=== PATIENT | female | born 1940 | race Caucasian/White ===

== ENCOUNTER 2017-11-24 05:51 | Day surgery (SDC) | payer MEDICARE, OTHER, SELFPAY ==
--- NOTE | 2017-11-06 11:27 | EKG12_ITS ---
Test Reason : PRE OP Blood Pressure : / mmHG Vent. Rate : 056 BPM Atrial Rate : 056 BPM P-R Int : 174 ms QRS Dur : 088 ms QT Int : 406 ms P-R-T Axes : 044 055 042 degrees QTc Int : 391 ms Sinus bradycardia Otherwise normal ECG Confirmed by JEMMA LORA, MORA ([id number]), science editor JOSEPH PEPE ([id number]) on 11/07/2017 9:51:02 AM Referred By: Franny Hopkins Confirmed By:MORA EASTON MD
[2017-11-06 11:56] LABS: Absolute Lymphocyte Count 1.54 X10^3/ul (0.83-4.51); Absolute Neutrophil Count 3.2 X10^3/uL (2.0-7.7); Basophil# 0.03 X10^3/uL; Basophil% 0.6 % (0-1); Eosinophil# 0.27 X10^3/uL; Hematocrit 39.1 % (37-47); Hemoglobin 13.1 g/dl (12.0-15.0); Lymphocyte # 1.54 X10^3/ul (4.0); Lymphocyte % 28.8 % (19-41); Mean Corp Hgb Conc 33.5 g/gl (32-36); Mean Corpuscular Hgb 30.5 pg (27.0-32.0); Mean Corpuscular Volume 90.9 fL (81-99); Mean Platelet Vol. 9.4 fl (6.2-12.0); Monocyte# 0.35 X10^3/uL; Monocyte% 6.5 % (0-10); Neutrophil # 3.15 X10^3/uL (2.7-7.7); Neutrophil % 58.9 % (47-70); Platelet Count 222 K/mm3 (150-450); RBC Distribution Width CV 12.1 % (11.6-14.6); RBC Distribution Width SD 39.6 fl (35.1-43.9); White Blood Count 5.4 K/mm3 (4.4-11.0)
[2017-11-06 11:57] LABS: POSITIVE COUNT NO; POSITIVE DIFFERENTIAL NO; POSITIVE MORPHOLOGY NO
[2017-11-06 12:38] LABS: AST(SGOT) 20 U/L (15-37); Alanine Aminotransfer ALT/SGPT 21 U/L (13-56); Albumin, Serum 3.7 g/dL (3.2-5.0); Alkaline Phosphatase 74 U/L (45-117); Anion Gap 8 (5-15); BUN 30 mg/dL (7-18); BUN/Creat Ratio 30.5 RATIO (10-20); Calcium,Total 9.2 mg/dL (8.5-10.1); Chloride 105 mmol/L (98-107); Cholesterol 231 mg/dL (200); Creatinine, Serum 0.98 mg/dL (0.55-1.02); EST Glomerular Filtration Rate 59 mL/min (>60); Est Glom Filt Rate - Afr Amer 71 mL/min (>60); Globulin 3.8 g/dL (2.2-4.2); Glucose 94 mg/dL (74-106); High Density Lipoprotein 64 mg/dL; Potassium 4.1 mmol/L (3.5-5.1); Protein, Total 7.5 g/dL (6.4-8.2); Sodium Level 143 mmol/L (136-145); Triglycerides 96 mg/dL; Very Low Density Lipoprotein 19 mg/dL (5-40)
[2017-11-16 11:45] LABS: International Normalized Ratio 0.9; Prothrombin Time (Protime)PT. 12.6 SECONDS (11.7-14.9)
[2017-11-16 11:46] LABS: Partial Thromboplast Time 25.3 Seconds (24.1-36.2)
[2017-11-24] VITALS (11 sets, daily range): BP systolic 105–167; BP diastolic 50–70; PULSE 57–71; RESP 14–18; TEMP 36.3–36.8; O2SAT 94–100; BMI 24.6; BMI 26.1
--- NOTE | 2017-11-24 | HYST_PTH ---
PATIENT: PANCHO MUNSON LOC: [facility] [place] U#:[id number] AGE/SX: 77/F ROOM: RE11/24/[address]: Dr. Franny Hopkins MD : 1940 BED: DIS: 11/25/2017 SPEC #: [id number] RECD: 11/24/17 13:48 STATUS: STEFFI RETy #: [id number] ARCADIO: 11/24/17 00:[address]: Franny Hopkins DEPT: SURGICAL PATHOLOGY RECD BY: Zackery Carlson ENTERED: 11/24/17 13:48 SP TYPE: HYSTERECT OTHR DR: Dr. Ventura Noble MD Tissues: Uterus, NOS Procedures: Surgery Specimen Level V HEADER OPERATION: Vaginal hysterectomy, anterior repair PRE-OP DIAGNOSIS: Cystocele, midline and incomplete uterovaginal prolapse TISSUE SUBMITTED: Uterus, cervix and vaginal mucosa MICROSCOPIC DIAGNOSIS Uterus, cervix and vaginal mucosa, vaginal hysterectomy and anterior repair: Cervix ? chronic cystic cervicitis and squamous metaplasia. Endometrium ? focal simple cystic hyperplasia without atypia. Myometrium ? no pathologic diagnosis. Vaginal mucosa ? fragments of squamous mucosa, no pathologic diagnosis. SJ:rg 11/27/17 COMMENT Case has been reviewed in consultation with Dr. Fatima who concurs with the above diagnosis. IDC:AM MICROSCOPIC DESCRIPTION Slides are reviewed. GROSS DESCRIPTION Received in fixative is one container labeled with the patient's name and designated uterus, cervix and vaginal mucosa. The specimen consists of a hysterectomy specimen consisting of uterus with cervix weighing 43 gm and measuring 7 x 4 x 3 cm. The serosal surface is novoa, glistening. The ectocervical mucosa is unremarkable. The external os is oval in contour. The endocervical canal measures 2.5 cm in length and the endocervical mucosa is novoa, glistening and unremarkable. The triangular endometrial cavity measures 3.5 cm in length and 2 cm in width. The endometrium is novoa, glistening without any mass lesion and measures 0.1 cm in thickness. Sections of the uterine wall do not reveal any mass lesion and measures 1.5 cm in thickness. Also present in the container are detached pieces of mucosal tissue measuring in aggregate 5 x 5 x 1 cm. No mucosal lesion is identified. Multiple instrumentation shepherd are noted. Composite Layup Worker sections are submitted in seven cassettes as follows: 1 - anterior cervix, 2 - posterior cervix, 3 & 4 - anterior uterine wall, 5 & 6 - posterior uterine wall, 7 ? mucosal tissue. / JESSE:bill 11/24/17 TC:5 CPT: 27391
[2017-11-24] MEDS: Estrogens,Conj. 1 Tube 1 DOSE (09:00)
--- NOTE | 2017-11-24 09:08 | OP.PCM_ITS ---
Report of Operation Date of Procedure: 11/24/17 Pre-Operative Diagnosis: Hysterectomy Post-Operative Diagnosis: Same, vaginal hysterectomy Surgery/Procedure Performed:: Cystoscopy and bilateral catheter placement, ureteral catheters Description of Surgical Findings:: 77-year-old female who underwent a vaginal hysterectomy by Dr. Fowler, she will call me and the operating room to examine her bladder and the ureters since there was no methylene blue effluxing from either ureter for now about half an hour, inspected the bladder with a 30 and 70? lens basically a normal bladder cannulated the left ureteral orifice with a Glidewire and a Pollack catheter was able to advance his all the way up to the kidney, on the left side, . And then went to the right side and cannulated the right ureteral orifice and ureter with a Pollack and Glidewire and advanced all the way up to the right side without any problems I do not suspect any injury or any any problems drain the bladder and turned the case back over. Type of Anesthesia:: General - Admit VTE Documentation VTE Present on Admission: No VTE Mechan Device Prophylaxis: SCD's
[2017-11-24] MEDS: Polyethylene Glycol 3350 17 GM PACKET PO (12:48)
[2017-11-24] MEDS: Ibuprofen 400 MG Tablet PO ×3 (12:49→23:35)
[2017-11-24] MEDS: Lactated Ringers 1,000 ML 125 ML IV (14:30)
--- NOTE | 2017-11-24 19:47 | OP.PCM_ITS ---
Operative Report Date of Procedure: 11/24/17 PROCEDURE: Total vaginal hysterectomy. Anterior repair Preoperative diagnosis: Symptomatic , incomplete uterovaginal prolapse Grade I uterine prolapse Severe rectocele Postop diagnosis: Symptomatic , incomplete uterovaginal prolapse Grade I uterine prolapse Severe rectocele Anesthesia: General Lou Phillips MD Surgeon: Franny Hopkins MD Publications Production Supervisor: SEN Sommers RNFA Intraoperative consult: Garth Hollins MD For visualization/ cannulation of ureters given anuria immediately postop. EBL 100 cc Complications: none Drains: 100 cc prior to case, clear yellow urine Fluids: replacement LR Findings: On exam under anesthesia, the cervix has mild prolapse and is parous appearing. There are atrophic appearing fallopian tubes and ovaries bilaterally. Severe cystocele. urethral caruncle also noted. PATH: Uterus including cervix. Strips of vaginal mucosa. Narrative account: After the risks, benefits and alternatives of the procedure were reviewed with the patient , informed consent was obtained. The patient was taken to the Operative room with an IV running . She was positioned in the dorsal supine position on the operating table and given general anesthesia. Once asleep she was positioned to the dorsal lithotomy position and prepped and draped in the usual sterile fashion. A red Lua catheter was inserted to drain the bladder . The weighted speculum was placed into the vagina and a Leahey tenaculum was placed at the cervix. The cervical mucosal was then incised circumferentially using Bovie cautery and a knife. The anterior dissection was initiated, but the anterior cul de sac could not be easily entered at this point. The posterior cul de sac was entered by sharp dissection with Land scissors. The uterosacral ligaments were clamped bilaterally with curved Yung clamps and the pedicles divided and suture ligated and tagged for later identification. Next the cardinal ligament was clamped bilaterally and divided and suture ligated. Adequate hemostasis was noted. The anterior cul de sac peritoneum was then entered by sharp dissection and a narrow Ad retractor was placed into the anterior cul de sac to retract the bladder out of harm's way for the remainder of the case. The uterine arteries were clamped bilaterally , divided and suture ligated. Dissection then continued along each side of the uterus. Each pedicle was secured with a Yung clamp, divided and suture ligated until ultimately the uterine fundus was reached. The superior pedicles on each side were secured with a curved Yung clamp and the uterus was surgically amputated and set aside. The superior pedicle was then suture ligated, then free tied and tagged for identification. The superior pedicles were dry. There was bleeding noted along the posterior vaginal cuff and along the anterior vaginal cuff . The peritoneum was then closed with a running purse string suture of 1 Vicryl, incorporating the superior pedicles and uterosacral ligament tags. Excellent hemostasis was noted. Attention was then turned to the anterior repair. Allis clamps were used to grasp the anterior vaginal mucosa and the vaginal mucosa was dissected from from the underlying pubovesical cervical fascia from the vaginal cuff to a point approximately 1-2 cm away from the urethra. Em plication stitches of 1 Vicryl were placed, reducing the cystocele. The anterior vaginal mucosa was trimmed and the anterior vaginal incision was then repaired with interrupted stitches of 2-0 chromic. The vaginal cuff was then reapproximated with interrupted and fig of eight stitches of 0 Vicryl . Excellent hemostasis was noted. A vaginal packing of 1 in iodoform guaze with premarin cream was then placed. The Solan was attached to the Sloan bag and NO urine returned. Given this, a cystoscopy was performed. No indigo carmine is available (discontinued), so methylene blue was given IV. No spill was noted from the ureteral orifices. Peristalsis of the ureters was noted bilaterally. Dr. Hollins was consultated intraoperatively to rule out ureteral injury. He performed a cystoscopy and then easily placed guidewires through both urethers to approx 25 cm length. There was no injury to the ureters. Please see Dr. Hollins's intraoperative consultation / operative note. At this point then the procedure was terminated. The patient was returned to dorsal supine position and awakened from general anesthesia. She was then transferred to the recovery room bed in stable condition after tolerating the procedure well. Sponge, lap, needle and instrument counts were correct times two. Medications given preop and intraoperatively included: Cefotetan IV given interventional radiology tech to the operating room , Lasix and Methylene blue for visualization of the ureteral orifices during cystoscopy. For a complete listing of medications given preop and intraoperatively, please see the anesthesia record.
[2017-11-25 04:12] VITALS: BP 100/41; PULSE 75; RESP 16; TEMP 36.8; O2SAT 97
[2017-11-25] MEDS: Ibuprofen 400 MG Tablet PO (06:19)
--- NOTE | 2017-11-25 07:07 | PCM.PROGNOTE ---
Subjective: pod#1 tvh Anterior repair Doing well. Minimal pain. Tolerating out of bed well. Sloan removed. Vaginal packing still in place. States pain 1/10 on pain scale has been getting medications and these are effective. (tyl and ibuprofen) Objective: Sitting up in chair, walks to bed tolerated well. - Physical Exam General: Alert, Oriented x3, Cooperative, No apparent distress HEENT: Atraumatic Neck: Supple Abdomen: Soft, Non Tender - vaginal packing removed. Minimal old dischg noted. Neurological: Cranial nerves II-XII grossly intact Psych/Mental Status: Normal Affect Vital Signs Temp Pulse Resp BP Pulse Ox 98.3 F 75 16 100/41 L 97 11/25/17 04:12 11/25/17 04:12 11/25/17 04:12 11/25/17 04:12 11/25/17 04:12 Oxygen Flow Rate (L/min) 2 Oxygen Delivery Method Room Air Weight: 69.4 kg Body Mass Index (BMI) 26.1 Intake and Output for Last 24 Hours 11/23/18 //18 11/25/17 23:59 23:59 23:59 Intake Total 3222 / 3222 150 / 150 Output Total 2200 / 2200 400 / 400 Balance 1022 / 1022 -250 / -250 Medical Necessity - Tobacco Use Smoking Status: Never smoker Tobacco Use: Non-smoker Assessment/Plan POD#1 TVH and anterior repair Stable postop. Excellent urine output. Sloan out (and vaginal packing out) for voiding trial. IV to saline lock. Likely dischg later today if criteria met.
--- NOTE | 2017-11-25 07:13 | DCINST_ITS ---
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 No heavy lifting and nothing in vagina for 4-6 wk to allow healing. Call your doctor if you observe: Fever of 101 or Higher, Inability to have a bowel movement, Using more than one pad per hour, Calf discomfort, Uncontrolled pain Allergies/Adverse Reactions: Allergies No Known Allergies Allergy (Unverified 11/13/17 13:13) Medications to take at Discharge aspirin 81 mg tablet,delayed release 81 mg PO QDAY 11/02/17 cholecalciferol (vitamin D3) 2,000 unit capsule 2,000 unit PO QDAY 11/02/17 lovastatin 20 mg tablet 20 mg PO QODAY 11/02/17 multivitamin with iron tablet 1 tab PO QDAY 11/02/17 omega 1-hhb-fss-fish oil 1,000 mg (120 mg-180 mg) capsule 2,400 cap PO DAILY Primary Care Physician: Ventura Noble MD [Primary Care Provider] - Test Results: Test results from this visit will be discussed in further detail at your follow- up appointment, if applicable. Please Follow Up With: Franny Hopkins MD - [phone] When: in 2 wks as planned
[2017-11-25 07:35] VITALS: O2SAT 94
[2017-11-25 07:59] VITALS: BP 114/64; PULSE 75; RESP 18; TEMP 36.8; O2SAT 98
[2017-11-25 08:00] LABS: Hemoglobin 10.8 g/dl (12.0-15.0); Mean Corp Hgb Conc 34.8 g/gl (32-36); Mean Corpuscular Hgb 31.3 pg (27.0-32.0); Mean Corpuscular Volume 89.9 fL (81-99); Mean Platelet Vol. 9.3 fl (6.2-12.0); Platelet Count 204 K/mm3 (150-450); RBC Distribution Width CV 11.7 % (11.6-14.6); RBC Distribution Width SD 37.3 fl (35.1-43.9); Red Blood Count 3.45 M/mm3 (4.2-5.4); White Blood Count 8.2 K/mm3 (4.4-11.0)
[2017-11-25 08:15] LABS: Scan Indicated on CBC? Y/N NO
[2017-11-25 08:23] LABS: Creatinine, Serum 0.97 mg/dL (0.55-1.02); EST Glomerular Filtration Rate 59 mL/min (>60); Est Glom Filt Rate - Afr Amer 71 mL/min (>60); Estimated Creatinine Clearance 42.61 ml/min
== END 2017-11-25 11:42 | disposition home or self-care (01) ==
LOC: SDC 05:52 → AC 05:52 → ACINP 09:55 → MS3 10:28
PROVIDERS: Family Provider Internal Medicine; PCP Internal Medicine; Visit Provider Obstetrics & Gynecology
PROC: (CPT 58260; principal; 2017-11-24 07:10)
DX: N81.2 Incomplete uterovaginal prolapse (principal); N72 Inflammatory disease of cervix uteri; R34 Anuria and oliguria; N36.2 Urethral caruncle; Z78.0 Asymptomatic menopausal state; Z79.82 Long term (current) use of aspirin; Z79.899 Other long term (current) drug therapy; E78.00 Pure hypercholesterolemia, unspecified; Z85.828 Personal history of other malignant neoplasm of skin; G25.81 Restless legs syndrome
CPT/HCPCS: 52005; 57240; 58260; 36415; 80053; 80061; 82565; 85025; 85027; 85610; 85730; 86850; 86870; 86900; 88307; 93005; J7120; C1769; J1940; J2405

== ENCOUNTER → 2018-11-16 10:13 | Outpatient (CLI) | payer MEDICARE, OTHER, SELFPAY ==
[2018-09-20 15:00] VITALS: BMI 26.1
[2018-11-16 12:39] LABS: Absolute Lymphocyte Count 1.57 X10^3/ul (0.83-4.51); Absolute Neutrophil Count 3.3 X10^3/uL (2.0-7.7); Basophil# 0.02 X10^3/uL; Basophil% 0.4 % (0-1); Eosinophil# 0.19 X10^3/uL; Eosinophils% 3.5 % (0-5); Hematocrit 40.2 % (37-47); Hemoglobin 13.1 g/dl (12.0-15.0); Lymphocyte # 1.57 X10^3/ul (4.0); Lymphocyte % 28.8 % (19-41); Mean Corp Hgb Conc 32.6 g/gl (32-36); Mean Corpuscular Hgb 29.5 pg (27.0-32.0); Mean Corpuscular Volume 90.5 fL (81-99); Mean Platelet Vol. 9.7 fl (6.2-12.0); Monocyte# 0.35 X10^3/uL; Monocyte% 6.4 % (0-10); Neutrophil # 3.31 X10^3/uL (2.7-7.7); Neutrophil % 60.7 % (47-70); Platelet Count 227 K/mm3 (150-450); RBC Distribution Width CV 12.6 % (11.6-14.6); RBC Distribution Width SD 41.3 fl (35.1-43.9); Red Blood Count 4.44 M/mm3 (4.2-5.4); White Blood Count 5.5 K/mm3 (4.4-11.0)
[2018-11-16 12:50] LABS: POSITIVE COUNT NO; POSITIVE DIFFERENTIAL NO; POSITIVE MORPHOLOGY NO
[2018-11-16 13:00] LABS: Anion Gap 10 (5-15); BUN 28 mg/dL (7-18); BUN/Creat Ratio 28.1 RATIO (10-20); Calcium,Total 9.3 mg/dL (8.5-10.1); Chloride 108 mmol/L (98-107); Cholesterol 236 mg/dL (200); EST Glomerular Filtration Rate 58 mL/min (>60); Est Glom Filt Rate - Afr Amer 70 mL/min (>60); Glucose 101 mg/dL (74-106); High Density Lipoprotein 77 mg/dL; Potassium 4.4 mmol/L (3.5-5.1); Sodium Level 145 mmol/L (136-145); Triglycerides 101 mg/dL; Very Low Density Lipoprotein 20 mg/dL (5-40)
== END ==
PROVIDERS: Family Provider Internal Medicine; PCP Internal Medicine; Referring Provider Internal Medicine; Visit Provider Internal Medicine
DX: E78.5 Hyperlipidemia, unspecified (principal); E55.9 Vitamin D deficiency, unspecified
CPT/HCPCS: 36415; 80048; 80061; 82306; 85025

== ENCOUNTER → 2020-01-22 10:10 | Outpatient (CLI) | payer MEDICARE, OTHER, SELFPAY ==
[2018-09-20 15:00] VITALS: BMI 26.1
[2020-01-22 12:41] LABS: Vitamin D,25 Hydroxy 54.7 ng/mL
[2020-01-22 12:43] LABS: Absolute Neutrophil Count 5.1 X10^3/uL (2.0-7.7); Basophil# 0.02 X10^3/uL; Basophil% 0.3 % (0-1); Eosinophil# 0.21 X10^3/uL; Eosinophils% 2.7 % (0-5); Hematocrit 40.2 % (37-47); Hemoglobin 13.1 g/dL (12.0-15.0); Lymphocyte % 22.2 % (19-41); Mean Corp Hgb Conc 32.6 g/dL (32-36); Mean Corpuscular Hgb 30.9 pg (27.0-32.0); Mean Corpuscular Volume 94.8 fL (81-99); Mean Platelet Vol. 9.7 fl (6.2-12.0); Monocyte# 0.56 X10^3/uL; Monocyte% 7.3 % (0-10); NRBC Flagged by Analyzer 0 % (0-5); Neutrophil # 5.13 X10^3/uL (2.7-7.7); Neutrophil % 67.1 % (47-70); Platelet Count 237 K/mm3 (150-450); RBC Distribution Width SD 41.6 fl (35.1-43.9); Red Blood Count 4.24 M/mm3 (4.2-5.4); White Blood Count 7.7 K/mm3 (4.4-11.0)
[2020-01-22 12:58] LABS: ALB/GLOB Ratio 0.9 RATIO (0.9-2.4); AST(SGOT) 17 U/L (15-37); Alanine Aminotransfer ALT/SGPT 19 U/L (13-56); Albumin, Serum 3.7 g/dL (3.2-5.0); Alkaline Phosphatase 86 U/L (45-117); Anion Gap 5 (5-15); BUN 22 mg/dL (7-18); BUN/Creat Ratio 20.2 RATIO (10-20); Calcium,Total 9.4 mg/dL (8.5-10.1); Chloride 106 mmol/L (98-107); Cholesterol 205 mg/dL (200); Creatinine, Serum 1.09 mg/dL (0.55-1.02); EST Glomerular Filtration Rate 52 mL/min (>60); Est Glom Filt Rate - Afr Amer 62 mL/min (>60); Glucose 105 mg/dL (74-106); High Density Lipoprotein 69 mg/dL; Potassium 4.3 mmol/L (3.5-5.1); Protein, Total 7.7 g/dL (6.4-8.2); Sodium Level 141 mmol/L (136-145); Triglycerides 102 mg/dL; Very Low Density Lipoprotein 20 mg/dL (5-40)
== END ==
PROVIDERS: PCP Internal Medicine; Referring Provider Internal Medicine; Visit Provider Internal Medicine
DX: E78.5 Hyperlipidemia, unspecified (principal); E55.9 Vitamin D deficiency, unspecified
CPT/HCPCS: 36415; 80053; 80061; 82306; 85025

== ENCOUNTER → 2021-01-20 13:37 | Outpatient (CLI) | payer MEDICARE, OTHER, SELFPAY ==
[2021-01-20 13:40] LABS: Bacteria 0 SEEN /hpf (None Seen); Mucous, Urine 0 SEEN /hpf (<or=2+); Red Blood Cells-Urine 0 SEEN /hpf (0-5)
[2021-01-20 15:32] LABS: Absolute Lymphocyte Count 2.31 X10^3/uL (0.83-4.51); Absolute Neutrophil Count 4.2 X10^3/uL (2.0-7.7); Basophil# 0.03 X10^3/uL; Basophil% 0.4 % (0-1); Eosinophil# 0.31 X10^3/uL; Eosinophils% 4.2 % (0-5); Hematocrit 38.3 % (37-47); Hemoglobin 12.5 g/dL (12.0-15.0); Lymphocyte # 2.31 X10^3/ul (0.83-4.51); Mean Corp Hgb Conc 32.6 g/dL (32-36); Mean Corpuscular Hgb 29.6 pg (27.0-32.0); Mean Corpuscular Volume 90.8 fL (81-99); Mean Platelet Vol. 9.4 fl (6.2-12.0); Monocyte# 0.58 X10^3/uL; Monocyte% 7.8 % (0-10); NRBC Flagged by Analyzer 0 % (0-5); Neutrophil % 56.3 % (47-70); Platelet Count 244 K/mm3 (150-450); RBC Distribution Width SD 40.1 fl (35.1-43.9); Red Blood Count 4.22 M/mm3 (4.2-5.4); White Blood Count 7.5 K/mm3 (4.4-11.0)
[2021-01-20 15:47] LABS: Color, Urine Yellow (Yellow); Glucose, Dipstick Normal (Normal); Ketone-Dipstick Negative (Negative); Leukocyte Esterase-Dipstick 500 /ul (Negative); Nitrite-Dipstick Negative (Negative); Occult Blood-Urine 10 /ul (Negative); Protein-Dipstick Negative (Negative); Urine Bilirubin Dipstick Negative (Negative); Urine Clarity Cloudy (Clear); Urine Urobilinogen Normal (Normal)
[2021-01-20 15:49] LABS: AST(SGOT) 15 U/L (15-37); Alanine Aminotransfer ALT/SGPT 20 U/L (13-56); Albumin, Serum 3.6 g/dL (3.2-5.0); Alkaline Phosphatase 83 U/L (45-117); Anion Gap 4 (5-15); BUN 34 mg/dL (7-18); BUN/Creat Ratio 34.7 RATIO (10-20); Calcium,Total 9.4 mg/dL (8.5-10.1); Chloride 106 mmol/L (98-107); Cholesterol 237 mg/dL (200); Creatinine, Serum 0.98 mg/dL (0.55-1.02); EST Glomerular Filtration Rate 58 mL/min (>60); Est Glom Filt Rate - Afr Amer 70 mL/min (>60); Globulin 3.5 g/dL (2.2-4.2); Glucose 97 mg/dL (74-106); High Density Lipoprotein 58 mg/dL; Potassium 4.3 mmol/L (3.5-5.1); Protein, Total 7.1 g/dL (6.4-8.2); Sodium Level 139 mmol/L (136-145); Triglycerides 134 mg/dL; Very Low Density Lipoprotein 27 mg/dL (5-40)
[2021-01-20 16:21] LABS: Renal Epithelial Cells 0-5 SEEN /hpf (0-5); Squamous Epithelial Cells - UA 0-5 SEEN /hpf (5-10); White Blood Cells 25-50 SEEN /hpf (0-5)
== END ==
LOC: LABSPEC 13:39 → BIMLAB 13:40
PROVIDERS: PCP Internal Medicine; Referring Provider Internal Medicine; Visit Provider Internal Medicine
DX: R30.0 Dysuria (principal); E78.5 Hyperlipidemia, unspecified; I10 Essential (primary) hypertension
CPT/HCPCS: 36415; 80053; 80061; 81001; 85025; 87077; 87086; 87088; 87186

== ENCOUNTER → 2021-01-28 12:16 | Outpatient (CLI) | payer MEDICARE, OTHER, SELFPAY ==
--- NOTE | 2021-01-28 12:20 | BD_ITS ---
STUDY: DUAL ENERGY X-RAY ABSORPTIOMETRY / DXA REASON FOR EXAM: Female, 80 years old. Post menopausal TECHNIQUE: Bone Mineral Density (BMD) measurements of lumbar spine and bilateral hips were obtained. COMPARISON: Comparison is made with prior study to 02/10/2016. FINDINGS: Lumbar Spine (L1-L4): g/cm2 (1.212) / T-score (2.1) / Z-score (4.6) Findings are suggestive of normal bone density with a low fracture risk. Left Femur Total: g/cm2 (1.087) / T-score (1.2) / Z-score (3.2) Left Femoral Neck: g/cm2 (0.910) / T-score (0.6) / Z-score (2.8) Right Femur Total: g/cm2 (1.052) / T-score (0.9) / Z-score (2.9) Right Femoral Neck: g/cm2 (0.878) / T-score (0.3) / Z-score (2.5) The T-Scores on the most recent prior examination were: Lumbar Spine (L1-L4): There has been worsening of bone density since the previous examination. Left Femur Total: which represents a worsening of 3.6%. Right Femur Total: which represents a worsening of 4.2%. BD/Dexa Bone Density Study IMPRESSION: The patient is considered normal as outlined below according to World Jose Organization (WHO) criteria with a low fracture risk. There has been worsening of bone density since the previous examination. Reference Information: The T-score is the number of standard deviations above or below the standard which is normal for young adults at their peak bone mineral density. The World Health Organization (WHO) interprets the T-scores as follows: Above -1 Normal bone density Between -1 and -2.5 Osteopenia Equal to / or below -2.5 Osteoporosis As a practical clinical guideline, osteopenia may be graded as follows: Mild -1 through -1.5 Moderate -1.6 through -2.0 Severe -2.1 through -2.4 The Z-score is the number of standard deviations above or below age-matched controls. A Z-score of less than -1.5 would be considered abnormal. References: 1. NIH Osteoporosis and Related Bone Diseases www osteo.org 2. International Society for Clinical Densitometry www iscd.org 3. National Osteoporosis Foundation www nof.org Electronically Signed: Jonny Jiménez MD at 13:27 EDT , Service support ,
== END ==
PROVIDERS: PCP Internal Medicine; Referring Provider Internal Medicine; Visit Provider Internal Medicine
DX: Z78.0 Asymptomatic menopausal state (principal)
CPT/HCPCS: 77080

== ENCOUNTER 2021-08-16 09:42 | Outpatient (CLI) | payer MEDICARE, OTHER, SELFPAY ==
--- NOTE | 2021-08-16 09:51 | ART_ITS ---
Reason For Study: PVD Procedure A bilateral lower extremity continuous wave Doppler with analog waveform analysis,segmental pressures,and ankle brachial indexes without exercise. Left Segmental Pressures Left brachial= 153mmHg. Left posterior tibial artery = 181mmHg. Left dorsalis pedis artery = 166mmHg. Left digit = 151 mmHg. The left posterior tibial artery waveforms are triphasic. The left dorsalis pedis waveforms are triphasic. Right Segmental Pressures Right brachial= 152mmHg. Right posterior tibial artery = 164mmHg. Right dorsalis pedis artery = 179mmHg. Right digit = 150 mmHg. The right posterior tibial artery waveforms are biphasic. The right dorsalis pedis waveforms are triphasic. Indices The right resting ankle brachial index is 1.17. The right ankle brachial index by the posterior tibial artery is 1.07. The right ankle brachial index by the dorsalis pedis is 1.17. The right digital-brachial index is 0.98. The left resting ankle brachial index is 1.18. The left ankle brachial index by the posterior tibial artery is 1.18. The left ankle brachial index by the dorsalis pedis is 1.08. The left digital-brachial index is 0.99. VL/Lower Ext Art Exam w/o Exercis Interpretation Summary Biphasic and triphasic Doppler waveforms are noted at ankle level on the right. Triphasic Doppler waveforms are noted at ankle level on the left. Pulse-volume recordings appear satisfactory at all levels bilaterally, including low thigh, calf, ankle, and digital levels. Resti ng ankle-brachial indices are normal bilaterally. Digital-brachial indices are normal bilaterally . There is no evidence of significant arterial occlusive disease in the lower ext remities bilaterally. Ordering Physician: Dani Dukes Referring Physician: Ventura Noble Performed By: Lina Sands RVT, RDCS
== END 2021-08-16 23:59 | disposition home or self-care (01) ==
LOC: CVS 09:43
PROVIDERS: PCP Internal Medicine; Visit Provider Podiatrist
DX: I73.9 Peripheral vascular disease, unspecified (principal)
CPT/HCPCS: 93923

== ENCOUNTER 2021-08-31 10:03 | Outpatient (CLI) | payer MEDICARE, OTHER, SELFPAY ==
[2021-08-31 12:19] LABS: Absolute Lymphocyte Count 1.66 X10^3/uL (0.83-4.51); Absolute Neutrophil Count 2.7 X10^3/uL (2.0-7.7); Basophil# 0.03 X10^3/uL; Basophil% 0.6 % (0-1); Eosinophil# 0.22 X10^3/uL; Eosinophils% 4.4 % (0-5); Hematocrit 38.8 % (37-47); Hemoglobin 12.8 g/dL (12.0-15.0); Lymphocyte # 1.66 X10^3/ul (0.83-4.51); Lymphocyte % 33.3 % (19-41); Mean Corpuscular Hgb 30.3 pg (27.0-32.0); Mean Corpuscular Volume 91.9 fL (81-99); Mean Platelet Vol. 9.6 fl (6.2-12.0); Monocyte# 0.33 X10^3/uL; Monocyte% 6.6 % (0-10); NRBC Flagged by Analyzer 0 % (0-5); Neutrophil # 2.73 X10^3/uL (2.7-7.7); Neutrophil % 54.7 % (47-70); Platelet Count 239 K/mm3 (150-450); RBC Distribution Width CV 12.5 % (11.6-14.6); RBC Distribution Width SD 41.9 fl (35.1-43.9); Red Blood Count 4.22 M/mm3 (4.2-5.4)
[2021-08-31 12:27] LABS: ALB/GLOB Ratio 1.1 RATIO (0.9-2.4); AST(SGOT) 17 U/L (15-37); Alanine Aminotransfer ALT/SGPT 24 U/L (13-56); Albumin, Serum 3.7 g/dL (3.2-5.0); Alkaline Phosphatase 69 U/L (45-117); Anion Gap 3 (5-15); BUN 25 mg/dL (7-18); BUN/Creat Ratio 21.9 RATIO (10-20); Calcium,Total 9.2 mg/dL (8.5-10.1); Chloride 107 mmol/L (98-107); Creatinine, Serum 1.14 mg/dL (0.55-1.02); EST Glomerular Filtration Rate 49 mL/min (>60); Est Glom Filt Rate - Afr Amer 59 mL/min (>60); Globulin 3.3 g/dL (2.2-4.2); Glucose 112 mg/dL (74-106); Potassium 4.2 mmol/L (3.5-5.1); Sodium Level 141 mmol/L (136-145); Thyroid Stim Hormone (TSH) 2.26 uIU/mL (0.358-3.74)
== END 2021-08-31 23:59 | disposition home or self-care (01) ==
LOC: BIMLAB 10:05
PROVIDERS: PCP Internal Medicine; Referring Provider Nurse Practitioner Family; Visit Provider Nurse Practitioner Family
DX: Z01.818 Encounter for other preprocedural examination (principal); E78.5 Hyperlipidemia, unspecified
CPT/HCPCS: 36415; 80053; 84443; 85025

== ENCOUNTER → 2021-09-10 | Outpatient (CLI) | payer MEDICARE, OTHER, SELFPAY ==
--- NOTE | 2021-09-10 13:44 | EKG12_ITS ---
Test Reason : PRE OP Blood Pressure : / mmHG Vent. Rate : 068 BPM Atrial Rate : 068 BPM P-R Int : 170 ms QRS Dur : 082 ms QT Int : 370 ms P-R-T Axes : 069 060 046 degrees QTc Int : 393 ms Normal sinus rhythm Normal ECG Confirmed by SHELLEY LORA, MARIA ELENA ([id number]), photo editor MIKE ECHAVARRIA ([id number]) on 09/13/2021 11:36:17 AM Referred By: ROBIN Confirmed By:MARIA ELENA ROSA MD
== END | disposition home or self-care (01) ==
LOC: PSN 13:42
PROVIDERS: PCP Internal Medicine; Visit Provider Nurse Practitioner Family
DX: Z01.818 Encounter for other preprocedural examination (principal)
CPT/HCPCS: 93005

== ENCOUNTER 2021-09-16 10:58 | Day surgery (SDC) | payer MEDICARE, OTHER, SELFPAY ==
[2021-09-16] VITALS (8 sets, daily range): BP systolic 116–158; BP diastolic 54–74; PULSE 64–72; RESP 16; TEMP 36.1–36.5; O2SAT 95–100; BMI 24.5
--- NOTE | 2021-09-16 | BON_PTH ---
PATIENT: PANCHO MUNSON LOC: [facility] [place] U#:[id number] AGE/SX: 80/F ROOM: RE09/16/[address]: Dr. Dani Dukes DPM : 1940 BED: DIS: 09/16/2021 SPEC #: [id number] RECD: 09/16/21 16:17 STATUS: STEFFI RETy #: [id number] ARCADIO: 09/16/21 00:[address]: Dani Dukes DEPT: SURGICAL PATHOLOGY RECD BY: Zackery Carlson ENTERED: 09/17/21 10:52 SP TYPE: Bone OTHR DR: Dr. Ventura Noble MD Tissues: Bone of foot, NOS Procedures: Decalcification bone/plaque Surgery Specimen Level III HEADER OPERATION: Second toe proximal interphalangeal joint arthroplasty PRE-OP DIAGNOSIS: Hammertoe right second and third toes TISSUE SUBMITTED: Proximal phalangeal head of right second and third toes MICROSCOPIC DIAGNOSIS Proximal phalangeal head of right second and third toes: Pieces of bone with reactive changes, clinically hammertoes, right second and third toes. JESSE:bill 09/22/2021 MICROSCOPIC DESCRIPTION Slides are reviewed. GROSS DESCRIPTION Received in fixative is one container labeled with the patient's name and designated proximal phalangeal head of right foot second and third toes. The specimen consists of two irregular fragments of novoa bone that in aggregate measure 1.5 x 1.5 x 0.3 cm. The specimen is totally submitted in one cassette after decalcification. / AM:bill 09/17/2021 TC:5 CPT: 37654, 90862
[2021-09-16] MEDS: Lactated Ringers 1,000 ML 15 ML IV (11:52)
--- NOTE | 2021-09-16 12:45 | RAD_ITS ---
EXAM: XR RIGHT TOES, 2 OR MORE VIEWS CLINICAL INDICATION: PAIN -- 2ND TOE PROXIMAL INTERPHALANGEAL JOINT ARTHROPLASTY WITH 3RD TOE PROXIMAL AND DISTAL INTERPHALANGEAL JOINT ARTHROPLASTY TECHNIQUE: Frontal, lateral and oblique views of the toes of the right foot. This report was created using [employer] report generation technology. COMPARISON: None. FINDINGS: BONES/JOINTS: Osteotomy of the distal portion of the second and third proximal phalanx. No acute fracture. No dislocation. SOFT TISSUES: Unremarkable. No radiopaque foreign body. RAD/Toe(s) Min 2 Views IMPRESSION: Osteotomy of the distal portion of the second and third proximal phalanx. Electronically Signed: Keshawn Fournier MD at 16:50 EDT ,
[2021-09-16] MEDS: Cefazolin 2 GM in 0.9% Normal Saline 100 ML IV (13:35)
[2021-09-16] MEDS: Bacitracin 500 UNITS/GM PACKET (14:45)
--- NOTE | 2021-09-16 14:50 | OP.PCM_ITS ---
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 Patient was consented in our office plan for procedure was made. Patient was brought back to the operating placed comfortably in the supine position on the operating room table. Patient was induced under MAC anesthesia. Well-padded right ankle tourniquet was applied. Digital blocks were performed to the right second and third digit using 0.75% Marcaine plain 10 cc using standard technique to the right second and third digit. Right lower extremity was prepped prepped draped using typical aseptic manner. Was cleared by anesthesia right lower extremity was elevated exsanguinated and tourniquet was inflated to 250 mmHg. A linear incision was drawn along the course of the dorsal second and third digit incision was made from just distal to the proximal interphalangeal joint to just proximal to the metatarsal phalangeal joint over the second digit. This was made through the level of the epidermis dermis into the subcutaneous tissue using a 15 blade at this time blunt dissection was taken down the level of deep fascia and tendon and capsule region all bleeders were cauterized and any neurovascular structures were bluntly retracted prevent any injury. The proximal interphalangeal joint was identified and a transverse capsulotomy and tenotomy was performed at the level of this joint proximal phalangeal head was released of its medial lateral collateral ligaments and the plantar aspect of the capsule as well as flexor tendon were released as well. The extensor tendon was dissected off the proximal phalanx down to the level of metatarsophalangeal joint and the dorsal and medial and lateral aspects of the metatarsal phalangeal joint were released using 15 blade. Care was taken to avoid any injury to adjacent neurovascular structures. Using bone cutting forceps the proximal phalangeal head was removed adequate resection was noted via fluoroscopic imaging. Incision site was flushed with copious amounts of normal sterile saline digital deformity was noted to be reduced. The extensor tendon was then repaired using 4-0 Vicryl and subcutaneous closure was performed with 4-0 Vicryl simple interrupted technique followed by skin closure with running intradermal subcuticular stitch with 4-0 Monocryl. The same procedure was repeated for the right third digit. tourniquet was let down tourniquet time was noted to be 27 minutes adequate hemostasis was noted. Incision sites were then dressed with quarter inch Steri-Strips bacitracin Adaptic 4 x 4's Kerlix and Coban. Patient was transferred to PACU with vital signs stable and vascular status intact all digits for further monitoring prior to discharge. Patient tolerated procedure and anesthesia well in apparent satisfactory condition. Patient will be discharged home and will remain in heel weightbearing on the right in a surgical shoe. Pathologic specimens: Proximal phalangeal head from both the right second and third digit No complications Findings after intraoperative examination and fluoroscopic imaging there is noted to be adequate reduction of the digital deformities in all planes. Surgeon: Dani Dukes animal nutrition consultant: None (daja Swanson DPM, PGYI) Type of Anesthesia: Local MAC Specimen's removed: Proximal phalangeal head of the right second and third digit Drains: none Estimated Blood Loss (mL): minimal Complications none Admit VTE Documentation VTE Present on Admission: Yes VTE Mechan Device Prophylaxis: SCD's
== END 2021-09-16 16:24 | disposition home or self-care (01) ==
LOC: SDC 10:59 → AC 11:00
PROVIDERS: PCP Internal Medicine; Referring Provider Podiatrist; Visit Provider Podiatrist
PROC: (CPT 28285; principal; 2021-09-16 12:30)
DX: M20.41 Other hammer toe(s) (acquired), right foot (principal); I10 Essential (primary) hypertension; E78.00 Pure hypercholesterolemia, unspecified; E55.9 Vitamin D deficiency, unspecified; Z79.899 Other long term (current) drug therapy
CPT/HCPCS: 28285 ×2; 01480; 73660; 76000; 88304; 88305; 88311; J7120

== ENCOUNTER → 2021-10-27 | Outpatient (CLI) | payer MEDICARE, OTHER, SELFPAY ==
[2021-10-27 08:53] LABS: Mucous, Urine 0 SEEN /hpf (<or=2+); Red Blood Cells-Urine 0 SEEN /hpf (0-5)
[2021-10-27 12:35] LABS: Color, Urine Yellow (Yellow); Glucose, Dipstick Normal (Normal); Ketone-Dipstick Negative (Negative); Leukocyte Esterase-Dipstick Negative /ul (Negative); Nitrite-Dipstick Negative (Negative); Occult Blood-Urine Negative /ul (Negative); Protein-Dipstick Negative (Negative); Urine Bilirubin Dipstick Negative (Negative); Urine Clarity Clear (Clear); Urine Urobilinogen Normal (Normal); Urine pH 6.5 (5.0 - 8.0)
[2021-10-27 13:08] LABS: Bacteria RARE /hpf (None Seen); Squamous Epithelial Cells - UA 0-5 SEEN /hpf (5-10); White Blood Cells 0-5 SEEN /hpf (0-5)
== END | disposition home or self-care (01) ==
LOC: LABSPEC 08:52
PROVIDERS: PCP Internal Medicine; Referring Provider Internal Medicine; Visit Provider Internal Medicine
DX: N39.0 Urinary tract infection, site not specified (principal); R35.0 Frequency of micturition
CPT/HCPCS: 81001; 87086; 87088

== ENCOUNTER → 2022-02-04 | Outpatient (CLI) | payer MEDICARE, OTHER, SELFPAY ==
[2022-02-04 14:57] LABS: Absolute Lymphocyte Count 1.71 X10^3/uL (0.83-4.51); Absolute Neutrophil Count 4.9 X10^3/uL (2.0-7.7); Basophil# 0.04 X10^3/uL; Basophil% 0.5 % (0-1); Eosinophil# 0.11 X10^3/uL; Eosinophils% 1.5 % (0-5); Hematocrit 39.6 % (37-47); Hemoglobin 12.9 g/dL (12.0-15.0); Lymphocyte # 1.71 X10^3/ul (0.83-4.51); Lymphocyte % 23.5 % (19-41); Mean Corp Hgb Conc 32.6 g/dL (32-36); Mean Corpuscular Hgb 30.6 pg (27.0-32.0); Mean Corpuscular Volume 94.1 fL (81-99); Mean Platelet Vol. 9.2 fl (6.2-12.0); Monocyte% 6.9 % (0-10); NRBC Flagged by Analyzer 0 % (0-5); Neutrophil % 67.3 % (47-70); Platelet Count 244 K/mm3 (150-450); RBC Distribution Width CV 13.2 % (11.6-14.6); RBC Distribution Width SD 45.8 fl (35.1-43.9); Red Blood Count 4.21 M/mm3 (4.2-5.4); White Blood Count 7.3 K/mm3 (4.4-11.0)
[2022-02-04 15:20] LABS: AST(SGOT) 18 U/L (15-37); Alanine Aminotransfer ALT/SGPT 28 U/L (13-56); Albumin, Serum 3.5 g/dL (3.2-5.0); Alkaline Phosphatase 65 U/L (45-117); Anion Gap 5 (5-15); BUN 25 mg/dL (7-18); BUN/Creat Ratio 27.2 RATIO (10-20); Calcium,Total 9.5 mg/dL (8.5-10.1); Chloride 105 mmol/L (98-107); Creatinine, Serum 0.92 mg/dL (0.55-1.02); EST Glomerular Filtration Rate 62 mL/min (>60); Est Glom Filt Rate - Afr Amer 76 mL/min (>60); Globulin 3.4 g/dL (2.2-4.2); Glucose 86 mg/dL (74-106); Protein, Total 6.9 g/dL (6.4-8.2); Sodium Level 140 mmol/L (136-145)
== END | disposition home or self-care (01) ==
LOC: BIMLAB 14:15
PROVIDERS: PCP Internal Medicine; Referring Provider Internal Medicine; Visit Provider Internal Medicine
DX: Z01.812 Encounter for preprocedural laboratory examination (principal)
CPT/HCPCS: 36415; 80053; 85025

== ENCOUNTER → 2022-02-18 | Outpatient (CLI) | payer MEDICARE, OTHER, SELFPAY ==
--- NOTE | 2022-02-18 13:19 | CT_ITS ---
STUDY: CT LEFT SHOULDER REASON FOR EXAM: Female, 81 years old. Osteoarthritis. Surgical planning. RADIATION DOSAGE (If Supplied By Facility): CTDIvol = ( 22.49 ) mGy, DLP = ( 646.29 ) mGycm TECHNIQUE: The patient was scanned in a multi detector CT scanner. High resolution transaxial imaging was performed without the administration of intravenous contrast material. Sagittal and coronal images were reconstructed. Individualized dose optimization techniques were used for this CT. COMPARISON: None. FINDINGS: There is mild osteoarthritis of the glenohumeral articulation, with mild articular joint space narrowing and mild osteoarthritic spurring. There is narrowing of the acromiohumeral space with impingement on the supraspinatus tendon. Normal glenoid rim, neck and visualized scapula. Normal humeral head, neck and tuberosities. Normal coracoid process. Normal visualized lateral clavicle. There is mild osteoarthritis with articular joint space narrowing. There is a Type II morphology (curved), with a neutral orientation. 2 minimal atrophy of the supraspinatus muscle. Remainder musculature appears normal. Question minimal fluid along the anterior aspect of the distal subscapularis muscle and tendon best seen on image [address]/Extremity Upper without Contra IMPRESSION: Degenerative changes shoulder. There is marked narrowing of the acromiohumeral space suggesting rotator cuff pathology. Electronically Signed: Leobardo Vieyra DO at 17:17 EDT ,
== END | disposition home or self-care (01) ==
LOC: CT 13:15
PROVIDERS: PCP Internal Medicine; Referring Provider Physician Assistant Surgical; Visit Provider Physician Assistant Surgical
DX: M19.012 Primary osteoarthritis, left shoulder (principal)
CPT/HCPCS: 73200

== ENCOUNTER 2022-03-17 14:37 | Observation (INO) | payer MEDICARE, OTHER, SELFPAY ==
--- NOTE | 2022-03-08 09:52 | RAD_ITS ---
EXAM: XR CHEST, 2 VIEWS CLINICAL INDICATION: PREOP TECHNIQUE: Frontal and lateral views of the chest. This report was created using [employer] report generation technology. COMPARISON: None. FINDINGS: LUNGS AND PLEURAL SPACES: Normal. No consolidation or edema. No pneumothorax. No effusion. HEART: Normal heart size. MEDIASTINUM: No mediastinal or hilar mass. BONES/JOINTS: No acute abnormality. SOFT TISSUES: Normal. RAD/Chest PA and Lateral IMPRESSION: No acute cardiopulmonary disease. Electronically Signed: Galileo Astorga MD at 10:20 EDT ,
[2022-03-08 10:42] LABS: Partial Thromboplast Time 24.5 Seconds (24.1-36.2); Prothrombin Time (Protime)PT. 12.7 SECONDS (11.7-14.9)
[2022-03-08 11:02] LABS: AST(SGOT) 18 U/L (15-37); Alanine Aminotransfer ALT/SGPT 22 U/L (13-56); Albumin, Serum 3.7 g/dL (3.2-5.0); Alkaline Phosphatase 65 U/L (45-117); Bilirubin, Direct 0.14 mg/dL (0.00-0.30); Globulin 3.1 g/dL (2.2-4.2); Protein, Total 6.8 g/dL (6.4-8.2)
[2022-03-17] VITALS (12 sets, daily range): BP systolic 154–174; BP diastolic 56–76; PULSE 46–73; RESP 16–18; TEMP 36–36.7; O2SAT 95–100; BMI 24.5; BMI 24.6
--- NOTE | 2022-03-17 | SHO_PTH ---
PATIENT: PANCHO MUNSON LOC: MS3 U#:[id number] AGE/SX: 81/F ROOM: [facility] RE03/17/[address]: Dr. Dylan Brandon DO : 1940 BED: 1 DIS: 03/18/2022 SPEC #: [id number] RECD: 03/17/22 12:38 STATUS: STEFFI WHITTINGTONTy #: [id number] ARCADIO: 03/17/22 00:[address]: Dylan Brandon DEPT: SURGICAL PATHOLOGY RECD BY: Zackery Carlson ENTERED: 03/17/22 12:38 SP TYPE: HUMERUS OTHR DR: Dr. Ventura Noble MD Tissues: Humerus, NOS Procedures: Decalcification bone/plaque Surgery Specimen Level IV HEADER OPERATION: ERAS, total shoulder replacement, reverse PRE-OP DIAGNOSIS: Osteoarthritis, insufficient rotator cuff TISSUE SUBMITTED: Left shoulder bone MICROSCOPIC DIAGNOSIS Left shoulder bone, total shoulder replacement/resection: Focal degenerative osteoarthritic changes. SJ:bill 03/23/2022 MICROSCOPIC DESCRIPTION Slides are reviewed. GROSS DESCRIPTION Received in fixative is one container labeled with the patient's name and designated left shoulder bone. The specimen consists of a discoid fragment of articular bone and cartilage measuring 4.8 x 4.5 x 2.9 cm. The articular surface is irregular and shows cartilage erosion and osteophyte formation. Sawmill Worker sections are submitted in two cassettes after decalcification. / AM:bill 03/17/2022 TC:5 CPT: 70116, 37871
[2022-03-17 08:01] LABS: Bedside Glucose 96 mg/dL (74-106)
[2022-03-17] MEDS: Lactated Ringers 1,000 ML 999 ML IV ×2 (08:02→09:30)
[2022-03-17] MEDS: Lactated Ringers 1,000 ML 75 ML IV (08:03)
[2022-03-17] MEDS: Magnesium 1 GM over 15 mins IV (08:03)
[2022-03-17] MEDS: Acetaminophen 500 MG Tablet 1000 MG PO ×3 (08:16→20:59)
[2022-03-17] MEDS: Gabapentin 600 MG Tablet PO (08:17)
[2022-03-17] MEDS: Lactated Ringers 1,000 ML 125 ML IV (09:30)
[2022-03-17] MEDS: Cefazolin 2 GM in 0.9% Normal Saline 100 ML IV (09:32)
[2022-03-17] MEDS: dexAMETHasone 10 MG/ML Vial IV (09:45)
[2022-03-17] MEDS: TXA 1000mg in NS100 100ml (IVPB at Closure) 660 MG IV (09:51)
[2022-03-17] MEDS: TXA 1000mg in NS100 100ml (IVPB at Incision) 660 MG IV (10:57)
--- NOTE | 2022-03-17 11:07 | RAD_ITS ---
STUDY: X-RAY - LEFT SHOULDER REASON FOR EXAM: Female, 81 years old. Post op -- AP and Lateral X-Ray of operative shoulder in PACU TECHNIQUE: 2 view(s) of the shoulder. COMPARISON: None. FINDINGS: The patient is status post left reverse shoulder replacement. There is good alignment. RAD/Shoulder min 2 Views IMPRESSION: Status post left reverse shoulder replacement. There is good alignment. Electronically Signed: Jonny Jiménez MD at 12:32 EDT ,
--- NOTE | 2022-03-17 11:22 | OP.PCM_ITS ---
Problems Associated Problem List Diagnoses (1) Arthritis of left shoulder region: Report of Operation Date of Procedure: 03/17/22 Description of Surgical Findings:: Preoperative diagnosis: Left shoulder rotator cuff arthropathy Postoperative diagnosis: Left shoulder rotator cuff arthropathy Procedure: Left reverse total shoulder arthroplasty Surgeon: Dylan Brandon DO Turnstile Attendant: Ese Strickland PA-C Anesthesia: General endotracheal Anesthesiologist: Sherman Mullen MD Complications: None apparent Drains: None Estimated blood loss: 150 cc Urinary output: None cc IV fluids: 1200 cc crystalloid Specimens: Humeral head Surgical implants: Tornier Aequalis PerFORM+ reversed lateralized baseplate 29 mm diameter with +3 mm offset, standard glenosphere cobalt chrome 36 mm diameter, Tornier perform humeral system 2+ short, reversed insert thickness +3 mm 36 mm diameter, central screw 35 mm, peripheral screws length 26, 30, 18 and 18 mm Surgical indications: This is a 81-year-old female with persistent left shoulder pain. Patient had limited range of motion of her left shoulder. X-rays revealed rotator cuff arthropathy. Patient had undergone multiple corticosteroid injections with diminishing results. I saw the patient in the outpatient setting. Given her failure of nonoperative management, I recommended a reverse shoulder arthroplasty. We obtained a preoperative CT scan for planning. The risks, benefits, alternatives the procedure was reviewed with the patient and he agreed to proceed. Risks included but were not limited to bleeding, infection, instability, loss of life or limb, risk of anesthesia, neurovascular injury, persistent pain, stiffness, prolonged immobilization, need for additional surgery, loosening of orthopedic hardware. She expressed understanding and wished to proceed with surgery. Surgical details: Patient arrived to [facility] morning of the procedure and was greeted by the same day surgery staff. Prior to her procedure, I greeted the patient in the preoperative holding area I identified the patient by name, record number, and date of . Informed consent was confirmed. The operative extremity was marked. All questions were answered to patient satisfaction. Patient was also seen by anesthesia staff. Interscalene block was administered prior to procedure for postoperative analgesia. At time of her procedure, patient was brought to the operative suite and po sitioned supine on a standard table with a beachchair attachment. General anesthesia was induced after all bony prominences were well-padded. Endotracheal tube was placed. After adequate anesthesia and securing the tube, we prepared the patient to be positioned in the beachchair position. A well- padded heading and priming tool setter was applied. The nonoperative extremity was placed in a well arm rios. She was then brought into the beachchair position after we confirmed an appropriate blood pressure. We then spun the bed 45 degrees. The operative extremity was then prepared. In the butterfly wing of the bed was removed and a well-padded torso strap was applied to secure the patient to the bed. The operative extremity was now free. We then prepped and draped the left upper extremity in normal, sterile orthopedic fashion. We then performed a timeout with all parties in attendance in agreement with the side, site, and operation be performed. 2 g Ancef was administered prior to incision by anesthesia staff, as well as 1 g TXA IV. No concerns were voiced and we elected to proceed. I first marked a standard deltopectoral incision just lateral to the coracoid process in line with the long axis of the humerus. Skin was sharply incised with 10 blade scalpel. I then dissected bluntly through the subcutaneous layers and found the fat stripe between the deltoid and pectoralis major. The cephalic vein was then identified and protected. It was retracted laterally with the deltoid. I then bluntly dissected underneath the deltoid with a Mayorga elevator. Ahsan retractor was placed. The upper 1 cm of the pectoralis major was released. I then identified the long head of the biceps tendon in the intertubercular groove. This was tenodesed in situ with #2 FiberWire. I then amputated the biceps proximal to the tenodesis site and followed the tendon to the supraglenoid tubercle where it was amputated. This identified the lesser and greater tuberosities. The supraspinatus was completely torn and retracted with an exposed greater tuberosity. I then performed a subscapularis peel while rotating the humerus externally. I tagged the subscapularis for possible repair later with a tagging suture. I then made a anatomic neck cut of the cartilaginous surface of the humeral head. A size 2 trial was selected. I placed a centering pin through mid metaphysis engaging the lateral cortex of the humerus. We then reamed to an appropriate depth with a size #2 reamer. I then sequentially broached to a size #2 stem. Rotation control was excellent however this broach achieve less fixation than desired in the axial plane. We sequentially broached for a size #2 + with better axial control and excellent rotational control. Broach was left in place. I then subluxed the humeral head posteriorly. I then placed retractors around the posterior and anterior glenoid to expose the glenoid. Glenoid labrum was removed with Bovie cautery protecting the axillary nerve, which was in close proximity to the glenoid neck. We then used the custom guide from [employer]ian[employer] to position our centering pin. Guide was removed and pin was analyzed and compared to preoperative planning. It appeared to be in appropriate position. This was reamed about 2 mm deep. We then remove the reamer and used the cannulated drill for the central 35 mm screw. Pin was removed. Post and baseplate was assembled on the back table. We then inserted the baseplate and central screw the assembled baseplate to an appropriate depth. A [employer] was used to confirm depth. Cortical screws then were placed in the peripheral for holes with good purchase. The baseplate had excellent purchase and the entire scapula would rotate with rotation of the baseplate. We then impacted the 36 mm glenosphere with a standard eccentricity. Locking screw was then placed in the centering hole of the glenosphere with excellent purchase. We then removed retractors and turned our attention back to the humerus. I placed a posterior O and subsequent +3 polyethylene insert. Both the trial inserts seemed appropriate however there was better range of motion with the +3 insert and better reproduction of deltoid and strap muscle tension. There was excellent range of motion and stability in all planes of motion. We selected this as our final size. We removed trials from the humerus after final dislocation. I copiously irrigated the canal. Broach was placed on hand and then impacted to an appropriate depth. Final +3 mm polyethylene insert was placed. Final reduction was then performed. I then copiously irrigated the wound with sterile Betadine solution and normal saline solution. Hemostasis was excellent. The axillary nerve was visualized and appeared to be intact. The subscapularis was then identified with a tagging suture. Repair would have been likely under undue tension and likely failed. I elected to not perform a subscapularis repair. We then copiously irrigated the wound with normal saline solution. We reapproximated the interval with 0 Vicryl suture. Subcutaneous layers were reapproximated with 2 -0 Vicryl suture. Skin was finally running V-Loc 3-0 Monocryl suture and Dermabond. A sterile silver Mepilex dressing was applied. Patient was then placed in a abduction pillow sling. Patient tolerated procedure well without complication. She was positioned back in the supine position extubated in the operative suite. She was transferred to [facility] and subsequently to PACU in stable condition. Need for skilled payroll administrative assistant: Ese Strickland PA-C was critical to the outcome of the case. During the course of the procedure the physician payroll administrative assistant played a vital role. Her intimate knowledge of my steps in the procedure aided in safe and expedient completion of the procedure. The PA played a vital role in positioning particularly in obtaining the appropriate positioning. The PA was also vital in the retraction of soft tissues during the exposure and projecting vital structures. The PA was also vital and protecting soft tissues during times of bony cuts. She also played a vital role in closure with my direct supervision. The PA was also important during reduction and dislocation of the joint and trials intraoperatively. Intraoperative medications: 2 g Ancef IV, 1 g TXA IV x2 Post Operative Plan: Weightbearing: Nonweightbearing left upper extremity, okay for pendulums. Range of motion of wrist elbow and hand as tolerated. Antibiotics: 2 g Ancef IV prior to incision DVT Prophylaxis: Aspirin 81 mg twice daily starting tomorrow Sloan: None Dressing: Maintain silver dressing x7 days. Okay to shower dressing on started on day 4 X-Rays: 2 weeks postop in the office Pain Medication: Oxycodone Rx upon discharge Follow-up: 2 weeks post-operatively with me in the office
--- NOTE | 2022-03-17 15:29 | CASEMGMT ---
RENITA LOPEZ Assessment: Face to Face with pt for initial transition planning/care coordination assessment. RN JOHN introduced self and role at [facility], pt voices understanding and consents to assessment. Pt is A/O x4 and answers all questions appropriately at this time. Pt in bed. Appears to be in no distress. Care providers, pharmacy, and demographics verified/updated. Admitting Dx: Lt Total Should Reverse. PCP: Real. Specialists: [facility]; Francois Brandon. Preferred [facility]acy: [facility]. Insurance: Medicare Part A B, [employer] [facility]. Prescription Benefit: yes. LW/HPOA: Pt reports having a LW/HPOA. Son, Dale, is reportedly the POA. Pt was advised the LW/HPOA paperwork is not on file. Encouraged Pt to bring in copies if desired. LNOK: Fazal Loaiza, Friend; Dale Marcelino, Son. Living Arrangements: Pt lives alone in a one story home. The home has a ramp, in place, from . Pt reports being I in ADLs. Transportation: Pt drives self and denies concerns with transportation. Pt's friend can assist with transportation if needed. DME/HHC/SNF: Pt denied any DME use but has a cane and grab bars from her . Pt denied any HHC, including therapy, currently or in the past. Pt denied any SNF stays. Pt's son is coming to the home to assist the pt after dc. Pt states no concerns with going home at time of dc. Pt states no further concerns/needs. CM to follow. Advised pt to ask CM if any further question/concerns/needs arise, voices understanding. Pt Goal: Home. Plan:?Home. Outpt [facility] up at [facility] in two weeks.
[2022-03-17] MEDS: Cefazolin 1 GM/50 ML BAG IV (17:16)
[2022-03-17] MEDS: Senna/Docusate Sodium 1 Tablet 2 TABLET PO (20:59)
[2022-03-18 01:37] VITALS: BP 129/58; PULSE 70; RESP 18; TEMP 36.3; O2SAT 96
[2022-03-18 01:41] VITALS: BP 129/58; PULSE 70; RESP 18; TEMP 36.3; O2SAT 96
[2022-03-18] MEDS: Cefazolin 1 GM/50 ML BAG IV (01:43)
[2022-03-18 01:54] VITALS: BMI 24.6
[2022-03-18 05:39] VITALS: BP 150/54; PULSE 60; RESP 18; TEMP 37.1; O2SAT 99
[2022-03-18] MEDS: oxyCODONE 5 MG Tablet PO (05:44)
[2022-03-18] MEDS: Acetaminophen 500 MG Tablet 1000 MG PO (05:44)
[2022-03-18 05:49] VITALS: BMI 24.6
[2022-03-18 07:17] LABS: Hematocrit 34.6 % (37-47); Hemoglobin 11.8 g/dL (12.0-15.0); Mean Corp Hgb Conc 34.1 g/dL (32-36); Mean Corpuscular Hgb 31.1 pg (27.0-32.0); Mean Corpuscular Volume 91.3 fL (81-99); Mean Platelet Vol. 9.2 fl (6.2-12.0); Platelet Count 242 K/mm3 (150-450); RBC Distribution Width CV 13.2 % (11.6-14.6); RBC Distribution Width SD 44.6 fl (35.1-43.9); Red Blood Count 3.79 M/mm3 (4.2-5.4)
[2022-03-18 07:40] LABS: Anion Gap 5 (5-15); BUN 15 mg/dL (7-18); BUN/Creat Ratio 16.6 RATIO (10-20); Calcium,Total 9.3 mg/dL (8.5-10.1); Chloride 105 mmol/L (98-107); EST Glomerular Filtration Rate 64 mL/min (>60); Est Glom Filt Rate - Afr Amer 77 mL/min (>60); Estimated Creatinine Clearance 41.24 ml/min; Glucose 105 mg/dL (74-106); Sodium Level 139 mmol/L (136-145)
--- NOTE | 2022-03-18 07:40 | PCM.PN.ORT ---
Subjective Subjective Patient seen and examined. Pain is controlled with current pain regiment. Denies fevers, chills, nausea vomiting, chest pain or shortness of breath. Objective Data Objective Data Vital Signs: Vital Signs Temp Pulse Resp BP Pulse Ox O2 Del Method O2 Flow Rate 98.8 F 60 18 150/54 H 99 Room Air 2 03/18/22 05:39 03/18/22 05:39 03/18/22 05:39 03/18/22 05:39 03/18/22 05:39 03/18/22 05:39 03/18/22 05:39 Oxygen Flow Rate (L/min) 2 Oxygen Delivery Method Room Air Weight: 138 lb 14.259 oz Body Mass Index (BMI) 24.5 Intake & Output: Intake and Output for Last 24 Hours 03/16/22 03/17/22 03/18/22 23:59 23:59 23:59 Intake Total 4188.25 / 4188.25 281.25 / 281.25 Balance 4188.25 / 4188.25 281.25 / 281.25 Lab / Micro Data Result Diagrams: 03/18/22 05:40 03/18/22 05:30 Labs: Laboratory Results - last 24 hr 03/17/22 07:39: POC Glucose 96 03/18/22 05:30: Sodium 139, Potassium 4.0, Chloride 105, Carbon Dioxide 29.0, Anion Gap 5, BUN 15, Creatinine 0.90, Estim Creat Clear Calc 41.24, Est GFR (MDRD) Af Amer 77, Est GFR (MDRD) Non-Af 64, BUN/Creatinine Ratio 16.6, Glucose 105, Calcium 9.3 03/18/22 05:40: WBC 9.0, RBC 3.79 L, Hgb 11.8 L, Hct 34.6 L, MCV 91.3, MCH 31.1, MCHC 34.1, RDW Std Deviation 44.6 H, RDW Coeff of Gareth 13.2, Plt Count 242, MPV 9.2 Micro: Microbiology 03/08/22 09:45 Swab (Method) Nasal Screen MRSA/MSSA - Final Radiography Diagnostic Testing: Radiology Impression Shoulder X-Ray 03/17/22 11:07 IMPRESSION: Status post left reverse shoulder replacement. There is good alignment. Electronically Signed: Jonny Jiménez MD at 12:32 EDT , Physical Exam Narrative General - A&Ox3, NAD. VSS/AF. Left upper Extremity - SILT & 5/5 in radial, ulnar, musculocutaneous, axillary, and median nerve distributions. Radial, ulnar pulses 2+. Compartments soft and compressible. BCR in finger tips. Incisional dressing C/D/I. Assessment & Plan Assessment/Plan (1) Arthritis of left shoulder region: PLAN: POD#1 s/p left reverse shoulder arthroplasty -Patient doing well this morning. - Pain control - PT/OT - DVT PPX -81 mg aspirin twice daily, SCDs, early mobilization - Case management - D/C planning -Discharge home today. Follow-up in 2 weeks for wound check and x-rays.
--- NOTE | 2022-03-18 07:42 | DCINST_ITS ---
Discharge Instructions Follow Up Care Test Results: Test results from this visit will be discussed in further detail at your follow- up appointment, if applicable. Discharge Plan Admission Admit Date/Time: 03/17/22 14:37 Attending Provider: Dylan Brandon Primary Care Provider: Ventura Noble Instructions Additional Instructions / Restrictions: Follow preprinted instructions from your surgeons office. Discharge Orders/Prescriptions Prescriptions: New sennosides-docusate sodium [Stool Softener-Stimulant Laxat] 8.6-50 mg Tablet 2 tab PO BID 7 Days Qty: 28 0RF aspirin 81 mg Tablet,Delayed Release (Dr/Ec) 81 mg PO DAILY@0800 28 Days Qty: 56 0RF acetaminophen 500 mg Tablet 1,000 mg PO Q8 14 Days Qty: 84 0RF meloxicam 7.5 mg Tablet 7.5 mg PO BID 30 Days Qty: 60 0RF oxycodone 5 mg Tablet 5 - 10 mg PO Q4H PRN PRN (Reason: Pain Score 4-10) 7 Days Qty: 42 0RF Continued multivitamin with iron tablet 1 tab PO QDAY cholecalciferol (vitamin D3) 2,000 unit capsule 2,000 unit PO QDAY ascorbic acid (vitamin C) 500 mg capsule 1,000 mg PO DAILY lovastatin 20 mg tablet 20 mg PO DAILY Qty: 90 3RF Referrals / Follow Up: Ventura Noble MD [Primary Care Provider] - Dylan Brandon DO [Med Staff - Active Staff] - Within 2 Weeks Disposition Disposition (needs filled in before D/C Order can be placed): Home, Self Care
[2022-03-18] MEDS: Aspirin E.C. 81 MG Tablet PO (08:00)
[2022-03-18] MEDS: Senna/Docusate Sodium 1 Tablet 2 TABLET PO (08:02)
[2022-03-18 08:08] VITALS: BP 125/61; PULSE 71; RESP 18; TEMP 36.7; O2SAT 98
[2022-03-18 10:29] VITALS: BP 148/63; PULSE 78; RESP 18; O2SAT 97
--- NOTE | 2022-03-18 11:51 | CASEMGMT ---
Social Work Per RNCM, pt states he has a living will and health care POA naming her son Dale Marcelino. Pt notified that Advance directives are not on file at [facility] and requested copy be brought in for scanning into EMR. JENNIFER Crane
--- NOTE | 2022-03-20 07:08 | PCM.DC.SUM ---
Providers Date of Admission: 03/17/22 Primary Care Physician: Dr. Ventura Noble MD Reason For Visit: LT TOTAL SHOULDER REVERSE Diagnosis Discharge Diagnosis (1) Arthritis of left shoulder region: Status: Acute Code(s): M19.012 - Primary osteoarthritis, left shoulder Plan: POD#1 s/p left reverse shoulder arthroplasty -Patient doing well this morning. - Pain control - PT/OT - DVT PPX -81 mg aspirin twice daily, SCDs, early mobilization - Case management - D/C planning -Discharge home today. Follow-up in 2 weeks for wound check and x-rays. Medications at Discharge Home Medications cholecalciferol (vitamin D3) 50 mcg (2,000 unit) capsule 2,000 unit PO QDAY 11/02/17 multivitamin with iron 1 tab PO QDAY 11/02/17 ascorbic acid (vitamin C) 500 mg capsule 1,000 mg PO DAILY 01/20/21 lovastatin 20 mg tablet 20 mg PO DAILY #90 tabs 10/06/21 acetaminophen 500 mg tablet 1,000 mg PO Q8 14 days #84 tabs 03/18/22 aspirin 81 mg tablet,delayed release 81 mg PO DAILY@0800 28 days #56 tabs 03/18/22 meloxicam 7.5 mg tablet 7.5 mg PO BID 30 days #60 tabs 03/18/22 oxycodone 5 mg tablet 5 - 10 mg PO Q4H PRN PRN Pain Score 4-10 7 days #42 tabs 03/18/22 sennosides 8.6 mg-docusate sodium 50 mg tablet (Stool Softener-Stimulant Laxative) 2 tab PO BID 7 days #28 tabs 03/18/22 Hospital Course Summary of Care Provided Minutes Spent on Discharge: 15 Hospital Course: Patient underwent uncomplicated left reverse shoulder arthroplasty for chronic rotator cuff tear and rotator cuff tear arthropathy 03/17/2022. She was placed in observation overnight for early convalescence and pain control. Pain was adequately controlled on postoperative day #1. She mobilized well with occupational therapy. She was able be safely discharged home in stable condition on postoperative day #1. No medical or surgical complications were encountered throughout her stay. Physical Exam Narrative General - A&Ox3, NAD. VSS/AF. Left upper Extremity - SILT & 5/5 in radial, ulnar, musculocutaneous, axillary, and median nerve distributions. Radial, ulnar pulses 2+. Compartments soft and compressible. BCR in finger tips. Incisional dressing C/D/I. Weight / BMI Weight Weight: 138 lb 14.259 oz Body Mass Index (BMI) 24.5 ABG / Lab / Microbiology Data Result Diagrams: 03/18/22 05:40 03/18/22 05:30 Microbiology: Microbiology 03/08/22 09:45 Swab (Method) Nasal Screen MRSA/MSSA - Final Meaningful Use Info Meaningful Use Diagnoses (Choose all that apply): None applicable Discharge Plan Admission Admit Date/Time: 03/17/22 14:37 Attending Provider: Dylan Brandon Primary Care Provider: Ventura Noble Instructions Additional Instructions / Restrictions: Follow preprinted instructions from your surgeons office. Discharge Orders/Prescriptions Prescriptions: New sennosides-docusate sodium [Stool Softener-Stimulant Laxat] 8.6-50 mg Tablet 2 tab PO BID 7 Days Qty: 28 0RF aspirin 81 mg Tablet,Delayed Release (Dr/Ec) 81 mg PO DAILY@0800 28 Days Qty: 56 0RF acetaminophen 500 mg Tablet 1,000 mg PO Q8 14 Days Qty: 84 0RF meloxicam 7.5 mg Tablet 7.5 mg PO BID 30 Days Qty: 60 0RF oxycodone 5 mg Tablet 5 - 10 mg PO Q4H PRN PRN (Reason: Pain Score 4-10) 7 Days Qty: 42 0RF Continued multivitamin with iron tablet 1 tab PO QDAY cholecalciferol (vitamin D3) 2,000 unit capsule 2,000 unit PO QDAY ascorbic acid (vitamin C) 500 mg capsule 1,000 mg PO DAILY lovastatin 20 mg tablet 20 mg PO DAILY Qty: 90 3RF Referrals / Follow Up: Ventura Noble MD [Primary Care Provider] - Dylan Brandon DO [Med Staff - Active Staff] - Within 2 Weeks Disposition Disposition (needs filled in before D/C Order can be placed): Home, Self Care
== END 2022-03-18 10:58 | disposition home or self-care (01) ==
LOC: SDC 14:59 → MS3 14:59
PROVIDERS: Anesthesiology; Admitting Provider Student in an Organized Health Care Education/Training Program; PCP Internal Medicine; Referring Provider Student in an Organized Health Care Education/Training Program; Visit Provider Student in an Organized Health Care Education/Training Program
PROC: (CPT 23472; principal; 2022-03-17 09:00)
DX: M19.012 Primary osteoarthritis, left shoulder (principal); I10 Essential (primary) hypertension; Z79.899 Other long term (current) drug therapy; E55.9 Vitamin D deficiency, unspecified; E78.00 Pure hypercholesterolemia, unspecified; Z86.2 Personal history of diseases of the blood and blood-forming organs and certain disorders involving the immune mechanism
CPT/HCPCS: 23472; 01638; 64415; 36415; 71046; 73030; 80048; 80076; 82962; 83735; 85027; 85610; 85730; 87081; 88305; 88311; 96361; 96365; 96366; 97110; 97166; 97535; 99218; 99251; C1776; J7120; G0378; G0463; J2405; J3475

== ENCOUNTER → 2023-05-17 | Outpatient (CLI) | payer MEDICARE, OTHER, SELFPAY ==
--- OUTSIDE RECORDS SUMMARY | 2023-05-17 11:54 | XMS RPT_ITS | CCD ---
Author Name Unknown Address [address] [place] [address] Organization [facility] Care Team Providers Care Assembler [employer] Name Role Phone ADELE MONTEIRO Unavailable Unavailable Real LORA, Ventura Morgan Unavailable [phone] Unavailable Primary Care Provider CJ Escobedo Attending Unavailable Medications Completed/Discontinued Medications Medication Drug Class(es) Dates Sig (Normalized) Sig (Original) aspirin 81 mg oral tablet (3 sources) Platelet Aggregation Inhibitor, Nonsteroidal Anti-inflammatory Drug Start: 08-15-2005 ASPIRIN 81 MG TAB Take one (1) tablet daily . 0 08/15/2005 Active Problems Active Problems Problem Classification Problem Date Documented Date Episodic/Chronic Disorders of lipid metabolism (3 sources) Hyperlipidemia; Translations: [Pure hypercholesterolemia] Onset: 08-15-2005 01-11-2017 Chronic Diverticulosis and diverticulitis (2 sources) Diverticulitis of large intestine without perforation or abscess without bleeding; Translations: [Diverticulitis of colon (without mention of hemorrhage)] Onset: 08-15-2005 08-15-2005 Chronic Nutritional deficiencies (1 source) Vitamin D deficiency; Translations: [Vitamin D deficiency, unspecified] Onset: 01-11-2017 01-11-2017 Chronic Other screening for suspected conditions (not mental disorders or infectious disease) (2 sources) Patient encounter status; Translations: [Encounter for screening for malignant neoplasm of colon] Onset: 08-11-2022 Episodic Unclassified (1 source) Laceration without foreign body of left hand, initial encounter / S61.412A(ICD-10) Onset: 01-17-2017 Unclassified (1 source) Elevated blood-pressure reading, without diagnosis of hypertension / R03.0(ICD-10) Onset: 01-17-2017 Unclassified (1 source) Unknown / UNK(Unknown) Onset: 01-17-2017 Unclassified (1 source) Hand Laceration / [id number]() Onset: 01-17-2017 Unclassified (1 source) Screening - health check; Translations: [Encounter for general adult medical examination without abnormal findings] Onset: 01-11-2017 01-11-2017 Past or Other Problems Problem Classification Problem Date Documented Date Episodic/Chronic Other and unspecified benign neoplasm (1 source) Other benign neoplasm of skin of trunk; Translations: [Other benign neoplasm of skin of trunk] 01-11-2011 Episodic Other and unspecified benign neoplasm (1 source) Hemangioma; Translations: [Hemangioma unspecified site] 01-11-2011 Episodic Other circulatory disease (1 source) Elevated blood-pressure reading without diagnosis of hypertension; Translations: [Elevated blood-pressure reading, without diagnosis of hypertension] Onset: 01-17-2017 Episodic Other circulatory disease (1 source) Telangiectasia disorder; Translations: [Nevus, non-neoplastic] 01-11-2011 Episodic Other diseases of bladder and urethra (2 sources) Urethral caruncle; Translations: [Urethral caruncle] Onset: 08-15-2005 08-15-2005 Episodic Other non-epithelial cancer of skin (1 source) History of malignant basal cell neoplasm of skin; Translations: [Personal history of other malignant neoplasm of skin] 01-11-2011 Episodic Other skin disorders (1 source) Other specified disorders of the skin and subcutaneous tissue; Translations: [Other specified disorders of the skin and subcutaneous tissue] Onset: 07-30-2014 08-06-2014 Episodic Other skin disorders (1 source) Lentigo; Translations: [Other melanin hyperpigmentation] 01-11-2011 Episodic Other skin disorders (1 source) Senile hyperkeratosis; Translations: [Other seborrheic keratosis] 01-11-2011 Episodic Residual codes; unclassified (2 sources) FH: Cardiovascular disease; Translations: [Family history of other cardiovascular diseases] Onset: 08-15-2005 08-15-2005 Episodic Unclassified (1 source) Laceration without foreign body of left hand, initial encounter; Translations: [Laceration without foreign body of left hand, initial encounter] Onset: 01-17-2017 Unclassified (2 sources) Hand Laceration; Translations: [Hand Laceration] Onset: 01-17-2017 Varicose veins of lower extremity (3 sources) Venous varices; Translations: [Asymptomatic varicose veins of unspecified lower extremity] Onset: 08-15-2005 01-11-2011 Episodic Viral infection (1 source) Verruca vulgaris; Translations: [Viral wart, unspecified] 01-11-2011 Episodic Results Test Name Value Interpretation Reference Range Facil ity Vital Signs Date Time Vital Sign Value Performing Clinician Facility 09-20-2022 10:05-0400 Diastolic blood pressure 59 mm[Hg] Cj Norton MD Work Phone: [facility] 09-20-2022 10:05-0400 Heart rate 64 /min Cj Norton MD Work Phone: [facility] 09-20-2022 10:05-0400 Respiratory rate 16 /min Cj Norton MD Work Phone: [facility] 09-20-2022 10:05-0400 SaO2% (BldA) [Mass fraction] 97 % Cj Norton MD Work Phone: [facility] 09-20-2022 10:05-0400 Systolic blood pressure 131 mm[Hg] Cj Norton MD Work Phone: [facility] 09-20-2022 08:03-0400 Body temperature 96.91 [degF] Cj Norton MD Work Phone: [facility] 09-20-2022 08:03-0400 Body weight 66.3 kg Cj Norton MD Work Phone: [facility] 08-11-2022 08:59-0400 Body height 165.1 cm Cj Norton MD Work Phone: [facility] 08-11-2022 08:59-0400 Body temperature 96.69 [degF] Cj Norton MD Work Phone: [facility] 08-11-2022 08:59-0400 Body weight 66.32 kg Cj Norton MD Work Phone: [facility] 08-11-2022 08:59-0400 Diastolic blood pressure 68 mm[Hg] Cj Norton MD Work Phone: [facility] 08-11-2022 08:59-0400 Heart rate 62 /min Cj Norton MD Work Phone: [facility] 08-11-2022 08:59-0400 SaO2% (BldA) [Mass fraction] 100 % Cj Norton MD Work Phone: [facility] 08-11-2022 08:59-0400 Systolic blood pressure 110 mm[Hg] Cj Norton MD Work Phone: [facility] 01-11-2017 13:35-0400 BMI (Body Mass Index) 23.72 kg/m2 Ventura Noble MD [facility] Work Phone: 01-11-2017 13:35-0400 Body Temperature 98.6 [degF] Ventura Noble MD [facility] Work Phone: 01-11-2017 13:35-0400 BP Diastolic 75 mm[Hg] Ventura Noble MD [facility] Work Phone: 01-11-2017 13:35-0400 BP Systolic 132 mm[Hg] Ventura Noble MD [facility] Work Phone: 01-11-2017 13:35-0400 Height 167.64 cm Ventura Noble MD [facility] Work Phone: 01-11-2017 13:35-0400 Pulse (Heart Rate) 70 /min Ventura Noble MD [facility] Work Phone: 01-11-2017 13:35-0400 Weight 66.68 kg Ventura Noble MD [facility] Work Phone: 07-30-2014 13:53-0400 BSA (Body Surface Area) 1.79 m2 Ventura Noble MD [facility] Work Phone: 07-30-2014 13:53-0400 Respiratory Rate 14 /min Ventura Noble MD [facility] Work Phone: Encounters Encounter Date Encounter Type Care Provider Facility Start: 09-20-2022 End: 09-20-2022 Subsequent hospital visit by physician Cj Norton MD Work Phone: Ambulatory Surgery Procedures Date Procedure Procedure Detail Performing Clinician Start: 09-20-2022 End: 09-20-2022 Hemorrhoidectomy internal rubber band ligations Cj Norton MD Work Phone: Start: 09-20-2022 End: 09-20-2022 Colonoscopy flx dx w/collj spec when pfrmd Cj Norton MD Work Phone: Start: 01-11-2017 Influenza vaccination Flu vaccine E misael Noble MD Start: 07-30-2014 End: 08-06-2014 Follow Up Appt 6 months New Chen MD Plan of Treatment Date Care Activity Detail Author Start: 05-15-2022 ADVANCE DIRECTIVE DISCUSSION ADVANCE DIRECTIVE DISCUSSION [facility] Start: 05-15-2022 DEPRESSION ASSESSMENT DEPRESSION ASSESSMENT [facility] Start: 01-11-2017 End: 01-11-2017 Follow Up Appt 6 months Follow Up Appt 6 months [facility] Work Phone: Start: 07-30-2014 End: 08-06-2014 Follow Up Appt 6 months Follow Up Appt 6 months [facility] Work Phone: Start: 05-28-2013 Urine microalbumin profile DTAP,TDAP,TD (2 - Tdap) [facility] Start: 08-16-2008 DIABETES SCREEN DIABETES SCREEN [facility] Start: 2006 BONE DENSITY BONE DENSITY [facility] Start: 2006 PNEUMOCOCCAL: 65+ (1 - PCV) PNEUMOCOCCAL: 65+ (1 - PCV) [facility] Start: 09-23-1991 SHINGRIX VACCINE (1 of 2) SHINGRIX VACCINE (1 of 2) [facility] End: 08-12-2023 Screening colonoscopy COLONOSCOPY SCREENING Endoscopy Routine Special screening for malignant neoplasms, colon 1 Occurrences starting 08/11/2022 until 08/12/2023 [facility] Work Phone: Immunizations Immunization Date Immunization Notes Care Provider Justin granado 01-11-2017 Seasonal trivalent influenza vaccine, adjuvanted, preservative free Ventura Noble MD [facility] Work Phone: 03-15-2005 influenza virus vaccine, unspecified formulation Cj Norton MD Work Phone: [facility] Work Phone: 05-28-2003 diphtheria and tetan us toxoids, adsorbed for pediatric use Cj Norton MD Work Phone: [facility] Work Phone: 05-18-2003 hepatitis B vaccine, adult dosage Cj Norton MD Work Phone: [facility] Work Phone: 04-28-2003 hepatitis B vaccine, adult dosage Cj Norton MD Work Phone: [facility] Work Phone: Payers Date Payer Category Payer Medicare [id number] 2021 Unknown MMO MMO MEDICARE SUPPLEMENT [id number] 2021-Present [phone] [address] [place] [address] Indemnity [id number] 2006 Medicare MEDICARE MEDICAR E A AND B [id number] 2006-Present [phone] [address] [address] [place] [address] Medicare [id number] 2006 Medicare [id number] Medicare [id number] Social History Date Type Detail Facility Start: 03-15-2011 Tobacco smoking stat us MTIS Never smoked tobacco [facility] Work Phone: Start: 03-15-2011 Tobacco use and exposure Smokeless tobacco non-user [facility] Work Phone: Start: 08-16-2022 End: 09-20-2022 Alcohol intake Current drinker of alcohol (finding) [facility] Start: 1940 Sex Assigned At Not on file C [facility] Progress note 10-20-2022 Note Date & Type Note Facility 10-20-2022 Note HNO ID: [id number] Author: Antonella Guzman Service: ? Author Type: ? Type: Progress Notes Filed: 10/20/2022 1:26 PM Note Text: 10-20...attempt to contact patient to r/s colonoscopy with Hemorrhoid banding Patient has phone number to return call Antonella Guzman [facility] Nurse Note 09-20-2022 Vivian Greenberg RN - 09/20/2022 11:13 AM EDTGmireille Greenberg RN - 09/20/2022 9:35 AM EDT Note Date & Type Note Facility 09-20-2022 Nurse Note Discharged to home, accompanied by friend . Denies complaints of pain or discomfort. Discharge instructions given to patient. .Passing flatus at intervals. Vivian Greenberg RN Arrived in phase II via cart. Left lateral position. Sedated, but responds to verbal stimuli. Color normal; skin warm and dry. Respirations wnl and unlabored. Abdomen soft and with + bowel sounds in quads X 4. Patient resting comfortably. Dr. Norton at bedside to review procedure and recommendations. Vivian Greenberg RN documented in this encounter [facility] History and physical note 09-20-2022 Cj Norton MD - 09/20/2022 7:53 AM EDT Note Date & Type Note Facility 09-20-2022 History and physical note Images from the original note were not included. HISTORY AND PHYSICAL Pancho Marcelino 1940 REFERRING PHYSICIAN: CHIEF COMPLAINT: Consult (hemorrhoids) HPI: The patient is a 81 year old female referred for endoscopy. Pancho notes the following GI complaints: Reno denies abdominal pain.. Pancho denies diarrhea. Reno denies constipation. Pancho denies a change in bowel habits. Pancho denies melena. Reno notes what she feels is hemorrhoids which cause occasional bright red blood per rectum. The patient notes no history of upper GI complaints. Patient did call back after visit noting she has a history of a rectocele and wanted to make sure that hemorrhoidal banding would not be a problem with that condition. PAST MEDICAL HISTORY PAST MEDICAL HISTORY Diagnosis Date ASYMPTOMATIC VARICOSE VEINS 08/15/2005 DIVERTICULITIS OF COLON W/O BLEED 08/15/2005 FAMILY HX CARDIOVAS DIS NEC 08/15/2005 Pure hypercholesterolemia URETHRAL CARUNCLE 08/15/2005 PAST SURGICAL HISTORY PAST SURGICAL HISTORY Procedure Laterality Date COLONOSCOPY FLX DX W/COLLJ SPEC WHEN PFRMD 02/24/2004 Colonoscopy HAMMERTOE REVISION, ONE TOE 10/2011 left foot OPEN REPAIR OF ROTATOR CUFF ACUTE Rotator cuff repair PAST SURGICAL HISTORY OF 1982 vein stripping PAST SURGICAL HISTORY OF 10/2012 and 02/2012 laser- vein on both legs CURRENT MEDICATIONS Current Outpatient Medications Medication Sig lovastatin (MEVACOR) 20 mg tablet Take 20 mg by mouth every morning. Coenzyme Q10 400 mg cap Take 1 capsule by mouth once daily. CENTRUM SILVER TAB Take one(1) tablet daily. ubidecarenone/omega-3/vit e(COQ-10 & FISH OIL 50 MG-300 (180-120)MG-30 UNIT CAP) (Patient not taking: Reported on 08/11/2022) ASPIRIN 81 MG TAB Take one (1) tablet daily . (Patient not taking: Reported on 08/11/2022) No current facility-administered medications for this visit. ALLERGIES: Patient has no known allergies. PERSONAL HISTORY: SOCIAL HISTORY Social History Tobacco Use Smoking status: Never Smokeless tobacco: Never Vaping Use Vaping Use: Never used Substance Use Topics Alcohol use: Yes Comment: Occaisional drink Drug use: No FAMILY HISTORY: FAMILY HISTORY FAMILY HISTORY Problem Relation Age of Onset Heart Father First RI at age 48, RI at age 56 Hypertension Brother angina questionable RI in 40s, Heart Paternal Grandmother mi Asthma Paternal Grandmother Diabetes Paternal Aunt Cancer Maternal Aunt colon cancer Cancer Maternal Aunt intestinal cancer REVIEW OF SYMPTOMS: The review of systems data was entered by the nurse and reviewed by me Nursing Notes: Rupa McnairKATELYN 08/11/2022 9:04 AM Signed REVIEW OF SYSTEMS: General: The patient denies fatigue, denies weight loss, denies weight gain, denies feeling hot, and denies feelings of cold. Eyes: The patient denies glaucoma, denies eye injury/surgery, wears glasses or contacts. Ear/Nose/Throat: The patient denies allergies, denies hayfever, denies ear infections, and denies bloody noses. Cardiovascular: The patient denies chest pain, denies heart disease, denies high blood pressure,denies cardiac stent, denies prior heart attack, denies irregular heart beat, NOTES high cholesterol, denies poor circulation, denies heart failure, other cardiac issues, denies claudication, denies cold feet, denies peripheral arterial stent. Respiratory: The patient denies tuberculosis, denies pneumonia, denies frequent cough, denies pulmonary embolism, denies shortness of breath, and denies coughing up blood. Gastrointestinal: The patient denies difficulty swallowing, denies acid reflux, denies ulcers, denies vomiting, denies jaundice/hepatitis, denies gallbladder problems, denies black or tarry stools, NOTES hemorrhoids, denies bleeding from rectum, denies diverticulitis, denies constipation, denies diarrhea, denies loss of stool control, and denies hernias. Kidney/Bladder: The patient denies kidney stones, denies urine infections, and denies bloody urine. Skin: The patient denies a history of skin cancer, denies bleeding/changing moles, and denies a history of skin rash. Neurologic: The patient denies a history of epilepsy/convulsions, denies headaches, denies head/spinal injuries, and denies stroke/TIA. Psychiatric: The patient denies psychiatric medications, denies depression, and denies voices, denies substance abuse. Endocrine: The patient denies thyroid disorders, denies diabetes, and denies hormonal problems. Hematologic: The patient denies a history of bruising, denies bleeding, and denies anemia, denies blood clots. Infections: The patient denies a history of measles and mumps, denies rheumatic fever, and denies sexually transmitted diseases. Musculoskeletal: The patient denies back pain/injury, denies back problems, denies sciatica, denies knee/foot trouble, denies arthritis, or denies gout. When was patient's last Mammogram screening? N/A Last Colonoscopy: 2003 Rupa Mcnair LPN PHYSICAL EXAMINATION: General: The patient is 81 year old female, well nourished, well hydrated in no acute distress. The patient is oriented to time, place, and person. VITALS: Blood pressure 110/68, pulse 62, temperature (!) 35.9 C (96.7 F), height 165.1 cm (5' 5 ), weight 66.3 kg (146 lb 3.2 oz), SpO2 100 %. Body mass index is 24.33 kg/m . HEENT: Normal cephalic, ataumatic, pupils are equally round, sclera are anicteric, mucous membranes are moist, oropharynx is clear. Neck has no masses, asymmetry or lymphadenopathy. Thyroid is unremarkable. Respiratory: Clear to auscultation and percussion. Normal respiratory excursion and pattern. Cardiac: Examination is regular rate and rhythm. Abdominal exam: Soft, nontender, with no palpable masses. No hepatosplenomegaly. No palpable hernias. Rectal exam: exam deferred Extremities: no clubbing, cyanosis or edema. No adenopathy. Other: LABORATORY VALUES: As Noted RADIOLOGIC STUDIES: As Noted Assessment IMPRESSION: Occasional rectal bleeding, PLAN: I plan to perform lower endoscopy. We discussed the risks and benefits of the planned endoscopy. I have informed the patient that complications can occur including failure to complete the endoscopy and perforation. The patient had the opportunity to ask questions concerning the planned endoscopy. My staff has also explained the procedure to the patient in understandable terms and has given the patient printed material concerning the procedure. The patient freely consents to surgery. I plan to use golytely bowel preparation for endoscopy Diagnoses: (Z12.11) Special screening for malignant neoplasms, colon (primary encounter diagnosis) Return to Clinic: The patient is instructed to follow-up with me after the testing has been completed. Cj Norton MD documented in this encounter [facility] Progress note 08-16-2022 Note Date & Type Note Facility 08-16-2022 Note HNO ID: [id number] Author: Cj Norton MD Service: ? Author Type: Physician Type: Progress Notes Filed: 08/16/2022 6:10 AM Note Text: HISTORY AND PHYSICAL Pancho Marcelino 1940 REFERRING PHYSICIAN: CHIEF COMPLAINT: Consult (hemorrhoids) HPI: The patient is a 81 year old female referred for endoscopy. Pancho notes the following GI complaints: Pancho denies abdominal pain.. Pancho denies diarrhea. Pancho denies constipation. Reno denies a change in bowel habits. Reno denies melena. Reno notes what she feels is hemorrhoids which cause occasional bright red blood per rectum. The patient notes no history of upper GI complaints. Patient did call back after visit noting she has a history of a rectocele and wanted to make sure that hemorrhoidal banding would not be a problem with that condition. PAST MEDICAL HISTORY Diagnosis Date ASYMPTOMATIC VARICOSE VEINS 08/15/2005 DIVERTICULITIS OF COLON W/O BLEED 08/15/2005 FAMILY HX CARDIOVAS DIS NEC 08/15/2005 Pure hypercholesterolemia URETHRAL CARUNCLE 08/15/2005 PAST SURGICAL HISTORY Procedure Laterality Date COLONOSCOPY FLX DX W/COLLJ SPEC WHEN PFRMD 02/24/2004 Colonoscopy HAMMERTOE REVISION, ONE TOE 10/2011 left foot OPEN REPAIR OF ROTATOR CUFF ACUTE Rotator cuff repair PAST SURGICAL HISTORY OF 1982 vein stripping PAST SURGICAL HISTORY OF 10/2012 and 02/2012 laser- vein on both legs Current Outpatient Medications Medication Sig lovastatin (MEVACOR) 20 mg tablet Take 20 mg by mouth every morning. Coenzyme Q10 400 mg cap Take 1 capsule by mouth once daily. CENTRUM SILVER TAB Take one(1) tablet daily. ubidecarenone/omega-3/vit e(COQ-10 AND FISH OIL 50 MG-300 (180-120)MG-30 UNIT CAP) (Patient not taking: Reported on 08/11/2022) ASPIRIN 81 MG TAB Take one (1) tablet daily . (Patient not taking: Reported on 08/11/2022) No current facility-administered medications for this visit. ALLERGIES: Patient has no known allergies. PERSONAL HISTORY: Social History Tobacco Use Smoking status: Never Smokeless tobacco: Never Vaping Use Vaping Use: Never used Substance Use Topics Alcohol use: Yes Comment: Occaisional drink Drug use: No FAMILY HISTORY: FAMILY HISTORY Problem Relation Age of Onset Heart Father First RI at age 48, [place] at age 56 Hypertension Brother angina questionable [place] in 40s, Heart Paternal Grandmother mi Asthma Paternal Grandmother Diabetes Paternal Aunt Cancer Maternal Aunt colon cancer Cancer Maternal Aunt intestinal cancer REVIEW OF SYMPTOMS: The review of systems data was entered by the nurse and reviewed by me Nursing Notes: Rupa Mcnair LPN 08/11/2022 9:04 AM Signed REVIEW OF SYSTEMS: General: The patient denies fatigue, denies weight loss, denies weight gain, denies feeling hot, and denies feelings of cold. Eyes: The patient denies glaucoma, denies eye injury/surgery, wears glasses or contacts. Ear/Nose/Throat: The patient denies allergies, denies hayfever, denies ear infections, and denies bloody noses. Cardiovascular: The patient denies chest pain, denies heart disease, denies high blood pressure,denies cardiac stent, denies prior heart attack, denies irregular heart beat, NOTES high cholesterol, denies poor circulation, denies heart failure, other cardiac issues, denies claudication, denies cold feet, denies peripheral arterial stent. Respiratory: The patient denies tuberculosis, denies pneumonia, denies frequent cough, denies pulmonary embolism, denies shortness of breath, and denies coughing up blood. Gastrointestinal: The patient denies difficulty swallowing, denies acid reflux, denies ulcers, denies vomiting, denies jaundice/hepatitis, denies gallbladder problems, denies black or tarry stools, NOTES hemorrhoids, denies bleeding from rectum, denies diverticulitis, denies constipation, denies diarrhea, denies loss of stool control, and denies hernias. Kidney/Bladder: The patient denies kidney stones, denies urine infections, and denies bloody urine. Skin: The patient denies a history of skin cancer, denies bleeding/changing moles, and denies a history of skin rash. Neurologic: The patient denies a history of epilepsy/convulsions, denies headaches, denies head/spinal injuries, and denies stroke/TIA. Psychiatric: The patient denies psychiatric medications, denies depression, and denies voices, denies substance abuse. Endocrine: The patient denies thyroid disorders, denies diabetes, and denies hormonal problems. Hematologic: The patient denies a history of bruising, denies bleeding, and denies anemia, denies blood clots. Infections: The patient denies a history of measles and mumps, denies rheumatic fever, and denies sexually transmitted diseases. Musculoskeletal: The patient denies back pain/injury, denies back problems, denies sciatica, denies knee/foot trouble, denies arthritis, or denies gout. When w (more content not included)... [facility] History of Present illness Narrative 08-16-2022 Cj Norton MD - 08/16/2022 6:07 AM EDT Note Date & Type Note Facility 08-16-2022 History of Presen t illness Narrative HISTORY AND PHYSICAL Pancho Marcelino 1940 REFERRING PHYSICIAN: CHIEF COMPLAINT: Consult (hemorrhoids) HPI: The patient is a 81 year old female referred for endoscopy. Reno notes the following GI complaints: Pancho denies abdominal pain.. Reno denies diarrhea. Reno denies constipation. Reno denies a change in bowel habits. Reno denies melena. Pancho notes what she feels is hemorrhoids which cause occasional bright red blood per rectum. The patient notes no history of upper GI complaints. Patient did call back after visit noting she has a history of a rectocele and wanted to make sure that hemorrhoidal banding would not be a problem with that condition. PAST MEDICAL HISTORY Diagnosis Date ASYMPTOMATIC VARICOSE VEINS 08/15/2005 DIVERTICULITIS OF COLON W/O BLEED 08/15/2005 FAMILY HX CARDIOVAS DIS NEC 08/15/2005 Pure hypercholesterolemia URETHRAL CARUNCLE 08/15/2005 PAST SURGICAL HISTORY Procedure Laterality Date COLONOSCOPY FLX DX W/COLLJ SPEC WHEN PFRMD 02/24/2004 Colonoscopy HAMMERTOE REVISION, ONE TOE 10/2011 left foot OPEN REPAIR OF ROTATOR CUFF ACUTE Rotator cuff repair PAST SURGICAL HISTORY OF 1982 vein stripping PAST SURGICAL HISTORY OF 10/2012 and 02/2012 laser- vein on both legs Current Outpatient Medications Medication Sig lovastatin (MEVACOR) 20 mg tablet Take 20 mg by mouth every morning. Coenzyme Q10 400 mg cap Take 1 capsule by mouth once daily. CENTRUM SILVER TAB Take one(1) tablet daily. ubidecarenone/omega-3/vit e(COQ-10 & FISH OIL 50 MG-300 (180-120)MG-30 UNIT CAP) (Patient not taking: Reported on 08/11/2022) ASPIRIN 81 MG TAB Take one (1) tablet daily . (Patient not taking: Reported on 08/11/2022) No current facility-administered medications for this visit. ALLERGIES: Patient has no known allergies. PERSONAL HISTORY: Social History Tobacco Use Smoking status: Never Smokeless tobacco: Never Vaping Use Vaping Use: Never used Substance Use Topics Alcohol use: Yes Comment: Occaisional drink Drug use: No FAMILY HISTORY: FAMILY HISTORY Problem Relation Age of Onset Heart Father First RI at age 48, RI at age 56 Hypertension Brother angina questionable RI in 40s, Heart Paternal Grandmother mi Asthma Paternal Grandmother Diabetes Paternal Aunt Cancer Maternal Aunt colon cancer Cancer Maternal Aunt intestinal cancer REVIEW OF SYMPTOMS: The review of systems data was entered by the nurse and reviewed by nm Nursing Notes: Rupa Mcnair LPN 08/11/2022 9:04 AM Signed REVIEW OF SYSTEMS: General: The patient denies fatigue, denies weight loss, denies weight gain, denies feeling hot, and denies feelings of cold. Eyes: The patient denies glaucoma, denies eye injury/surgery, wears glasses or contacts. Ear/Nose/Throat: The patient denies allergies, denies hayfever, denies ear infections, and denies bloody noses. Cardiovascular: The patient denies chest pain, denies heart disease, denies high blood pressure,denies cardiac stent, denies prior heart attack, denies irregular heart beat, NOTES high cholesterol, denies poor circulation, denies heart failure, other cardiac issues, denies claudication, denies cold feet, denies peripheral arterial stent. Respiratory: The patient denies tuberculosis, denies pneumonia, denies frequent cough, denies pulmonary embolism, denies shortness of breath, and denies coughing up blood. Gastrointestinal: The patient denies difficulty swallowing, denies acid reflux, denies ulcers, denies vomiting, denies jaundice/hepatitis, denies gallbladder problems, denies black or tarry stools, NOTES hemorrhoids, denies bleeding from rectum, denies diverticulitis, denies constipation, denies diarrhea, denies loss of stool control, and denies hernias. Kidney/Bladder: The patient denies kidney stones, denies urine infections, and denies bloody urine. Skin: The patient denies a history of skin cancer, denies bleeding/changing moles, and denies a history of skin rash. Neurologic: The patient denies a history of epilepsy/convulsions, denies headaches, denies head/spinal injuries, and denies stroke/TIA. Psychiatric: The patient denies psychiatric medications, denies depression, and denies voices, denies substance abuse. Endocrine: The patient denies thyroid disorders, denies diabetes, and denies hormonal problems. Hematologic: The patient denies a history of bruising, denies bleeding, and denies anemia, denies blood clots. Infections: The patient denies a history of measles and mumps, denies rheumatic fever, and denies sexually transmitted diseases. Musculoskeletal: The patient denies back pain/injury, denies back problems, denies sciatica, denies knee/foot trouble, denies arthritis, or denies gout. When was patient's last Mammogram screening? N/A Last Colonoscopy: 2003 Rupa Mcanir LPN PHYSICAL EXAMINATION: General: The patient is 81 year old female, well nourished, well hydrated in no acute distress. The patient is oriented to time, place, and person. VITALS: Blood pressure 110/68, pulse 62, temperature (!) 35.9 C (96.7 F), height 165.1 cm (5' 5 ), weight 66.3 kg (146 lb 3.2 oz), SpO2 100 %. Body mass index is 24.33 kg/m . HEENT: Normal cephalic, ataumatic, pupils are equally round, sclera are anicteric, mucous membranes are moist, oropharynx is clear. Neck has no masses, asymmetry or lymphadenopathy. Thyroid is unremarkable. Respiratory: Clear to auscultation and percussion. Normal respiratory excursion and pattern. Cardiac: Examination is regular rate and rhythm. Abdominal exam: Soft, nontender, with no palpable masses. No hepatosplenomegaly. No palpable hernias. Rectal exam: exam deferred Extremities: no clubbing, cyanosis or edema. No adenopathy. Other: LABORATORY VALUES: As Noted RADIOLOGIC STUDIES: As Noted Assessment IMPRESSION: Occasional rectal bleeding, PLAN: I plan to perform lower endoscopy. We discussed the risks and benefits of the planned endoscopy. I have informed the patient that complications can occur including failure to complete the endoscopy and perforation. The patient had the opportunity to ask questions concerning the planned endoscopy. My staff has also explained the procedure to the patient in understandable terms and has given the patient printed material concerning the procedure. The patient freely consents to surgery. I plan to use golytely bowel preparation for endoscopy Diagnoses: (Z12.11) Special screening for malignant neoplasms, colon (primary encounter diagnosis) Return to Clinic: The patient is instructed to follow-up with me after the testing has been completed. Cj Norton MD documented in this encounter [facility] Instructions 08-11-2022 Patient Instructions Note Date & Type Note Facility 08-11-2022 Instructions Cj Norton MD - 08/11/2022 9:37 AM EDT Images from the original note were not included. Bowel Preparation Instructions for: Golytely, Nulytely, Trilyte or Colyte (polyethylene glycol 3350 and electrolytes) IF YOU DO NOT FOLLOW THESE DIRECTIONS, YOUR COLONOSCOPY WILL BE CANCELLED. [place] Instructions: Your bowel must be empty so that your doctor can clearly view your colon. Follow all of the instructions in this handout EXACTLY as they are written. Do NOT eat any solid food the ENTIRE day before your colonoscopy. Drink only clear liquids. Buy your bowel preparation at least 5 days before your colonoscopy. TRANSPORTATION on the Day of Your Exam A responsible person MUST be present with you at Check In prior to your colonoscopy and REMAIN in the endoscopy area until you are discharged. You are NOT ALLOWED to drive, take a taxi or bus, or leave the Endoscopy Center ALONE. If you do not have a responsible driver license reviewing officer (family member or friend) with you to take you home, your exam cannot be done with sedation and will be cancelled. Please bring a list of all of your current medications, including any Over-the Counter medications with you. Medications If you take insulin, diabetic medications or blood thinners such as Coumadin (warfarin), Plavix (clopidogrel), Ticlid (ticlopidine hydrochloride), Agrylin (anagrelide), Xarelto (Rivaroxaban), Pradaxa (Dabigatran), Eliquis (Apixaban), and Effient (Prasugrel). You MUST call the doctors who orders those medicines for instructions on altering the dosage before your colonoscopy. All other medications should be taken the day of the exam with a sip of water including ASPIRIN. Five (5) Days Before Your Colonoscopy Do NOT take medicines that stop diarrhea - such as Imodium, Kaopectate, or Pepto Bismol. Do NOT take fiber supplements - such as Metamucil, Citrucel, or Perdiem. Do NOT take products that contain iron - such as multi-vitamins (the label lists what is in the products). Do NOT take Vitamin E. Buy the prescription bowel preparation solution at your local pharmacy or drugstore pharmacy. 04/2019 Bowel Preparation Instructions for: Golytely, Nulytely, Trilyte or Colyte (polyethylene glycol 3350 and electrolytes) Three (3) Days Before Your Colonoscopy Do NOT eat high-fiber foods - such as popcorn, beans, seeds (flax, sunflower, quinoa), multigrain bread, nuts, salad/vegetables, or fresh and dried fruit. One (1) Day Before Your Colonoscopy Only drink clear liquids the ENTIRE DAY before your colonoscopy. Do NOT eat any solid foods. Drink at least 8 ounces of clear liquids every hour after waking up. The clear liquids you can drink include: Clear Liquid (NO RED LIQUIDS) DO NOT DRINK Gatorade, Pedialyte or Powerade Clear broth or bouillon Coffee or tea (no milk or non-dairy creamer) Carbonated and non-carbonated soft drinks Osman-Aid or other fruit flavored drinks Strained fruit juices (no pulp) Jell-O, popsicles, hard candy Water Alcohol Milk or non-dairy creamers Noodles or vegetables in soup Juice with pulp Liquid you cannot see through Do not use tobacco/vaping products The bowel preparation solution will be consumed in two parts. Mix the solution the evening before your colonoscopy and refrigerate before drinking. You may add the flavor pack that came with the bowel preparation. Do NOT add ice, sugar or any other flavorings to the solution. Part 1 At 6:00 PM - Evening before your colonoscopy Drink an 8-oz glass of bowel preparation every 10 minutes for a total of 8 glasses. You may continue to drink clear liquids until midnight. Part 2 On the day of your colonoscopy you may drink clear liquids up to (three) 3 hours before your procedure. 4 1/2 hours before your colonoscopy Drink an 8-oz glass of bowel preparation every 10 minutes for a total of 8 glasses. Fifteen (15) minutes later, drink an 8-oz glass of clear liquids every 15 minutes for a total of 2 glasses. You may continue to drink clear liquids up to (three) 3 hours before your exam. 2 04/2019 documented in this encounter [facility] Nurse Note 08-11-2022 Rupa Mcnair LPN - 08/11/2022 9:02 AM EDT Note Date & Type Note Facility 08-11-2022 Nurse Note REVIEW OF SYSTEMS: General: The patient denies fatigue, denies weight loss, denies weight gain, denies feeling hot, and denies feelings of cold. Eyes: The patient denies glaucoma, denies eye injury/surgery, wears glasses or contacts. Ear/Nose/Throat: The patient denies allergies, denies hayfever, denies ear infections, and denies bloody noses. Cardiovascular: The patient denies chest pain, denies heart disease, denies high blood pressure,denies cardiac stent, denies prior heart attack, denies irregular heart beat, NOTES high cholesterol, denies poor circulation, denies heart failure, other cardiac issues, denies claudication, denies cold feet, denies peripheral arterial stent. Respiratory: The patient denies tuberculosis, denies pneumonia, denies frequent cough, denies pulmonary embolism, denies shortness of breath, and denies coughing up blood. Gastrointestinal: The patient denies difficulty swallowing, denies acid reflux, denies ulcers, denies vomiting, denies jaundice/hepatitis, denies gallbladder problems, denies black or tarry stools, NOTES hemorrhoids, denies bleeding from rectum, denies diverticulitis, denies constipation, denies diarrhea, denies loss of stool control, and denies hernias. Kidney/Bladder: The patient denies kidney stones, denies urine infections, and denies bloody urine. Skin: The patient denies a history of skin cancer, denies bleeding/changing moles, and denies a history of skin rash. Neurologic: The patient denies a history of epilepsy/convulsions, denies headaches, denies head/spinal injuries, and denies stroke/TIA. Psychiatric: The patient denies psychiatric medications, denies depression, and denies voices, denies substance abuse. Endocrine: The patient denies thyroid disorders, denies diabetes, and denies hormonal problems. Hematologic: The patient denies a history of bruising, denies bleeding, and denies anemia, denies blood clots. Infections: The patient denies a history of measles and mumps, denies rheumatic fever, and denies sexually transmitted diseases. Musculoskeletal: The patient denies back pain/injury, denies back problems, denies sciatica, denies knee/foot trouble, denies arthritis, or denies gout. When was patient's last Mammogram screening? N/A Last Colonoscopy: 2003 Rupa Mcnair LPN documented in this encounter [facility] Evaluation note Note Date & Type Note Facility documented in this encounter [facility] Reason for referral (narrative) Outpatient Procedure (Routine) - Authorized Note Date & Type Note Facility Referral ID Status Reason Start Date Expiration Date Visits Requested Visits Authorized [id number] Authorized Auto-Generat ed Referral 08/11/2022 08/12/2023 1 1 [facility] Summary Purpose Family History No Family History Records FoundNo Family History Records Found Advance Directives No Advanced Directives Records FoundNo Advanced Directives Records Found Medications Administered Section Inactive Administered Medications - up to 3 most recent administrations Medication Order MAR Action Action Date Dose Rate Site fentaNYL 50 mcg/mL 25-100 mcg injection (SUBLIMAZE) 25-100 mcg, INTRAVENOUS, DIRECTED, Starting on Mon09/20/22 at 0930, Until Mon09/20/22 at 1329, DOSING DIRECTED BY PHYSICIAN FOR PROCEDURAL SEDATION ONLY, Intraprocedure Given 09/20/2022 9:16 AM EDT 25 mcg Additional Source Comments INFORMATION SOURCE (unrecogn ized section and content) DATE CREATED AUTHOR AUTHOR'S ORGANIZ ATION 10/25/2022 [facility] Source Comments (unrecognize d section and content) In the event this informatio n is protected by the Federal Confidentiality of Alcohol and Drug Abuse Patient Records regulations: The Federal rules restrict any use of the information to criminally investigate or prosecute any alcohol or drug abuse patient.[facility] the event this information is protected by the Federal Confidentiality of Alcohol and Drug Abuse Patient Records regulations: The Federal rules restrict any use of the information to criminally investigate or prosecute any alcohol or drug abuse patient.[facility] Reason for Visit (unrecogniz ed section and content) Specialty Diagnoses / Procedures Referred By Anne Marie ruvalcaba Referred To Contact [facility] Diagnoses Special screening for malignant neoplasms, colon Procedures COLONOSCOPY FLX DX W/COLLJ SPEC WHEN PFRMD HEMORRHOIDECTOMY INTERNAL RUBBER BAND LIGATIONS COLONOSCOPY BANDING HEMORRHOID [facility] [address] [place] [address] Referral ID Status Reason Start Date Expiration Date Visits Re quested Visits Authorized [id number] 1 1 Scheduled Active and Recently Administ ered Medications (unrecognized section and content) Continuous Medication Order 09/18/2022 09/19/2022 09/20/2022 lactated ringers iv infusion (CANCELED) 30 mL/hr, INTRAVENOUS, CONTINUOUS, Starting on Mon09/20/22 at 0800, Until Mon09/20/22 at 0937, Preprocedure 0815 (New Bag/Syring e/Bottle - Provider: Vivian Greenberg RN)0935 (Med Check - Provider: Vivian Greenberg RN)1007 (Stopped - Provider: Vivian Greenberg RN) FOR RECORDS PERTAINING TO PATIENTS WHO ARE OR HAVE BEEN ENROLLED IN A CHEMICAL DEPENDENCY/SUBSTANCEABUSE PROGRAM, SOME INFORMATION MAY BE OMITTED. This clinical summary was aggregated from multiple sources. Caution should be exercised in using it in the provision of clinical care. This summary normalizes information from multiple sources, and as a consequence, information in this document may materially change the coding, format and clinical context of patient data. In addition, data may be omitted in some cases. CLINICAL DECISIONS SHOULD BE BASED ON THE PRIMARY CLINICAL RECORDS. [facility] [employer] provides no warranty or guarantee of the accuracy or completeness of information in this document.
[2023-05-17 12:28] LABS: Absolute Lymphocyte Count 1.69 X10^3/uL (0.83-4.51); Absolute Neutrophil Count 5.3 X10^3/uL (2.0-7.7); Basophil# 0.05 X10^3/uL; Basophil% 0.7 % (0-1); Eosinophil# 0.17 X10^3/uL; Eosinophils% 2.2 % (0-5); Hematocrit 42.7 % (37-47); Hemoglobin 13.7 g/dL (12.0-15.0); Lymphocyte # 1.69 X10^3/ul (0.83-4.51); Lymphocyte % 22.1 % (19-41); Mean Corp Hgb Conc 32.1 g/dL (32-36); Mean Corpuscular Hgb 30.2 pg (27.0-32.0); Mean Corpuscular Volume 94.3 fL (81-99); Mean Platelet Vol. 9.6 fl (6.2-12.0); Monocyte# 0.39 X10^3/uL; Monocyte% 5.1 % (0-10); NRBC Flagged by Analyzer 0 % (0-5); Neutrophil # 5.31 X10^3/uL (2.7-7.7); Neutrophil % 69.5 % (47-70); Platelet Count 266 K/mm3 (150-450); RBC Distribution Width CV 12.6 % (11.6-14.6); RBC Distribution Width SD 43.4 fl (35.1-43.9); Red Blood Count 4.53 M/mm3 (4.2-5.4); White Blood Count 7.6 K/mm3 (4.4-11.0)
[2023-05-17 13:02] LABS: ALB/GLOB Ratio 1.1 RATIO (0.9-2.4); AST(SGOT) 22 U/L (15-37); Alanine Aminotransfer ALT/SGPT 21 U/L (13-56); Albumin, Serum 3.9 g/dL (3.2-5.0); Alkaline Phosphatase 91 U/L (45-117); Anion Gap 7 (5-15); BUN 21 mg/dL (7-18); BUN/Creat Ratio 19.8 RATIO (10-20); Calcium,Total 9.3 mg/dL (8.5-10.1); Chloride 108 mmol/L (98-107); Cholesterol 258 mg/dL (200); Creatinine, Serum 1.06 mg/dL (0.55-1.02); EST Glomerular Filtration Rate 53 mL/min (>60); Est Glom Filt Rate - Afr Amer 64 mL/min (>60); Globulin 3.5 g/dL (2.2-4.2); Glucose 117 mg/dL (74-106); High Density Lipoprotein 82 mg/dL; Potassium 4.1 mmol/L (3.5-5.1); Protein, Total 7.4 g/dL (6.4-8.2); Sodium Level 143 mmol/L (136-145); Triglycerides 142 mg/dL; Very Low Density Lipoprotein 28 mg/dL (5-40)
== END | disposition home or self-care (01) ==
LOC: BIMLAB 10:10
PROVIDERS: PCP Internal Medicine; Visit Provider Internal Medicine
DX: I10 Essential (primary) hypertension (principal); E78.5 Hyperlipidemia, unspecified
CPT/HCPCS: 36415; 80053; 80061; 85025

== ENCOUNTER → 2023-06-29 | Outpatient (CLI) | payer MEDICARE, OTHER, SELFPAY ==
--- NOTE | 2023-06-29 14:15 | BI_ITS ---
MAMMOGRAPHY - BILATERAL SCREENING REASON FOR EXAM: Female, 82 years old. Routine annual screening examination. PERTINENT HISTORY: Non-contributory. TECHNIQUE: Digital bilateral breast len (3D mammographic acquisition) in the CC and MLO projections. 2-D mediolateral oblique (MLO) and craniocaudad (CC) views of both breasts were obtained. CAD: Full Field Digital Mammography with Computer Added Detection was performed. COMPARISON: Comparison is made with prior study dated September 05, 2016 and March 28, 2015. FINDINGS: Breast Composition: There are scattered areas of fibroglandular density. There are no dominant masses or suspicious calcifications. Small benign-appearing bilateral axillary lymph nodes. No other significant abnormalities are identified. There has been no significant change since the prior study. BI/SCRN MAMM (CAD)W/LEN BILAT IMPRESSION: Stable bilateral screening mammogram. Yearly follow-up mammogram recommended. (A) ASSESSMENT CATEGORY: BIRADS Category 2: Benign. A letter regarding these results will be sent to the patient by the facility within 30 days. Approximately 10% of breast cancers are not detected by mammography. A normal mammogram should not delay biopsy of a clinically suspicious abnormality. [id number] Electronically Signed: Jonny Jiménez MD at 15:36 EST ,
--- NOTE | 2023-06-29 14:18 | BD_ITS ---
STUDY: DUAL ENERGY X-RAY ABSORPTIOMETRY / DXA REASON FOR EXAM: Female, 82 years old. Post Menopausal TECHNIQUE: Bone Mineral Density (BMD) measurements of lumbar spine and bilateral hips were obtained. COMPARISON: Comparison is made with prior study dated January 28, 2021. FINDINGS: Lumbar Spine (L1-L4): g/cm2 (1.359) / T-score (3.1) / Z-score (5.8) Findings are suggestive of normal bone density with a low fracture risk. Left Femur Total: g/cm2 (1.125) / T-score (1.5) / Z-score (3.7) Left Femoral Neck: g/cm2 (0.961) / T-score (1.0) / Z-score (3.4) Right Femur Total: g/cm2 (1.045) / T-score (0.8) / Z-score (3.0) Right Femoral Neck: g/cm2 (0.880) / T-score (0.3) / Z-score (2.7) The T-Scores on the most recent prior examination were: Lumbar Spine (L1-L4): There has been worsening of bone density since the previous examination. Left Femur Total: which represents an improvement of 3.5%. Right Femur Total: which represents a worsening of 0.6%. BD/Dexa Bone Density Study IMPRESSION: The patient is considered normal as outlined below according to World Jose Organization (WHO) criteria with a low fracture risk. There has been worsening of bone density since the previous examination. Reference Information: The T-score is the number of standard deviations above or below the standard which is normal for young adults at their peak bone mineral density. The World Health Organization (WHO) interprets the T-scores as follows: Above -1 Normal bone density Between -1 and -2.5 Osteopenia Equal to / or below -2.5 Osteoporosis As a practical clinical guideline, osteopenia may be graded as follows: Mild -1 through -1.5 Moderate -1.6 through -2.0 Severe -2.1 through -2.4 The Z-score is the number of standard deviations above or below age-matched controls. A Z-score of less than -1.5 would be considered abnormal. References: 1. NIH Osteoporosis and Related Bone Diseases www osteo.org 2. International Society for Clinical Densitometry www iscd.org 3. National Osteoporosis Foundation www nof.org Electronically Signed: Jonny Jiménez MD at 13:37 EST ,
--- OUTSIDE RECORDS SUMMARY | 2023-06-29 20:09 | XMS RPT_ITS | CCD ---
Author Name Unknown Address [address] [place] [address] Organization [facility] Care Team Providers Care Event Designer Name Role Phone ADELE MONTEIRO Unavailable Unavailable Real LORA, Ventura Morgan Unavailable [phone] Unavailable Primary Care Provider CJ Escobedo Attending [...] 01-17-2017 Unclassified (1 source) Hand Laceration / [id number]() Onset: 01-17-2017 Unclassified (1 source) Screening - [...] 59 mm[Hg] Cj Norton MD Work Phone: [facility] 09-20-2022 10:05-0400 Heart rate 64 /min Cj Norton MD Work Phone: [facility] 09-20-2022 10:05-0400 Respiratory rate 16 /min Cj Norton MD Work Phone: [facility] 09-20-2022 10:05-0400 SaO2% (BldA) [Mass fraction] 97 % Cj Norton MD Work Phone: [facility] 09-20-2022 10:05-0400 Systolic blood pressure 131 mm[Hg] Cj Norton MD Work Phone: [facility] 09-20-2022 08:03-0400 Body temperature 96.91 [degF] Cj Norton MD Work Phone: [facility] 09-20-2022 08:03-0400 Body weight 66.3 kg Cj Norton MD Work Phone: [facility] 08-11-2022 08:59-0400 Body height 165.1 cm Cj Norton MD Work Phone: [facility] 08-11-2022 08:59-0400 Body temperature 96.69 [degF] Cj Norton MD Work Phone: [facility] 08-11-2022 08:59-0400 Body weight 66.32 kg Cj Norton MD Work Phone: [facility] 08-11-2022 08:59-0400 Diastolic blood pressure 68 mm[Hg] Cj Norton MD Work Phone: [facility] 08-11-2022 08:59-0400 Heart rate 62 /min Cj Norton MD Work Phone: [facility] 08-11-2022 08:59-0400 SaO2% (BldA) [Mass fraction] 100 % Cj Norton MD Work Phone: [facility] 08-11-2022 08:59-0400 Systolic blood pressure 110 mm[Hg] Cj Norton MD Work Phone: [facility] 01-11-2017 13:35-0400 BMI (Body Mass Index) 23.72 kg/m2 Ventura Noble MD [facility] Work Phone: 01-11-2017 13:35-0400 Body Temperature 98.6 [degF] Ventura Noble MD [facility] Work Phone: 01-11-2017 13:35-0400 BP Diastolic 75 mm[Hg] Ventura Noble MD [facility] Work Phone: 01-11-2017 13:35-0400 BP Systolic 132 mm[Hg] Ventura Noble MD [facility] Work Phone: 01-11-2017 13:35-0400 Height 167.64 cm Ventura Noble MD [facility] Work Phone: 01-11-2017 13:35-0400 Pulse (Heart Rate) 70 /min Ventura Noble MD [facility] Work Phone: 01-11-2017 13:35-0400 Weight 66.68 kg Ventura Noble MD [facility] Work Phone: 07-30-2014 13:53-0400 BSA (Body Surface Area) 1.79 m2 Ventura Noble MD [facility] Work Phone: 07-30-2014 13:53-0400 Respiratory Rate 14 /min Ventura Noble MD [facility] Work Phone: Encounters Encounter Date [...] 05-15-2022 ADVANCE DIRECTIVE DISCUSSION ADVANCE DIRECTIVE DISCUSSION [facility] Start: 05-15-2022 DEPRESSION ASSESSMENT DEPRESSION ASSESSMENT [facility] Start: 01-11-2017 End: 01-11-2017 Follow Up Appt 6 months Follow Up Appt 6 months [facility] Work Phone: Start: 07-30-2014 End: 08-06-2014 Follow Up Appt 6 months Follow Up Appt 6 months [facility] Work Phone: Start: 05-28-2013 Urine microalbumin profile DTAP,TDAP,TD (2 - Tdap) [facility] Start: 08-16-2008 DIABETES SCREEN DIABETES SCREEN [facility] Start: 2006 BONE DENSITY BONE DENSITY [facility] Start: 2006 PNEUMOCOCCAL: 65+ (1 - PCV) PNEUMOCOCCAL: 65+ (1 - PCV) [facility] Start: 09-23-1991 SHINGRIX VACCINE (1 of 2) SHINGRIX VACCINE (1 of 2) [facility] End: 08-12-2023 Screening colonoscopy COLONOSCOPY SCREENING Endoscopy Routine Special screening for malignant neoplasms, colon 1 Occurrences starting 08/11/2022 until 08/12/2023 [facility] Work Phone: Immunizations Immunization Date Immunization Notes Care Provider Justin granado 01-11-2017 Seasonal trivalent influenza vaccine, adjuvanted, preservative free Ventura Noble MD [facility] Work Phone: 03-15-2005 influenza virus vaccine, unspecified formulation Cj Norton MD Work Phone: [facility] Work Phone: 05-28-2003 diphtheria and tetan us toxoids, adsorbed for pediatric use Cj Norton MD Work Phone: [facility] Work Phone: 05-18-2003 hepatitis B vaccine, adult dosage Cj Norton MD Work Phone: [facility] Work Phone: 04-28-2003 hepatitis B vaccine, adult dosage Cj Norton MD Work Phone: [facility] Work Phone: Payers Date Payer Category Payer Medicare [id number] 2021 Unknown MMO MMO MEDICARE SUPPLEMENT [id number] 2021-Present [phone] [address] [place] [address] Indemnity [id number] 2006 Medicare MEDICARE MEDICAR E A AND B [id number] 2006-Present [phone] [address] [address] [place] [address] Medicare [id number] 2006 Medicare [id number] Medicare [id number] Social History Date Type Detail Facility Start: 03-15-2011 Tobacco smoking stat us [facility] Never smoked tobacco [facility] Work Phone: Start: 03-15-2011 Tobacco use and exposure Smokeless tobacco non-user [facility] Work Phone: Start: 08-16-2022 End: 09-20-2022 Alcohol intake Current drinker of alcohol (finding) [facility] Start: 1940 Sex Assigned At Not on file C [facility] Progress note 10-20-2022 Note Date & Type Note Facility 10-20-2022 Note HNO ID: [id number] Author: Antonella Guzman Service: ? Author Type: ? Type: Progress Notes Filed: 10/20/2022 1:26 PM Note Text: 10-20...attempt to contact patient to r/s colonoscopy with Hemorrhoid banding Patient has phone number to return call Antonella Guzman [facility] Nurse Note 09-20-2022 Vivian Greenbegr RN - 09/20/2022 11:13 AM EDTGmireille Greenberg [...] Vivian Greenberg RN documented in this encounter [facility] History and physical note 09-20-2022 Cj Norton [...] following GI complaints: Pancho denies abdominal pain.. Lagrange denies diarrhea. Pancho denies constipation. Pancho denies a change in bowel habits. [place]range denies melena. Lagrange notes what she feels is hemorrhoids which [...] Relation Age of Onset Heart Father First VA at age 48, VA at age 56 Hypertension Brother angina questionable VA in 40s, Heart Paternal Grandmother mi Asthma [...] Cj Norton MD documented in this encounter [facility] Progress note 08-16-2022 Note Date & Type Note Facility 08-16-2022 Note HNO ID: [id number] Author: Cj Norton MD Service: ? Author Type: Physician Type: Progress Notes Filed: 08/16/2022 6:10 AM Note Text: HISTORY AND PHYSICAL Pancho Marcelino 1940 REFERRING PHYSICIAN: CHIEF COMPLAINT: Consult (hemorrhoids) HPI: The patient is a 81 year old female referred for endoscopy. Lagrange notes the following GI complaints: Lagrange denies abdominal pain.. [place]range denies diarrhea. [place] denies constipation. [place]range denies a change in bowel habits. Pancho denies melena. Pancho notes what she feels [...] Relation Age of Onset Heart Father First VA at age 48, VA at age 56 Hypertension Brother angina questionable VA in 40s, Heart Paternal Grandmother mi Asthma [...] gout. When w (more content not included)... [facility] History of Present illness Narrative 08-16-2022 Cj Norton MD - 08/16/2022 6:07 AM EDT Note Date & Type Note Facility 08-16-2022 History of Presen t illness Narrative HISTORY AND PHYSICAL Pancho Marcelino 1940 REFERRING PHYSICIAN: CHIEF COMPLAINT: Consult (hemorrhoids) HPI: The patient is a 81 year old female referred for endoscopy. Lagrange notes the following GI complaints: Lagrange denies abdominal pain.. Lagrange denies diarrhea. [place]range denies constipation. Lagrange denies a change in bowel habits. Pancho denies melena. Lagrange notes what she feels is hemorrhoids which [...] Relation Age of Onset Heart Father First VA at age 48, VA at age 56 Hypertension Brother angina questionable VA in 40s, Heart Paternal Grandmother mi Asthma Paternal Grandmother Diabetes Paternal Aunt Cancer Maternal Aunt colon cancer Cancer Maternal Aunt intestinal cancer REVIEW OF SYMPTOMS: The review of systems data was entered by the nurse and reviewed by wy Nursing Notes: Rupa Mcnair LPN 08/11/2022 9:04 [...] Cj Norton MD documented in this encounter [facility] Instructions 08-11-2022 Patient Instructions Note Date & [...] If you do not have a responsible taxicab driver (family member or friend) with you to [...] exam. 2 04/2019 documented in this encounter [facility] Nurse Note 08-11-2022 Rupa Mcnair LPN - [...] Rupa Mcnair LPN documented in this encounter [facility] Evaluation note Note Date & Type Note Facility documented in this encounter [facility] Reason for referral (narrative) Outpatient Procedure (Routine) - Authorized Note Date & Type Note Facility Referral ID Status Reason Start Date Expiration Date Visits Requested Visits Authorized [id number] Authorized Auto-Generat ed Referral 08/11/2022 08/12/[address] [facility] Summary Purpose Family History No Family History [...] DATE CREATED AUTHOR AUTHOR'S ORGANIZ ATION 10/25/2022 [facility] Source Comments (unrecognize d section and content) In the event this informatio n is protected by the Federal Confidentiality of Alcohol and Drug Abuse Patient Records regulations: The Federal rules restrict any use of the information to criminally investigate or prosecute any alcohol or drug abuse patient[facility] the event this information is protected by the Federal Confidentiality of Alcohol and Drug Abuse Patient Records regulations: The Federal rules restrict any use of the information to criminally investigate or prosecute any alcohol or drug abuse patient.[facility] Reason for Visit (unrecogniz ed section and content) Specialty Diagnoses / Procedures Referred By Anne Marie ruvalcaba Referred To Contact [facility] Diagnoses Special screening for malignant neoplasms, colon Procedures COLONOSCOPY FLX DX W/COLLJ SPEC WHEN PFRMD HEMORRHOIDECTOMY INTERNAL RUBBER BAND LIGATIONS COLONOSCOPY BANDING HEMORRHOID [facility] [address] [place] [address] Referral ID Status Reason Start Date Expiration Date Visits Re quested Visits Authorized [id number] 1 1 Scheduled Active and Recently Administ [...] BE BASED ON THE PRIMARY CLINICAL RECORDS. [facility] [employer] provides no warranty or guarantee of the accuracy or completeness of information in this document.
== END | disposition home or self-care (01) ==
LOC: OPBD 14:15
PROVIDERS: PCP Internal Medicine; Referring Provider Internal Medicine; Visit Provider Internal Medicine
DX: Z12.31 Encounter for screening mammogram for malignant neoplasm of breast (principal); Z78.0 Asymptomatic menopausal state
CPT/HCPCS: 77063; 77067; 77080

== ENCOUNTER → 2024-10-21 | Outpatient (CLI) | payer MEDICARE, OTHER, SELFPAY ==
[2024-10-21 15:24] LABS: Absolute Lymphocyte Count 1.74 X10^3/uL (0.83-4.51); Basophil# 0.03 X10^3/uL; Basophil% 0.5 % (0-1); Eosinophil# 0.14 X10^3/uL; Eosinophils% 2.2 % (0-5); Hematocrit 36.7 % (37-47); Hemoglobin 12.4 g/dL (12.0-15.0); Lymphocyte # 1.74 X10^3/ul (0.83-4.51); Lymphocyte % 27.8 % (19-41); Mean Corp Hgb Conc 33.8 g/dL (32-36); Mean Corpuscular Hgb 30.8 pg (27.0-32.0); Mean Corpuscular Volume 91.1 fL (81-99); Mean Platelet Vol. 9.6 fl (6.2-12.0); Monocyte# 0.36 X10^3/uL; Monocyte% 5.7 % (0-10); NRBC Flagged by Analyzer 0 % (0-5); Neutrophil # 3.99 X10^3/uL (2.7-7.7); Neutrophil % 63.6 % (47-70); Platelet Count 236 K/mm3 (150-450); RBC Distribution Width CV 12.5 % (11.6-14.6); RBC Distribution Width SD 41.6 fl (35.1-43.9); Red Blood Count 4.03 M/mm3 (4.2-5.4); White Blood Count 6.3 K/mm3 (4.4-11.0)
[2024-10-21 15:55] LABS: ALB/GLOB Ratio 1.6 RATIO (0.9-2.4); AST(SGOT) 24 U/L (<=31); Alanine Aminotransfer ALT/SGPT 15 U/L (<=34); Albumin, Serum 4.2 g/dL (3.4-4.8); Alkaline Phosphatase 77 U/L (35-104); Anion Gap 13 (5-15); BUN 35 mg/dL (4-19); BUN/Creat Ratio 29.5 RATIO (10-20); Calcium,Total 9.9 mg/dL (7.6-11.0); Carbon Dioxide 22.4 mmol/L (21.0-32.0); Chloride 106 mmol/L (98-108); Cholesterol 272 mg/dL (<=200); Creatinine, Serum 1.19 mg/dL (0.70-1.20); EST Glomerular Filtration Rate 45 (>60); Globulin 2.6 g/dL (2.2-4.2); Glucose 107 mg/dL (70-99); High Density Lipoprotein 71 mg/dL; Low Density Lipoprotein Calc. 181 mg/dL; Potassium 4.3 mmol/L (3.3-5.1); Protein, Total 6.9 g/dL (5.9-8.4); Sodium Level 141 mmol/L (133-145); Total Bilirubin 0.31 mg/dL (0.00-1.30); Triglycerides 100 mg/dL; Very Low Density Lipoprotein 20 mg/dL (5-40); cholesterol:hdl ratio screen 3.83
== END | disposition home or self-care (01) ==
LOC: BIMLAB 11:37
PROVIDERS: PCP Internal Medicine; Referring Provider Internal Medicine; Visit Provider Internal Medicine
DX: E78.5 Hyperlipidemia, unspecified (principal)
CPT/HCPCS: 36415; 80053; 80061; 85025

== ENCOUNTER → 2024-11-06 | Outpatient (CLI) | payer MEDICARE, OTHER, SELFPAY ==
--- OUTSIDE RECORDS SUMMARY | 2024-11-06 21:41 | XMS RPT_ITS | CCD ---
Author Organization [facility] Care Team Providers Care Statement Clerks Manager Name Role Phone ADELE MONTEIRO Unavailable Unavailable Ventura Noble MD Unavailable [phone] Dr. Ventura Noble Primary Care Provider [phone] Dr. Ventura Noble Referring Provider [phone] Rogelio GONGORA, BRAKE LINING DRILLER-C Sj Attending Provider [phone] Dr. Michael Conway Attending Provider Rogelio BRAKE LINING DRILLER, BRAKE LINING DRILLER-C Sj Referring Provider [phone] Dr. Ventura Noble Attending Provider [phone] Dr. Ventura Noble Primary Care Provider [phone] Dr. Ventura Noble Referring Provider [phone] Dr. Ventura Noble Primary Care Provider [phone] Dr. Ventura Noble Attending Provider [phone] Dr. Ventura Noble Referring Provider [phone] Dr. Ventura Noble Primary Care Provider [phone] Dr. Ventura Noble Attending Provider [phone] Dr. Ventura Noble Referring Provider [phone] Unavailable Primary Care Provider Dr. Ventura Zabala Primary Care Provider [phone]) Dr. Ventura Noble Attending Provider [phone] Dr. Ventura Noble Referring Provider [phone] Unavailable Primary Care Provider Unavailabl e FARIDEH SILVERMAN Referring Unavailable FARIDEH SILVERMAN Attending Unavailable FARIDEH SILVERMAN Referring Unavailable DARCY MCBRIDE Attending Unavailable MARGARITA TORRES Attending Unavailable FARIDEH SILVERMAN Referring Unavailable Real LORA, Dr. Whitehead Primary Care Provider Real LORA, Dr. Whitehead Attending Provider [phone] Real LORA, Dr. Whitehead Referring Provider [phone] Ventura Noble Attending Unavailable Oleghe, Efewongbe Referring Unavailable Oleghe, Efewongbe Primary Care Unavailable Referred, Self Attending Unavailable Referred, Self Referring Unavailable Oleghe, Efewongbe Primary Care Unavailable Oleghe, Efewongbe Referring Unavailable Oleghe, Efewongbe Primary Care Unavailable Olekaie Efewongbe Attending Unavailable OlekaieKranthiongbe Attending Unavailable Oleghe, Efewongbe Referring Unavailable Oleghe, Efewongbe Primary Care Unavailable Medications Current Medications Medication Drug Class(es) Dates Sig (Normalized) Sig (Original) ascorbic acid 500 mg oral capsule (12 sources) Vitamin C Start: 01-20-2021 Ascorbic Acid (Vitamin C) Active MG PO January 20, 2021 1:16pm Start: 01-20-2021 take 2 capsules by m outh once daily Ascorbic Acid (Vitamin C) 500 mg capsule Active 1000 mg PO DAILY January 20, 2021 12:00am Start: 01-20-2021 take 1000 mg by mouth once anjali ly Ascorbic Acid (Vitamin C) Active 1000 MG PO DAILY January 19, 2021 11:00pm CENTRUM SILVER TAB (9 sources) Start: 08-15-2005 CENTRUM SILVER TAB Take one(1) tablet daily. 0 08/15/2005 Active Comment on above: Take one(1) tablet d aily. cholecalciferol 0.05 mg oral capsule (14 sources) Vitamin D Start: 11-02-2017 take 1 capsule by mouth once daily Cholecalciferol (Vitamin D3) 2,000 unit capsule Active 2000 U PO daily November 02, 2017 12:00am Start: 01-11-2017 take 1 tablet by silvestre th once daily VITAMIN D3 TABS 2000 units, One tablet by mouth daily CHOLECALCIFEROL TABS [id number] Sj Mercado RIDDLER OPERATOR-C docosahexaenoate / eicosapentaenoate / ubidecarenone / vitamin E (9 sources) Start: 09-03-2007 ubidecarenone/ omega-3/vit e(COQ-10 & FISH OIL 50 MG-300 (180-120)MG-30 UNIT CAP) 0 09/03/2007 Active Start: 09-03-2007 ubidecarenone/ omega-3/vit e(COQ-10 & FISH OIL 50 MG-300 (180-120)MG-30 UNIT CAP) lovastatin 20 mg oral tablet (20 sources) HMG-CoA Reductase Inhibitor Start: 08-31-2021 End: 10-23-2024 take 1 tablet by mouth once daily Lovastatin 20 mg tablet Active 20 mg PO DAILY October 23, 2024 10:22am Start: 01-21-2021 End: 08-31-2021 take 1 tablet by mouth once daily Lovastatin 40 mg tablet Discontinued 40 mg PO DAILY January 21, 2021 1:31pm August 31, 2021 9:35am Start: 02-18-2019 End: 01-21-2021 take 1 tablet by mouth once daily Lovastatin 20 mg tablet Discontinued 20 mg PO DAILY May 27, 2020 12:44pm January 21, 2021 1:31pm Start: 11-02-2017 End: 02-18-2019 take 1 tablet by mouth every other day Lovastatin 20 mg tablet Discontinued 20 mg PO EVERY OTHER DAY February 20, 2018 8:41am September 20, 2018 4:06pm Start: 01-11-2017 take 1 tablet by silvestre th every other day LOVASTATIN 20 MG TABS One tablet by mouth every other day LOVASTATIN [id number] Aleksandra Butler Comment on above: Take 20 mg by mouth every morning. Multivitamin With Iron (10 sources) Start: 8 take 1 tablet by mouth once daily Multivitamin With Iron Active 1 TABLET PO daily November 02, 2017 2:18pm Start: 11-02-2017 take 1 tablet by silvestre th once daily Multivitamin With Iron Active 1 TABLET PO daily November 01, 2017 11:00pm Start: 11-02-2017 take 1 tablet by silvestre th once daily Multivitamin With Iron Active 1 TABLET PO daily November 02, 2017 12:00am Multivitamin With Iron tablet (2 sources) Start: 11-02-2017 Multivitamin W ith Iron tablet Active 1 {tbl} PO daily November 02, 2017 12:00am ubidecarenone 400 mg oral capsule (9 sources) take 1 capsule by mouth once daily Coenzyme Q10 400 mg cap Take 1 capsule by mouth once daily. Active Comment on above: Take 1 capsule by mo lah once daily. ubiquinol 100 mg oral capsule (2 sources) Start: 10-21-2024 take 1 capsule by mouth twice daily Coq10 (Ubiquinol) (Qunol David Coq10) 100 mg capsule Active 100 mg PO TWICE A DAY October 21, 2024 12:00am Completed/Discontinued Medications Medication Drug Class(es) Dates Sig (Normalized) Sig (Original) acetaminophen 500 mg oral tablet (6 sources) Start: 03-18-2022 End: 05-25-2023 take 2 tablets by mouth every eight hours Acetaminophen 500 mg Tablet Discontinued 1000 mg PO EVERY 8 HOURS 84 March 18, 2022 12:00am May 25, 2023 3:50pm Start: 03-18-2022 End: 05-25-2023 take 1000 mg by mouth every eight hours Acetaminophen Discontinued 1000 MG PO EVERY 8 HOURS 84 March 17, 2022 11:00pm May 25, 2023 2:50pm acetaminophen 325 mg / oxyCODONE hydrochloride 5 mg oral tablet (20 sources) Opioid Agonist Start: 09-16-2021 End: 10-26-2021 Oxycodone-Acetaminophen (Endocet) 5-325 mg tablet Discontinued 1 {tbl} PO EVERY 6 HOURS as needed for pain 09 12September 16, 2021 October 26, 2021 2:21pm aspirin 81 mg delayed release oral tablet (20 sources) Platelet Aggregation Inhibitor, Nonsteroidal Anti-inflammator y Drug Start: 03-18-2022 End: 05-25-2023 take 1 tablet by mouth once daily Aspirin 81 mg Tablet,Delayed Release (Dr/Ec) Discontinued 81 mg PO DAILY@0800 56 March 18, 2022 12:00am May 25, 2023 3:50pm Start: 11-02-2017 End: 08-31-2021 take 1 tablet by mouth once daily Aspirin 81 mg tablet,delayed release (DR/EC) Discontinued 81 mg PO daily November 02, 2017 12:00am August 31, 2021 9:36am Start: 08-15-2005 ASPIRIN 81 MG TAB Take one (1) tablet daily . 0 08/15/2005 Active ADULT ASPIRIN EC LOW STRENGTH 81 MG TBEC one by mouth daily ASPIRIN [id number] Zach Andrea Comment on above: Take one (1) tablet daily . ciprofloxacin 500 mg oral tablet (12 sources) Quinolone Antimicrobial Start: 01-23-20 End: 04-21-20 take 1 tablet by mouth twice daily Ciprofloxacin Hcl 500 mg tablet Discontinued 500 mg PO TWICE A DAY January 22, 2021 12:00am April 21, 2021 11:46am COENZYME Q10 (2 sources) take 1 capsule by mouth once daily COQ-10 10 MG CAPS one by mouth daily COENZYME Q10 [id number] Zach Andrea End: 01-11-2017 take 1 capsule by mouth once daily COQ-10 10 MG CAPS one by mouth daily COENZYME Q10 [id number] Aleksandra Butler docusate sodium 50 mg / sennosides, snf 8.6 mg oral tablet (6 sources) Start: 03-18-2022 End: 05-25-2023 Sennosides-Docusate Sodium (Stool Softener-Stimulant Laxat) 8.6-50 mg Tablet Discontinued 2 {tbl} PO TWICE A DAY 28 March 18, 2022 12:00am May 25, 2023 3:51pm flu vacc 2019-(65yr up)-MF59C(PF) 60 mcg(15 mcgx4)/0.5 mL IM syringe (4 sources) Start: 01-20-2021 End: 01-20-2021 inject 60 ug by intramuscular injection once flu vacc (65yr up)-MF59C(PF) 60 mcg(15 mcgx4)/0.5 mL IM syringe Discontinued 60 MCG IM ONCE 0.5 January 20, 2021 1:08pm January 20, 2021 2:22pm meloxicam 7.5 mg oral tablet (6 sources) Nonsteroidal Anti-inflammator y Drug Start: 03-18-2022 End: 05-25-2023 take 1 tablet by mouth twice daily Meloxicam 7.5 mg Tablet Discontinued 7.5 mg PO TWICE A DAY 60 March 18, 2022 12:00am May 25, 2023 3:51pm MULTIPLE VITAMIN (1 source) take 1 tablet by mouth once daily MULTIVITAMINS TABS one by mouth daily MULTIPLE VITAMIN [id number] Zach Andrea omega-3 acid ethyl esters (snf) 1000 mg oral capsule (12 sources) Start: 11-02-2017 End: 03-05-2020 [place] 5-Usz-Bnk-Fish Oil (Fish Oil) 1,000 mg (120 mg-180 mg) capsule Discontinued 2400 NMA PO DAILY November 02, 2017 12:00am March 05, 2020 10:17am OMEGA-3 FATTY ACIDS CAPS (1 source) take 2 capsules by mouth once daily EQL FISH OIL CAPS 2 by mouth daily OMEGA-3 FATTY ACIDS CAPS [id number] Zach Andrea 24 hr oxybutynin chloride 5 mg extended release oral tablet (15 sources) Cholinergic Muscarinic Antagonist Start: 10-29-2021 End: 02-04-2022 take 1 tablet by mouth once daily Oxybutynin Chloride 5 mg tablet extended release 24hr Discontinued 5 mg PO DAILY 60 November 19, 2021 4:50pm February 04, 2022 1:34pm oxyCODONE hydrochloride 5 mg oral tablet (6 sources) Opioid Agonist Start: 03-18-2022 End: 05-25-2023 take 5-10 mg by mouth every four hours as needed for pain Oxycodone 5 mg Tablet Discontinued 5 - 10 mg PO EVERY 4 HOURS NEEDED as needed for Pain Score 4-10 42 7 March 18, 2022 May 25, 2023 3:48pm polyethylene glycol 3350 437142 mg / potassium chloride 2970 mg / sodium bicarbonate 6740 mg / sodium chloride 5860 mg / sodium sulfate 32839 mg powder for oral solution (1 source) Osmotic Laxative Start: 08-11-2022 End: 08-11-2022 peg 3350-Electrolytes (GOLYTELY) 236-22.74-6.74 -5.86 gram suspension Indications: Special screening for malignant neoplasms, colon Take 4,000 mL by mouth one time only for 1 dose. Refer to printed prep instructions from your provider. 4000 mL 0 08/11/2022 08/11/2022 Comment on above: Take 4,000 mL by silvestre th one time only for 1 dose. Refer to printed prep instructions from your provider. Problems Active Problems Problem Classification Problem Date Documented Date Episodic/Chronic Acquired foot deformities (13 sources) Acquired hallux malleus; Translations: [Other hammer toe(s) (acquired), right foot] Chronic Disorders of lipid metabolism (20 sources) Hyperlipidemia; Translations: [Hyperlipidemia, unspecified] Onset: 08-15-2005 01-11-2017 Chronic Diverticulosis and diverticulitis (9 sources) Diverticulitis of large intestine without perforation or abscess without bleeding; Translations: [Diverticulitis of colon (without mention of hemorrhage)] Onset: 08-15-2005 08-15-2005 Chronic Essential hypertension (17 sources) Hypertensive disorder; Translations: [Essential (primary) hypertension] Chronic Genitourinary symptoms and ill-defined conditions (20 sources) Dysuria; Translations: [Dysuria] Episodic Nutritional deficiencies (13 sources) Vitamin D deficiency; Translations: [Vitamin D deficiency, unspecified] Onset: 01-11-2017 01-11-2017 Chronic Osteoarthritis (8 sources) Arthritis of shoulder region joint; Translations: [Primary osteoarthritis, left shoulder] Chronic Other connective tissue disease (1 source) Pain in right toe(s); Translations: [Pain in limb] Episodic Other nervous system disorders (10 sources) Acute postoperative pain; Translations: [Other acute postprocedural pain] 09-16-2021 Episodic Other screening for suspected conditions (not mental disorders or infectious disease) (1 source) Patient encounter status; Translations: [Encounter for screening for malignant neoplasm of colon] Episodic Prolapse of female genital organs (5 sources) Disorder of rectum; Translations: [Rectocele] Onset: 11-13-2023 07-26-2023 Chronic Residual codes; unclassified (3 sources) Hypersomnia; Translations: [Hypersomnia, unspecified] 10-21-2024 Chronic Residual codes; unclassified (2 sources) Hypersomnia, unspecified; Translations: [Hypersomnia, unspecified] Onset: 10-21-2024 Chronic Residual codes; unclassified (12 sources) Postmenopausal state; Translations: [Asymptomatic menopausal state] 01-20-2021 Episodic Spondylosis; intervertebral disc disorders; other back problems (2 sources) Lumbar radiculopathy; Translations: [Radiculopathy, lumbar region] 10-21-2024 Episodic Unclassified (1 source) Laceration without foreign body of left hand, initial encounter / S61.412A(ICD-10) Onset: 01-17-2017 Unclassified (1 source) Elevated blood-pressure reading, without diagnosis of hypertension / R03.0(ICD-10) Onset: 01-17-2017 Unclassified (1 source) Unknown / UNK(Unknown) Onset: 01-17-2017 Unclassified (1 source) Hand Laceration / [id number]() Onset: 01-17-2017 Unclassified (1 source) Screening - health check; Translations: [Encounter for general adult medical examination without abnormal findings] Onset: 01-11-2017 01-11-2017 Urinary tract infections (2 sources) Urinary tract infection, site not specified; Translations: [Urinary tract infection, site not specified] Episodic Past or Other Problems Problem Classification Problem [...] Episodic Other diseases of bladder and urethra (9 sources) Urethral caruncle; Translations: [Urethral caruncle] Onset: [...] seborrheic keratosis] 01-11-2011 Episodic Residual codes; unclassified (9 sources) FH: Cardiovascular disease; Translations: [Family history of other cardiovascular diseases] Onset: 08-15-2005 08-15-2005 Episodic Unclassified (1 source) Laceration without foreign body of left hand, initial encounter; Translations: [Laceration without foreign body of left hand, initial encounter] Onset: 01-17-2017 Unclassified (2 sources) Hand Laceration; Translations: [Hand Laceration] Onset: 01-17-2017 Unclassified (7 sources) hammer toe surgery 12-01-2021 Varicose veins of lower extremity (10 sources) Venous varices; Translations: [Asymptomatic varicose veins of unspecified lower extremity] Onset: 08-15-2005 01-11-2011 Episodic Viral infection (1 source) Verruca vulgaris; Translations: [Viral wart, unspecified] 01-11-2011 Episodic Results Test Name Value Interpretation Reference Range Facility Absolute lymphocyte countOrd ered By: Ventura Noble on 10-21-2024 Lymphocytes Auto (Unsp spec) [#/Vol] 1.74 10*3/uL 0.83-4.51 [facility] Absolute neutrophil countOrd ered By: Ventura Noble on 10-21-2024 Neutrophils (Bld) [#/Vol] 4.0 10*3/uL 2.0-7.7 [facility] Anion gap in Serum or Plasma Ordered By: Ventura Noble on 10-21-2024 Anion gap [Moles/Vol] 13 mmol/L 5-15 [facility] Automated lymphocyte count a s percentage of total leukocytesOrdered By: Ventura Noble on 10-21-2024 Lymphocytes/100 WBC Auto (Unsp spec) 27.8 % 19-41 [facility] BUN/creatinine ratioOrdered By: Ventura Noble on 10-21-2024 Urea nitrogen/Creatinine [Mass ratio] 29.5 mg/mg High 10-20 [facility] Basophil percentageOrdered B y: Ventura Noble on 10-21-2024 Basophils/100 WBC (Bld) 0.5 % 0-1 [facility] Bilirubin, totalOrdered By: Ventura Noble on 10-21-2024 Bilirubin [Mass/Vol] 0.31 mg/dL 0.00-1.30 [facility] CBC W/Diff, Automatedon 06-0 Absolute Lymph 1.74 X10 3/uL Normal 0.83-4.51 [facility] Comment on above: Performed By: #### L 500.4100, L500.4050, L100.0100 #### [facility] [address] [place], [address] Absolute Neut 4.0 X10 3/uL Normal 2.0-7.7 [facility] Comment on above: Performed By: #### L 500.4100, L500.4050, L100.0100 #### [facility] [address] [place], [address] Basophils/100 WBC (Bld) 0.5 % Normal 0-1 [facility] Comment on above: Performed By: #### L 500.4100, L500.4050, L100.0100 #### [facility] [address] [place], [address] Eosinophils/100 WBC (Bld) 2.2 % Normal 0-5 [facility] Comment on above: Performed By: #### L 500.4100, L500.4050, L100.0100 #### [facility] [address] [place], [address] Erythrocyte distribution width (RBC) [Ratio] 12.5 % Normal 11.6-14.6 [facility] Comment on above: Performed By: #### L 500.4100, L500.4050, L100.0100 #### [facility] [address] [place], [address] Hematocrit (Bld) [Volume fraction] 36.7 % Low 37-47 [facility] Comment on above: Performed By: #### L 500.4100, [id number], L100.0100 #### [facility] [address] [place], [address] Hemoglobin (Bld) [Mass/Vol] 12.4 g/dL Normal 12.0-15.0 [facility] Comment on above: Performed By: #### L 500.4100, L500.4050, L100.0100 #### [facility] [address] [place], [address] IG% 0.200 Normal 0.0-0.9 [facility] Comment on above: Result Comment: IG% - Immature Granulocytes (promyelocytes, myelocytes and metamyelocytes) > 1% indicates that a LEFT SHIFT is Present. Performed By: #### L 500.4100, L500.4050, L100.0100 #### [facility] [address] [place], [address] Lymphocytes/100 WBC (Bld) 27.8 % Normal 19-41 [facility] Comment on above: Performed By: #### L 500.4100, [id number], L100.0100 #### [facility] [address] [place], [address] MCH (RBC) [Entitic mass] 30.8 pg Normal 27.0-32.0 [facility] Comment on above: Performed By: #### L 500.4100, L500.4050, L100.0100 #### [facility] [address] [place], [address] MCHC (RBC) [Mass/Vol] 33.8 g/dL Normal 32-36 [facility] Comment on above: Performed By: #### L 500.4100, L500.4050, L100.0100 #### [facility] [address] [place], [address] MCV (RBC) [Entitic vol] 91.1 fL Normal 81-99 [facility] Comment on above: Performed By: #### L 500.4100, L500.4050, L100.0100 #### [facility] [address] [place], [address] Monocytes/100 WBC (Bld) 5.7 % Normal 0-10 [facility] Comment on above: Performed By: #### L 500.4100, L500.4050, L100.0100 #### [facility] [address] [place], [address] Neutrophils/100 WBC (Bld) 63.6 % Normal 47-70 [facility] Comment on above: Performed By: #### L 500.4100, L500.4050, L100.0100 #### [facility] [address] [place], [address] Nucleated RBC (Bld) [#/Vol] 0 10*3/uL Normal 0-5 [facility] Comment on above: Performed By: #### L 500.4100, [id number], L100.0100 #### [facility] [address] [place], [address] Platelet mean volume (Bld) [Entitic vol] 9.6 fL Normal 6.2-12.0 [facility] Comment on above: Performed By: #### L 500.4100, L500.4050, L100.0100 #### [facility] [address] [place], [address] Platelets (Bld) [#/Vol] 236 10*3/uL Normal 150-450 [facility] Comment on above: Performed By: #### L 500.4100, L500.4050, L100.0100 #### [facility] [address] [place], [address] RBC (Bld) [#/Vol] 4.03 10*6/uL Low 4.2-5.4 [facility] Comment on above: Performed By: #### L 500.4100, [id number], L100.0100 #### [facility] [address] [place], [address] RDW SD 41.6 fl Normal 35.1-43.9 [facility] Comment on above: Performed By: #### L 500.4100, L500.4050, L100.0100 #### [facility] [address] [place], [address] WBC (Bld) [#/Vol] 6.3 10*3/uL Normal 4.4-11.0 [facility] Comment on above: Performed By: #### L 500.4100, L500.4050, L100.0100 #### [facility] [address] [place], [address] Calculated very low density lipoprotein (VLDL) cholesterol measurementOrdered By: Ventura Noble on 10-21-2024 Calculated very low density lipoprotein (VLDL) cholesterol measurement 20 mg/dL 5-40 [facility] Carbon dioxide, total [Moles /volume] in Central venous bloodOrdered By: Ventura Noble on 10-21-2024 CO2 [Moles/Vol] 22.4 mmol/L 21.0-32.0 [facility] Chloride assayOrdered By: Danielle Noble on 10-21-2024 Chloride [Moles/Vol] 106 mmol/L 98-108 [facility] Comprehensive Metabolic Prof ilon 10-21-2024 Albumin [Mass/Vol] 4.2 g/dL Normal 3.4-4.8 [facility] Comment on above: Performed By: #### L 500.4100, L500.4050, L100.0100 #### [facility] [address] [place], [address] Albumin/Globulin [Mass ratio] 1.6 {ratio} Normal 0.9-2.4 [facility] Comment on above: Performed By: #### L 500.4100, L500.4050, L100.0100 #### [facility] [address] [place], [address] ALK PHOS 77 U/L Normal 35-104 [facility] Comment on above: Performed By: #### L 500.4100, L500.4050, L100.0100 #### [facility] [address] [place], [address] ALT [Catalytic activity/Vol] 15 U/L Normal <=34 [facility] Comment on above: Performed By: #### L 500.4100, L500.4050, L100.0100 #### [facility] [address] [place], [address] AST [Catalytic activity/Vol] 24 U/L Normal <=31 [facility] Comment on above: Performed By: #### L 500.4100, L500.4050, L100.0100 #### [facility] [address] [place], [address] Bilirubin [Mass/Vol] 0.31 mg/dL Normal 0.00-1.30 [facility] Comment on above: Performed By: #### L 500.4100, L500.4050, L100.0100 #### [facility] [address] [place], [address] BUN/CRE 29.5 RATIO High 10-20 [facility] Comment on above: Performed By: #### L 500.4100, L500.4050, L100.0100 #### [facility] [address] [place], [address] Calcium [Mass/Vol] 9.9 mg/dL Normal 7.6-11.0 [facility] Comment on above: Performed By: #### L 500.4100, L500.4050, L100.0100 #### [facility] [address] [place], [address] Chloride [Moles/Vol] 106 mmol/L Normal 98-108 [facility] Comment on above: Performed By: #### L 500.4100, L500.4050, L100.0100 #### [facility] [address] [place], [address] CO2 [Moles/Vol] 22.4 mmol/L Normal 21.0-32.0 [facility] Comment on above: Performed By: #### L 500.4100, L500.4050, L100.0100 #### [facility] [address] [place], [address] Creatinine [Mass/Vol] 1.19 mg/dL Normal 0.70-1.20 [facility] Comment on above: Performed By: #### L 500.4100, L500.4050, L100.0100 #### [facility] [address] [place], [address] GAP 13 Normal 5-15 [facility] Comment on above: Performed By: #### L 500.4100, L500.4050, L100.0100 #### [facility] [address] [place], [address] GFR/1.73 sq M.predicted among non-blacks MDRD (S/P/Bld) [Vol rate/Area] 45 mL/min/{1.73_m2} Low >60 [facility] Comment on above: Result Comment: mL/m in/1.73m2 CKD-EPI Creatinine Equation (2020) Performed By: #### L 500.4100, L500.4050, L100.0100 #### [facility] [address] [place], [address] Globulin (S) [Mass/Vol] 2.6 g/dL Normal 2.2-4.2 [facility] Comment on above: Performed By: #### L 500.4100, L500.4050, L100.0100 #### [facility] [facility] [address] [place], [address] Glucose [Mass/Vol] 107 mg/dL High 70-99 [facility] Comment on above: Performed By: #### L 500.4100, L500.4050, L100.0100 #### [facility] [address] [place], [address] Potassium [Moles/Vol] 4.3 mmol/L Normal 3.3-5.1 [facility] Comment on above: Performed By: #### L 500.4100, L500.4050, L100.0100 #### [facility] [address] [place], [address] Sodium [Moles/Vol] 141 mmol/L Normal 133-145 [facility] Comment on above: Performed By: #### L 500.4100, L500.4050, L100.0100 #### [facility] [address] [place], [address] T PROT 6.9 g/dL Normal 5.9-8.4 [facility] Comment on above: Performed By: #### L 500.4100, L500.4050, L100.0100 #### [facility] [address] [place], [address] Urea nitrogen [Mass/Vol] 35 mg/dL High 4-19 [facility] Comment on above: Performed By: #### L 500.4100, L500.4050, L100.0100 #### [facility] [address] [place], [address] Eosinophil percentageOrdered By: Ventura Noble on 10-21-2024 Eosinophils/100 WBC (Bld) 2.2 % 0-5 [facility] Erythrocyte distribution wid th ratioOrdered By: Ventura Noble on 10-21-2024 Erythrocyte distribution width (RBC) [Ratio] 12.5 % 11.6-14.6 [facility] Erythrocyte distribution wid th standard deviationOrdered By: Ventura Noble on 10-21-2024 Erythrocyte distribution width (RBC) [Ratio] 41.6 fl 35.1-43.9 [facility] Glomerular filtration rate ( GFR) estimation/1.73 sq m using serum, plasma, or whole bOrdered By: Ventura Noble on 10-21-2024 GFR/1.73 sq M.predicted among non-blacks MDRD (S/P/Bld) [Vol rate/Area] 45 mL/min/{1.73_m2} Low >60 [facility] Comment on above: mL/min/1.73m2 CKD-EP I Creatinine Equation (2020) Hematocrit Auto (Bld) [Volum e fraction]Ordered By: Ventura Noble on 10-21-2024 Hematocrit (Bld) [Volume fraction] 36.7 % Low 37-47 [facility] Hemoglobin measurementOrdere d By: Ventura Noble on 10-21-2024 Hemoglobin (Bld) [Mass/Vol] 12.4 g/dL 12.0-15.0 [facility] Immature granulocytes/100 WB C Auto (Bld)Ordered By: Ventura Noble on 10-21-2024 Immature granulocytes/100 WBC (Bld) 0.200 % 0.0-0.9 [facility] Comment on above: IG% - Immature Granu locytes (promyelocytes, myelocytes and metamyelocytes) > 1% indicates that a LEFT SHIFT is Present. Internal Medicine Office Vis david 10-21-2024 Internal Medicine Office Visit [place] [facility] [place], [place] [address] OFFICE VISIT Date of Service: 10/21/24 MR#: [id number] Acct: [id number] Name: PANCHO MARCELINO Rep #: [id number] : 1940 Provider: Dr. 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 Accompanied by: Self Is patient in pain?: No Allergies No Known Allergies Allergy (Verified 10/21/24 11:05) Medications ???Medication ???Instructions ???Recorded ???Confirmed ???Type cholecalciferol (vitamin D3) 50 2,000 unit PO QDAY 11/02/17 History mcg (2,000 unit) capsule multivitamin with iron 1 tab PO QDAY 11/02/17 10/21/24 Hi story ascorbic acid (vitamin C) 500 mg 1,000 mg PO DAILY 01/20/21 5 History capsule lovastatin 20 mg tablet 20 mg PO DAILY #60 tabs 05/09/24 0 10/21/24 Rx coQ10 (ubiquinol) 100 mg capsule 100 mg PO BID 10/21/24 10/21/24 Hi story (Qunol David CoQ10) Have you fallen in the past year?: No Nurse's Note: Needs refills Dr gar is giving hip and back injection [facility] Medical History (Updated 10/21/24 @ 11:[address] Ventura Noble MD) Lumbar radiculopathy Hypersomnolence Rectocele History of edema Preoperative evaluation to rule out surgical contraindication Urinary frequency Wears glasses Alcohol use Arthritis High cholesterol Easy bruising Back pain Syncope Heartburn Non-smoker Shortness of breath on exertion Leg cramps Health care maintenance Postmenopausal Dysuria Vitamin D deficiency Hyperlipemia Surgical History History of toe surgery History of hysterectomy hammer toe surgery History of bilateral cataract extraction H/O basal cell carcinoma excision History of vein stripping History of shoulder surgery Family History Mother Hypertension Father Hypertension Myocardial infarction, Onset Age: 56 Social History Smoking Status: Never smoker alcohol intake: current alcohol intake frequency: holidays/special occasions only substance use type: does not use what type of physical activity do you participate in: walking and swimming frequency: 3-4 times per week HPI HPI Chief Complaint: Follow-up chronic conditions Details: PANCHO MARCELINO, is a 84 F who presents to the office today for follow-up of her chronic conditions. Also has some concerns. She states that her watch has been alerting her that she might have sleep apnea. She reports snoring and the last time she slept in the room with someone, the person had to leave due to her snoring. Feels tired and not rested when she wakes up. History of hyperlipidemia currently on lovastatin. No muscle pain or weakness. Taking medication as prescribed. Also history of hypertension currently not on any medication. Blood pressure today at 138/64, typically elevated during her visits but better readings at home. ROS Const Constitutional: Positive for fatigue; No body ache, excessive sweating, fever(s), frequent falls, headache(s), snoring, weakness, weight change, sleep problems or change in appetite Eyes Eyes: No blurry vision, change in vision, floaters, visual disturbances, eye pain or Light sensitivity ENT ENT: No abnormal hearing, ear or mastoid pain, tinnitus, balance problems, nosebleed/epistaxis, nasal congestion, headache(s), neck pain or sore throat Resp Respiratory: No cough, excessive phlegm production, pain on inspiration, shortness of breath, snoring or wheezing Cardio Cardiology: No chest pain at rest, chest pain with exertion, excessive sweating, shortness of breath, dyspnea on exertion, lightheadedness, orthopnea or palpitations Gastro GI: No abdominal pain, change in bowel habits, constipation, cramping, diarrhea, nausea/dyspepsia or vomiting Genitourinary-Female: No burning urination, painful urination, urinary incontinence, urinary frequency, blood in urine, abnormal periods or pelvic pain Musc Musculoskeletal: No abnormal gait, joint pain, back pain, limited range of motion, neck pain, numbness, stiffness, tingling or Arthritis Skin Skin: No dry skin, redness, excessive hair growth, yellowing of the eye, lesions, itchy eyes, rash or wounds Neuro Neurology: No abnormal gait, abnormal hearing, abnormal speech, dizziness, weakness, frequent falls, headache(s), memory loss, numbness, tingling or visual disturbances Psych Psychiatric: No anxiety, No change in appetite, No depression, No memory loss and No Thoughts of harming yourself/Others Endo Endocrine: Positiv (more content not included)... Normal [facility] LDL calc ser/plasOrdered By: Ventura Noble on 10-21-2024 Cholesterol in LDL [Mass/Vol] 181 mg/dL [facility] Comment on above: Esdvsrmiqu=728-465 m g/dL & Higher Bpmj=927 mg/dL or greater Laboratory - Chemistry and C hemistry - challengeOrdered By: Ventura Noble on 10-21-2024 AST [Catalytic activity/Vol] 24 U/L <32 [facility] Lipid Profileon 10-21-2024 CHOL:HDL 3.83 Normal [facility] Comment on above: Performed By: #### L 500.4100, L500.4050, L100.0100 #### [facility] [address] [place], [address] Cholesterol [Mass/Vol] 272 mg/dL High <=200 [facility] Comment on above: Result Comment: Chol esterol level, Desirable <200 mg/dL Borderline high cholesterol 200-239 mg/dL High cholesterol >=240 mg/dL Recommendations of the NCEP Adult Treatment Panel for the following risk-cutoff thresholds for the [place] population. Performed By: #### L 500.4100, L500.4050, L100.0100 #### [facility] [address] [place], [address] Cholesterol in HDL [Mass/Vol] 71 mg/dL Normal [facility] Comment on above: Result Comment: Sara onal Cholesterol Education Program (NCEP) guidelines: <40 mg/dL: Low HDL-cholesterol (major risk factor for CHD) >= 60 mg/dL: High HDL-cholesterol (negative risk factor for CHD) HDL-cholesterol is affected by a number of factors, e.g. smoking, exercise, hormones, sex and age. Performed By: #### L 500.4100, L500.4050, L100.0100 #### [facility] [address] [place], [address] Cholesterol in LDL [Mass/Vol] 181 mg/dL Normal [facility] Comment on above: Result Comment: Bord drjxfj=823-476 mg/dL Higher Fzns=204 mg/dL or greater Performed By: #### L 500.4100, L500.4050, L100.0100 #### [facility] [address] [place], [address] Cholesterol in VLDL [Mass/Vol] 20 mg/dL Normal 5-40 [facility] Comment on above: Performed By: #### L 500.4100, L500.4050, L100.0100 #### [facility] [address] [place], [address] Triglyceride [Mass/Vol] 100 mg/dL Normal [facility] Comment on above: Result Comment: The drugs N-Acetylcysteine and Metamizole may falsely depress this assay. Normal range: <150 mg/dL Borderline High: 150-199 mg/dL High: 200-499 mg/dL Very High: >500 mg/dL Performed By: #### L 500.4100, L500.4050, L100.0100 #### [facility] [address] [place], [address] MCV (mean corpuscular volume ) determinationOrdered By: Ventura Noble on 10-21-2024 MCV (RBC) [Entitic vol] 91.1 fL 81-99 [facility] Mean corpuscular hemoglobin (MCH) determinationOrdered By: Ventura Noble on 10-21-2024 MCH (RBC) [Entitic mass] 30.8 pg 27.0-32.0 [facility] Mean corpuscular hemoglobin concentration (MCHC) determinationOrdered By: Ventura Noble on 10-21-2024 MCHC (RBC) [Mass/Vol] 33.8 g/dL 32-36 [facility] Mean platelet volume determi nationOrdered By: Ventura Noble on 10-21-2024 Platelet mean volume (Bld) [Entitic vol] 9.6 fL 6.2-12.0 [facility] Monocyte percentageOrdered B y: Ventura Noble on 10-21-2024 Monocytes/100 WBC (Bld) 5.7 % 0-10 [facility] Neutrophil percentageOrdered By: Ventura Noble on 10-21-2024 Neutrophils/100 WBC (Bld) 63.6 % 47-70 [facility] Nucleated red blood cell per centageOrdered By: Ventura Noble on 10-21-2024 Nucleated RBC/100 WBC (Bld) [Ratio] 0 % 0-5 [facility] Platelet countOrdered By: Danielle Noble on 10-21-2024 Platelets (Bld) [#/Vol] 236 10*3/uL 150-450 [facility] Potassium measurement (mass/ volume)Ordered By: Ventura Noble on 10-21-2024 Potassium (Unsp spec) [Mass/Vol] 4.3 mmol/L 3.3-5.1 [facility] RBC Auto (Bld) [#/Vol]Ordere d By: Ventura Noble on 10-21-2024 RBC (Bld) [#/Vol] 4.03 10*6/uL Low 4.2-5.4 [facility] Screening total cholesterol/ high density lipoprotein (HDL) cholesterol ratioOrdered By: Ventura Noble on 10-21-2024 Cholesterol.total/Sara sterol in HDL [Mass ratio] 3.83 {ratio} [facility] Serum creatinine measurement (mass/volume)Ordered By: Ventura Noble on 10-21-2024 Creatinine [Mass/Vol] 1.19 mg/dL 0.70-1.20 [facility] Serum globulin measurementOr dered By: Ventura Noble on 10-21-2024 Globulin (S) [Mass/Vol] 2.6 g/dL 2.2-4.2 [facility] Serum glucose measurement (m ass/volume)Ordered By: Ventura Noble on 10-21-2024 Glucose [Mass/Vol] 107 mg/dL High 70-99 [facility] Serum or plasma alanine terry otransferase (ALT) measurementOrdered By: Daniellethierry Noble on 10-21-2024 ALT [Catalytic activity/Vol] 15 U/L <35 [facility] Serum or plasma albumin shahriar urement (mass/volume)Ordered By: Daniellesudhavetosevero Oconnorkaigregg on 10-21-2024 Albumin [Mass/Vol] 4.2 g/dL 3.4-4.8 [facility] Serum or plasma albumin/glob ulin mass ratioOrdered By: [facility] Newton[facility] Oconnorgregg 10-21-2024 Albumin/Globulin [Mass ratio] 1.6 {ratio} 0.9-2.4 [facility] Serum or plasma alkaline caden sphatase measurementOrdered By: Daniellesudhavetosevero Oconnorgregg 10-21-2024 ALP [Catalytic activity/Vol] 77 U/L 35-104 [facility] Serum or plasma calcium shahriar urement (mass/volume)Ordered By: Daniellevetosevero Oconnorkaigregg 10-21-2024 Calcium [Mass/Vol] 9.9 mg/dL 7.6-11.0 [facility] Serum or plasma cholesterol in HDL measurement (mass/volume)Ordered By: Bethsevero Noble 10-21-2024 Cholesterol in HDL [Mass/Vol] 71 mg/dL >40 [facility] Comment on above: National Cholesterol Education Program (NCEP) guidelines:<40 mg/dL: Low HDL-cholesterol (major risk factor for CHD)>= 60 mg/dL: High HDL-cholesterol (negative risk factor for CHD)HDL-cholesterol is affected by a number of factors, e.g. smoking, exercise, hormones, sex and age. Serum or plasma cholesterol measurement (mass/volume)Ordered By: Ventura Noble on 10-21-2024 Cholesterol [Mass/Vol] 272 mg/dL High <201 [facility] Comment on above: Cholesterol level, D esirable <200 mg/dLBorderline high cholesterol 200-239 mg/dLHigh cholesterol >=240 mg/dLRecommendations of the NCEP Adult Treatment Panel for the following risk-cutoff thresholds for the [place] population. Serum or plasma urea nitroge n measurement (mass/volume)Ordered By: Ventura Noble 10-21-2024 Urea nitrogen [Mass/Vol] 35 mg/dL High 4-19 [facility] Sodium levelOrdered By: Kranthi ferguson Elvinrobert on 10-21-2024 Sodium [Moles/Vol] 141 mmol/L 133-145 [facility] Total proteinOrdered By: Josh yepez Elvinrobert on 10-21-2024 Protein [Mass/Vol] 6.9 g/dL 5.9-8.4 [facility] Triglycerides measurementOrd ered By: Ventura Elvinrobert on 10-21-2024 Triglyceride [Mass/Vol] 100 mg/dL <199 [facility] Comment on above: The drugs N-Acetylcy steine and Metamizole may falsely depress this assay. Normal range: <150 mg/dLBorderline High: 150-199 mg/dLHigh: 200-499 mg/dLVery High: >500 mg/dL White blood cell (WBC) count Ordered By: Ventura Elvinrobert on 10-21-2024 WBC (Bld) [#/Vol] 6.3 10*3/uL 4.4-11.0 [facility] CNPNon 08-01-2024 CNPN Telephone (LG) PANCHO MARCELINO ([id number]) 1940 F Date Time Provider Department 08/01/24 DARCY MCBRIDE During your visit today, we recorded the following information about you[facility]01/2024 10:33 AM Signed Pancho Marcelino [phone], request referral for rectocele surgery as discussed during last visit. Allergies As of Date: 08/01/2024 (No Known Allergies) Date Reviewed: 11/13/2023 Reviewed by: Mitzy Spivey LPN - Fully Assessed Reason for Visit: Referral Request [[id number]] Prescriptions as of 08/01/2024 - lovastatin (MEVACOR) 20 mg tablet Take 20 mg by mouth every morning. - Coenzyme Q10 400 mg cap Take 1 capsule by mouth once daily. - ubidecarenone/omega-3/v it e(COQ-10 AND FISH OIL 50 MG-300 (180-120)MG-30 UNIT CAP) - ASPIRIN 81 MG TAB Take one (1) tablet daily . - CENTRUM SILVER TAB Take one(1) tablet daily. 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 Average Pressure Interpretation Rest: 65 mmHg This is above normal range. Normal range is 35-50 mmHg. Squeeze: 114 mmHg This is above normal range. Normal range is 75 - 100 mmHg. Resting and squeeze pressures well above normal may indicate high pelvic floor tension. There is appropriate incremental change between resting and squeeze pressures which can indicate good pelvic floor movement with squeeze. Sensory: Sensation Volume First sensation : 32 mL / Normal Range: 40-80 mL First urge to defecate: 84 mL / Normal Range: 80-120 mL Maximum tolerable volume: 134 mL / Normal Range: 120-180 mL Recto-anal inhibitory reflex: Yes at 20 ml Balloon expulsion: No This exhibit normal rectal sensation with at least 2/3 sensory tests. A recto-anal inhibitory reflex (RAIR) was present. This is a normal reflex. EMG Recruitment: EMG recruitment was performed. The patient shows a normal increase in activity with squeeze, and a no change in activity with valsalva. This indicates abnormal pelvic floor movement, which can be indicative of poor pelvic floor coordination. Margarita Torres APRN.HIGH SCHOOL COUNSELOR I have reviewed, verified, and confirmed the results of anorectal manometry, rectal sensation, tone and compliance testing and EMG testing. I agree with the impression as written above. Darcy Mcbride DO Colon & Rectal Surgery [facility] ANORECTAL MANOMET RYOrdered By: Darcy Mcbride on 11-13-2023 Radiology Study observation (narrative) [facility] Work Phone: CNOVon 11-13-2023 CNOV Office Visit (LG ) PANCHO MARCELINO ([id number]) 1940 F Date Time Provider Department 11/13/23 1:30 PM DARCY MCBRIDE During your visit today, we recorded the following information about you: Temperature Pulse Blood pressure Weight 97.6 degrees 87/minute 172/68 63.5 kg Height 1.645 m Darcy Mcbride DO 11/14/2023 11:37 AM Signed [facility] November 07, 2023 Pancho Marcelino 83 year old This consult was requested by Dr. Kaden Norton and my final recommendations will be communicated to the requesting health care provider by way of the shared medical record for internal providers or letter via the [employer] for external providers. Chief Complaint: Other: Rectocele History of Present Illness: Pancho Marcelino is a 83 year old year old female who presents with a rectocele. She has noticed it for 7 years having a bulge. She is bothered by the bulge. However she does not splint and does not have symptoms of obstructive defecation. Her mother had a pelvic organ prolapse and she is worried that it will progress and become a prolapse of the rectocele She is here alone, she drives. She is retired. GI Symptoms: Stool frequency: 1-2 a day Stool type: Type 5: Soft blobs with clear-cut edges (passed easily) Stool straining: no straining Frequency of straining: never Incomplete evacuation: usually Use of enemas or laxatives: never Vaginal perineal pressure: never Abdominal pressure/pain: never Feelings of prolapse : No Do you have accidental bowel leakage, fecal incontinence, or urgency with bowel movements? Yes Prior pelvic surgery?: no besides transvaginal hysterectomy What bowel related medications do you take now? None What medications have you tried in the past? Rare use when traveling with constipation Previous trial of biofeedback: No Prior hysterectomy: Yes, transvaginal Prior rectopexy, sphincter repair or SNS surgery? No. Prior bowel resection or abdominal surgery: No. Urinary Symptoms: Urinary incontinence: with sneezing rare Urinary frequency: Yes Urinary urgency: Yes Incomplete evacuation Yes Obstetric history: 3 Para 3 Vaginal delivery: 3 vaginal births Weight of largest baby: 8 lbs 14 oz - Episiotomy: Yes - Tear: Yes 2nd one - Forceps No Previous Testing Results include: Colonoscopy: Yes Date:09/2022 - random biopsies: No - polyps: No Manometry: today Defecography: Yes RESULT: Initiation and ease of evacuation: Normal. Small amount of contrast leakage prior to attempted evacuation. Change in anorectal angle during defecation: Normal straightening Development of rectocele: Present. Size of rectocele: 3.0 cm. Emptying of rectocele: Complete emptying. Widening of rectovaginal septum: Enterocele: Full enterocele Sigmoidocele: None Rectal intussusception: None Post-evacuation recoil: Normal recoil to original position Vaginal length/support: Shortening of vaginal length with preserved anterior support (possible utetrovaginal prolapse) Average Pressure Interpretation Rest: 65 mmHg This is above normal range. Normal range is 35-50 mmHg. Squeeze: 114 mmHg This is above normal range. Normal range is 75 - 100 mmHg. Resting and squeeze pressures well above normal may indicate high pelvic floor tension. There is appropriate incremental change between resting and squeeze pressures which can indicate good pelvic floor movement with squeeze. Sensory: Sensation Volume First sensation : 32 mL / Normal Range: 40-80 mL First urge to defecate: 84 mL / Normal Range: 80-120 mL Maximum tolerable volume: 134 mL / Normal Range: 120-180 mL Recto-anal inhibitory reflex: Yes at 20 ml Balloon expulsion: No This exhibit normal rectal sensation with at least 2/3 sensory tests. A recto-anal inhibitory reflex (RAIR) was present. This is a normal reflex. PAST MEDICAL HISTORY Diagnosis Date Arthritis ASYMPTOMATIC VARICOSE VEINS 08/15/2005 Cancer (HCC) Skin DIVERTICULITIS OF COLON W/O BLEED 08/15/2005 FAMILY HX CARDIOVAS DIS NEC 08/15/2005 Pure hypercholesterolemia URETHRAL CARUNCLE 08/15/2005 PAST SURGICAL HISTORY Procedure Laterality Date COLONOSCOPY FLX DX W/COLLJ SPEC WHEN PFRMD 02/24/2004 Colonoscopy EYE SURGERY HX HAMMERTOE REVISION, ONE TOE 10/14/2011 left foot OPEN REPAIR OF ROTATOR CUFF ACUTE Rotator cuff repair PAST SURGICAL HISTORY OF 05/15/1981 vein stripping PAST SURGICAL HISTORY OF 10/2012 and 02/2012 laser- vein on both legs PAST SURGICAL HISTORY OF Left Shoulder replacement SKIN BIOPSY HX VAGINAL HYSTERECTOMY VASCULAR SURGERY PROCEDURE Current Outpatient Medications Medication Sig Dispense Refill lovastatin (MEVACOR) 20 mg tablet Take 20 mg by mouth every morning. Coenzyme Q10 400 mg cap Take 1 capsule by mouth once daily. CENTRUM SILVER (more content not included)... Normal [facility] HISTORY PHYSICALon HISTORY PHYSICAL HNO ID: [id number] Author: DARCY MCBRIDE, DO Service: ? Author Type: Physician Type: H&P Filed: 11/14/2023 11:37 Note Text: [facility] November 07, 2023 Pancho Marcelino 83 year old This consult was requested by Dr. Kaden Norton and my final recommendations will be communicated to the requesting health care provider by way of the shared medical record for internal providers or letter via the [employer] for external providers. Chief Complaint: Other: Rectocele History of Present Illness: Pancho Marcelino is a 83 year old year old female who presents with a rectocele. She has noticed it for 7 years having a bulge. She is bothered by the bulge. However she does not splint and does not have symptoms of obstructive defecation. Her mother had a pelvic organ prolapse and she is worried that it will progress and become a prolapse of the rectocele She is here alone, she drives. She is retired. GI Symptoms: Stool frequency: 1-2 a day Stool type: Type 5: Soft blobs with clear-cut edges (passed easily) Stool straining: no straining Frequency of straining: never Incomplete evacuation: usually Use of enemas or laxatives: never Vaginal perineal pressure: never Abdominal pressure/pain: never Feelings of prolapse : No Do you have accidental bowel leakage, fecal incontinence, or urgency with bowel movements? Yes Prior pelvic surgery?: no besides transvaginal hysterectomy What bowel related medications do you take now? None What medications have you tried in the past? Rare use when traveling with constipation Previous trial of biofeedback: No Prior hysterectomy: Yes, transvaginal Prior rectopexy, sphincter repair or SNS surgery? No. Prior bowel resection or abdominal surgery: No. Urinary Symptoms: Urinary incontinence: with sneezing rare Urinary frequency: Yes Urinary urgency: Yes Incomplete evacuation Yes Obstetric history: 3 Para 3 Vaginal delivery: 3 vaginal births Weight of largest baby: 8 lbs 14 oz - Episiotomy: Yes - Tear: Yes 2nd one - Forceps No Previous Testing Results include: Colonoscopy: Yes Date:09/2022 - random biopsies: No - polyps: No Manometry: today Defecography: Yes RESULT: Initiation and ease of evacuation: Normal. Small amount of contrast leakage prior to attempted evacuation. Change in anorectal angle during defecation: Normal straightening Development of rectocele: Present. Size of rectocele: 3.0 cm. Emptying of rectocele: Complete emptying. Widening of rectovaginal septum: Enterocele: Full enterocele Sigmoidocele: None Rectal intussusception: None Post-evacuation recoil: Normal recoil to original position Vaginal length/support: Shortening of vaginal length with preserved anterior support (possible utetrovaginal prolapse) Average Pressure Interpretation Rest: 65 mmHg This is above normal range. Normal range is 35-50 mmHg. Squeeze: 114 mmHg This is above normal range. Normal range is 75 - 100 mmHg. Resting and squeeze pressures well above normal may indicate high pelvic floor tension. There is appropriate incremental change between resting and squeeze pressures which can indicate good pelvic floor movement with squeeze. Sensory: Sensation Volume First sensation : 32 mL / Normal Range: 40-80 mL First urge to defecate: 84 mL / Normal Range: 80-120 mL Maximum tolerable volume: 134 mL / Normal Range: 120-180 mL Recto-anal inhibitory reflex: Yes at 20 ml Balloon expulsion: No This exhibit normal rectal sensation with at least 2/3 sensory tests. A recto-anal inhibitory reflex (RAIR) was present. This is a normal reflex. PAST MEDICAL HISTORY Diagnosis Date Arthritis ASYMPTOMATIC VARICOSE VEINS 08/15/2005 Cancer (HCC) Skin DIVERTICULITIS OF COLON W/O BLEED 08/15/2005 FAMILY HX CARDIOVAS DIS NEC 08/15/2005 Pure hypercholesterolemia URETHRAL CARUNCLE 08/15/2005 PAST SURGICAL HISTORY Procedure Laterality Date COLONOSCOPY FLX DX W/COLLJ SPEC WHEN PFRMD 02/24/2004 Colonoscopy EYE SURGERY HX HAMMERTOE REVISION, ONE TOE 10/14/2011 left foot OPEN REPAIR OF ROTATOR CUFF ACUTE Rotator cuff repair PAST SURGICAL HISTORY OF 05/15/1981 vein stripping PAST SURGICAL HISTORY OF 10/2012 and 02/2012 laser- vein on both legs PAST SURGICAL HISTORY OF Left Shoulder replacement SKIN BIOPSY HX VAGINAL HYSTERECTOMY VASCULAR SURGERY PROCEDURE Current Outpatient Medications Medication Sig Dispense Refill lovastatin (MEVACOR) 20 mg tablet Take 20 mg by mouth every morning. Coenzyme Q10 400 mg cap Take 1 capsule by mouth once daily. CENTRUM SILVER TAB Take one(1) tablet daily. 0 ubidecarenone/omega-3/v it e(COQ-10 AND FISH OIL 50 MG-300 (180-120)MG-30 UNIT CAP) (Patient not taking: No sig reported) 0 ASPIRIN 81 MG TAB Take one (1) tablet daily . (Patient not taking: No sig reported) 0 No current facility-administered medications for th (more content not included)... Normal [facility] No Panel InformationOrdered By: aDrcy Mcbride on 11-13-2023 [facility] Work Phone: RF Gastrointestinal tract up per Views W water soluble contrast Beatriz 11-13-2023 IMPRESSION: CINEDEFECOGRAPHY DESCRIBED -- SEE SYNOPTIC REPORT FOR DETAILS. Counterperson: PSCB Transcribe Date/Time: Nov 13 2023 1:38P Dictated by : JOHN PAUL ZEPEDA MD This examination was interpreted and the report reviewed and electronically signed by: JOHN PAUL ZEPEDA MD on Nov 13 2023 4:12PM [facility] DIVISION OF RADIOLOGY * * *Final Report* * * DATE OF EXAM: Nov 13 2023 11:30AM [id number] - XR DEFECOGRAPHY / PROCEDURE REASON: Rectocele * * * * Physician Interpretation * * * * CINEDEFECOGRAPHY CLINICAL HISTORY: Rectocele. TECHNIQUE: Cinedefecography was performed with vaginal, enteric, and rectal contrast. Recorded real-time fluoroscopy and spot imaging were used, including the following maneuvers: rest, squeeze, strain, evacuation, and post-evacuation. Contrast: ORAL: 500 ml of EZPAQUE RECTAL: 250 ml of EZPAQUE RECTAL: 120 ml of VARIBAR PUDDING Fluoroscopy radiation summary: Fluoroscopy time: 1:24 (min:sec). Air kerma: 35.0 mGy. COMPARISON: None RESULT: Initiation and ease of evacuation: Normal. Small amount of contrast leakage prior to attempted evacuation. Change in anorectal angle during defecation: Normal straightening Development of rectocele: Present. Size of rectocele: 3.0 cm. Emptying of rectocele: Complete emptying. Widening of rectovaginal septum: Enterocele: Full enterocele Sigmoidocele: None Rectal intussusception: None Post-evacuation recoil: Normal recoil to original position Vaginal length/support: Shortening of vaginal length with preserved anterior support (possible utetrovaginal prolapse) DIVISION OF RADIOLOGY Provider, [facility] - 11/13/2023 * * *Final Report* * * DATE OF EXAM: Nov 13 2023 11:30AM [id number] - XR DEFECOGRAPHY / PROCEDURE REASON: Rectocele * * * * Physician Interpretation * * * * CINEDEFECOGRAPHY CLINICAL HISTORY: Rectocele. TECHNIQUE: Cinedefecography was performed with vaginal, enteric, and rectal contrast. Recorded real-time fluoroscopy and spot imaging were used, including the following maneuvers: rest, squeeze, strain, evacuation, and post-evacuation. Contrast: ORAL: 500 ml of EZPAQUE RECTAL: 250 ml of EZPAQUE RECTAL: 120 ml of VARIBAR PUDDING Fluoroscopy radiation summary: Fluoroscopy time: 1:24 (min:sec). Air kerma: 35.0 mGy. COMPARISON: None RESULT: Initiation and ease of evacuation: Normal. Small amount of contrast leakage prior to attempted evacuation. Change in anorectal angle during defecation: Normal straightening Development of rectocele: Present. Size of rectocele: 3.0 cm. Emptying of rectocele: Complete emptying. Widening of rectovaginal septum: Enterocele: Full enterocele Sigmoidocele: None Rectal intussusception: None Post-evacuation recoil: Normal recoil to original position Vaginal length/support: Shortening of vaginal length with preserved anterior support (possible utetrovaginal prolapse) IMPRESSION IMPRESSION: CINEDEFECOGRAPHY DESCRIBED -- SEE SYNOPTIC REPORT FOR DETAILS. Counterperson: SKIP Transcribe Date/Time: Nov 13 2023 1:38P Dictated by : JOHN PAUL ZEPEDA MD This examination was interpreted and the report reviewed and electronically signed by: JOHN PAUL ZEPEDA MD on Nov 13 2023 4:12PM EST [facility] Radiology Study observation (narrative) [facility] XR DEFECOGRAPHYon 11-13-2023 XR DEFECOGRAPHY * * *Final Report* * * DATE OF EXAM: Nov 13 2023 11:30AM [id number] - XR DEFECOGRAPHY / PROCEDURE REASON: Rectocele * * * * Physician Interpretation * * * * CINEDEFECOGRAPHY CLINICAL HISTORY: Rectocele. TECHNIQUE: Cinedefecography was performed with vaginal, enteric, and rectal contrast. Recorded real-time fluoroscopy and spot imaging were used, including the following maneuvers: rest, squeeze, strain, evacuation, and post-evacuation. Contrast: ORAL: 500 ml of EZPAQUE RECTAL: 250 ml of EZPAQUE RECTAL: 120 ml of VARIBAR PUDDING Fluoroscopy radiation summary: Fluoroscopy time: 1:24 (min:sec). Air kerma: 35.0 mGy. COMPARISON: None RESULT: Initiation and ease of evacuation: Normal. Small amount of contrast leakage prior to attempted evacuation. Change in anorectal angle during defecation: Normal straightening Development of rectocele: Present. Size of rectocele: 3.0 cm. Emptying of rectocele: Complete emptying. Widening of rectovaginal septum: Enterocele: Full enterocele Sigmoidocele: None Rectal intussusception: None Post-evacuation recoil: Normal recoil to original position Vaginal length/support: Shortening of vaginal length with preserved anterior support (possible utetrovaginal prolapse) IMPRESSION: CINEDEFECOGRAPHY DESCRIBED -- SEE SYNOPTIC REPORT FOR DETAILS. Counterperson: SKIP Transcribe Date/Time: Nov 13 2023 1:38P Dictated by : JOHN PAUL ZEPEDA MD This examination was interpreted and the report reviewed and electronically signed by: JOHN PAUL ZEPEDA MD on Nov 13 2023 4:12PM EST [id number] Normal [facility] Absolute lymphocyte countOrd ered By: Ventura Noble on 05-17-2023 Lymphocytes Auto (Unsp spec) [#/Vol] 1.69 10*3/uL 0.83-4.51 [facility] Basophil percentageOrdered B y: Ventura Noble on 05-17-2023 Basophils/100 WBC (Bld) 0.7 % 0-1 [facility] Bilirubin [Mass/Vol] 0.50 mg/dL 0.20-1.00 [facility] Comment on above: For patients on eltr ombopag therapy, use of Dimension [place] TBIL is not recommended. Chloride [Moles/Vol] 108 mmol/L 98-107 [facility] Cholesterol [Mass/Vol] 258 mg/dL <200 [facility] Comment on above: <200 mg/dL Desirable 200-240 mg/dL Borderline >240 mg/dL High Risk Eosinophils/100 WBC (Bld) 2.2 % 0-5 [facility] Glucose [Mass/Vol] 117 mg/dL 74-106 [facility] Comment on above: Fasting Glucose resu lt from 100 to 125 mg/dL suggests IMPAIRED HOMEOSTASIS per A.D.A. criteria. Neutrophils (Bld) [#/Vol] 5.3 10*3/uL 2.0-7.7 [facility] Neutrophils/100 WBC (Bld) 69.5 % 47-70 [facility] Potassium [Moles/Vol] 4.1 mmol/L 3.5-5.1 [facility] Protein [Mass/Vol] 7.4 g/dL 6.4-8.2 [facility] Sodium [Moles/Vol] 143 mmol/L 136-145 [facility] Triglyceride [Mass/Vol] 142 mg/dL <199 [facility] Comment on above: The drugs N-Acetylcy steine and Metamizole may falsely depress this assay.Serum Triglycerides Reference Interval Normal <150 mg/dL Borderline high 150 - 199 mg/dL High 200 - 499 mg/dL Very High > or = 500 mg/dL WBC (Bld) [#/Vol] 7.6 10*3/uL 4.4-11.0 [facility] Blood erythrocytes count (nu mber/volume)Ordered By: Ventura Noble on 05-17-2023 RBC (Bld) [#/Vol] 4.53 10*6/uL 4.2-5.4 [facility] Blood hemoglobin measurement (mass/volume)Ordered By: Ventura Noble on 05-17-2023 Hemoglobin (Bld) [Mass/Vol] 13.7 g/dL 12.0-15.0 [facility] Blood lymphocytes/100 leukoc ytesOrdered By: [facility] Noble on 05-17-2023 Lymphocytes/100 WBC (Bld) 22.1 % 19-41 [facility] Blood monocytes/100 leukocyt esOrdered By: [facility] Noble on 05-17-2023 Monocytes/100 WBC (Bld) 5.1 % 0-10 [facility] Blood platelet mean volumeOr dered By: Ventura Noble on 05-17-2023 Platelet mean volume (Bld) [Entitic vol] 9.6 fL 6.2-12.0 [facility] Determination of erythrocyte mean corpuscular volume (MCV)Ordered By: Ventura Noble on 05-17-2023 MCV (RBC) [Entitic vol] 94.3 fL 81-99 [facility] Hematocrit Auto (Bld) [Volum e fraction]Ordered By: Ventura Noble on 05-17-2023 Hematocrit (Bld) [Volume fraction] 42.7 % 37-47 [facility] Laboratory - Chemistry and C hemistry - challengeOrdered By: Kranthiburketsevero Noble on 05-17-2023 ALP [Catalytic activity/Vol] 91 U/L 45-117 [facility] ALT [Catalytic activity/Vol] 21 U/L 13-56 [facility] CO2 [Moles/Vol] 28.0 mmol/L 21.0-32.0 [facility] Globulin (S) [Mass/Vol] 3.5 g/dL 2.2-4.2 [facility] Urea nitrogen/Creatinine [Mass ratio] 19.8 mg/mg 10-20 [facility] Laboratory - Hematology and Cell countsOrdered By: Ventura Noble on 05-17-2023 Erythrocyte distribution width (RBC) [Entitic vol] 43.4 fL 35.1-43.9 [facility] Erythrocyte distribution width (RBC) [Ratio] 12.6 % 11.6-14.6 [facility] Immature granulocytes/100 WBC (Bld) 0.400 % 0.0-0.9 [facility] Comment on above: IG% - Immature Granu locytes (promyelocytes, myelocytes and metamyelocytes) > 1% indicates that a LEFT SHIFT is Present. MCH (RBC) [Entitic mass] 30.2 pg 27.0-32.0 [facility] Nucleated RBC/100 WBC (Bld) [Ratio] 0 % 0-5 [facility] MCHC Auto (RBC) [Mass/Vol]Or dered By: Ventura Noble on 05-17-2023 MCHC (RBC) [Mass/Vol] 32.1 g/dL 32-36 [facility] No Panel InformationOrdered By: Ventura Noble on 05-17-2023 Estimated GFR (MDRD) Amer 64 mL/min >60 [facility] Comment on above: GFR Calc Estimated GFR (MDRD) Non-Af Amer 53 mL/min >60 [facility] Comment on above: Non- GFR Calc Platelets bldOrdered By: Josh Noble on 05-17-2023 Platelets (Bld) [#/Vol] 266 10*3/uL 150-450 [facility] Serum or plasma albumin shahriar urement (mass/volume)Ordered By: Ventura Noble on 05-17-2023 Albumin [Mass/Vol] 3.9 g/dL 3.2-5.0 [facility] Serum or plasma albumin/glob ulin mass ratioOrdered By: Ventura Noble on 05-17-2023 Albumin/Globulin [Mass ratio] 1.1 {ratio} 0.9-2.4 [facility] Serum or plasma calcium shahriar urement (mass/volume)Ordered By: Ventura Noble on 05-17-2023 Calcium [Mass/Vol] 9.3 mg/dL 8.5-10.1 [facility] Serum or plasma cholesterol in HDL measurement (mass/volume)Ordered By: Ventura Noble on 05-17-2023 Cholesterol in HDL [Mass/Vol] 82 mg/dL >40 [facility] Comment on above: The drugs N-Acetylcy steine and Metamizole may falsely depress this assay. Reference Range HDL <40 mg/dL Low HDL Cholesterol HDL >or= 60 mg/dL High HDL Cholesterol Serum or plasma cholesterol in VLDL measurement (mass/volume)Ordered By: Ventura Noble on 05-17-2023 Cholesterol in VLDL [Mass/Vol] 28 mg/dL 5-40 [facility] Serum or plasma creatinine m easurement (mass/volume)Ordered By: Ventura Noble on 05-17-2023 Creatinine [Mass/Vol] 1.06 mg/dL 0.55-1.02 [facility] Comment on above: The validity of the calculated GFR & GFRAA in patients over 70 years has not been determined. Clinical correlation is essential. Serum or plasma low density lipoprotein (LDL) cholesterol measurement (mass/volume)Ordered By: Ventura Noble on 05-17-2023 Cholesterol in LDL [Mass/Vol] 148 mg/dL 0-130 [facility] Serum or plasma urea nitroge n measurement (mass/volume)Ordered By: Ventura Noble on 05-17-2023 Urea nitrogen [Mass/Vol] 21 mg/dL 7-18 [facility] Thin prep Papanicolaou smear with manual screeningOrdered By: Ventura Noble on 05-17-2023 Thin prep Papanicolaou smear with manual screening 22 U/L 15-37 [facility] Thin prep Papanicolaou smear with manual screening 7 5-15 [facility] COLONOSCOPY (THERAPEUTIC)on 09-20-2022 [facility] Basophil percentageon 2021 WBC (Bld) [#/Vol] 9.0 10*3/uL 4.4-11.0 [facility] Work Phone: Chloride [Moles/Vol] 105 mmol/L 98-107 [facility] Work Phone: Glucose [Mass/Vol] 105 mg/dL 74-106 [facility] Work Phone: Comment on above: Fasting Glucose resu lt from 100 to 125 mg/dL suggests IMPAIRED HOMEOSTASIS per A.D.A. criteria. Potassium [Moles/Vol] 4.0 mmol/L 3.5-5.1 [facility] Work Phone: Sodium [Moles/Vol] 139 mmol/L 136-145 [facility] Work Phone: Blood erythrocytes count (nu mber/volume)on 03-18-2022 RBC (Bld) [#/Vol] 3.79 10*6/uL 4.2-5.4 [facility] Work Phone: Blood hemoglobin measurement (mass/volume)on 03-18-2022 Hemoglobin (Bld) [Mass/Vol] 11.8 g/dL 12.0-15.0 [facility] Work Phone: Blood platelet mean volumeon 03-18-2022 Platelet mean volume (Bld) [Entitic vol] 9.2 fL 6.2-12.0 [facility] Work Phone: Determination of erythrocyte mean corpuscular volume (MCV)on 03-18-2022 MCV (RBC) [Entitic vol] 91.3 fL 81-99 [facility] Work Phone: Hematocrit Auto (Bld) [Volum e fraction]on 03-18-2022 Hematocrit (Bld) [Volume fraction] 34.6 % 37-47 [facility] Work Phone: Laboratory - Chemistry and C hemistry - challengeon 03-18-2022 CO2 [Moles/Vol] 29.0 mmol/L 21.0-32.0 [facility] Work Phone: Urea nitrogen/Creatinine [Mass ratio] 16.6 mg/mg 10-20 [facility] Work Phone: Laboratory - Hematology and Cell countson 03-18-2022 Erythrocyte distribution width (RBC) [Entitic vol] 44.6 fL 35.1-43.9 [facility] Work Phone: Erythrocyte distribution width (RBC) [Ratio] 13.2 % 11.6-14.6 [facility] Work Phone: MCH (RBC) [Entitic mass] 31.1 pg 27.0-32.0 [facility] Work Phone: MCHC Auto (RBC) [Mass/Vol]on 03-18-2022 MCHC (RBC) [Mass/Vol] 34.1 g/dL 32-36 [facility] Work Phone: No Panel Informationon 03-18 Estimated Creatinine Clearance Calc 41.24 ml/min [facility] Work Phone: Estimated GFR (MDRD) Amer 77 mL/min >60 [facility] Work Phone: Comment on above: GFR Calc Estimated GFR (MDRD) Non-Af Amer 64 mL/min >60 [facility] Work Phone: Comment on above: Non- GFR Calc Platelets bldon 03-18-2022 Platelets (Bld) [#/Vol] 242 10*3/uL 150-450 [facility] Work Phone: Serum or plasma calcium shahriar urement (mass/volume)on 03-18-2022 Calcium [Mass/Vol] 9.3 mg/dL 8.5-10.1 [facility] Work Phone: Serum or plasma creatinine m easurement (mass/volume)on 03-18-2022 Creatinine [Mass/Vol] 0.90 mg/dL 0.55-1.02 [facility] Work Phone: Comment on above: The validity of the calculated GFR & GFRAA in patients over 70 years has not been determined. Clinical correlation is essential. Serum or plasma urea nitroge n measurement (mass/volume)on 03-18-2022 Urea nitrogen [Mass/Vol] 15 mg/dL 7-18 [facility] Work Phone: Thin prep Papanicolaou smear with manual screeningon 03-18-2022 Thin prep Papanicolaou smear with manual screening 5 5-15 [facility] Work Phone: Glucose Glucometer (BldC) [M ass/Vol]on 03-17-2022 Glucose [Mass/Vol] 96 mg/dL 74-106 [facility] Work Phone: Comment on above: MANAGEMENT OF PATIEN T CARE PER NURSING PROTOCOL Basophil percentageon 2021 Bilirubin [Mass/Vol] 0.50 mg/dL 0.20-1.00 [facility] Work Phone: Comment on above: For patients on eltr ombopag therapy, use of Dimension [place] TBIL is not recommended. Protein [Mass/Vol] 6.8 g/dL 6.4-8.2 [facility] Work Phone: Direct bilirubinon 2 Bilirubin.direct [Mass/Vol] 0.14 mg/dL 0.00-0.30 [facility] Work Phone: INR in Blood by Coagulation assayon 03-08-2022 INR Coag (Bld) [Relative time] 1.0 {INR} [facility] Work Phone: Laboratory - Chemistry and C hemistry - challengeon 03-08-2022 ALP [Catalytic activity/Vol] 65 U/L 45-117 [facility] Work Phone: ALT [Catalytic activity/Vol] 22 U/L 13-56 [facility] Work Phone: Globulin (S) [Mass/Vol] 3.1 g/dL 2.2-4.2 [facility] Work Phone: Magnesium [Mass/Vol] 2.0 mg/dL 1.6-2.6 [facility] Work Phone: Laboratory - Coagulationon 1 aPTT Coag (Bld) [Time] 24.5 s 24.1-36.2 [facility] Work Phone: PT Coag (PPP) [Time] 12.7 s 11.7-14.9 [facility] Work Phone: Serum or plasma albumin shahriar urement (mass/volume)on 03-08-2022 Albumin [Mass/Vol] 3.7 g/dL 3.2-5.0 [facility] Work Phone: Thin prep Papanicolaou smear with manual screeningon 03-08-2022 Thin prep Papanicolaou smear with manual screening 18 U/L 15-37 [facility] Work Phone: Absolute lymphocyte counton 02-04-2022 Lymphocytes Auto (Unsp spec) [#/Vol] 1.71 10*3/uL 0.83-4.51 [facility] Work Phone: Basophil percentageon 2021 Basophils/100 WBC (Bld) 0.5 % 0-1 [facility] Work Phone: Bilirubin [Mass/Vol] 0.30 mg/dL 0.20-1.00 [facility] Work Phone: Comment on above: For patients on eltr ombopag therapy, use of Dimension [place] TBIL is not recommended. Chloride [Moles/Vol] 105 mmol/L 98-107 [facility] Work Phone: Eosinophils/100 WBC (Bld) 1.5 % 0-5 [facility] Work Phone: Glucose [Mass/Vol] 86 mg/dL 74-106 [facility] Work Phone: Neutrophils (Bld) [#/Vol] 4.9 10*3/uL 2.0-7.7 [facility] Work Phone: [phone] Neutrophils/100 WBC (Bld) 67.3 % 47-70 [facility] Work Phone: Potassium [Moles/Vol] 4.0 mmol/L 3.5-5.1 [facility] Work Phone: Protein [Mass/Vol] 6.9 g/dL 6.4-8.2 [facility] Work Phone: Sodium [Moles/Vol] 140 mmol/L 136-145 [facility] Work Phone: WBC (Bld) [#/Vol] 7.3 10*3/uL 4.4-11.0 [facility] Work Phone: Blood erythrocytes count (nu mber/volume)on 02-04-2022 RBC (Bld) [#/Vol] 4.21 10*6/uL 4.2-5.4 [facility] Work Phone: Blood hemoglobin measurement (mass/volume)on 02-04-2022 Hemoglobin (Bld) [Mass/Vol] 12.9 g/dL 12.0-15.0 [facility] Work Phone: Blood lymphocytes/100 leukoc yteson 02-04-2022 Lymphocytes/100 WBC (Bld) 23.5 % 19-41 [facility] Work Phone: Blood monocytes/100 leukocyt eson 02-04-2022 Monocytes/100 WBC (Bld) 6.9 % 0-10 [facility] Work Phone: Blood platelet mean volumeon 02-04-2022 Platelet mean volume (Bld) [Entitic vol] 9.2 fL 6.2-12.0 [facility] Work Phone: Determination of erythrocyte mean corpuscular volume (MCV)on 02-04-2022 MCV (RBC) [Entitic vol] 94.1 fL 81-99 [facility] Work Phone: Hematocrit Auto (Bld) [Volum e fraction]on 02-04-2022 Hematocrit (Bld) [Volume fraction] 39.6 % 37-47 [facility] Work Phone: Laboratory - Chemistry and C hemistry - challengeon 02-04-2022 ALP [Catalytic activity/Vol] 65 U/L 45-117 [facility] Work Phone: ALT [Catalytic activity/Vol] 28 U/L 13-56 [facility] Work Phone: CO2 [Moles/Vol] 30.0 mmol/L 21.0-32.0 [facility] Work Phone: Globulin (S) [Mass/Vol] 3.4 g/dL 2.2-4.2 [facility] Work Phone: Urea nitrogen/Creatinine [Mass ratio] 27.2 mg/mg 10-20 [facility] Work Phone: Laboratory - Hematology and Cell countson 02-04-2022 Erythrocyte distribution width (RBC) [Entitic vol] 45.8 fL 35.1-43.9 [facility] Work Phone: Erythrocyte distribution width (RBC) [Ratio] 13.2 % 11.6-14.6 [facility] Work Phone: Immature granulocytes/100 WBC (Bld) 0.300 % 0.0-0.9 [facility] Work Phone: Comment on above: IG% - Immature Granu locytes (promyelocytes, myelocytes and metamyelocytes) > 1% indicates that a LEFT SHIFT is Present. MCH (RBC) [Entitic mass] 30.6 pg 27.0-32.0 [facility] Work Phone: Nucleated RBC/100 WBC (Bld) [Ratio] 0 % 0-5 [facility] Work Phone: MCHC Auto (RBC) [Mass/Vol]on 02-04-2022 MCHC (RBC) [Mass/Vol] 32.6 g/dL 32-36 [facility] Work Phone: No Panel Informationon 02-04 Estimated GFR (MDRD) Amer 76 mL/min >60 [facility] Work Phone: Comment on above: GFR Calc Estimated GFR (MDRD) Non-Af Amer 62 mL/min >60 [facility] Work Phone: Comment on above: Non- GFR Calc Platelets bldon 02-04-2022 Platelets (Bld) [#/Vol] 244 10*3/uL 150-450 [facility] Work Phone: Serum or plasma albumin shahriar urement (mass/volume)on 02-04-2022 Albumin [Mass/Vol] 3.5 g/dL 3.2-5.0 [facility] Work Phone: Serum or plasma albumin/glob ulin mass ratioon 02-04-2022 Albumin/Globulin [Mass ratio] 1.0 {ratio} 0.9-2.4 [facility] Work Phone: Serum or plasma calcium shahriar urement (mass/volume)on 02-04-2022 Calcium [Mass/Vol] 9.5 mg/dL 8.5-10.1 [facility] Work Phone: Serum or plasma creatinine m easurement (mass/volume)on 02-04-2022 Creatinine [Mass/Vol] 0.92 mg/dL 0.55-1.02 [facility] Work Phone: Comment on above: The validity of the calculated GFR & GFRAA in patients over 70 years has not been determined. Clinical correlation is essential. Serum or plasma urea nitroge n measurement (mass/volume)on 02-04-2022 Urea nitrogen [Mass/Vol] 25 mg/dL 7-18 [facility] Work Phone: Thin prep Papanicolaou smear with manual screeningon 02-04-2022 Thin prep Papanicolaou smear with manual screening 18 U/L 15-37 [facility] Work Phone: Thin prep Papanicolaou smear with manual screening 5 5-15 [facility] Work Phone: Basophil percentageon 2021 Basophil percentage 0-5 SEEN /hpf 0-5 [facility] Work Phone: Bilirubin Test strip Ql (U)o n 10-26-2021 Bilirubin Ql (U) Negative Negative [facility] Work Phone: Ketones Test strip Ql (U)on 10-26-2021 Ketones Ql (U) Negative Negative [facility] Work Phone: Mucus LM Ql (Urine sed)on Mucus Ql (Urine sed) 0 SEEN /hpf [facility]: Nitrite Test strip Ql (U)on 10-26-2021 Nitrite Ql (U) Negative Negative [facility] Work Phone: Protein Test strip Ql (U)on 10-26-2021 Protein Ql (U) Negative Negative [facility] Work Phone: Squamous epithelial cells de tection in urine sediment by light microscopyon 10-26-2021 Epithelial cells.squamous LM Ql (Urine sed) 0-5 SEEN /hpf 5-10 [facility] Work Phone: Urine blood detectionon 10-13 RBC Ql (U) Negative Negative [facility] Work Phone: RBC Ql (U) 0 SEEN /hpf 0-5 [facility] Work Phone: Urine clarityon 10-26-2021 Clarity (U) Clear Clear [facility] Work Phone: Urine color determinationon 10-26-2021 Color (U) Yellow Yellow [facility] Work Phone: Urine glucose detectionon Glucose Ql (U) Normal mg/dl Normal [facility] Work Phone: Urine leukocyte esterase det ection by dipstickon 10-26-2021 Leukocyte esterase Test strip Ql (U) Negative Negative [facility] Work Phone: Urine pHon 10-26-2021 pH (U) 6.5 [pH] 5.0 - 8.0 [facility] Work Phone: Urine sediment bacteria coun t by microscopy (number/high power field)on 10-26-2021 Bacteria LM.HPF (Urine sed) [#/Area] RARE /hpf None Seen [facility] Work Phone: Urine specific gravity measu rementon 10-26-2021 Specific gravity (U) [Rel density] 1.010 1.002-1.030 [facility] Work Phone: Urobilinogen Auto test strip Ql (U)on 10-26-2021 Urobilinogen Ql (U) Normal mg/dl Normal [facility] Work Phone: Absolute lymphocyte counton 08-31-2021 Lymphocytes Auto (Unsp spec) [#/Vol] 1.66 10*3/uL 0.83-4.51 [facility] Work Phone: Basophil percentageon 2021 Basophils/100 WBC (Bld) 0.6 % 0-1 [facility] Work Phone: Bilirubin [Mass/Vol] 0.30 mg/dL 0.20-1.00 [facility] Work Phone: Comment on above: For patients on eltr ombopag therapy, use of Dimension [place] TBIL is not recommended. Chloride [Moles/Vol] 107 mmol/L 98-107 [facility] Work Phone: Eosinophils/100 WBC (Bld) 4.4 % 0-5 [facility] Work Phone: Glucose [Mass/Vol] 112 mg/dL 74-106 [facility] Work Phone: Comment on above: Fasting Glucose resu lt from 100 to 125 mg/dL suggests IMPAIRED HOMEOSTASIS per A.D.A. criteria. Neutrophils (Bld) [#/Vol] 2.7 10*3/uL 2.0-7.7 [facility] Work Phone: Neutrophils/100 WBC (Bld) 54.7 % 47-70 [facility] Work Phone: Potassium [Moles/Vol] 4.2 mmol/L 3.5-5.1 [facility] Work Phone: Protein [Mass/Vol] 7.0 g/dL 6.4-8.2 [facility]: Sodium [Moles/Vol] 141 mmol/L 136-145 [facility]: WBC (Bld) [#/Vol] 5.0 10*3/uL 4.4-11.0 [facility] Work [facility]: Blood erythrocytes count (nu mber/volume)on 08-31-2021 RBC (Bld) [#/Vol] 4.22 10*6/uL 4.2-5.4 [facility]: Blood hemoglobin measurement (mass/volume)on 08-31-2021 Hemoglobin (Bld) [Mass/Vol] 12.8 g/dL 12.0-15.0 [facility] Work Phone: Blood lymphocytes/100 leukoc yteson 08-31-2021 Lymphocytes/100 WBC (Bld) 33.3 % 19-41 [facility] Work Phone: Blood monocytes/100 leukocyt eson 08-31-2021 Monocytes/100 WBC (Bld) 6.6 % 0-10 [facility] Work Phone: Blood platelet mean volumeon 08-31-2021 Platelet mean volume (Bld) [Entitic vol] 9.6 fL 6.2-12.0 [facility] Work Phone: Determination of erythrocyte mean corpuscular volume (MCV)on 08-31-2021 MCV (RBC) [Entitic vol] 91.9 fL 81-99 [facility] Work Phone: Hematocrit Auto (Bld) [Volum e fraction]on 08-31-2021 Hematocrit (Bld) [Volume fraction] 38.8 % 37-47 [facility] Work Phone: Laboratory - Chemistry and C hemistry - challengeon 08-31-2021 ALP [Catalytic activity/Vol] 69 U/L 45-117 [facility] Work Phone: ALT [Catalytic activity/Vol] 24 U/L 13-56 [facility] Work Phone: CO2 [Moles/Vol] 31.0 mmol/L 21.0-32.0 [facility] Work Phone: Globulin (S) [Mass/Vol] 3.3 g/dL 2.2-4.2 [facility] Work Phone: Urea nitrogen/Creatinine [Mass ratio] 21.9 mg/mg 10-20 [facility] Work Phone: Laboratory - Hematology and Cell countson 08-31-2021 Erythrocyte distribution width (RBC) [Entitic vol] 41.9 fL 35.1-43.9 [facility] Work Phone: Erythrocyte distribution width (RBC) [Ratio] 12.5 % 11.6-14.6 [facility] Work Phone: Immature granulocytes/100 WBC (Bld) 0.400 % 0.0-0.9 [facility] Work Phone: [phone] Comment on above: IG% - Immature Granu locytes (promyelocytes, myelocytes and metamyelocytes) > 1% indicates that a LEFT SHIFT is Present. MCH (RBC) [Entitic mass] 30.3 pg 27.0-32.0 [facility] Work Phone: Nucleated RBC/100 WBC (Bld) [Ratio] 0 % 0-5 [facility] Work Phone: MCHC Auto (RBC) [Mass/Vol]on 08-31-2021 MCHC (RBC) [Mass/Vol] 33.0 g/dL 32-36 [facility] Work Phone: No Panel Informationon 08-31 Estimated GFR (MDRD) Amer 59 mL/min >60 [facility] Work Phone: Comment on above: GFR Calc Estimated GFR (MDRD) Non-Af Amer 49 mL/min >60 [facility] Work Phone: Comment on above: Non- GFR Calc Thyroid Stimulating Hormone (TSH) 2.26 uIU/mL 0.358-3.74 [facility] Work Phone: Platelets bldon 08-31-2021 Platelets (Bld) [#/Vol] 239 10*3/uL 150-450 [facility] Work Phone: Serum or plasma albumin shahriar urement (mass/volume)on 08-31-2021 Albumin [Mass/Vol] 3.7 g/dL 3.2-5.0 [facility] Work Phone: Serum or plasma albumin/glob ulin mass ratioon 08-31-2021 Albumin/Globulin [Mass ratio] 1.1 {ratio} 0.9-2.4 [facility] Work Phone: Serum or plasma calcium shahriar urement (mass/volume)on 08-31-2021 Calcium [Mass/Vol] 9.2 mg/dL 8.5-10.1 [facility] Work Phone: Serum or plasma creatinine m easurement (mass/volume)on 08-31-2021 Creatinine [Mass/Vol] 1.14 mg/dL 0.55-1.02 [facility] Work Phone: Comment on above: The validity of the calculated GFR & GFRAA in patients over 70 years has not been determined. Clinical correlation is essential. Serum or plasma urea nitroge n measurement (mass/volume)on 08-31-2021 Urea nitrogen [Mass/Vol] 25 mg/dL 7-18 [facility] Work Phone: Thin prep Papanicolaou smear with manual screeningon 08-31-2021 Thin prep Papanicolaou smear with manual screening 17 U/L 15-37 [facility] Work Phone: Thin prep Papanicolaou smear with manual screening 3 5-15 [facility] Work Phone: Office Visit: New Pt. Visito n 01-11-2017 Fall risk assessment No [facility] Work Phone: Protein mass conc Done [facility] Work Phone: Tobacco smoking status NHIS Never smoker [facility] Work Phone: Office Visit: evaluation for TBSEon 07-30-[address] [facility] [address] [facility] Work Phone: Tobacco smoking status NHIS Never [facility] Work Phone: Culture, urine Bacteria identified Cx Nom (U) Positive [facility] Work Phone: No Panel Information Nasal Screen MRSA/MSSA Wo [facility] Work Phone: Vital Signs Date Time Vital Sign Value Performing Clinician Facility 11-13-2023 13:21-0400 Body height 164.5 cm Darcy Mcbride DO Work Phone: [facility] 11-13-2023 13:21-0400 Body mass index (BMI) [Ratio] 23.48 kg/m2 Darcy Lugok DO Work Phone: [facility] 11-13-2023 13:21-0400 Body temperature 97.59 [degF] Darcy Arsen DO Work Phone: [facility] 11-13-2023 13:21-0400 Body weight 63.5 kg Darcy Lugok DO Work Phone: [facility] 11-13-2023 13:21-0400 Diastolic blood pressure 68 mm[Hg] Darcy Gorevak DO Work Phone: [facility] 11-13-2023 13:21-0400 Heart rate 87 /min Darcy Lugok DO Work Phone: [facility] 11-13-2023 13:21-0400 SaO2% (BldA) [Mass fraction] 97 % Darcy Lugok DO Work Phone: [facility] 11-13-2023 13:21-0400 Systolic blood pressure 172 mm[Hg] Darcy Mcbride DO Work Phone: [facility] 05-25-2023 14:51-0500 Body height 160.[address] Ventura Noble Work Phone: [facility] 05-25-2023 14:51-0500 Body mass index (BMI) [Ratio] 26.3 kg/m2 Dr. Ventura Noble Work Phone: [facility] 05-25-2023 14:51-0500 Body temperature 97.9 [degF] Dr. Ventura Noble Work Phone: [facility] 05-25-2023 14:51-0500 Body weight 67.[address] Ventura Noble Work Phone: [facility] 05-25-2023 14:51-0500 Diastolic blood pressure 80 mm[Hg] Dr. Ventura Noble Work Phone: [facility] 05-25-2023 14:51-0500 Heart rate 69 /min Dr. Ventura Noble Work Phone: [facility] 05-25-2023 14:51-0500 Respiratory rate 16 /min Dr. Ventura Noble Work Phone: [facility] 05-25-2023 14:51-0500 SaO2% (BldA) [Mass fraction] 99 % Dr. Ventura Noble Work Phone: [facility] 05-25-2023 14:51-0500 Systolic blood pressure 158 mm[Hg] Dr. Ventura Noble Work Phone: [facility] 09-20-2022 10:05-0400 Diastolic blood pressure 59 mm[Hg] Kaden Norton MD Work Phone: [facility] 09-20-2022 10:05-0400 Heart rate 64 /min Kaden Norton MD Work Phone: [facility] 09-20-2022 10:05-0400 Respiratory rate 16 /min Kaden Norton MD Work Phone: [facility] 09-20-2022 10:05-0400 SaO2% (BldA) [Mass fraction] 97 % Kaden Norton MD Work Phone: [facility] 09-20-2022 10:05-0400 Systolic blood pressure 131 mm[Hg] Kaden Norton MD Work Phone: [facility] 09-20-2022 08:03-0400 Body temperature 96.91 [degF] Kaden Norton MD Work Phone: [facility] 09-20-2022 08:03-0400 Body weight 66.3 kg Kaden Norton MD Work Phone: [facility] 08-11-2022 08:59-0400 Body height 165.1 cm Kaden Norton MD Work Phone: [facility] 08-11-2022 08:59-0400 Body temperature 96.69 [degF] Kaedn Norton MD Work Phone: [facility] 08-11-2022 08:59-0400 Body weight 66.32 kg Kaden Norton MD Work Phone: [facility] 08-11-2022 08:59-0400 Diastolic blood pressure 68 mm[Hg] Kaden Norton MD Work Phone: [facility] 08-11-2022 08:59-0400 Heart rate 62 /min Kaden Norton MD Work Phone: [facility] 08-11-2022 08:59-0400 SaO2% (BldA) [Mass fraction] 100 % Kaden Norton MD Work Phone: [facility] 08-11-2022 08:59-0400 Systolic blood pressure 110 mm[Hg] Kaden Norton MD Work Phone: [facility] 03-18-2022 10:29-0400 Diastolic blood pressure 63 mm[Hg] Dr. Ventura Noble Work Phone: [facility] Work Phone: 03-18-2022 10:29-0400 Heart rate 78 /min Dr. Ventura Noble Work Phone: [facility] Work Phone: 03-18-2022 10:29-0400 Respiratory rate 18 /min Dr. Ventura Noble Work Phone: [facility] Work Phone: 03-18-2022 10:29-0400 SaO2% (BldA) [Mass fraction] 97 % Dr. Ventura Noble Work Phone: [facility] Work Phone: 03-18-2022 10:29-0400 Systolic blood pressure 148 mm[Hg] Dr. Ventura Noble Work Phone: [facility] Work Phone: 03-18-2022 08:08-0400 Body temperature 98.1 [degF] Dr. Ventura Noble Work Phone: [facility] Work Phone: 03-18-2022 05:39-0400 Inhaled oxygen flow rate 2 L/min Dr. Ventura Noble Work Phone: [facility] Work Phone: 03-17-2022 13:15-0400 Body height 160.[address] Ventura Noble Work Phone: [facility] Work Phone: 03-17-2022 13:15-0400 Body mass index (BMI) [Ratio] 24.5 kg/m2 Dr. Ventura Noble Work Phone: [facility] Work Phone: 03-17-2022 13:15-0400 Body weight [address] Ventura Noble Work Phone: [facility] Work Phone: 02-04-2022 13:28-0400 Body height 162.[address] Ventura Noble Work Phone: [facility] Work Phone: 02-04-2022 13:28-0400 Body mass index (BMI) [Ratio] 24.4 kg/m2 Dr. Ventura Noble Work Phone: [facility] Work Phone: 02-04-2022 13:28-0400 Body temperature 96.8 [degF] Dr. Ventura Noble Work Phone: [facility] Work Phone: 02-04-2022 13:28-0400 Body weight 64.[address] Ventura Noble Work Phone: [facility] Work Phone: 02-04-2022 13:28-0400 Diastolic blood pressure 80 mm[Hg] Dr. Ventura Noble Work Phone: [facility] Work Phone: 02-04-2022 13:28-0400 Heart rate 72 /min Dr. Ventura Noble Work Phone: [facility] Work Phone: 02-04-2022 13:28-0400 Respiratory rate 18 /min Dr. Ventura Noble Work Phone: [facility] Work Phone: 02-04-2022 13:28-0400 SaO2% (BldA) [Mass fraction] 99 % Dr. Ventura Noble Work Phone: [facility] Work Phone: 02-04-2022 13:28-0400 Systolic blood pressure 156 mm[Hg] Dr. Ventura Noble Work Phone: [facility] Work Phone: 10-26-2021 14:23-0400 Body height 162.[address] Ventura Noble Work Phone: [facility] Work Phone: 10-26-2021 14:23-0400 Body mass index (BMI) [Ratio] 24.5 kg/m2 Dr. Ventura Noble Work Phone: [facility] Work Phone: 10-26-2021 14:23-0400 Body temperature 97.5 [degF] Dr. Ventura Noble Work Phone: [facility] Work Phone: 10-26-2021 14:23-0400 Body weight 64.[address] Ventura Noble Work Phone: [facility] Work Phone: 10-26-2021 14:23-0400 Diastolic blood pressure 76 mm[Hg] Dr. Ventura Noble Work Phone: [facility] Work Phone: 10-26-2021 14:23-0400 Heart rate 62 /min Dr. Ventura Noble Work Phone: [facility] Work Phone: 10-26-2021 14:23-0400 Respiratory rate 14 /min Dr. Ventura Noble Work Phone: [facility] Work Phone: 10-26-2021 14:23-0400 SaO2% (BldA) [Mass fraction] 98 % Dr. Ventura Noble Work Phone: [facility] Work Phone: 10-26-2021 14:23-0400 Systolic blood pressure 152 mm[Hg] Dr. Ventura Noble Work Phone: [facility] Work Phone: 09-16-2021 16:05-0400 Body temperature 97 [degF] Dr. Ventura Noble Work Phone: [facility] Work Phone: 09-16-2021 16:05-0400 Diastolic blood pressure 60 mm[Hg] Dr. Ventura Noble Work Phone: [facility] Work Phone: 09-16-2021 16:05-0400 Heart rate 69 /min Dr. Ventura Noble Work Phone: [facility] Work Phone: 09-16-2021 16:05-0400 Respiratory rate 16 /min Dr. Ventura Noble Work Phone: [facility] Work Phone: 09-16-2021 16:05-0400 SaO2% (BldA) [Mass fraction] 100 % Dr. Ventura Noble Work Phone: [facility] Work Phone: 09-16-2021 16:05-0400 Systolic blood pressure 154 mm[Hg] Dr. Ventura Noble Work Phone: [facility] Work Phone: 09-16-2021 15:20-0400 Body temperature 97.2 [degF] Dr. Ventura Noble Work Phone: [facility] Work Phone: 09-16-2021 15:20-0400 Diastolic blood pressure 61 mm[Hg] Dr. Ventura Noble Work Phone: [facility] Work Phone: 09-16-2021 15:20-0400 Heart rate 67 /min Dr. Ventura Noble Work Phone: [facility] Work Phone: 09-16-2021 15:20-0400 Respiratory rate 16 /min Dr. Ventura Noble Work Phone: [facility] Work Phone: 09-16-2021 15:20-0400 SaO2% (BldA) [Mass fraction] 96 % Dr. Ventuar Noble Work Phone: [facility] Work Phone: 09-16-2021 15:20-0400 Systolic blood pressure 140 mm[Hg] Dr. Ventura Noble Work Phone: [facility] Work Phone: 09-16-2021 11:38-0400 Body height 162.[address] Ventura Noble Work Phone: [facility] Work Phone: 09-16-2021 11:38-0400 Body mass index (BMI) [Ratio] 24.5 kg/m2 Dr. Ventura Noble Work Phone: [facility] Work Phone: 09-16-2021 11:38-0400 Body weight [address] Ventura Noble Work Phone: [facility] Work Phone: 08-31-2021 09:28-0400 Body mass index (BMI) [Ratio] 25.6 kg/m2 Dr. Ventura Noble Work Phone: [facility] Work Phone: 08-31-2021 09:28-0400 Body temperature 95.4 [degF] Dr. Ventura Noble Work Phone: [facility] Work Phone: 08-31-2021 09:28-0400 Body weight 67.[address] Ventura Noble Work Phone: [facility] Work Phone: 08-31-2021 09:28-0400 Diastolic blood pressure 90 mm[Hg] Dr. Ventura Noble Work Phone: [facility] Work Phone: 08-31-2021 09:28-0400 Heart rate 80 /min Dr. Ventura Noble Work Phone: [facility] Work Phone: 08-31-2021 09:28-0400 Respiratory rate 16 /min Dr. Ventura Noble Work Phone: [facility] Work Phone: 08-31-2021 09:28-0400 SaO2% (BldA) [Mass fraction] 96 % Dr. Ventura Noble Work Phone: [facility] Work Phone: 08-31-2021 09:28-0400 Systolic blood pressure 138 mm[Hg] Dr. Ventura Noble Work Phone: [facility] Work Phone: 08-31-2021 09:28-0400 Body height 162.[address] Ventura Noble Work Phone: [facility] Work Phone: 08-31-2021 09:28-0400 Body mass index (BMI) [Ratio] 25.6 kg/m2 Dr. Ventura Noble Work Phone: [facility] Work Phone: 08-31-2021 09:28-0400 Body temperature 95.4 [degF] Dr. Ventura Noble Work Phone: [facility] Work Phone: 08-31-2021 09:28-0400 Body weight 67.[address] Ventura Noble Work Phone: [facility] Work Phone: 08-31-2021 09:28-0400 Diastolic blood pressure 90 mm[Hg] Dr. Ventura Noble Work Phone: [facility] Work Phone: 08-31-2021 09:28-0400 Heart rate 80 /min Dr. Ventura Noble Work Phone: [facility] Work Phone: 08-31-2021 09:28-0400 Respiratory rate 16 /min Dr. Ventura Noble Work Phone: [facility] Work Phone: 08-31-2021 09:28-0400 SaO2% (BldA) [Mass fraction] 96 % Dr. Ventura Noble Work Phone: [facility] Work Phone: 08-31-2021 09:28-0400 Systolic blood pressure 138 mm[Hg] Dr. Ventura Noble Work Phone: [facility] Work Phone: 01-11-2017 13:35-0400 BMI (Body Mass Index) 23.72 kg/m2 Ventura Noble MD [facility] Work Phone: 01-11-2017 13:35-0400 Body Temperature 98.6 [degF] Ventura Noble MD [facility] Work Phone: 01-11-2017 13:35-0400 BP Diastolic 75 mm[Hg] Ventura Noble MD [facility] Work Phone: 01-11-2017 13:35-0400 BP Systolic 132 mm[Hg] Ventura Noble MD [facility] Work Phone: 01-11-2017 13:35-0400 Height 167.64 cm Ventura Noble MD [facility] Work Phone: 01-11-2017 13:35-0400 Pulse (Heart Rate) 70 /min Ventura Noble MD [facility] Work Phone: 01-11-2017 [id number] Weight 66.68 kg Ventura Noble MD [facility] Work Phone: 07-30-2014 [id number] BSA (Body Surface Area) 1.79 m2 Ventura Noble MD [facility] Work Phone: 07-30-2014 13:53-0400 Respiratory Rate 14 /min Ventura Noble MD [facility] Work Phone: Encounters Encounter Date Encounter Type Care Provider Facility Start: 11-06-2024 ambulatory Ventura Noble Facili ty:[facility] Start: 10-31-2024 ambulatory Self Referred Facility: [facility] Start: 10-21-2024 End: 10-21-[address] Ventura Noble MD Work Phone: [facility] Work Phone: Start: 10-21-2024 End: 10-21-[address] Ventura Noble MD -[facility] Work Phone: Start: 10-21-2024 End: 10-21-[address] Ventura Noble MD [facility] Start: 10-21-2024 End: 10-21-2024 ambulatory Ventura Noble Facility:[facility] Start: 08-01-2024 End: 08-01-2024 Telephone encounter Darcy Mcbride DO Work Phone: Colorectal Surgery Comment on above: Referral Request Start: 11-13-2023 End: 11-13-2023 Admission to same day surgery center Margarita Torres APRN.CNP Work Phone: Colorectal Surgery Comment on above: Manometry Start: 11-13-2023 End: 11-13-2023 Patient encounter procedure Margarita Torres APRN.CNP Work Phone: Colorectal Surgery Comment on above: Rectocele (Primary D x) Start: 11-13-2023 End: 11-13-2023 ambulatory FARIDEH SILVERMAN Facility:[facility] Start: 11-13-2023 End: 11-13-2023 ambulatory FARIDEH SILVERMAN Facility:[facility] Start: 11-13-2023 End: 11-13-2023 Subsequent hospital visit by physician Farideh Silverman APRN.[employer] Work Phone: Radiology Comment on above: Rectocele [N81.6] Start: 11-09-2023 Chart abstracting Darcy Arsen WATKINS Work Phone: Colorectal Surgery Start: 07-26-2023 Orders Only Farideh kwan APRN.[employer] Work Phone: Colorectal Surgery Comment on above: Rectocele (Primary D x) Medication Problem Start: 06-29-2023 End: 06-29-[address] Ventura Noble Work Phone: [facility] Work Phone: Start: 06-29-2023 End: 06-29-[address] Ventura Noble Work Phone: [facility]-Outpatient Bone Densitometry Work Phone: Start: 05-25-2023 End: 05-25-2023 Encounter for general adult medical examination without abnormal findings Dr. Ventura Noble Work Phone: [facility] Start: 05-25-2023 End: 05-25-[address] Ventura Noble Work Phone: [facility] Work Phone: Start: 05-17-2023 End: 05-17-2023 ambulatory [facility] Work Phone: Start: 05-17-2023 End: 05-17-2023 Patient encounter procedure [facility]-Laboratory, [facility] Start: 09-20-2022 End: 09-20-2022 Subsequent hospital visit by physician Kaden Norton MD Work Phone: Ambulatory Surgery Comment on above: Special screening fo r malignant neoplasms, colon [Z12.11] Start: 08-11-2022 End: 08-11-2022 Patient encounter procedure Kaden Norton MD Work Phone: General Surgery Comment on above: Special screening fo r malignant neoplasms, colon (Primary Dx) Start: 03-17-2022 End: 03-18-2022 Evaluation and management of inpatient Dr. Ventura Noble Work Phone: [facility]-Medical Surgical 3 Start: 03-17-2022 End: 03-18-[address] Ventura Noble Work Phone: [facility] Work Phone: Start: 02-18-2022 End: 02-18-[address] Ventura Noble Work Phone: [facility] Work Phone: Start: 02-18-2022 End: 02-18-[address] Ventura Noble Work Phone: [facility] Start: 02-04-[address] Gregg Noble Work Phone: [facility] Start: 02-04-2022 End: 02-04-2022 Emergency department patient visit Dr. Ventura Noble Work Phone: [facility] Start: 02-04-2022 End: 02-04-[address] Ventura Noble Work Phone: [facility] Start: 10-27-2021 End: 10-27-[address] Ventura Noble Work Phone: [facility]-Laboratory, Specimen Start: 10-26-2021 End: 10-26-[address] Ventura Noble Work Phone: [facility] Start: 09-16-2021 End: 09-16-2021 Admission to same day surgery center Dr. Ventura Noble Work Phone: [facility]-Mortgage Specialist Start: 09-10-2021 End: 09-10-[address] Ventura Noble Work Phone: [facility]-Pulmonary Services/Neurology Start: 09-10-2021 Non-patient / Non-visit Dr. Danielle Noble Work Phone: [facility] Start: 08-31-2021 End: 08-31-2021 Encounter for other preprocedural examination Dr. Ventura Noble Work Phone: [facility] Start: 08-31-2021 End: 08-31-[address] Ventura Noble Work Phone: [facility] Start: 08-16-2021 End: 08-16-2021 Patient encounter procedure [facility]-Cardiovascular Services Start: 01-20-2021 Patient encounter status [facility] Start: 01-17-2017 End: 01-18-2017 Emergency department patient visit ADE[facility] Procedures Date Procedure Procedure Detail Performing Clinician Start: 11-13-2023 ADULT [place] [facility] Farideh Silverman APRN.HIGH SCHOOL COUNSELOR Work Phone: Start: 11-13-2023 Radiologic exam colo n single contrast study Farideh Silverman APRN.HIGH SCHOOL COUNSELOR Work Phone: Start: 06-29-2023 Dual energy X-ray absorptiometry Dr. Ventura Noble Work Phone: Start: 06-29-2023 Screening mammography Tom Noble Work Phone: Start: 09-20-2022 End: 09-20-2022 Hemorrhoidectomy internal rubber band ligations Kaden Norton MD Work Phone: Start: 09-20-2022 End: 09-20-2022 Colonoscopy flx dx w/collj spec when pfrmd Kaden Norton MD Work Phone: Start: 03-17-2022 Plain X-ray of shoulder Dr. 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 Ventura Noble Work Phone: Start: 03-08-2022 Plain chest X-ray Dr. Gregg Noble Work Phone: Start: 02-18-2022 CT of upper limb wit hout contrast Dr. Ventura Noble Work Phone: Start: 09-16-[address] Ventura Noble Work Phone: Start: 09-16-2021 Fluoroscopic guidance Tom Noble Work Phone: Start: 09-16-2021 Plain X-ray of toe Dr. Ventura Noble Work Phone: Start: 01-11-2017 Influenza vaccination Flu vaccine Gregg Noble MD Start: 07-30-2014 End: 08-06-2014 Follow Up Appt 6 months New Chen MD Nasal Screen MRSA/MSSA Dr. Gregg Noble Work Phone: Urine culture Dr. Ventura Noble Work Phone: Plan of Treatment Date Care Activity Detail Author Start: 10-21-2024 CBC W Auto Different ial panel - Blood [facility] Start: 10-21-2024 Comprehensive metabo lic 2000 panel - Serum or Plasma [facility] Start: 10-21-2024 Lipid 1996 panel - S genesis or Plasma [facility] Start: 05-15-2024 Advance Directive Discussion Advance Directive Discussion [facility] Start: 01-14-2024 Covid-19 Vaccine ( season) Covid-19 Vaccine () [facility] Start: 01-14-2024 Influenza vaccination [facility] Start: 11-13-2023 End: 11-13-2023 Patient encounter procedure 11/13/2023 1:30 PM EDT Office Visit Colorectal Surgery [address] [address] Darcy Mcbride, [address] [place] [address] [facility] Colorectal Surgery Comment on above: [facility]ELE Start: 11-13-2023 End: 11-13-2023 Admission to same day surgery center 11/13/2023 1:00 PM EDT Procedure Colorectal Surgery [address] [address] Margarita Torres APRN.HIGH SCHOOL COUNSELOR [address] [place] [address] RE[facility] Colorectal Surgery Comment on above: RECTOCELE Start: 11-13-2023 End: 11-13-2023 Patient encounter procedure 11/13/2023 10:20 AM EDT Appointment Radiology [address] [place] [address] Rectocele [N81.6] Radiology Comment on above: Rectocele [N81.6] Start: 06-23-2023 Covid-19 Vaccine () Covid-[address] () [facility] Start: 05-15-2023 Advance Directive Discussion Advance Directive Discussion [facility] Start: 05-15-2023 Behavioral Health Screening Behavioral Health Screening [facility] Start: 05-15-2023 Depression Assessment Depression Ass essment [facility] Start: 01-13-2023 Covid-19 Vaccine () Covid-19 Vaccine () [facility] Start: 01-13-2023 Influenza vaccination Influenza Vacc ine (#1) [facility] Start: 05-15-2022 ADVANCE DIRECTIVE DISCUSSION ADVANCE DIRECTIVE DISCUSSION [facility] Start: 05-15-2022 DEPRESSION ASSESSMENT DEPRESSION ASS ESSMENT [facility] Start: 03-18-2022 [facility] Start: 03-17-2022 Application of intermittent pneumatic compression device [facility] Work Phone: Start: 03-17-2022 [facility] Start: 03-17-2022 Following clinical p athway protocol [facility] Work Phone: Start: 03-17-2022 Ambulation therapy management [facility] Work Phone: Start: 03-17-2022 Application of device [facility] Work Phone: Start: 03-17-2022 Assessment of risk o f venous thromboembolism [facility] Work Phone: Start: 03-17-2022 Catheterization of vein [facility] Work Phone: Start: 03-17-2022 Following clinical p athway protocol [facility] Work Phone: Start: 03-17-2022 Incentive spirometry [facility] Work Phone: Start: 03-17-2022 Introduction of urin roddy catheter [facility] Work Phone: Start: 03-17-2022 Measuring intake and output [facility] Work Phone: Start: 03-17-2022 Neurovascular assessment [facility] Work Phone: Start: 03-17-2022 Patient education [facility] Work Phone: Start: 03-17-2022 Procedure discontinued [facility] Work Phone: Start: 03-17-2022 Provision of activit y privileges [facility] Work Phone: Start: 03-17-2022 Referral to occupati onal therapist [facility] Work Phone: Start: 03-17-2022 Vital signs measurements [facility] Work Phone: Start: 03-17-2022 Wound care [facility] Work Phone: Start: 03-17-2022 [facility] Work Phone: Start: 03-17-2022 Medication education [facility] Work Phone: Start: 09-16-2021 [facility] Start: 09-16-2021 Anes open proc bones lower leg/ankle/foot nos ANESTH LOWER LEG BONE SURG [facility] Work Phone: Start: 09-16-2021 Correction hammertoe REPAIR OF HAMME RTOE [facility] Work Phone: Start: 09-16-2021 Plain X-ray of toe Toe(s) Min 2 View s [facility] Work Phone: Start: 01-11-2017 End: 01-11-2017 Follow Up Appt 6 months Follow Up Appt 6 months [facility] Work Phone: Start: 07-30-2014 End: 08-06-2014 Follow Up Appt 6 months Follow Up Appt 6 months [facility] Work Phone: Start: 05-28-[address] [facility] Start: 08-16-2008 DIABETES SCREEN [facility]EN [facility] Start: 08-16-2008 Diabetes Screening Diabetes Screenin g [facility] Start: 2006 BONE DENSITY BONE DENSITY [facility] Start: 2006 Pneumococcal Vaccine : 65+ (1 of 1 - PCV) Pneumococcal Vaccine: 65+ (1 of 1 - PCV) [facility] Start: 2006 PNEUMOCOCCAL: 65+ (1 - PCV) PNEUMOCOCCAL: 65+ (1 - PCV) [facility] Start: 2006 Screening for osteoporosis Bone Dens ity Screening [facility] Start: 2001 RSV Vaccine (1 - 1-d ose 60+ series) RSV Vaccine (1 - 1-dose 60+ series) [facility] Start: 09-23-1991 Pneumococcal Vaccine : 50+ (1 of 1 - PCV) Pneumococcal Vaccine: 50+ (1 of 1 - PCV) [facility] Start: 09-23-1991 SHINGRIX VACCINE (1 of 2) BERMUDEZ GRIX VACCINE (1 of 2) [facility] Start: 09-23-1959 Anxiety Screening Anxiety Screening [facility] Start: 09-23-1959 Depression Screening Depression Scre ening [facility] End: 07-25-2024 [facility]ULT [place] [facility]ULT [place] [facility] Endoscopy Routine Rectocele 1 Occurrences starting 07/26/2023 until 07/25/2024 [facility] Work Phone: Comment on above: 1 Occurrences starti ng 07/26/2023 until 07/25/2024 Alanine aminotransfe rase [Enzymatic activity/volume] in Serum or Plasma [facility] Albumin [Mass/volume ] in Serum or Plasma [facility] Alkaline phosphatase [Enzymatic activity/volume] in Serum or Plasma [facility] Anion gap in Serum o r Plasma [facility] Bilirubin, total measurement [facility] BUN/Creatinine ratio [facility] Calcium [Mass/volume ] in Serum or Plasma [facility] Carbon dioxide, tota l [Moles/volume] in Central venous blood [facility] Cholesterol [Mass/vo lume] in Serum or Plasma [facility] Cholesterol in HDL [Mass/volume] in Serum or Plasma [facility] Creatinine [Mass/vol ume] in Serum or Plasma [facility] Erythrocyte mean corpuscular volume determination [facility] Glucose [Mass/volume ] in Serum or Plasma [facility] Hematocrit [Volume Fraction] of Blood [facility] Hemoglobin [Mass/vol ume] in Blood [facility] Leukocytes [#/volume ] in Blood [facility] Low density lipoprot ein cholesterol measurement [facility] Mean corpuscular hemoglobin concentration determination [facility] Mean corpuscular hemoglobin determination [facility] Measurement of renal function [facility] MG Breast - bilatera l Screening [facility] Neutrophil count [facility] Neutrophil percent differential count [facility] Patient referral [facility] Work Phone: Platelets [#/volume] in Blood [facility] Polysomnography [facility] Potassium measurement [facility] Red blood cell count [facility] Red cell distributio n width determination [facility] End: 08-24-2024 RF Gastrointestinal tract upper Views W water soluble contrast PO XR DEFECOGRAPHY Radiology Routine Rectocele 1 Occurrences starting 07/26/2023 until 08/24/2024 [facility] Work Phone: Comment on above: 1 Occurrences starti ng 07/26/2023 until 08/24/2024 End: 08-12-2023 Screening colonoscopy COLONOSCOPY SCREENING Endoscopy Routine Special screening for malignant neoplasms, colon 1 Occurrences starting 08/11/2022 until 08/12/2023 [facility] Work Phone: Comment on above: 1 Occurrences starti ng 08/11/2022 until 08/12/2023 Serum chloride measurement [facility] Sodium measurement [facility] Total cholesterol:HD L ratio measurement [facility] Total protein measurement [facility] Triglycerides measurement [facility] Urea nitrogen [Mass/volume] in Serum or Plasma [facility] VLDL cholesterol measurement [facility] Immunizations Immunization Date Immunization Notes Care Provider Justin [facility] 02-20-2023 influenza virus vaccine, unspecified formulation Margarita Torres CHANNEL OPENER.HIGH SCHOOL COUNSELOR Work Phone: [facility] 02-21-2022 influenza, injectabl e, quadrivalent, preservative free [facility] 02-21-2022 influenza, seasonal, injectable Dr. Ventura Noble Work Phone: [facility] Work Phone: 02-21-2022 influenza virus vaccine, unspecified formulation Farideh Silverman CHANNEL OPENER.HIGH SCHOOL COUNSELOR Work Phone: [facility] 01-20-2021 influenza, injectabl e, quadrivalent, preservative free [facility] 01-20-2021 influenza, seasonal, injectable [facility] Work Phone: 02-12-2017 Influenza virus vaccine [facility] 01-11-2017 Seasonal trivalent influenza vaccine, adjuvanted, preservative free Ventura Noble MD [facility] Work Phone: 03-15-2005 influenza virus vaccine, unspecified formulation Kaden Norton MD Work Phone: [facility] Work Phone: 05-28-2003 diphtheria and tetan us toxoids, adsorbed for pediatric use Kaden Norton MD Work Phone: [facility] Work Phone: 05-18-2003 hepatitis B vaccine, adult dosage Kaden Norton MD Work Phone: [facility] Work Phone: 04-28-2003 hepatitis B vaccine, adult dosage Kaden Norton MD Work Phone: [facility] Work Phone: Payers Date Payer Category Payer Self-pay [id number] 2021 Private Health Insurance MMO MED ICARE SUPPLEMENT [id number] 2021 Unknown MMO MMO MEDICARE SUPPLEMENT [id number] 2021-Present [phone] [address] [place] [address] [facility] [id number] 2021 Unknown [id number] 2006 Medicare [id number] 2006 Medicare [id number] Medicare [id number] Unknown [id number] Unknown [id number] Unknown [id number] Unknown [id number] Unknown [id number] Social History Date Type Detail Facility Start: 04-21-2021 End: 05-25-2023 Tobacco smoking status [facility] Unknown if ever smoked [facility] Start: 11-25-2017 Non-smoker [facility] Start: 1940 Sex Assigned At Female [facility] Start: 03-15-2011 End: 05-25-2023 Tobacco smoking status IDIS Never smoked tobacco [facility] Work Phone: Start: 03-15-2011 Tobacco use and exposure Smokeless tobacco non-user [facility] Work Phone: Start: 08-16-2022 End: 11-13-2023 Alcohol intake Current drinker of alcohol (finding) [facility] Start: 1940 Sex Assigned At Not on file [facility] Start: 09-20-2022 End: 11-13-2023 History of Social function [facility] Start: 09-20-2022 End: 11-13-[address] [facility] National Score (1-100), lower number is lower risk 34 [facility] Medical Equipment Procedure Code Equipment Code Equipment Origin al Text Equipment Identifier Dates screw FDA Start: 03-17-2022 screw FDA Start: 03-17-2022 Polyethylene rev erse shoulder prosthesis cup ([id number] FDA Start: 03-17-2022 Coated shoulder humeral stem prosthesis ()[id number] FDA Start: 03-17-2022 Reverse shoulder prosthesis head ()[id number] FDA Start: 03-17-2022 Reverse shoulder prosthesis base plate ()[id number] FDA Start: 03-17-2022 screw FDA Start: 03-17-2022 screw FDA Start: 03-17-2022 screw FDA Start: 03-17-2022 screw FDA Start: 03-17-2022 screw FDA Start: 03-17-2022 screw FDA Start: 03-17-2022 Goals Date Patient Goal Desired Activity /State Functional Status Date Assessment Result Facility 03-18-2022 Functional status Patient Activi ty Ambulates;Bathroom Privilege [facility] Work Phone: 03-17-2022 Functional status Activity Ability Post O p [facility] Work Phone: Mental Status Date Assessment Result Facility 03-18-2022 Cognitive function Voice/Name [facility] Work Phone: 09-16-2021 Cognitive function Voice/Name [facility] Work Phone: Clinical Notes 08-11-2022 to 10-21-2024 Note Date & Type Note Facility 10-21-2024 Evaluation note Diagnosis Onset Date Resolution Health care maintenance acute J 2024 10:51am Hypersomnolence acute October 21, 2024 10:51am Hyperlipemia chronic October 21 10:51am Hypertension chronic October 21 10:51am Lumbar radiculopathy chronic October 21, 2024 10:51am [facility] Work Phone: 1(670) 731-699503-20-2025 Telephone encounter Note* Telephone Encounter - Evelio Dumont - 08/01/2024 10:32 AM EDT Pancho Marcelino [phone], request referral for rectocele surgery as discussed during last visit. [facility] Work Phone: 1(520) 182-890803-20-2025 Miscellaneous Notes* Telephone Encounter - Evelio Dumont - 08/01/2024 10:32 AM EDT Pancho Marcelino [phone], request referral for rectocele surgery as discussed during last visit. [facility] History and physical note * Darcy Mcbride DO - 11/13/2023 1:30 PM EDT [facility] November 07, 2023 Pancho Marcelino 83 year old This consult was requested by Dr. Kaden Norton and my final recommendations will be communicatedto the requesting health care provider by way of the shared medical record for internal providers or letter via the [employer] for external providers. Chief Complaint: Other: Rectocele History of Present Illness: Pancho Marcelino is a 83 year old year old female who presents with a rectocele. She has noticed itfor 7 years having a bulge. She is bothered by the bulge. However she does not splint and does not have symptoms of obstructivedefecation. Her mother had a pelvic organ prolapse and she is worried that it will progress and become a prolapse of the rectocele She is here alone, she drives. She is retired. GI Symptoms: Stool frequency: 1-2 a day Stool type: Type 5: Soft blobs with clear-cut edges (passed easily) Stool straining: no straining Frequency of straining: never Incomplete evacuation: usually Use of enemas or laxatives: never Vaginal perineal pressure: never Abdominal pressure/pain: never Feelings of prolapse : No Do you have accidental bowel leakage, fecal incontinence, or urgency with bowel movements? Yes Prior pelvic surgery?: no besides transvaginal hysterectomy What bowel related medications do you take now? None What medications have you tried in the past? Rare use when traveling with constipation Previous trial of biofeedback: No Prior hysterectomy: Yes, transvaginal Prior rectopexy, sphincter repair or SNS surgery? No. Prior bowel resection or abdominal surgery: No. Urinary Symptoms: Urinary incontinence: with sneezing rare Urinary frequency: Yes Urinary urgency: Yes Incomplete evacuation Yes Obstetric history: 3 Para 3 Vaginal delivery: 3 vaginal births Weight of largest baby: 8 lbs 14 oz - Episiotomy: Yes - Tear: Yes 2nd one - Forceps No Previous Testing Results include: Colonoscopy: Yes Date:09/2022 - random biopsies: No - polyps: No Manometry: today Defecography: Yes RESULT: Initiation and ease of evacuation: Normal. Small amount of contrast leakage prior to attempted evacuation. Change in anorectal angle during defecation: Normal straightening Development of rectocele: Present. Size of rectocele: 3.0 cm. Emptying of rectocele: Complete emptying. Widening of rectovaginal septum: Enterocele: Full enterocele Sigmoidocele: None Rectal intussusception: None Post-evacuation recoil: Normal recoil to original position Vaginal length/support: Shortening of vaginal length with preserved anterior support (possible utetrovaginal prolapse) Average Pressure Interpretation Rest: 65 mmHg This is above normal range. Normal range is 35-50 mmHg. Squeeze: 114 mmHg This is above normal range. Normal range is 75 - 100 mmHg. Resting and squeeze pressures well above normal may indicate high pelvic floor tension. There is appropriate incremental change between resting and squeeze pressures which can indicate good pelvic floor movement with squeeze. Sensory: Sensation Volume First sensation : 32 mL / Normal Range: 40-80 mL First urge to defecate: 84 mL / Normal Range: 80-120 mL Maximum tolerable volume: 134 mL / Normal Range: 120-180 mL Recto-anal inhibitory reflex: Yes at 20 ml Balloon expulsion: No This exhibit normal rectal sensation with at least 2/3 sensory tests. A recto-anal inhibitory reflex (RAIR) was present. This is a normal reflex. PAST MEDICAL HISTORY Diagnosis Date Arthritis ASYMPTOMATIC VARICOSE VEINS 08/15/2005 Cancer (HCC) Skin DIVERTICULITIS OF COLON W/O BLEED 08/15/2005 FAMILY HX CARDIOVAS DIS NEC 08/15/2005 Pure hypercholesterolemia URETHRAL CARUNCLE 08/15/2005 PAST SURGICAL HISTORY Procedure Laterality Date COLONOSCOPY FLX DX W/COLLJ SPEC WHEN PFRMD 02/24/2004 Colonoscopy EYE SURGERY HX HAMMERTOE REVISION, ONE TOE 10/14/2011 left foot OPEN REPAIR OF ROTATOR CUFF ACUTE Rotator cuff repair PAST SURGICAL HISTORY OF 05/15/1981 vein stripping PAST SURGICAL HISTORY OF 10/2012 and 02/2012 laser- vein on both legs PAST SURGICAL HISTORY OF Left Shoulder replacement SKIN BIOPSY HX VAGINAL HYSTERECTOMY VASCULAR SURGERY PROCEDURE Current Outpatient Medications Medication Sig Dispense Refill lovastatin (MEVACOR) 20 mg tablet Take 20 mg by mouth every morning. Coenzyme Q10 400 mg cap Take 1 capsule by mouth once daily. CENTRUM SILVER TAB Take one(1) tablet daily. 0 ubidecarenone/omega-3/vit e(COQ-10 & FISH OIL 50 MG-300 (180-120)MG-30 UNIT CAP) (Patient not taking: No sig reported) 0 ASPIRIN 81 MG TAB Take one (1) tablet daily . (Patient not taking: No sig reported) 0 No current facility-administered medications for this visit. ALLERGIES No Known Allergies FAMILY HISTORY Problem Relation Age of Onset Heart Father First CT at age 48, CT at age 56 Hypertension Brother angina questionable CT in 40s, Heart Paternal Grandmother mi Asthma Paternal Grandmother Diabetes Paternal Aunt Cancer Maternal Aunt colon cancer Cancer Maternal Aunt intestinal cancer Social History Tobacco Use Smoking status: Never Smokeless tobacco: Never Vaping Use Vaping Use: Never used Substance Use Topics Alcohol use: Yes Comment: Occaisional drink Drug use: No FUNCTIONAL STATUS: Climb a flight of stairs or walk up a hill (5.50 METs) Review of Systems: GENERAL: No weight loss, malaise or fevers RESPIRATORY: Negative for cough, hemoptysis, wheezing, COPD, dyspnea or shortness of breath CARDIOVASCULAR: Negative for chest pain, leg swelling, hypertension, CHF or palpitations GI: No nausea, vomiting, or diarrhea : No history of dysuria, frequency or incontinence, Nocturia DISTRIBUTION OPERATIONS MANAGER: Negative for abnormal vaginal bleeding, abnormal vaginal discharge MUSCULOSKELETAL: joint pain or swelling and muscle pain SKIN: Negative for lesions, rash, and itching PSYCH: Negative for sleep disturbance, mood disorder and recent psychosocial stressors HEMATOLOGY/LYMPHOLOGY: Negative for prolonged bleeding, bruising easily or swollen nodes ENDOCRINE: Negative for cold or heat intolerance, polyuria, polydipsia and goiter NEURO: Numbness or tingling of hands ANEMIA: No A 12 point review of systems was performed. All other systems are negative, other than stated aboveand HPI. Physician Attestation: Darcy Mcbride DO Physical Exam: 11/13/23 1321 BP: 172/68 Pulse: 87 Temp: 36.4 C (97.6 F) TempSrc: Temporal SpO2: 97% Weight: 63.5 kg (140 lb) Height: 164.5 cm (5' 4.75) General Appearance: Well appearing, alert, in no acute distress, well-hydrated, well nourished. Psych: ORIENTATION: normal to time place, person and situation AFFECT AND MOOD: Normal Skin: Skin color, texture, turgor normal, no suspicious rashes or lesions Head: Normocephalic, no masses, lesions, tenderness or abnormalities Oropharynx: Lips, mucosa, and tongue normal, teeth and gums normal, oropharynx normal Lungs: Unlabored on room air Heart: Not examined Edema: no Extremities: No deformities, edema, skin discoloration, clubbing or cyanosis. Good capillary refill. Musculoskeletal: no weakness, no balance deficits, no coordination deficitsGAIT: Normal ASSIST DEVICE: None Neuro: normal memory Normal mood and affect. Abdomen: Normal abdominal exam, Abdomen soft, non-tender. Bowel sounds normal. No masses, organomegaly. Surgical scars: Anorectal: Perianal skin is intact. No erythema, induration or excoriation. No fissure, fistula or external hemorrhoids. Digital Rectal Exam: Anus: closed Resting tone: NORMAL Squeeze tone: NORMAL Valsalva: pelvic floor relaxation is Normal. Paradox: No Puborectalis: non tender Rectocele: Present Vagina: Perineal descent: Commode Patient examined and stirrups, she has a big rectocele, enterocele, with good tone, no intussusception Diagnostic tests reviewed for today's visit: Colonoscopy Report Anorectal physiology Defecography All outside imaging and records were reviewed with the patient during consultation. Assessment Assessment and Plan: Pancho Marcelino is a 83 year old woman with large rectocele, it does not affect her quality of life, her function is good she does not have issues evacuating, she does not need to splint, otherwise it does not obstruct her defecation. Discussed with her that this is a [id number] thing and if she is very bothered by the bulge she can get it repaired. I would not recommend abdominal repair or any kind of mesh repair, I would refer her to urogynecology for transvaginal rectocele repair. Alternatively she can choose to do nothing, unlikely to progress into full- thickness prolapse. We discussed that rectocele is very common in women her children and or constipation at some point in her life. Unless symptomatic they do not need to be fixed. She will think about it and if she decides to proceed with surgery she will let me know and I will refer her appropriate Please Note: This office note has been created using [employer], a speech recognition software program, and may contain errors including punctuation, grammar, spelling, gender, and inappropriate words or phrases that pertain to the sytem. Darcy Mcbride DO Pelvic Floor Colorectal Surgery Time Spent: 60 minutes, >50% of the time was spent in counseling and coordination of care. Specifically, 20 min were spent in reviewing outside records with the patient and discussing these findings and their symptoms, reviewing colonoscopy and pathology reports, reviewing manometry and EMG resul ts, reviewing defecography images, reviewing physical exam findings and discussing surgical and non-surgical treatment options. [facility]07-01-2024 History and physical note* Darcy Mcbride DO - 11/13/2023 1:30 PM EDT COLORECTAL SURGERY PELVIC FLOOR CLINIC November 07, 2023 Pancho Marcelino 83 year old This consult was requested by Dr. Kaden Norton and my final recommendations will be communicatedto the requesting health care provider by way of the shared medical record for internal providers or letter via the [employer] for external providers. Chief Complaint: Other: Rectocele History of Present Illness: Pancho Marcelino is a 83 year old year old female who presents with a rectocele. She has noticed itfor 7 years having a bulge. She is bothered by the bulge. However she does not splint and does not have symptoms of obstructivedefecation. Her mother had a pelvic organ prolapse and she is worried that it will progress and become a prolapse of the rectocele She is here alone, she drives. She is retired. GI Symptoms: Stool frequency: 1-2 a day Stool type: Type 5: Soft blobs with clear-cut edges (passed easily) Stool straining: no straining Frequency of straining: never Incomplete evacuation: usually Use of enemas or laxatives: never Vaginal perineal pressure: never Abdominal pressure/pain: never Feelings of prolapse : No Do you have accidental bowel leakage, fecal incontinence, or urgency with bowel movements? Yes Prior pelvic surgery?: no besides transvaginal hysterectomy What bowel related medications do you take now? None What medications have you tried in the past? Rare use when traveling with constipation Previous trial of biofeedback: No Prior hysterectomy: Yes, transvaginal Prior rectopexy, sphincter repair or SNS surgery? No. Prior bowel resection or abdominal surgery: No. Urinary Symptoms: Urinary incontinence: with sneezing rare Urinary frequency: Yes Urinary urgency: Yes Incomplete evacuation Yes Obstetric history: 3 Para 3 Vaginal delivery: 3 vaginal births Weight of largest baby: 8 lbs 14 oz - Episiotomy: Yes - Tear: Yes 2nd one - Forceps No Previous Testing Results include: Colonoscopy: Yes Date:09/2022 - random biopsies: No - polyps: No Manometry: today Defecography: Yes RESULT: Initiation and ease of evacuation: Normal. Small amount of contrast leakage prior to attempted evacuation. Change in anorectal angle during defecation: Normal straightening Development of rectocele: Present. Size of rectocele: 3.0 cm. Emptying of rectocele: Complete emptying. Widening of rectovaginal septum: Enterocele: Full enterocele Sigmoidocele: None Rectal intussusception: None Post-evacuation recoil: Normal recoil to original position Vaginal length/support: Shortening of vaginal length with preserved anterior support (possible utetrovaginal prolapse) Average Pressure Interpretation Rest: 65 mmHg This is above normal range. Normal range is 35-50 mmHg. Squeeze: 114 mmHg This is above normal range. Normal range is 75 - 100 mmHg. Resting and squeeze pressures well above normal may indicate high pelvic floor tension. There is appropriate incremental change between resting and squeeze pressures which can indicate good pelvic floor movement with squeeze. Sensory: Sensation Volume First sensation : 32 mL / Normal Range: 40-80 mL First urge to defecate: 84 mL / Normal Range: 80-120 mL Maximum tolerable volume: 134 mL / Normal Range: 120-180 mL Recto-anal inhibitory reflex: Yes at 20 ml Balloon expulsion: No This exhibit normal rectal sensation with at least 2/3 sensory tests. A recto-anal inhibitory reflex (RAIR) was present. This is a normal reflex. PAST MEDICAL HISTORY Diagnosis Date Arthritis ASYMPTOMATIC VARICOSE VEINS 08/15/2005 Cancer (HCC) Skin DIVERTICULITIS OF COLON W/O BLEED 08/15/2005 FAMILY HX CARDIOVAS DIS NEC 08/15/2005 Pure hypercholesterolemia URETHRAL CARUNCLE 08/15/2005 PAST SURGICAL HISTORY Procedure Laterality Date COLONOSCOPY FLX DX W/COLLJ SPEC WHEN PFRMD 02/24/2004 Colonoscopy EYE SURGERY HX HAMMERTOE REVISION, ONE TOE 10/14/2011 left foot OPEN REPAIR OF ROTATOR CUFF ACUTE Rotator cuff repair PAST SURGICAL HISTORY OF 05/15/1981 vein stripping PAST SURGICAL HISTORY OF 10/2012 and 02/2012 laser- vein on both legs PAST SURGICAL HISTORY OF Left Shoulder replacement SKIN BIOPSY HX VAGINAL HYSTERECTOMY VASCULAR SURGERY PROCEDURE Current Outpatient Medications Medication Sig Dispense Refill lovastatin (MEVACOR) 20 mg tablet Take 20 mg by mouth every morning. Coenzyme Q10 400 mg cap Take 1 capsule by mouth once daily. CENTRUM SILVER TAB Take one(1) tablet daily. 0 ubidecarenone/omega-3/vit e(COQ-10 & FISH OIL 50 MG-300 (180-120)MG-30 UNIT CAP) (Patient not taking: No sig reported) 0 ASPIRIN 81 MG TAB Take one (1) tablet daily . (Patient not taking: No sig reported) 0 No current facility-administered medications for this visit. ALLERGIES No Known Allergies FAMILY HISTORY Problem Relation Age of Onset Heart Father First CT at age 48, CT at age 56 Hypertension Brother angina questionable CT in 40s, Heart Paternal Grandmother mi Asthma Paternal Grandmother Diabetes Paternal Aunt Cancer Maternal Aunt colon cancer Cancer Maternal Aunt intestinal cancer Social History Tobacco Use Smoking status: Never Smokeless tobacco: Never Vaping Use Vaping Use: Never used Substance Use Topics Alcohol use: Yes Comment: Occaisional drink Drug use: No FUNCTIONAL STATUS: Climb a flight of stairs or walk up a hill (5.50 METs) Review of Systems: GENERAL: No weight loss, malaise or fevers RESPIRATORY: Negative for cough, hemoptysis, wheezing, COPD, dyspnea or shortness of breath CARDIOVASCULAR: Negative for chest pain, leg swelling, hypertension, CHF or palpitations GI: No nausea, vomiting, or diarrhea : No history of dysuria, frequency or incontinence, Nocturia DISTRIBUTION OPERATIONS MANAGER: Negative for abnormal vaginal bleeding, abnormal vaginal discharge MUSCULOSKELETAL: joint pain or swelling and muscle pain SKIN: Negative for lesions, rash, and itching PSYCH: Negative for sleep disturbance, mood disorder and recent psychosocial stressors HEMATOLOGY/LYMPHOLOGY: Negative for prolonged bleeding, bruising easily or swollen nodes ENDOCRINE: Negative for cold or heat intolerance, polyuria, polydipsia and goiter NEURO: Numbness or tingling of hands ANEMIA: No A 12 point review of systems was performed. All other systems are negative, other than stated aboveand HPI. Physician Attestation: Darcy Mcbride DO Physical Exam: 11/13/23 1321 BP: 172/68 Pulse: 87 Temp: 36.4 C (97.6 F) TempSrc: Temporal SpO2: 97% Weight: 63.5 kg (140 lb) Height: 164.5 cm (5' 4.75) General Appearance: Well appearing, alert, in no acute distress, well-hydrated, well nourished. Psych: ORIENTATION: normal to time place, person and situation AFFECT AND MOOD: Normal Skin: Skin color, texture, turgor normal, no suspicious rashes or lesions Head: Normocephalic, no masses, lesions, tenderness or abnormalities Oropharynx: Lips, mucosa, and tongue normal, teeth and gums normal, oropharynx normal Lungs: Unlabored on room air Heart: Not examined Edema: no Extremities: No deformities, edema, skin discoloration, clubbing or cyanosis. Good capillary refill. Musculoskeletal: no weakness, no balance deficits, no coordination deficitsGAIT: Normal ASSIST DEVICE: None Neuro: normal memory Normal mood and affect. Abdomen: Normal abdominal exam, Abdomen soft, non-tender. Bowel sounds normal. No masses, organomegaly. Surgical scars: Anorectal: Perianal skin is intact. No erythema, induration or excoriation. No fissure, fistula or external hemorrhoids. Digital Rectal Exam: Anus: closed Resting tone: NORMAL Squeeze tone: NORMAL Valsalva: pelvic floor relaxation is Normal. Paradox: No Puborectalis: non tender Rectocele: Present Vagina: Perineal descent: Commode Patient examined and stirrups, she has a big rectocele, enterocele, with good tone, no intussusception Diagnostic tests reviewed for today's visit: Colonoscopy Report Anorectal physiology Defecography All outside imaging and records were reviewed with the patient during consultation. Assessment Assessment and Plan: Pancho Marcelino is a 83 year old woman with large rectocele, it does not affect her quality of life, her function is good she does not have issues evacuating, she does not need to splint, otherwise it does not obstruct her defecation. Discussed with her that this is a [id number] thing and if she is very bothered by the bulge she can get it repaired. I would not recommend abdominal repair or any kind of mesh repair, I would refer her to urogynecology for transvaginal rectocele repair. Alternatively she can choose to do nothing, unlikely to progress into full- thickness prolapse. We discussed that rectocele is very common in women her children and or constipation at some point in her life. Unless symptomatic they do not need to be fixed. She will think about it and if she decides to proceed with surgery she will let me know and I will refer her appropriate Please Note: This office note has been created using [employer], a speech recognition software program, and may contain errors including punctuation, grammar, spelling, gender, and inappropriate words or phrases that pertain to the sytem. Darcy Mcbride DO Pelvic Floor Colorectal Surgery Time Spent: 60 minutes, >50% of the time was spent in counseling and coordination of care. Specifically, 20 min were spent in reviewing outside records with the patient and discussing these findings and their symptoms, reviewing colonoscopy and pathology reports, reviewing manometry and EMG resul ts, reviewing defecography images, reviewing physical exam findings and discussing surgical and non-surgical treatment options. [facility] History of Present illness Narrative* Aleena Parker, RT(R) - 11/13/2023 10:20 AM EDT Radiology Service Progress Note PATIENT NAME: Pancho Marcelino DATE OF SERVICE: November 13, 2023 TIME: 11:36 AM PATIENT IDENTITY VERIFICATION COMPLETED USING TWO (2) IDENTIFIERS: Name and Date of confirmedby patient verbally. FALL SCREENING: Has the patient had 2 falls in the last year or 1 fall with injury or currently using an Ambulatory Assistive Device (Walker, Cane, Wheelchair, Crutches, etc.)? No PATIENT GENDER DATA: Female. status: : No status: NO. PATIENT RELEVANT IMPLANT DATA REVIEWED: Not Applicable PATIENT PRESENTS WITH AN IMPLANTABLE OR ATTACHED PHOTO SPECIALIST: No RADIOLOGY DEPARTMENT: General X-ray: Exam(s) Completed: GI/ Procedure(s): Defecating Proctogram PERIPHERAL IV DATA: Not applicable SIGNED BY: RT Gerald(Jazmin) November 13, 2023 11:36 AM documented in this encounterSt. [facility]07-[facility]24 NoteHNO ID: [id number] Author: ALEENA PARKER RT(R) Service: Radiology Author Type: Technologist Type: Progress Notes Filed: 11/13/2023 11:36 Note Text: Radiology Service Progress Note PATIENT NAME: Pancho Marcelino DATE OF SERVICE: November 13, 2023 TIME: 11:36 AM PATIENT IDENTITY VERIFICATION COMPLETED USING TWO (2) IDENTIFIERS: Name and Date of confirmed by patient verbally. FALL SCREENING: Has the patient had 2 falls in the last year or 1 fall with injury or currently using an Ambulatory Assistive Device (Walker, Cane, Wheelchair, Crutches, etc.)? No PATIENT GENDER DATA: Female. status: : No status: NO. PATIENT RELEVANT IMPLANT DATA REVIEWED: Not Applicable PATIENT PRESENTS WITH AN IMPLANTABLE OR ATTACHED PHOTO SPECIALIST: No RADIOLOGY DEPARTMENT: General X-ray: Exam(s) Completed: GI/ Procedure(s): Defecating Proctogram PERIPHERAL IV DATA: Not applicable SIGNED BY: RT Gerald(R) November 13, 2023 11:36 [facility]06-27-2024 NoteHNO ID: [id number] Author: MICHELLE JI RN Service: ? Author Type: Registered Nurse Type: Progress Notes Filed: 11/09/2023 11:13 Note Text: Date of review: 11/09/2023 Source of records: care everywhere/epic/ paper Reason for the referral/visit: Rectocele Has the patient been seen at the [facility] before by CORS: Copy recommendations Has the patient been seen at the [facility] before by GO/Cristianon: Copy recommendations Has the patient been seen another Colorectal surgeon outside of ?: Copy recommendations Referring physician: Brief history obtained by review: Dr. Norton 08/11/2022 HPI: The patient is a 81 year old female referred for endoscopy. Pancho notes the following GI complaints: Pancho denies abdominal pain.. Foss denies diarrhea. Pancho denies constipation. Pancho denies a change in bowel habits. Pancho denies melena. Foss notes what she feels is hemorrhoids which cause occasional bright red blood per rectum. The patient notes no history of upper GI complaints. Patient did call back after visit noting she has a history of a rectocele and wanted to make sure that hemorrhoidal banding would not be a problem with that condition. Name, age...Where seen before, procedure before: Past Medical History: Relevant Prior pelvic surgery; (prior prolapse surgery, gynecologic surgery)- copy records when available, note if not available Defecography: 11/13/2023 Manometry: 11/13/2023 Colonoscopy: 09/20/2022 Impression: - Hemorrhoids found on perianal exam. - As the colonoscopy was removed, the cecum, ascending colon, hepatic flexure, transverse colon, splenic flexure, descending colon, sigmoid and rectum all appeared normal. The videocolonscope was retroflexed in the rectum. This appeared normal. - Rectocele. - External and internal hemorrhoids. Banded. - No specimens collected. [facility]06-27-2024 History of Present illness Narrative* Michelle Ji RN - 11/09/2023 11:08 AM EDT Date of review: 11/09/2023 Source of records: care everywhere/epic/ paper Reason for the referral/visit: Rectocele Has the patient been seen at the [facility] before by CORS: Copy recommendations Has the patient been seen at the [facility] before by GO/Urogyn: Copy recommendations Has the patient been seen another Colorectal surgeon outside of ?: Copy recommendations Referring physician: Brief history obtained by review: Dr. Norton 08/11/2022 HPI: The patient is a 81 year old female referred for endoscopy. Pancho notes the following GI complaints: Foss denies abdominal pain.. Foss denies diarrhea. Pancho denies constipation. Foss denies a change in bowel habits. Pancho denies melena. Foss notes what she feels is hemorrhoids which cause occasional bright red blood per rectum. The patient notes no history of upper GI complaints. Patient did call back after visit noting she has a history of a rectocele and wanted to make sure that hemorrhoidal banding would not be a problem with that condition. Name, age...Where seen before, procedure before: Past Medical History: Relevant Prior pelvic surgery; (prior prolapse surgery, gynecologic surgery)- copy records when available, note if not available Defecography: 11/13/2023 Manometry: 11/13/2023 Colonoscopy: 09/20/2022 Impression: - Hemorrhoids found on perianal exam. - As the colonoscopy was removed, the cecum, ascending colon, hepatic flexure, transverse colon, splenic flexure, descending colon, sigmoid and rectum all appeared normal. The videocolonscope was retroflexed in the rectum. This appeared normal. - Rectocele. - External and internal hemorrhoids. Banded. - No specimens collected. I documented in this encounterSt[facility]03-[facility] Telephone encounter Note * Telephone Encounter - Almita Rodarte LPN - 07/26/2023 11:00 AM EDT Patient called in stating that her Rectocele has gotten a lot worse. Please advise recommendation on who she should see for this issue. Almita Rodarte LPN [facility] Work Phone: [phone] 827-500303-13-2024 Miscellaneous Notes* Telephone Encounter - Almita Rodarte LPN - 07/26/2023 11:00 AM EDT Patient called in stating that her Rectocele has gotten a lot worse. Please advise recommendation on who she should see for this issue. Almita Rodarte LPN documented in this encounterSt. [facility]05-09-[facility]23 Nurse Note* Vivian Greenberg RN - 09/20/2022 11:13 AM EDT Discharged to home, accompanied by friend . Denies complaints of pain or discomfort. Discharge instructions given to patient. .Passing flatus at intervals. Vivian Greenberg RN * Vivian Greenberg RN - 09/20/2022 9:35 AM EDT Arrived in phase II via cart. Left lateral position. Sedated, but responds to verbal stimuli. Colornormal; skin warm and dry. Respirations wnl and unlabored. Abdomen soft and with + bowel sounds in quads X 4. Patient resting comfortably. Dr. Norton at bedside to review procedure and recommendations. Vivian Greenberg RN documented in this encounterSt. [facility] Hospital05-09-2023 History and physical note * Kaden Norton MD - 09/20/2022 7:53 AM EDT Images from the original note were not included. HISTORY AND PHYSICAL Pancho Marcelino 1940 REFERRING PHYSICIAN: CHIEF COMPLAINT: Consult (hemorrhoids) HPI: The patient is a 81 year old female referred for endoscopy. Pancho notes the following GI complaints: Pancho denies abdominal pain.. Foss denies diarrhea. Pancho denies constipation. Foss denies a change in bowel habits. Pancho [...] Relation Age of Onset Heart Father First CT at age 48, CT at age 56 Hypertension Brother angina questionable CT in 40s, Heart Paternal Grandmother mi Asthma [...] failure, other cardiac issues, denies claudication, denies coldfeet, denies peripheral arterial stent. Respiratory: The patient [...] back pain/injury, denies back problems, denies sciatica, deniesknee/foot trouble, denies arthritis, or denies gout. When was patient's last Mammogram screening? N/A Last Colonoscopy: 2003 Rupa Mcnair LPN PHYSICAL EXAMINATION: General: The patient is 81 year old female, well nourished, well hydrated in no acute distress. Thepatient is oriented to time, place, and person. VITALS: Blood pressure 110/68, pulse 62, temperature (!) 35.9 C (96.7 F), height 165.1 cm (5' 5), weight 66.3 kg (146 lb 3.2 oz), SpO2 100 %. Body mass index is 24.33 kg/m . HEENT: Normal cephalic, ataumatic, pupils are equally round, sclera are anicteric, mucous membranesare moist, oropharynx is clear. Neck has no [...] me after the testing has been completed. Kaden Norton MD documented in this encounterSt. [facility]04-04-2023 History of Present illness Narrative* Kaden Norton MD - 08/16/2022 6:07 AM EDT HISTORY AND PHYSICAL Pancho Marcelino 1940 REFERRING PHYSICIAN: CHIEF COMPLAINT: Consult (hemorrhoids) HPI: The patient is a 81 year old female referred for endoscopy. Pancho notes the following GI complaints: Pancho denies abdominal pain.. Foss denies diarrhea. Foss denies constipation. Pancho denies a change in bowel habits. Foss denies melena. Pancho notes what she feels [...] Relation Age of Onset Heart Father First CT at age 48, CT at age 56 Hypertension Brother angina questionable CT in 40s, Heart Paternal Grandmother mi Asthma [...] failure, other cardiac issues, denies claudication, denies coldfeet, denies peripheral arterial stent. Respiratory: The patient [...] back pain/injury, denies back problems, denies sciatica, deniesknee/foot trouble, denies arthritis, or denies gout. When was patient's last Mammogram screening? N/A Last Colonoscopy: 2003 Rupa Mcnair LPN PHYSICAL EXAMINATION: General: The patient is 81 year old female, well nourished, well hydrated in no acute distress. Thepatient is oriented to time, place, and person. VITALS: Blood pressure 110/68, pulse 62, temperature (!) 35.9 C (96.7 F), height 165.1 cm (5' 5), weight 66.3 kg (146 lb 3.2 oz), SpO2 100 %. Body mass index is 24.33 kg/m . HEENT: Normal cephalic, ataumatic, pupils are equally round, sclera are anicteric, mucous membranesare moist, oropharynx is clear. Neck has no [...] me after the testing has been completed. Kaden Norton MD documented in this encounterSt. [facility]03-30-2023 Instructions* Patient Instructions* Kaden Norton MD - 08/11/2022 9:37 AM EDT Images from the original note were not included. Bowel Preparation Instructions for: Golytely, Nulytely, Trilyte or Colyte (polyethylene glycol 3350and electrolytes) IF YOU DO NOT FOLLOW THESE [...] If you do not have a responsible compressed air pile driver operator (family member or friend) with you to take you home, your exam cannot be done with sedation and will be cancelled. Please bring a list of all of your current medications, including any Over-the Counter medications with you. Medications If you take insulin, diabetic medications or blood thinners such as Coumadin (warfarin), Plavix (clopidogrel), Ticlid (ticlopidine hydrochloride), Agrylin (anagrelide), Xarelto (Rivaroxaban), Pradaxa(Dabigatran), Eliquis (Apixaban), and Effient (Prasugrel). You MUST [...] at your local pharmacy or drugstore pharmacy. 1 04/2019 Bowel Preparation Instructions for: Golytely, Nulytely, Trilyte or Colyte (polyethylene glycol 3350and electrolytes) Three (3) Days Before Your Colonoscopy [...] your exam. 2 04/2019 [facility]* Rupa Mcnair LPN - 08/11/2022 9:02 AM EDT REVIEW OF SYSTEMS: General: The patient denies [...] failure, other cardiac issues, denies claudication, denies coldfeet, denies peripheral arterial stent. Respiratory: The patient [...] back pain/injury, denies back problems, denies sciatica, deniesknee/foot trouble, denies arthritis, or denies gout. When was patient's last Mammogram screening? N/A Last Colonoscopy: 2003 Rupa Mcnair LPN [facility] noteNo assessment information availableWKettering [facility] Work Phone: evaluation note* Diagnosis Onset Date Resolution Status Other hammer toe(s) (acquired), right foot acute [facility] Work Phone: Evaluation note* Diagnosis Onset Date Resolution Status Toe pain, right noneactive Preoperative clearance nonea ctive Other hammer toe(s) (acquired), right foot acute Urinary frequency acute Urinary tract infection none active [facility] Work Phone: Evaluation note* Diagnosis Onset Date Resolution Status Urinary frequency acute Urinary tract infection none active Preoperative evaluation to r ule out surgical contraindication acute Hypertension chronic [facility] Work Phone: Evaluation note* Diagnosis Onset Date Resolution Status Preoperative evaluation to r ule out surgical contraindication acute Hypertension chronic Arthritis of left shoulder region acute [facility] Work Phone: Evaluation note* Diagnosis Special screening for malignant neoplasms, colon- Primary documented in this [facility]* Diagnosis Onset Date Resolution Status Health care maintenance acut e Hyperlipemia chronic Hypertension [facility] Work Phone: Evaluation note* Diagnosis Rectocele- Primary documented in this [facility] note* Diagnosis Rectocele documented in this [facility]* Diagnosis Rectocele documented in this [facility] note* Diagnosis Rectocele- Primary [facility] Additional Instructions Follow preprinted instructions from your surgeons office.[facility] Work Phone: Reason for referral (narrative)* Outpatient Procedure (Routine) - Authorized Specialty Diagnoses / Procedures Referred By Anne Marie ruvalcaba Referred To Contact [facility] Diagnoses Special screening for malignant neoplasms, colon Procedures COLONOSCOPY SCREENING COLONOSCOPY FLX DX W/COLLJ SPEC WHEN Kaden Wu MD [address] [place] [address] [facility] [address] [place] [address] Referral ID Status Reason Start Date Expiration Date Visits Requested Visits Authorized [id number] Authorized Auto-Generat ed Referral 08/11/2022 08/12/2023 1 1 [facility] for referral (narrative)* Outpatient Procedure (Routine) - Pending Review Specialty Diagnoses / Procedures Referred By Contac t Referred To Contact [facility] Diagnoses Rectocele Procedures [facility] ANORECTAL MANOMETRY ANORECTAL MANOMETRY Farideh Silverman, HIGH SCHOOL COUNSELOR [address] [place] [address] [facility] [address] [place] [address] Referral ID Status Reason Start Date Expiration Date Visits Requested Visits Authorized [id number] Pending Review Auto-Generat ed Referral 07/26/2023 07/25/2024 1 1 * Diagnostic Procedure Only (Routine) - Pending Review Specialty Diagnoses / Procedures Referred By Contac t Referred To Contact [facility] IMAG[facility] Diagnoses Rectocele Procedures XR DEFECOGRAPHY RADIOLOGIC EXAM COLON SINGLE CONTRAST STUDY Farideh Silverman APRN.HIGH SCHOOL COUNSELOR [address] [place] [address] [place] [id number] Referral ID Status Reason Start Date Expiration Date Visits Requested Visits Authorized [id number] Pending Review Auto-Generat ed Referral 07/26/2023 08/24/2024 1 1 [facility] for referral (narrative)* Diagnostic Procedure Only (Routine) - Closed Specialty Diagnoses / Procedures Referred By Contac t Referred To Contact [facility]R IMAGING Diagnoses Rectocele Procedures XR DEFECOGRAPHY RADIOLOGIC EXAM COLON SINGLE CONTRAST STUDY Farideh Silverman APRN.CNP [address] [place] [address] [place] [id number] Referral ID Status Reason Start Date Expiration Date V isits Requested Visits Authorized [id number] Closed Auto-Generate d Referral 07/26/2023 08/24/2024 1 1 [facility] for referral (narrative)No reason for referral information availableMarysville Medical Services Work Phone: Summary Purpose Family History No Family History Records Found Relationship Condition Age at Onset Recorded Date/T jose cruz mother Hypertension Unknown father Hypertension Unknown Myocardial infarction 57 Advance Directives No Advanced Directives Records Found Advance Directive Response Recorded Date/ Time Living Will Yes November 24, 2017 11:58am Power of Entry Level Project Engineer Yes November 24 8 11:58am Advance Directive Response Recorded Date/ Time Living Will Yes September 10, 2021 9:36am Power of Entry Level Project Engineer Yes September 10 9:36am Advance Directive Response Recorded Date/ Time Name of Medical Power of Entry Level Project Engineer SON September 10, 2021 9:36am Living Will Yes September 10, 2021 9:36am Power of Entry Level Project Engineer Yes September 10 9:36am Advance Directive Response Recorded Date/ Time Name of Medical Power of Entry Level Project Engineer Dale Moraleslan March 17, 2022 1:15pm Living Will Yes March 17 1:15pm Power of Entry Level Project Engineer Yes March 17, 2022 1:15pm Advance Directive Response Recorded Date/ Time Name of Medical Power of Entry Level Project Engineer Dale Moraleslan March 17, 2022 12:15pm Living Will Yes March 17 12:15pm Power of Entry Level Project Engineer Yes March 17, 2022 12:15pm Advance Directive Response Recorded Date/ Time Living Will Yes March 17 12:15pm Power of Entry Level Project Engineer Yes March 17, 2022 12:15pm Chief Complaint and Reason for Visit Chief Complaint PVD Chief Complaint PVD SURGERY CLEARANCE Chief Complaint PVD SURGERY CLEARANCE PRE-OP 2ND TOE PROXIMAL INTERPHALANGEAL JOINT ARTHROPLAST Reason for Visit Other hammer toe(s) (acquired), right foot Chief Complaint PVD SURGERY CLEARANCE PRE-OP PRE-OP 2ND TOE PROXIMAL INTERPHALANGEAL JOINT ARTHROPLAST Urinary tract infection Reason for Visit Toe pain, right Preoperative clearance Other hammer toe(s) (acquired), right foot Urinary frequency Urinary tract infection Chief Complaint Urinary tract infect ion SURGERY CLEARANCE - PPW RECIEVED OSTEOARTHRITIS LEFT SHOULDER *TORNIER PROTOCOL* Reason for Visit Urinary frequency Urinary tract infection Preoperative evaluation to rule out surgical contraindication Hypertension Chief Complaint SURGERY CLEARANCE - PPW RECIEVED OSTEOARTHRITIS LEFT SHOULDER *TORNIER PROTOCOL* LT TOTAL SHOULDER REVERSE Reason for Visit Preoperative evaluat ion to rule out surgical contraindication Hypertension Arthritis of left shoulder region Chief Complaint chk up SCREENING/POST KYLEE Reason for Visit Health care maintena nce Hyperlipemia Hypertension Chief Complaint Admit Date annual October 21, 2024 10:51 am Reason for Visit Admit Date Health care maintenance October 21, 2024 1 0:51am Hypersomnolence October 21, 2024 10:51 am Hyperlipemia October 21, 2024 10:51 am Hypertension October 21, 2024 10:51 am Lumbar radiculopathy October 21, 2024 10:5 1am Medications Administered Section Inactive Administered Medications - up to 3 most recent administrations Medication Order MAR Action Action Date Dose Rate Site fentaNYL 50 mcg/mL 25-100 mcg injection (SUBLIMAZE) 25-100 mcg, INTRAVENOUS, DIRECTED, Starting on Mon09/20/22 at 0930, Until Mon09/20/22 at 1329, DOSING DIRECTED BY PHYSICIAN FOR PROCEDURAL SEDATION ONLY, Intraprocedure Given 09/20/2022 9:16 AM EDT 25 mcg Given by LIP 09/20/2022 9:03 AM EDT 50 mcg lactated ringers iv infusion 30 mL/hr, INTRAVENOUS, CONTINUOUS, Starting on Mon09/20/22 at 0800, Until Mon09/20/22 at 0937, Preprocedure New Bag/Syringe/Romy le 09/20/2022 8:15 AM EDT 30 mL/hr 30 mL/hr Wrist, Left midazolam 1-5 mg injection (VERSED) 1-5 mg, INTRAVENOUS, DIRECTED, Starting on Mon09/20/22 at 0930, Until Mon09/20/22 at 1329, DOSING DIRECTED BY PHYSICIAN FOR PROCEDURAL SEDATION ONLY, Intraprocedure Given 09/20/2022 9:16 AM EDT 1 mg Given by LIP 09/20/2022 9:03 AM EDT 3 mg Additional Source Comments INFORMATION SOURCE (unrecogn ized section and content) DATE CREATED AUTHOR 11/08/2017 [facility] DATE CREATED AUTHOR AUTHOR'S ORGANIZ ATION 08/03/2024 [facility] DATE CREATED AUTHOR AUTHOR'S ORGANIZ ATION 11/06/2024 [facility] Goals (unrecognized section and content) Goals may be documented in a n alternate sectionGoals may be documented in an alternate sectionGoals may be documented in an alternate sectionGoals may be documented in an alternate sectionGoals may be documented in an alternate sectionGoals may be documented in an alternate sectionGoals may be documented in an alternate sectionGoals may be documented in an alternate sectionGoals may be documented in an alternate section Source Comments (unrecognize d section and content) In the event this informatio n is protected by the Federal Confidentiality of Alcohol and Drug Abuse Patient Records regulations: The Federal rules restrict any use of the information to criminally investigate or prosecute any alcohol or drug abuse patient.[facility] the event this information is protected by the Federal Confidentiality of Alcohol and Drug Abuse Patient Records regulations: The Federal rules restrict any use of the information to criminally investigate or prosecute any alcohol or drug abuse patient.[facility] Hospital[facility] the event this information is protected by the Federal Confidentiality of Alcohol and Drug Abuse Patient Records regulations: The Federal rules restrict any use of the information to criminally investigate or prosecute any alcohol or drug abuse patient.[facility] HospitalIn the event this information is protected by the Federal Confidentiality of Alcohol and Drug Abuse Patient Records regulations: The Federal rules restrict any use of the information to criminally investigate or prosecute any alcohol or drug abuse patient.[facility] HospitalIn the event this information is protected by the Federal Confidentiality of Alcohol and Drug Abuse Patient Records regulations: The Federal rules restrict any use of the information to criminally investigate or prosecute any alcohol or drug abuse patient.[facility] the event this information is protected by the Federal Confidentiality of Alcohol and Drug Abuse Patient Records regulations: The Federal rules restrict any use of the information to criminally investigate or prosecute any alcohol or drug abuse patient.[facility] the event this information is protected by the Federal Confidentiality of Alcohol and Drug Abuse Patient Records regulations: The Federal rules restrict any use of the information to criminally investigate or prosecute any alcohol or drug abuse patient.[facility] the event this information is protected by the Federal Confidentiality of Alcohol and Drug Abuse Patient Records regulations: The Federal rules restrict any use of the information to criminally investigate or prosecute any alcohol or drug abuse patient.[facility] Hospital[facility] the event this information is protected by the Federal Confidentiality of Alcohol and Drug Abuse Patient Records regulations: The Federal rules restrict any use of the information to criminally investigate or prosecute any alcohol or drug abuse patient.[facility] Reason for Visit (unrecogniz ed section and content) Reason Comments Consult hemorrhoids Specialty Diagnoses / Procedures Referred By Contac t Referred To Contact [facility] Diagnoses Special screening for malignant neoplasms, colon Procedures COLONOSCOPY FLX DX W/COLLJ SPEC WHEN PFRMD HEMORRHOIDECTOMY INTERNAL RUBBER BAND LIGATIONS COLONOSCOPY BANDING HEMORRHOID [facility] [address] [place] [address] Referral ID Status Reason Start Date Expiration Date Visits Re quested Visits Authorized [id number] 1 1 Reason Comments Medication Problem Reason Comments Manometry Reason Comments Radio GI Main HB6 Specialty Diagnoses / Procedures Referred By Contac t Referred To Contact XR IMAGING Diagnoses Rectocele Procedures XR DEFECOGRAPHY RADIOLOGIC EXAM COLON SINGLE CONTRAST STUDY Farideh Silverman, CHANNEL OPENER.HIGH SCHOOL COUNSELOR [address] [place] [address] [place] [id number] Referral ID Status Reason Start Date Expiration Date V isits Requested Visits Authorized [id number] Closed Auto-Generate d Referral 07/26/2023 08/24/2024 1 1 Reason Comments Rectocele Reason Comments Referral Request Scheduled Active and Recently Administ ered Medications (unrecognized section and content) Medication Order 09/18/2022 09/19/2022 09/20/2022 fentaNYL 50 mcg/mL 25-100 mcg injection (SUBLIMAZE) () 25-100 mcg, INTRAVENOUS, DIRECTED, Starting on Mon09/20/22 at 0930, Until Mon09/20/22 at 1329, DOSING DIRECTED BY PHYSICIAN FOR PROCEDURAL SEDATION ONLY, Intraprocedure 0903 (Given by LIP - Provider: Drew West RN)0916 (Given - Provider: Drew West RN) midazolam 1-5 mg injection (VERSED) () 1-5 mg, INTRAVENOUS, DIRECTED, Starting on Mon09/20/22 at 0930, Until Mon09/20/22 at 1329, DOSING DIRECTED BY PHYSICIAN FOR PROCEDURAL SEDATION ONLY, Intraprocedure 0903 (Given by LIP - Provider: Drew West RN)0916 (Given - Provider: Drew West RN) Continuous Medication Order 09/18/2022 09/19/2022 09/20/2022 lactated ringers iv infusion (CANCELED) 30 mL/hr, INTRAVENOUS, CONTINUOUS, Starting on Mon09/20/22 at 0800, Until Mon09/20/22 at 0937, Preprocedure 0815 (New Bag/Syring e/Bottle - Provider: Vviian Greenberg, RN)0935 (Med Check - Provider: Vivian Greenberg, RN)1007 (Stopped - Provider: Vivian Greenberg, RN) Care Teams (unrecognized sec tion and content) Team Status: Active Member Role Status Dates Dr. Ventura Noble MD Family Provider Active Dr. Ventura Noble MD Primary Care Provider Active Team Status: Inactive Member Role Status Dates Dr. Ventura Noble MD Primary Care Provider, Atten ding Provider Active Team Status: Inactive Member Role Status Dates Dr. Ventura Noble MD Primary Care Kyle fitzpatrick, Attending Provider, Referring Provider Active Team Status: Active Member Role Status Dates Dr. Ventura Noble MD Primary Care Provider Active Team Status: Inactive Member Role Status Dates Dr. Ventura Noble MD Primary Care Provider Active Start: October 21, 2024 End: October 21, 2024 Dr. Ventura Noble MD Attending Provider Active Start: October 21, 2024 End: October 21, 2024 Dr. Ventura Noble MD Referring Provider Active Start: October 21, 2024 End: October 21, 2024 Team Status: Active Member Role Status Dates Dr. Ventura Noble MD Primary Care Provider Active Start: October 21, 2024 Dr. Ventura Noble MD Attending Provider Active Start: October 21, 2024 Dr. Ventura Noble MD Referring Provider Active Start: October 21, 2024 FOR RECORDS PERTAINING TO PATIENTS WHO ARE [...] BE BASED ON THE PRIMARY CLINICAL RECORDS. [facility] [employer] provides no warranty or guarantee of the accuracy or completeness of information in this document.
== END | disposition home or self-care (01) ==
LOC: SL 11:06
PROVIDERS: PCP Internal Medicine; Referring Provider Internal Medicine; Visit Provider Internal Medicine
DX: G47.10 Hypersomnia, unspecified (principal)
CPT/HCPCS: 95806

== ENCOUNTER → 2024-11-21 | Outpatient (CLI) | payer MEDICARE, OTHER, SELFPAY | END | disposition home or self-care (01) | LOC: SL 19:48 | PROVIDERS: PCP Internal Medicine; Referring Provider Internal Medicine; Visit Provider Internal Medicine | DX: G47.30 Sleep apnea, unspecified (principal) | CPT/HCPCS: 95811 ==

== ENCOUNTER → 2025-02-11 | Outpatient (CLI) | payer MEDICARE, OTHER, SELFPAY ==
[2025-02-11 11:10] LABS: Anion Gap 11 (5-15); BUN 25 mg/dL (4-19); BUN/Creat Ratio 26.2 RATIO (10-20); Calcium,Total 9.9 mg/dL (7.6-11.0); Carbon Dioxide 24.7 mmol/L (21.0-32.0); Chloride 107 mmol/L (98-108); Glucose 107 mg/dL (70-99); Potassium 4.7 mmol/L (3.3-5.1)
--- OUTSIDE RECORDS SUMMARY | 2025-02-12 19:26 | XMS RPT_ITS ---
Author Name [employer] Organization OHIP PROBLEMS No Problem Records Found PROCEDURES No Procedure Records Found RESULTS CNPN Observed: 08/01/2024 12:00 AM Status: COMPLETED Source: [facility] Telephone ([employer]) PANCHO MARCELINO ([id number]) 1940 F Date Time Provider Department 08/01/24 NORRIS MCBRIDE During your visit today, we recorded the following information about you: [facility] 08/01/2024 10:33 AM Signed Pancho Marcelino [phone], request referral for rectocele surgery as discussed [...] 1 capsule by mouth once daily. - ubidecarenone/omega-3/vit e(COQ-10 AND FISH OIL 50 MG-300 [...] URETHRAL CARUNCLE [N36.2] 08/15/2005 Encounter Status:Closed by KATHERINE LAROSE on 08/01/24 ALLERGIES No Allergies Records Found ENCOUNTERS No Encounter Records Found PAYERS No Payer Records Found
== END | disposition home or self-care (01) ==
LOC: LAB 10:10
PROVIDERS: PCP Internal Medicine; Referring Provider Internal Medicine; Visit Provider Internal Medicine
DX: I10 Essential (primary) hypertension (principal)
CPT/HCPCS: 36415; 80048

== ENCOUNTER → 2025-03-05 | Outpatient (CLI) | payer MEDICARE, OTHER, SELFPAY ==
--- NOTE | 2025-03-05 15:24 | MRI_ITS ---
PROCEDURE: SPINE LUMBAR (ROUTINE) 03/05/2025 REASON FOR EXAM: LUMBAR PAIN TECHNIQUE: Procedure Code: MRISPL Modality: MR Procedure: SPINE LUMBAR (ROUTINE) COMPARISON: None. FINDINGS: Vertebrae: Preserved in height. Mixed Modic changes type II and III at L1-L2, L2-L3. Alignment: Retrolisthesis L2 on L3 by 2 mm. Conus Medullaris: Unremarkable. L1-2: Disc desiccation. Disc bulge. Facet joint arthropathy and ligamentum flavum hypertrophy. Mild left and moderate right foramina stenosis. Mild canal stenosis. L2-3: Disc desiccation. Disc bulge. Facet joint arthropathy with fluid effusion. Mild bilateral foramina stenosis. Mild canal stenosis. L3-4: Disc desiccation. Disc bulge. Facet joints arthropathy. Severe bilateral foramina stenosis. Severe canal stenosis. L4-5: Disc desiccation. Disc bulge. Facet joint arthropathy. Severe narrowing of the right subarticular space. Severe right and mild left foramina stenosis. Severe canal stenosis. L5-S1: Disc desiccation. Disc bulge Sacrum: Unremarkable. Indeterminate 3.5 cm cyst in the liver. Further imaging like ultrasound may be performed. 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 Indeterminate 3.5 cm cyst in the liver. Further imaging like ultrasound may be performed. Reading Location: [id number]
--- OUTSIDE RECORDS SUMMARY | 2025-03-05 16:35 | XMS RPT_ITS | CCD ---
Author Organization [facility] Care Team Providers Care Floorwalker Name Role Phone ADELE MONTEIRO Unavailable Unavailable Ventura Noble MD Unavailable [phone] Dr. Ventura Noble Primary Care Provider [phone] Dr. Ventura Noble Referring Provider [phone] Rogelio GONGORA, AMPHIBIOUS OPERATIONS OFFICER-C Sj Attending Provider [phone] Dr. Michael Conway Attending Provider Rogelio AMPHIBIOUS OPERATIONS OFFICER, AMPHIBIOUS OPERATIONS OFFICER-C Sj Referring Provider [phone] Dr. Ventura Noble Attending Provider [phone] Dr. Ventura Noble Primary Care Provider 1(33 0) Dr. Ventura Noble Referring Provider [phone] Dr. Ventura Noble Primary Care Provider [phone] Dr. Ventura Noble Attending Provider [phone])[phone] Dr. Ventura Noble Referring Provider [phone])2 Dr. Ventura Noble Primary Care Provider 1(33 0) Dr. Ventura Noble Attending Provider [phone])2 Dr. Ventura Noble Referring Provider [phone])2 Unavailable Primary Care Provider UnavailDr. Ventura Gonzalez Primary Care Provider 1(33 0) Dr. Ventura Noble Attending Provider [phone])2 Dr. Ventura Noble Referring Provider [phone])2 Unavailable Primary Care Provider Unavailabl e JESSICA, FARIDEH Referring Unavailable FARIDEH SILVERMAN Attending Unavailable JESSICA, FARIDEH Referring Unavailable DARCY MCBRIDE Attending Unavailable MARGARITA TORRES Attending Unavailable JESSICA, FARIDEH Referring Unavailable Real LORA, Dr. Whitehead Primary Care Provider Real LORA, Dr. Whitehead Attending Provider 1(33 0) Real LORA, Dr. Whitehead Referring Provider 1(33 0) Referred, Self Attending Provider Unavailable Referred, Self Referring Provider Unavailable Real LORA, Dr. Whitehead Primary Care Physician Real LORA, Dr. Whitehead Attending Physician 1([phone]) Referred, Self Attending Physician Unavailable Wen LORA, Dr. Dale Attending Physician Oleghe, Efewongbe Referring Unavailable Oleghe, Efewongbe Primary Care Unavailable Oleghe, Efewongbe Attending Unavailable Oleghe, Efewongbe Attending Unavailable Oleghe, Efewongbe Referring Unavailable Oleghe, Efewongbe Primary Care Unavailable Oleghe, Efewongbe Attending Unavailable Oleghe, Efewongbe Referring Unavailable Oleghe, Efewongbe Primary Care Unavailable Oleghe, Efewongbe Referring Unavailable Oleghe, Efewongbe Primary Care Unavailable Oleghe, Efewongbe Attending Unavailable Oleghe, Efewongbe Referring Unavailable Oleghe, Efewongbe Attending Unavailable Oleghe, Efewongbe Primary Care Unavailable Oleghe, Efewongbe Referring Unavailable Oleghe, Efewongbe Primary Care Unavailable Oleghe, Efewongbe Attending Unavailable Eyal Ybarra Attending Unavailable Eyal Ybarra Referring Unavailable Oleghe, Efewongbe Primary Care Unavailable Oleghe, Efewongbe Primary Care Unavailable Referred, Self Attending Unavailable Referred, Self Referring Unavailable Medications Current Medications Medication Drug Class(es) Dates Sig (Normalized) Sig (Original) ascorbic acid 500 mg oral capsule (16 sources) Vitamin C Start: 01-20-2021 Ascorbic Acid (Vitamin C) Active MG PO January 20, 2021 1:16pm Start: 01-20-2021 End: 02-12-2025 take 2 capsules by mouth once daily Ascorbic Acid (Vitamin C) 500 mg capsule Discontinued 1000 mg PO DAILY January 20, 2021 12:00am February 12, 2025 11:27am Start: 01-20-2021 take 1000 mg by mouth once anjali ly Ascorbic Acid (Vitamin C) Active 1000 MG PO DAILY January 19, 2021 11:00pm CENTRUM SILVER TAB (9 sources) Start: 08-15-2005 CENTRUM SILVER TAB Take one(1) tablet daily. 0 08/15/2005 Active Comment on above: Take one(1) tablet d aily. cholecalciferol 0.05 mg oral capsule (18 sources) Vitamin D Start: 11-02-2017 take 1 capsule by mouth once daily Cholecalciferol (Vitamin D3) 2,000 unit capsule Active 2000 U PO daily November 02, 2017 12:00am Complies with drug therapy Start: 01-11-2017 take 1 tablet by silvestre th once daily VITAMIN D3 TABS 2000 units, One tablet by mouth daily CHOLECALCIFEROL TABS [id number] Sj Munguia Mercado NURSING STUDENT-C docosahexaenoate / eicosapentaenoate / ubidecarenone / vitamin E (9 sources) Start: 09-03-2007 ubidecarenone/ omega-3/vit e(COQ-10 & FISH OIL 50 MG-300 (180-120)MG-30 UNIT CAP) 0 09/03/2007 Active Start: 09-03-2007 ubidecarenone/ omega-3/vit e(COQ-10 & FISH OIL 50 MG-300 (180-120)MG-30 UNIT CAP) Multivitamin With Iron (10 sources) Start: 11-02-2017 take 1 tablet by mouth once daily [...] November 02, 2017 12:00am Multivitamin With Iron table t (6 sources) Start: 11-02-2017 Multivitamin W ith Iron tablet Active 1 {tbl} PO daily November 02, 2017 12:00am Complies with drug therapy Start: 11-02-2017 Multivitamin W ith Iron tablet Active 1 {tbl} PO daily November 02, 2017 12:00am ubidecarenone 400 mg oral capsule (9 sources) take 1 capsule by mouth once daily Coenzyme Q10 400 mg cap Take 1 capsule by mouth once daily. Active Comment on above: Take 1 capsule by mo ut once daily. ubiquinol 100 mg oral capsule (6 sources) Start: 10-21-2024 take 1 capsule by mouth twice daily Coq10 (Ubiquinol) (Qunol David Coq10) 100 mg capsule Active 100 mg PO TWICE A DAY October 21, 2024 12:00am Complies with drug therapy Completed/Discontinued Medications Medication Drug Class(es) Dates Sig (Normalized) Sig (Original) acetaminophen 500 mg oral tablet (10 sources) Start: 03-18-2022 End: 05-25-2023 take 2 tablets by mouth every eight hours Acetaminophen 500 mg Tablet Discontinued 1000 mg PO EVERY 8 HOURS 84 14 0 March 18, 2022 12:00am May 25, 2023 3:50pm Start: 03-18-2022 End: 05-25-2023 take 1000 mg by mouth every eight hours Acetaminophen Discontinued 1000 MG PO EVERY 8 HOURS 84 14 March 17, 2022 11:00pm May 25, 2023 2:50pm acetaminophen 325 mg / oxyCODONE hydrochloride 5 mg oral tablet (20 sources) Opioid Agonist Start: 09-16-2021 End: 10-26-2021 Oxycodone-Acetaminophen (Endocet) 5-325 mg tablet Discontinued 1 {tbl} PO EVERY 6 HOURS as needed for pain 28 7 0 September 16, 2021 October 26, 2021 2:21pm Other acquired hammer toe of right foot Other acute postprocedural pain Other hammer toe(s) (acquired), right foot Other acute postprocedural pain aspirin 81 mg delayed release oral tablet (20 sources) Platelet Aggregation Inhibitor, Nonsteroidal Anti-inflammator y Drug Start: 03-18-2022 End: 05-25-2023 take 1 tablet by mouth once daily Aspirin 81 mg Tablet,Delayed Release (Dr/Ec) Discontinued 81 mg PO DAILY@0800 56 28 0 March 18, 2022 12:00am May 25, 2023 [...] MG TBEC one by mouth daily ASPIRIN [id number] Zach Andrea Comment on above: Take one (1) tablet daily . ciprofloxacin 500 mg oral tablet (16 sources) Quinolone Antimicrobial Start: 01-23-20 End: 04-21-20 take 1 tablet by mouth twice daily Ciprofloxacin Hcl 500 mg tablet Discontinued 500 mg PO TWICE A DAY 10 0 January 22, 2021 12:00am April 21, 2021 11:46am COENZYME Q10 (2 sources) take 1 capsule by mouth once daily COQ-10 10 MG CAPS one by mouth daily COENZYME Q10 [id number] Zach Andrea End: 01-11-2017 take 1 capsule by mouth once daily COQ-10 10 MG CAPS one by mouth daily COENZYME Q10 [id number] Aleksandra Butler docusate sodium 50 mg / sennosides, jail 8.6 mg oral tablet (10 sources) Start: 03-18-2022 End: 05-25-2023 Sennosides-Docusate Sodium (Stool Softener-Stimulant Laxat) 8.6-50 mg Tablet Discontinued 2 {tbl} PO TWICE A DAY 28 7 0 March 18, 2022 12:00am May 25, 2023 3:51pm flu vacc 2019-(65yr up)-MF59C(PF) 60 mcg(15 mcgx4)/0.5 mL IM syringe (4 sources) Start: 01-20-2021 End: 01-20-2021 inject 60 ug by intramuscular injection once flu vacc (65yr up)-MF59C(PF) 60 mcg(15 mcgx4)/0.5 mL IM syringe Discontinued 60 MCG IM ONCE 0.5 January 20, 2021 1:08pm January 20, 2021 2:22pm lovastatin 20 mg oral tablet (20 sources) HMG-CoA Reductase Inhibitor Start: 08-31-2021 End: 10-23-2024 take 1 tablet by mouth once daily Lovastatin 20 mg tablet Discontinued 20 mg PO DAILY 60 0 May 09, 2024 11:03am October 23, 2024 10:23am Start: 01-21-2021 End: 08-31-2021 take 1 tablet by mouth once daily Lovastatin 40 mg tablet Discontinued 40 mg PO DAILY 90 3 January 21, 2021 1:31pm August 31, 2021 9:35am Start: 02-18-2019 End: 01-21-2021 take 1 tablet by mouth once daily Lovastatin 20 mg tablet Discontinued 20 mg PO DAILY 90 3 May 27, 2020 12:44pm January 21, 2021 1:31pm Start: 11-02-2017 End: 02-18-2019 take 1 tablet by mouth every other day Lovastatin 20 mg tablet Discontinued 20 mg PO EVERY OTHER DAY 90 0 February 20, 2018 8:41am September 20, 2018 4:06pm Start: 01-11-2017 take 1 tablet by silvestre th every other day LOVASTATIN 20 MG TABS One tablet by mouth every other day LOVASTATIN [id number] Aleksandra Butler Comment on above: Take 20 mg by mouth every morning. meloxicam 7.5 mg oral tablet (10 sources) Nonsteroidal Anti-inflammatory Drug Start: 03-18-20 End: 05-25-19 take 1 tablet by mouth twice daily Meloxicam 7.5 mg Tablet Discontinued 7.5 mg PO TWICE A DAY 60 30 0 March 18, 2022 12:00am May 25, 2023 3:51pm MULTIPLE VITAMIN (1 source) take 1 tablet by mouth once daily MULTIVITAMINS TABS one by mouth daily MULTIPLE VITAMIN [id number] Zach Andrea omega-3 acid ethyl esters (jail) 1000 mg oral capsule (16 sources) Start: 11-03-19 End: 03-05-20 [place] 8-Vdk-Vve-Fish Oil (Fish Oil) 1,000 mg (120 mg-180 mg) capsule Discontinued 2400 NMA PO DAILY 0 November 02, 2017 12:00am March 05, 2020 10:17am OMEGA-3 FATTY ACIDS CAPS (1 source) take 2 capsules by mouth once daily EQL FISH OIL CAPS 2 by mouth daily OMEGA-3 FATTY ACIDS CAPS [id number] Zach Chelsey Emre 24 hr oxybutynin chloride 5 mg extended release oral tablet (20 sources) Cholinergic Muscarinic Antagonist Start: 10-30-19 End: 02-05-20 take 1 tablet by mouth once daily Oxybutynin Chloride 5 mg tablet extended release 24hr Discontinued 5 mg PO DAILY 60 1 November 19, 2021 4:50pm February 04, 2022 1:34pm oxyCODONE hydrochloride 5 mg oral tablet (10 sources) Opioid Agonist Start: 03-18-20 End: 05-25-19 take 5-10 mg by mouth every four hours as needed for pain Oxycodone 5 mg Tablet Discontinued 5 - 10 mg PO EVERY 4 HOURS NEEDED as needed for Pain Score 4-10 42 7 0 March 18, 2022 May 25, 2023 3:48pm Arthritis of left shoulder region Primary osteoarthritis, left shoulder polyethylene glycol 3350 [id number] mg / potassium chloride 2970 mg / sodium bicarbonate 6740 mg / sodium chloride 5860 mg / sodium sulfate 19085 mg powder for oral solution (1 source) Osmotic Laxative Start: 08-12-19 End: 08-12-19 peg 3350-Electrolytes (GOLYTELY) 236-22.74-6.74 -5.86 gram suspension [...] Date Documented Date Episodic/Chronic Acquired foot deformities (17 sources) Acquired hallux malleus; Translations: [Other hammer toe(s) (acquired), right foot] Chronic Disorders of lipid metabolism (20 sources) Hyperlipidemia; Translations: [Hyperlipidemia, unspecified] Onset: 08-15-2005 01-11-2017 Chronic Diverticulosis and diverticulitis (9 sources) Diverticulitis of large intestine without perforation or abscess without bleeding; Translations: [Diverticulitis of colon (without mention of hemorrhage)] Onset: 08-15-2005 08-15-2005 Chronic Essential hypertension (20 sources) Hypertensive disorder; Translations: [Essential (primary) hypertension] Onset: 02-17-2025 Chronic Genitourinary symptoms and ill-defined conditions (20 sources) Dysuria; Translations: [Dysuria] Episodic Immunizations and screening for infectious disease (5 sources) Requires influenza virus vaccination; Translations: [Encounter for immunization] Onset: 02-12-2025 02-12-2025 Episodic Nutritional deficiencies (17 sources) Vitamin D deficiency; Translations: [Vitamin D deficiency, unspecified] Onset: 01-11-2017 01-11-2017 Chronic Osteoarthritis (16 sources) Arthritis of shoulder region joint; Translations: [Primary osteoarthritis, left shoulder] Chronic Other connective tissue disease (1 source) Pain in right toe(s); Translations: [Pain in limb] Episodic Other diseases of kidney and ureters (4 sources) Abnormal renal function; Translations: [Disorder of kidney and ureter, unspecified] 02-12-2025 Episodic Other nervous system disorders (14 sources) Acute postoperative pain; Translations: [Other acute postprocedural pain] 09-16-2021 Episodic Other screening for suspected conditions (not mental disorders or infectious disease) (1 source) Patient encounter status; Translations: [Encounter for screening for malignant neoplasm of colon] Episodic Prolapse of female genital organs (5 sources) Disorder of rectum; Translations: [Rectocele] Onset: 11-13-2023 07-26-2023 Chronic Residual codes; unclassified (11 sources) Hypersomnia; Translations: [Hypersomnia, unspecified] 10-21-2024 Chronic Residual codes; unclassified (5 sources) Sleep apnea; Translations: [Sleep apnea, unspecified] 11-11-2024 Chronic Residual codes; unclassified (1 source) Sleep apnea, unspecified; Translations: [Sleep apnea, unspecified] Onset: 11-26-2024 Chronic Residual codes; unclassified (1 source) Hypersomnia, unspecified; Translations: [Hypersomnia, unspecified] Onset: 11-11-2024 Chronic Residual codes; unclassified (16 sources) Postmenopausal state; Translations: [Asymptomatic menopausal state] 01-20-2021 Episodic Spondylosis; intervertebral disc disorders; other back problems (12 sources) Lumbar radiculopathy; Translations: [Radiculopathy, lumbar region] 10-21-2024 Episodic Unclassified (1 source) Laceration without foreign body of left hand, initial encounter / S61.412A(ICD-10) Onset: 01-17-2017 Unclassified (1 source) Elevated blood-pressure reading, without diagnosis of hypertension / R03.0(ICD-10) Onset: 01-17-2017 Unclassified (1 source) Unknown / UNK(Unknown) Onset: 01-17-2017 Unclassified (1 source) Hand Laceration / [id number]() Onset: 01-17-2017 Unclassified (1 source) Screening - health check; Translations: [Encounter for general adult medical examination without abnormal findings] Onset: 01-11-2017 01-11-2017 Unclassified (1 source) Other intervertebral disc degeneration, lumbosacral region with discogenic back pain and lower extremity pain; Translations: [Other intervertebral disc degeneration, lumbosacral region with discogenic back pain and lower extremity pain] Onset: 02-24-2025 Urinary tract infections (2 sources) Urinary tract [...] Laceration; Translations: [Hand Laceration] Onset: 01-17-2017 Unclassified (11 sources) hammer toe surgery 12-01-2021 Varicose veins of lower extremity (10 sources) Venous varices; Translations: [Asymptomatic varicose veins of unspecified lower extremity] Onset: 08-15-2005 01-11-2011 Episodic Viral infection (1 source) Verruca vulgaris; Translations: [Viral wart, unspecified] 01-11-2011 Episodic Results Test Name Value Interpretation Reference Range Facility Internal Medicine Office Vis ito 02-12-2025 Internal Medicine Office Visit [facility] Internal Medicine [address] [place] [address] OFFICE VISIT Date of Service: 02/12/25 MR#: [id number] Acct: [id number] Name: PANCHO MARCEILNO Rep #: [id number] : 1940 Provider: Dr. Ventura mcmanus MD Age/Sex: 84/F Location: [email or web address] Status: Signed Intake Vital Signs 05/25/23 14:51 12/23/24 13:21 02/12/25 11:19 Height 5 ft 3 in 5 ft 3 in 5 ft 3 in Weight: 143 lb 6 oz BMI 25.4 BP 132/78 H Blood Pressure Location Lt radial Position Sitting Respiration 16 Pulse 83 Pulse Source Monitor Temp 97.4 F L Temp Source Temporal Pulse Oximetry (%) 100 Oxygen Delivery Method room air Intake Visit Reasons: Cpap readings Chief Complaint: Follow-up Wardrobe Mistress Required: No Accompanied by: Self Is patient in pain?: No Allergies No Known Allergies Allergy (Verified 02/12/25 11:27) Medications ???Medication ???Instructions ???Recorded ???Confirmed ???Type cholecalciferol (vitamin D3) 50 2,000 unit PO QDAY 11/02/17 History mcg (2,000 unit) capsule multivitamin with iron 1 tab PO QDAY 11/02/17 02/12/25 Hi story coQ10 (ubiquinol) 100 mg capsule 100 mg PO BID 10/21/24 02/12/25 Hi story (Qunol David CoQ10) lovastatin 20 mg tablet 20 mg PO DAILY #90 tabs 10/23/24 1 Rx Have you fallen in the past year?: No Nurse's Note: discuss c pap and follow up [facility] Medical History (Updated 02/12/25 @ 12:[address] Ventura Noble MD) Abnormal renal function Flu vaccine need Osteoarthritis Sleep apnea Lumbar radiculopathy Hypersomnolence Rectocele History of edema [...] per week HPI HPI Chief Complaint: Follow-up Details: PANCHO MARCELINO, is an 84-year-old female presenting for follow-up on chronic conditions including hip and back pain. She reports significant discomfort in her hip. She had seen Ortho, had an injection which did not provide relief so was referred to pain management due to assumption that this was more lumbar than primarily hip. Had an injection in her lower back in December however the injection provided relief for a few weeks but the pain returned. The patient is scheduled for a follow-up with her pain management physician catering administrative assistant next week. 18 months ago, she had imaging of her hips which was concerning for moderate osteoarthritis. Recently diagnosed with sleep apnea. She utilizes CPAP therapy for sleep apnea but reports no noticeable difference in symptomatology. The patient experiences no issues with mask fit but has difficulties getting comfortable due to pain. The patient also monitors her chronic kidney disease stage 3, adhering to recommendations to limit the regular use of NSAIDs like ibuprofen to avoid kidney damage. Although her renal function has jon wn improvement, evidenced by an increase in GFR from 45 in October to 60, she occasionally utilizes ibuprofen for acute pain. Other chronic medical conditions are stable. Attestation: Documentation on this patient encounter was supported using ambient scribe technology/ voice AI technology. The patient consented to recording for the purpose of documenting the encounter. Provider reviewed content of the generated note prior to signature. ROS Const Constitutional: No body ache, excessive sweating, fatigue, fever(s), frequent falls, headache(s), snoring, weakness, weight change, sleep problems or change in appetite Eyes Eyes: No blurry vision, change in vision, vision loss, dry eyes, eye pain or Light sensitivity ENT ENT: No abnormal hearing, ear or mastoid pain, hearing loss, tinnitus, dizziness/vertigo, nasal congestion, headache(s), neck pain or sore throat Resp Respiratory: No (more content not included)... Normal [facility] Anion gap in Serum or Plasma Ordered By: Ventura Noble on 02-11-2025 Anion gap [Moles/Vol] 11 mmol/L 5-15 [facility] BUN/creatinine ratioOrdered By: Ventura Noble on 02-11-2025 Urea nitrogen/Creatinine [Mass ratio] 26.2 mg/mg High 03-03 [facility] Basic Metabolic Profile (BMP )on 02-11-2025 BUN/CRE 26.2 RATIO High 03-03 [facility] Comment on above: Performed By: #### L 500.2500 #### [facility] [place], [address] Calcium [Mass/Vol] 9.9 mg/dL Normal 7.6-11.0 [facility] Comment on above: Performed By: #### L 500.2500 #### [facility] [address] [place], [address] Chloride [Moles/Vol] 107 mmol/L Normal 98-108 [facility] Comment on above: Performed By: #### L 500.2500 #### [facility] [address] [place], [address] CO2 [Moles/Vol] 24.7 mmol/L Normal 21.0-32.0 [facility] Comment on above: Performed By: #### L 500.2500 #### [facility] [address] [place], [address] Creatinine [Mass/Vol] 0.94 mg/dL Normal 0.70-1.20 [facility] Comment on above: Performed By: #### L 500.2500 #### [facility] [address] [place], [address] GAP 11 Normal 5-15 [facility] Comment on above: Performed By: #### L 500.2500 #### [facility] [address] [place], [address] GFR/1.73 sq M.predicted among non-blacks MDRD (S/P/Bld) [Vol rate/Area] 60 mL/min/{1.73_m2} Normal >60 [facility] Comment on above: Result Comment: mL/m in/1.73m2 CKD-EPI Creatinine Equation (2020) Performed By: #### L 500.2500 #### [facility] [address] [place], [address] Glucose [Mass/Vol] 107 mg/dL High 70-99 [facility] Comment on above: Performed By: #### L 500.2500 #### [facility] [address] [place], [address] Potassium [Moles/Vol] 4.7 mmol/L Normal 3.3-5.1 [facility] Comment on above: Performed By: #### L 500.2500 #### [facility] [address] [place], [address] Sodium [Moles/Vol] 142 mmol/L Normal 133-145 [facility] Comment on above: Performed By: #### L 500.2500 #### [facility] [address] [place] [place], [address] Urea nitrogen [Mass/Vol] 25 mg/dL High 4-19 [facility] Comment on above: Performed By: #### L 500.2500 #### [facility] [address] [place], [place], [id number] Carbon dioxide, total [Moles /volume] in Central venous bloodOrdered By: Ventura Noble on 02-11-2025 CO2 [Moles/Vol] 24.7 mmol/L 21.0-32.0 [facility] Chloride assayOrdered By: Danielle Noble on 02-11-2025 Chloride [Moles/Vol] 107 mmol/L 98-108 [facility] Glomerular filtration rate ( GFR) estimation/1.73 sq m using serum, plasma, or whole bOrdered By: Ventura Noble on 02-11-2025 GFR/1.73 sq M.predicted among non-blacks MDRD (S/P/Bld) [Vol rate/Area] 60 mL/min/{1.73_m2} >60 [facility] Comment on above: mL/min/1.73m2 CKD-EP I Creatinine Equation (2020) Potassium measurement (mass/ volume)Ordered By: Ventura Noble on 02-11-2025 Potassium (Unsp spec) [Mass/Vol] 4.7 mmol/L 3.3-5.1 [facility] Serum creatinine measurement (mass/volume)Ordered By: Ventura Noble on 02-11-2025 Creatinine [Mass/Vol] 0.94 mg/dL 0.70-1.20 [facility] Serum glucose measurement (m ass/volume)Ordered By: Ventura Noble on 02-11-2025 Glucose [Mass/Vol] 107 mg/dL High 70-99 [facility] Serum or plasma calcium shahriar urement (mass/volume)Ordered By: Ventura Noble on 02-11-2025 Calcium [Mass/Vol] 9.9 mg/dL 7.6-11.0 [facility] Serum or plasma urea nitroge n measurement (mass/volume)Ordered By: Ventura Noble on 02-11-2025 Urea nitrogen [Mass/Vol] 25 mg/dL High 4-19 [facility] Sodium levelOrdered By: Kranthi phyllis Real on 02-11-2025 Sodium [Moles/Vol] 142 mmol/L 133-145 [facility] Absolute lymphocyte countOrd ered By: Ventura Noble on 10-21-2024 Lymphocytes Auto (Unsp spec) [#/Vol] 1.74 10*3/uL 0.83-4.51 [facility] Absolute neutrophil countOrd ered By: Ventura Noble on 10-21-2024 Neutrophils (Bld) [#/Vol] 4.0 10*3/uL 2.0-7.7 [facility] Anion gap in Serum or Plasma Ordered By: Ventura Noble on 10-21-2024 Anion gap [Moles/Vol] 13 mmol/L 5-15 [facility] Automated lymphocyte count a s percentage of total leukocytesOrdered By: Ventura Noble on 10-21-2024 Lymphocytes/100 WBC Auto (Unsp spec) 27.8 % 19-41 [facility] BUN/creatinine ratioOrdered By: Ventura Noble on 10-21-2024 Urea nitrogen/Creatinine [Mass ratio] 29.5 mg/mg High 10-20 [facility] Basophil percentageOrdered B y: Ventura Noble on 10-21-2024 Basophils/100 WBC (Bld) 0.5 % 0-1 [facility] Bilirubin, totalOrdered By: Ventura Noble on 10-21-2024 Bilirubin [Mass/Vol] 0.31 mg/dL 0.00-1.30 [facility] CBC W/Diff, Automatedon 06-0 9-202 Absolute Lymph 1.74 X10 3/uL Normal 0.83-4.51 [facility] Comment on above: Performed By: #### L 500.4100, L500.4050, L100.0100 #### [facility] [address] [place], [address] Absolute Neut 4.0 X10 3/uL Normal 2.0-7.7 [facility] Comment on above: Performed By: #### L 500.4100, L500.4050, L100.0100 #### [facility] [address] [place], [address] Basophils/100 WBC (Bld) 0.5 % Normal 0-1 [facility] Comment on above: Performed By: #### L 500.4100, L500.4050, L100.0100 #### [facility] [address] [place], [address] Eosinophils/100 WBC (Bld) 2.2 % Normal 0-5 [facility] Comment on above: Performed By: #### L 500.4100, L500.4050, L100.0100 #### [facility] [address] [place], [address] Erythrocyte distribution width (RBC) [Ratio] 12.5 % Normal 11.6-14.6 [facility] Comment on above: Performed By: #### L 500.4100, L500.4050, L100.0100 #### [facility] [address] [place], [address] Hematocrit (Bld) [Volume fraction] 36.7 % Low 37-47 [facility] Comment on above: Performed By: #### L 500.4100, L500.4050, L100.0100 #### [facility] [address] [place], [address] Hemoglobin (Bld) [Mass/Vol] 12.4 g/dL Normal 12.0-15.0 [facility] Comment on above: Performed By: #### L 500.4100, L500.4050, L100.0100 #### [facility] [address] [place], [address] IG% 0.200 Normal 0.0-0.9 [facility] Comment on above: Result Comment: IG% - Immature Granulocytes (promyelocytes, myelocytes and metamyelocytes) > 1% indicates that a LEFT SHIFT is Present. Performed By: #### L 500.4100, L500.4050, L100.0100 #### [facility] [address] [place], [address] Lymphocytes/100 WBC (Bld) 27.8 % Normal 19-41 [facility] Comment on above: Performed By: #### L 500.4100, L500.4050, L100.0100 #### [facility] [address] [place], [address] MCH (RBC) [Entitic mass] 30.8 pg Normal 27.0-32.0 [facility] Comment on above: Performed By: #### L 500.4100, L500.4050, L100.0100 #### [facility] [address] [place], [address] MCHC (RBC) [Mass/Vol] 33.8 g/dL Normal 32-36 [facility] Comment on above: Performed By: #### L 500.4100, L500.4050, L100.0100 #### [facility] [address] [place], [address] MCV (RBC) [Entitic vol] 91.1 fL Normal 81-99 [facility] Comment on above: Performed By: #### L 500.4100, L500.4050, L100.0100 #### [facility] [address] [place], [address] Monocytes/100 WBC (Bld) 5.7 % Normal 0-10 [facility] Comment on above: Performed By: #### L 500.4100, L500.4050, L100.0100 #### [facility] [address] [place], [address] Neutrophils/100 WBC (Bld) 63.6 % Normal 47-70 [facility] Comment on above: Performed By: #### L 500.4100, L500.4050, L100.0100 #### [facility] [address] [place], [address] Nucleated RBC (Bld) [#/Vol] 0 10*3/uL Normal 0-5 [facility] Comment on above: Performed By: #### L 500.4100, L500.4050, L100.0100 #### [facility] [address] [place], [address] Platelet mean volume (Bld) [Entitic vol] 9.6 fL Normal 6.2-12.0 [facility] Comment on above: Performed By: #### L 500.4100, L500.4050, L100.0100 #### [facility] [address] [place], [address] Platelets (Bld) [#/Vol] 236 10*3/uL Normal 150-450 [facility] Comment on above: Performed By: #### L 500.4100, L500.4050, L100.0100 #### [facility] [address] [place], [address] RBC (Bld) [#/Vol] 4.03 10*6/uL Low 4.2-5.4 [facility] Comment on above: Performed By: #### L 500.4100, L500.4050, L100.0100 #### [facility] [address] [place], [address] RDW SD 41.6 fl Normal 35.1-43.9 [facility] Comment on above: Performed By: #### L 500.4100, L500.4050, L100.0100 #### [facility] [address] [place], [address] WBC (Bld) [#/Vol] 6.3 10*3/uL Normal 4.4-11.0 [facility] Comment on above: Performed By: #### L 500.4100, L500.4050, L100.0100 #### [facility] [address] [place], [address] Calculated very low density lipoprotein (VLDL) cholesterol measurementOrdered By: Ventura Noble on 10-21-2024 Calculated very low density lipoprotein (VLDL) cholesterol measurement 20 mg/dL 5-40 [facility] Carbon dioxide, total [Moles /volume] in Central venous bloodOrdered By: Ventura Noble on 10-21-2024 CO2 [Moles/Vol] 22.4 mmol/L 21.0-32.0 [facility] Chloride assayOrdered By: Dainelle Noble on 10-21-2024 Chloride [Moles/Vol] 106 mmol/L 98-108 [facility] Comprehensive Metabolic Prof ilon 10-21-2024 Albumin [Mass/Vol] 4.2 g/dL Normal 3.4-4.8 [facility] Comment on above: Performed By: #### L 500.4100, L500.4050, L100.0100 #### [facility] [address] [place], [address] Albumin/Globulin [Mass ratio] 1.6 {ratio} Normal 0.9-2.4 [facility] Comment on above: Performed By: #### L 500.4100, L500.4050, L100.0100 #### [facility] [address] [place], [address] ALK PHOS 77 U/L Normal 35-104 [facility] Comment on above: Performed By: #### L 500.4100, L500.4050, L100.0100 #### [facility] [address] [place], [address] ALT [Catalytic activity/Vol] 15 U/L Normal <=34 [facility] Comment on above: Performed By: #### L 500.4100, L500.4050, L100.0100 #### [facility] [address] [place], [address] AST [Catalytic activity/Vol] 24 U/L Normal <=31 [facility] Comment on above: Performed By: #### L 500.4100, L500.4050, L100.0100 #### [facility] [address] [place], [address] Bilirubin [Mass/Vol] 0.31 mg/dL Normal 0.00-1.30 [facility] Comment on above: Performed By: #### L 500.4100, L500.4050, L100.0100 #### [facility] [address] [place], [address] BUN/CRE 29.5 RATIO High 10-20 [facility] Comment on above: Performed By: #### L 500.4100, L500.4050, L100.0100 #### [facility] [address] [place], [address] Calcium [Mass/Vol] 9.9 mg/dL Normal 7.6-11.0 [facility] Comment on above: Performed By: #### L 500.4100, L500.4050, L100.0100 #### [facility] [address] [place], [address] Chloride [Moles/Vol] 106 mmol/L Normal 98-108 [facility] Comment on above: Performed By: #### L 500.4100, L500.4050, L100.0100 #### [facility] [address] [place], [address] CO2 [Moles/Vol] 22.4 mmol/L Normal 21.0-32.0 [facility] Comment on above: Performed By: #### L 500.4100, L500.4050, L100.0100 #### [facility] [address] [place], [address] Creatinine [Mass/Vol] 1.19 mg/dL Normal 0.70-1.20 [facility] Comment on above: Performed By: #### L 500.4100, L500.4050, L100.0100 #### [facility] [address] [place], [address] GAP 13 Normal 5-15 [facility] Comment on above: Performed By: #### L 500.4100, L500.4050, L100.0100 #### [facility] [address] [place], [address] GFR/1.73 sq M.predicted among non-blacks MDRD (S/P/Bld) [Vol rate/Area] 45 mL/min/{1.73_m2} Low >60 [facility] Comment on above: Result Comment: mL/m in/1.73m2 CKD-EPI Creatinine Equation (2020) Performed By: #### L 500.4100, L500.4050, L100.0100 #### [facility] [address] [place], [address] Globulin (S) [Mass/Vol] 2.6 g/dL Normal 2.2-4.2 [facility] Comment on above: Performed By: #### L 500.4100, L500.4050, L100.0100 #### [facility] [address] [place], [address] Glucose [Mass/Vol] 107 mg/dL High 70-99 [facility] Comment on above: Performed By: #### L 500.4100, L500.4050, L100.0100 #### [facility] [address] [place], [address] Potassium [Moles/Vol] 4.3 mmol/L Normal 3.3-5.1 [facility] Comment on above: Performed By: #### L 500.4100, L500.4050, L100.0100 #### [facility] [address] [place], [address] Sodium [Moles/Vol] 141 mmol/L Normal 133-145 [facility] Comment on above: Performed By: #### L 500.4100, L500.4050, L100.0100 #### [facility] [address] [place], [address] T PROT 6.9 g/dL Normal 5.9-8.4 [facility] Comment on above: Performed By: #### L 500.4100, L500.4050, L100.0100 #### [facility] [address] [place], [address] Urea nitrogen [Mass/Vol] 35 mg/dL High 4-19 [facility] Comment on above: Performed By: #### L 500.4100, L500.4050, L100.0100 #### [facility] [address] [place], [address] Eosinophil percentageOrdered By: Ventura Noble on 10-21-2024 Eosinophils/100 WBC (Bld) 2.2 % 0-5 [facility] Erythrocyte distribution wid th ratioOrdered By: Ventura Noble on 10-21-2024 Erythrocyte distribution width (RBC) [Ratio] 12.5 % 11.6-14.6 [facility] Erythrocyte distribution wid th standard deviationOrdered By: Ventura Noble on 10-21-2024 Erythrocyte distribution width (RBC) [Ratio] 41.6 fl 35.1-43.9 [facility] Glomerular filtration rate ( GFR) estimation/1.73 sq m using serum, plasma, or whole bOrdered By: Ventura Noble on 10-21-2024 GFR/1.73 sq M.predicted among non-blacks MDRD (S/P/Bld) [Vol rate/Area] 45 mL/min/{1.73_m2} Low >60 [facility] Comment on above: mL/min/1.73m2 CKD-EP I Creatinine Equation (2020) Hematocrit Auto (Bld) [Volum e fraction]Ordered By: Ventura Noble on 10-21-2024 Hematocrit (Bld) [Volume fraction] 36.7 % Low 37-47 [facility] Hemoglobin measurementOrdere d By: Ventura Noble on 10-21-2024 Hemoglobin (Bld) [Mass/Vol] 12.4 g/dL 12.0-15.0 [facility] Immature granulocytes/100 WB C Auto (Bld)Ordered By: Ventura Noble on 10-21-2024 Immature granulocytes/100 WBC (Bld) 0.200 % 0.0-0.9 [facility] Comment on above: IG% - Immature Granu locytes (promyelocytes, myelocytes and metamyelocytes) > 1% indicates that a LEFT SHIFT is Present. Internal Medicine Office Vis itobirgit 10-21-2024 Internal Medicine Office Visit [facility] [address] [place] [address] OFFICE VISIT Date of Service: 10/21/24 MR#: [id number] Acct: [id number] Name: PANCHO MARCELINO Rep #: [id number] : 1940 Provider: Dr. 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 Normal [facility] [place] [facility] LDL calc ser/plasOrdered By: Ventura Noble on 10-21-2024 Cholesterol in LDL [Mass/Vol] 181 mg/dL [facility] Comment on above: Hqhqnrsoko=409-585 m g/dL & Higher Cmsh=418 mg/dL or greater Laboratory - Chemistry and C hemistry - challengeOrdered By: Ventura Noble on 10-21-2024 AST [Catalytic activity/Vol] 24 U/L <32 [facility] Lipid Profileon 10-21-2024 CHOL:HDL 3.83 Normal [facility] Comment on above: Performed By: #### L 500.4100, L500.4050, L100.0100 #### [facility] [address] [place], [address] Cholesterol [Mass/Vol] 272 mg/dL High <=200 [facility] Comment on above: Result Comment: Chol esterol level, Desirable <200 mg/dL Borderline high cholesterol 200-239 mg/dL High cholesterol >=240 mg/dL Recommendations of the NCEP Adult Treatment Panel for the following risk-cutoff thresholds for the [place] population. Performed By: #### L 500.4100, L500.4050, L100.0100 #### [facility] [address] [place], [address] Cholesterol in HDL [Mass/Vol] 71 mg/dL Normal [facility] Comment on above: Result Comment: Sara onal Cholesterol Education Program (NCEP) guidelines: <40 mg/dL: Low HDL-cholesterol (major risk factor for CHD) >= 60 mg/dL: High HDL-cholesterol (negative risk factor for CHD) HDL-cholesterol is affected by a number of factors, e.g. smoking, exercise, hormones, sex and age. Performed By: #### L 500.4100, L500.4050, L100.0100 #### [facility] [address] [place], [address] Cholesterol in LDL [Mass/Vol] 181 mg/dL Normal [facility] Comment on above: Result Comment: Bord cicyra=424-027 mg/dL Higher Pzps=857 mg/dL or greater Performed By: #### L 500.4100, L500.4050, L100.0100 #### [facility] [address] [place] [place], [address] Cholesterol in VLDL [Mass/Vol] 20 mg/dL Normal 5-40 [facility] Comment on above: Performed By: #### L 500.4100, L500.4050, L100.0100 #### [facility] [address] [place], [address] Triglyceride [Mass/Vol] 100 mg/dL Normal [facility] Comment on above: Result Comment: The drugs N-Acetylcysteine and Metamizole may falsely depress this assay. Normal range: <150 mg/dL Borderline High: 150-199 mg/dL High: 200-499 mg/dL Very High: >500 mg/dL Performed By: #### L 500.4100, L500.4050, L100.0100 #### [facility] [address] [place], [address] MCV (mean corpuscular volume ) determinationOrdered By: Ventura Noble on 10-21-2024 MCV (RBC) [Entitic vol] 91.1 fL 81-99 [facility] Mean corpuscular hemoglobin (MCH) determinationOrdered By: Ventura Noble on 10-21-2024 MCH (RBC) [Entitic mass] 30.8 pg 27.0-32.0 [facility] Mean corpuscular hemoglobin concentration (MCHC) determinationOrdered By: Ventura Noble on 10-21-2024 MCHC (RBC) [Mass/Vol] 33.8 g/dL 32-36 [facility] Mean platelet volume determi nationOrdered By: Ventura Noble on 10-21-2024 Platelet mean volume (Bld) [Entitic vol] 9.6 fL 6.2-12.0 [facility] Monocyte percentageOrdered B y: Ventura Noble on 10-21-2024 Monocytes/100 WBC (Bld) 5.7 % 0-10 [facility] Neutrophil percentageOrdered By: Ventura Noble on 10-21-2024 Neutrophils/100 WBC (Bld) 63.6 % 47-70 [facility] Nucleated red blood cell per centageOrdered By: Ventura Noble on 10-21-2024 Nucleated RBC/100 WBC (Bld) [Ratio] 0 % 0-5 [facility] Platelet countOrdered By: Danielle Noble on 10-21-2024 Platelets (Bld) [#/Vol] 236 10*3/uL 150-450 [facility] Potassium measurement (mass/ volume)Ordered By: Ventura Noble on 10-21-2024 Potassium (Unsp spec) [Mass/Vol] 4.3 mmol/L 3.3-5.1 [facility] RBC Auto (Bld) [#/Vol]Ordere d By: Ventura Noble on 10-21-2024 RBC (Bld) [#/Vol] 4.03 10*6/uL Low 4.2-5.4 [facility] Screening total cholesterol/ high density lipoprotein (HDL) cholesterol ratioOrdered By: Ventura Noble on 10-21-2024 Cholesterol.total/Sara sterol in HDL [Mass ratio] 3.83 {ratio} [facility] Serum creatinine measurement (mass/volume)Ordered By: Ventura Noble on 10-21-2024 Creatinine [Mass/Vol] 1.19 mg/dL 0.70-1.20 [facility] Serum globulin measurementOr dered By: Ventura Noble on 10-21-2024 Globulin (S) [Mass/Vol] 2.6 g/dL 2.2-4.2 [facility] Serum glucose measurement (m ass/volume)Ordered By: Ventura Noble on 10-21-2024 Glucose [Mass/Vol] 107 mg/dL High 70-99 [facility] Serum or plasma alanine terry otransferase (ALT) measurementOrdered By: Ventura Noble on 10-21-2024 ALT [Catalytic activity/Vol] 15 U/L <35 [facility] Serum or plasma albumin shahriar urement (mass/volume)Ordered By: Ventura Noble on 10-21-2024 Albumin [Mass/Vol] 4.2 g/dL 3.4-4.8 [facility] Serum or plasma albumin/glob ulin mass ratioOrdered By: Ventura Noble on 10-21-2024 Albumin/Globulin [Mass ratio] 1.6 {ratio} 0.9-2.4 [facility] Serum or plasma alkaline caden sphatase measurementOrdered By: Ventura Noble on 10-21-2024 ALP [Catalytic activity/Vol] 77 U/L 35-104 [facility] Serum or plasma calcium shahriar urement (mass/volume)Ordered By: Ventura Noble 10-21-2024 Calcium [Mass/Vol] 9.9 mg/dL 7.6-11.0 [facility] Serum or plasma cholesterol in HDL measurement (mass/volume)Ordered By: Ventura Noble 10-21-2024 Cholesterol in HDL [Mass/Vol] 71 mg/dL >40 [facility] Comment on above: National Cholesterol Education Program (NCEP) guidelines:<40 mg/dL: Low HDL-cholesterol (major risk factor for CHD)>= 60 mg/dL: High HDL-cholesterol (negative risk factor for CHD)HDL-cholesterol is affected by a number of factors, e.g. smoking, exercise, hormones, sex and age. Serum or plasma cholesterol measurement (mass/volume)Ordered By: Ventura Noble on 10-21-2024 Cholesterol [Mass/Vol] 272 mg/dL High <201 [facility] Comment on above: Cholesterol level, D esirable <200 mg/dLBorderline high cholesterol 200-239 mg/dLHigh cholesterol >=240 mg/dLRecommendations of the NCEP Adult Treatment Panel for the following risk-cutoff thresholds for the [place] population. Serum or plasma urea nitroge n measurement (mass/volume)Ordered By: Ventura Noble on 10-21-2024 Urea nitrogen [Mass/Vol] 35 mg/dL High 4-19 [facility] Sodium levelOrdered By: Kranthi Noble on 10-21-2024 Sodium [Moles/Vol] 141 mmol/L 133-145 [facility] Total proteinOrdered By: Josh Noble on 10-21-2024 Protein [Mass/Vol] 6.9 g/dL 5.9-8.4 [facility] Triglycerides measurementOrd ered By: Ventura Noble on 10-21-2024 Triglyceride [Mass/Vol] 100 mg/dL <199 [facility] Comment on above: The drugs N-Acetylcy steine and Metamizole may falsely depress this assay. Normal range: <150 mg/dLBorderline High: 150-199 mg/dLHigh: 200-499 mg/dLVery High: >500 mg/dL White blood cell (WBC) count Ordered By: Ventura Noble on 10-21-2024 WBC (Bld) [#/Vol] 6.3 10*3/uL 4.4-11.0 [facility] CNPNon 08-01-2024 [place] Telephone (LG) PANCHO MARCELINO ([id number]) 1940 F Date Time Provider Department 08/01/24 DARCY MCBRIDE During your visit today, we [facility] the [facility]33 AM Signed Pancho Marcelino [phone], request referral for rectocele surgery as discussed [...] Status:Closed by EVELIO DUMONT on 08/01/24 Normal [facility] ANORECTAL MANOMET Adam 11-13-2023 Reason for testing: rectocele Ileoanal pouch: [...] of poor pelvic floor coordination. Margarita Torres APRN.BAG PRESS OPERATOR I have reviewed, verified, and confirmed the results of anorectal manometry, rectal sensation, tone and compliance testing and EMG testing. I agree with the impression as written above. Darcy Mcbride DO Colon & Rectal Surgery [facility] ANORECTAL MANOMET RYOrdered By: Darcy Mcbride on 11-13-2023 Radiology Study observation (narrative) [facility] Work Phone: CNOVon 11-13-2023 CNOV Office Visit (LG ) PANCHO MARCELINO ([id number]) 1940 F Date Time Provider Department 11/13/23 [...] for internal providers or letter via the [facility] Postal Service for external providers. Chief Complaint: [...] CENTRUM SILVER (more content not included)... Normal [facility] HISTORY PHYSICALon HISTORY PHYSICAL HNO ID: [id number] Author: DARCY MCBRIDE, DO Service: ? Author Type: Physician Type: H&P Filed: 11/14/2023 11:37 Note Text: [facility]OR[facility]AL SURGERY [facility] November 07, 2023 aPncho Marcelino 83 year old This consult was requested by Dr. Kaden Norton and my final recommendations will be communicated to the requesting health care provider by way of the shared medical record for internal providers or letter via the [facility] Postal Service for external providers. Chief Complaint: [...] for th (more content not included)... Normal [facility] No Panel InformationOrdered By: Darcy Mcbride on 11-13-2023 [facility] Work Phone: RF Gastrointestinal tract up per Views W water soluble contrast Beatriz 11-13-2023 IMPRESSION: CINEDEFECOGRAPHY DESCRIBED -- SEE SYNOPTIC REPORT FOR DETAILS. Industrial Safety Engineer: PSCB Transcribe Date/Time: Nov 13 2023 1:38P Dictated by : JOHN PAUL ZEPEDA MD This examination was interpreted and the report reviewed and electronically signed by: JOHN PAUL ZEPEDA MD on Nov 13 2023 4:12PM [facility] DIVISION OF RADIOLOGY * * *Final [...] (possible utetrovaginal prolapse) DIVISION OF RADIOLOGY Provider, [facility] - 11/13/2023 * * *Final Report* * [...] DESCRIBED -- SEE SYNOPTIC REPORT FOR DETAILS. Industrial Safety Engineer: SKIP Transcribe Date/Time: Nov 13 2023 1:38P Dictated by : JOHN PAUL ZEPEDA MD This examination was interpreted and the report reviewed and electronically signed by: JOHN PAUL ZEPEDA MD on Nov 13 2023 4:12PM EST [facility] Radiology Study observation (narrative) [facility] XR DEFECOGRAPHYon 11-13-2023 XR DEFECOGRAPHY * [...] DESCRIBED -- SEE SYNOPTIC REPORT FOR DETAILS. Industrial Safety Engineer: SKIP Transcribe Date/Time: Nov 13 2023 1:38P Dictated by : JOHN PAUL ZEPEDA MD This examination was interpreted and the report reviewed and electronically signed by: JOHN PAUL ZEPEAD MD on Nov 13 2023 4:12PM EST [id number] Normal [facility] Absolute lymphocyte countOrd ered By: Ventura Noble on 05-17-2023 Lymphocytes Auto (Unsp spec) [#/Vol] 1.69 10*3/uL 0.83-4.51 [facility] Basophil percentageOrdered B y: Kranthivetosevero Noble on 05-17-2023 Basophils/100 WBC (Bld) 0.7 % 0-1 [facility] Bilirubin [Mass/Vol] 0.50 mg/dL 0.20-1.00 [facility] Comment on above: For patients on eltr ombopag therapy, use of Dimension Trenary TBIL is not recommended. Chloride [Moles/Vol] 108 mmol/L 98-107 [facility] Cholesterol [Mass/Vol] 258 mg/dL <200 [facility] Comment on above: <200 mg/dL Desirable 200-240 mg/dL Borderline >240 mg/dL High Risk Eosinophils/100 WBC (Bld) 2.2 % 0-5 [facility] Glucose [Mass/Vol] 117 mg/dL 74-106 [facility] Comment on above: Fasting Glucose resu lt from 100 to 125 mg/dL suggests IMPAIRED HOMEOSTASIS per A.D.A. criteria. Neutrophils (Bld) [#/Vol] 5.3 10*3/uL 2.0-7.7 [facility] Neutrophils/100 WBC (Bld) 69.5 % 47-70 [facility] Potassium [Moles/Vol] 4.1 mmol/L 3.5-5.1 [facility] Protein [Mass/Vol] 7.4 g/dL 6.4-8.2 [facility] Sodium [Moles/Vol] 143 mmol/L 136-145 [facility] Triglyceride [Mass/Vol] 142 mg/dL <199 [facility] Comment on above: The drugs N-Acetylcy steine and Metamizole may falsely depress this assay.Serum Triglycerides Reference Interval Normal <150 mg/dL Borderline high 150 - 199 mg/dL High 200 - 499 mg/dL Very High > or = 500 mg/dL WBC (Bld) [#/Vol] 7.6 10*3/uL 4.4-11.0 [facility] Blood erythrocytes count (nu mber/volume)Ordered By: Ventura Noble on 05-17-2023 RBC (Bld) [#/Vol] 4.53 10*6/uL 4.2-5.4 [facility] Blood hemoglobin measurement (mass/volume)Ordered By: Ventura Noble on 05-17-2023 Hemoglobin (Bld) [Mass/Vol] 13.7 g/dL 12.0-15.0 [facility] Blood lymphocytes/100 leukoc ytesOrdered By: thierry Noble on 05-17-2023 Lymphocytes/100 WBC (Bld) 22.1 % 19-41 [facility] Blood monocytes/100 leukocyt esOrdered By: thierry Noble on 05-17-2023 Monocytes/100 WBC (Bld) 5.1 % 0-10 [facility] Blood platelet mean volumeOr dered By: thieryr Noble on 05-17-2023 Platelet mean volume (Bld) [Entitic vol] 9.6 fL 6.2-12.0 [facility] Determination of erythrocyte mean corpuscular volume (MCV)Ordered By: Ventura Noble on 05-17-2023 MCV (RBC) [Entitic vol] 94.3 fL 81-99 [facility] Hematocrit Auto (Bld) [Volum e fraction]Ordered By: thierry Noble on 05-17-2023 Hematocrit (Bld) [Volume fraction] 42.7 % 37-47 [facility] Laboratory - Chemistry and C hemistry - challengeOrdered By: Ventura Noble on 05-17-2023 ALP [Catalytic activity/Vol] 91 U/L 45-117 [facility] ALT [Catalytic activity/Vol] 21 U/L 13-56 [facility] CO2 [Moles/Vol] 28.0 mmol/L 21.0-32.0 [facility] Globulin (S) [Mass/Vol] 3.5 g/dL 2.2-4.2 [facility] Urea nitrogen/Creatinine [Mass ratio] 19.8 mg/mg 10-20 [facility] Laboratory - Hematology and Cell countsOrdered By: thierry Noble on 05-17-2023 Erythrocyte distribution width (RBC) [Entitic vol] 43.4 fL 35.1-43.9 [facility] Erythrocyte distribution width (RBC) [Ratio] 12.6 % 11.6-14.6 [facility] Immature granulocytes/100 WBC (Bld) 0.400 % 0.0-0.9 [facility] Comment on above: IG% - Immature Granu locytes (promyelocytes, myelocytes and metamyelocytes) > 1% indicates that a LEFT SHIFT is Present. MCH (RBC) [Entitic mass] 30.2 pg 27.0-32.0 [facility] Nucleated RBC/100 WBC (Bld) [Ratio] 0 % 0-5 [facility] MCHC Auto (RBC) [Mass/Vol]Or dered By: Ventura Noble on 05-17-2023 MCHC (RBC) [Mass/Vol] 32.1 g/dL 32-36 [facility] No Panel InformationOrdered By: Ventura Noble on 05-17-2023 Estimated GFR (MDRD) Amer 64 mL/min >60 [facility] Comment on above: GFR Calc Estimated GFR (MDRD) Non-Af Amer 53 mL/min >60 [facility] Comment on above: Non- GFR Calc Platelets bldOrdered By: Josh Noble on 05-17-2023 Platelets (Bld) [#/Vol] 266 10*3/uL 150-450 [facility] Serum or plasma albumin shahriar urement (mass/volume)Ordered By: Ventura Noble on 05-17-2023 Albumin [Mass/Vol] 3.9 g/dL 3.2-5.0 [facility] Serum or plasma albumin/glob ulin mass ratioOrdered By: Ventura Noble on 05-17-2023 Albumin/Globulin [Mass ratio] 1.1 {ratio} 0.9-2.4 [facility] Serum or plasma calcium shahriar urement (mass/volume)Ordered By: Ventura Noble on 05-17-2023 Calcium [Mass/Vol] 9.3 mg/dL 8.5-10.1 [facility] Serum or plasma cholesterol in HDL measurement (mass/volume)Ordered By: Ventura Noble on 05-17-2023 Cholesterol in HDL [Mass/Vol] 82 mg/dL >40 [facility] Comment on above: The drugs N-Acetylcy steine and Metamizole may falsely depress this assay. Reference Range HDL <40 mg/dL Low HDL Cholesterol HDL >or= 60 mg/dL High HDL Cholesterol Serum or plasma cholesterol in VLDL measurement (mass/volume)Ordered By: Ventura Noble on 05-17-2023 Cholesterol in VLDL [Mass/Vol] 28 mg/dL 5-40 [facility] Serum or plasma creatinine m easurement (mass/volume)Ordered By: Ventura Noble on 05-17-2023 Creatinine [Mass/Vol] 1.06 mg/dL 0.55-1.02 [facility] Comment on above: The validity of the calculated GFR & GFRAA in patients over 70 years has not been determined. Clinical correlation is essential. Serum or plasma low density lipoprotein (LDL) cholesterol measurement (mass/volume)Ordered By: Ventura Noble on 05-17-2023 Cholesterol in LDL [Mass/Vol] 148 mg/dL 0-130 [facility] Serum or plasma urea nitroge n measurement (mass/volume)Ordered By: Kranthicedar mountainsevero Noble on 05-17-2023 Urea nitrogen [Mass/Vol] 21 mg/dL 7-18 [facility] Thin prep Papanicolaou smear with manual screeningOrdered By: Ventura Noble on 05-17-2023 Thin prep Papanicolaou smear with manual screening 22 U/L 15-37 [facility] Thin prep Papanicolaou smear with manual screening 7 5-15 [facility] COLONOSCOPY (THERAPEUTIC)on 09-20-2022 [facility] Basophil percentageon 2021 WBC (Bld) [#/Vol] 9.0 10*3/uL 4.4-11.0 [facility] Work Phone: Chloride [Moles/Vol] 105 mmol/L 98-107 [facility] Work Phone: Glucose [Mass/Vol] 105 mg/dL 74-106 [facility] Work Phone: Comment on above: Fasting Glucose resu lt from 100 to 125 mg/dL suggests IMPAIRED HOMEOSTASIS per A.D.A. criteria. Potassium [Moles/Vol] 4.0 mmol/L 3.5-5.1 [facility] Work Phone: Sodium [Moles/Vol] 139 mmol/L 136-[facility] Work Phone: Blood erythrocytes count (nu mber/volume)on 03-18-2022 RBC (Bld) [#/Vol] 3.79 10*6/uL 4.2-5.4 [facility]: Blood hemoglobin measurement (mass/volume)on 03-18-2022 Hemoglobin (Bld) [Mass/Vol] 11.8 g/dL 12.0-15.0 [facility] Work Phone: Blood platelet mean volumeon 03-18-2022 Platelet mean volume (Bld) [Entitic vol] 9.2 fL 6.2-12.0 [facility] Work Phone: Determination of erythrocyte mean corpuscular volume (MCV)on 03-18-2022 MCV (RBC) [Entitic vol] 91.3 fL 81-99 [facility] Work Phone: Hematocrit Auto (Bld) [Volum e fraction]on 03-18-2022 Hematocrit (Bld) [Volume fraction] 34.6 % 37-47 [facility] Work Phone: Laboratory - Chemistry and C hemistry - challengeon 03-18-2022 CO2 [Moles/Vol] 29.0 mmol/L 21.0-32.0 [facility] Work Phone: Urea nitrogen/Creatinine [Mass ratio] 16.6 mg/mg 10-20 [facility] Work Phone: Laboratory - Hematology and Cell countson 03-18-2022 Erythrocyte distribution width (RBC) [Entitic vol] 44.6 fL 35.1-43.9 [facility] Work Phone: Erythrocyte distribution width (RBC) [Ratio] 13.2 % 11.6-14.6 [facility] Work Phone: MCH (RBC) [Entitic mass] 31.1 pg 27.0-32.0 [facility] Work Phone: MCHC Auto (RBC) [Mass/Vol]on 03-18-2022 MCHC (RBC) [Mass/Vol] 34.1 g/dL 32-36 [facility] Work Phone: No Panel Informationon 03-18 Estimated Creatinine Clearance Calc 41.24 ml/min [facility] Work Phone: Estimated GFR (MDRD) Amer 77 mL/min >60 [facility] Work Phone: Comment on above: GFR Calc Estimated GFR (MDRD) Non-Af Amer 64 mL/min >60 [facility] Work Phone: Comment on above: Non- GFR Calc Platelets bldon 03-18-2022 Platelets (Bld) [#/Vol] 242 10*3/uL 150-450 [facility] Work Phone: Serum or plasma calcium shahriar urement (mass/volume)on 03-18-2022 Calcium [Mass/Vol] 9.3 mg/dL 8.5-10.1 [facility] Work Phone: Serum or plasma creatinine m easurement (mass/volume)on 03-18-2022 Creatinine [Mass/Vol] 0.90 mg/dL 0.55-1.02 [facility] Work Phone: Comment on above: The validity of the calculated GFR & GFRAA in patients over 70 years has not been determined. Clinical correlation is essential. Serum or plasma urea nitroge n measurement (mass/volume)on 03-18-2022 Urea nitrogen [Mass/Vol] 15 mg/dL 7-18 [facility] Work Phone: Thin prep Papanicolaou smear with manual screeningon 03-18-2022 Thin prep Papanicolaou smear with manual screening 5 5-15 [facility] Work Phone: Glucose Glucometer (BldC) [M ass/Vol]on 03-17-2022 Glucose [Mass/Vol] 96 mg/dL 74-106 [facility] Work Phone: Comment on above: MANAGEMENT OF PATIEN T CARE PER NURSING PROTOCOL Basophil percentageon 2021 Bilirubin [Mass/Vol] 0.50 mg/dL 0.20-1.00 [facility] Work Phone: Comment on above: For patients on eltr ombopag therapy, use of Dimension Trenary TBIL is not recommended. Protein [Mass/Vol] 6.8 g/dL 6.4-8.2 [facility] Work Phone: Direct bilirubinon 2 Bilirubin.direct [Mass/Vol] 0.14 mg/dL 0.00-0.30 [facility] Work Phone: INR in Blood by Coagulation assayon 03-08-2022 INR Coag (Bld) [Relative time] 1.0 {INR} [facility] Work Phone: Laboratory - Chemistry and C hemistry - challengeon 03-08-2022 ALP [Catalytic activity/Vol] 65 U/L 45-117 [facility] Work Phone: ALT [Catalytic activity/Vol] 22 U/L 13-56 [facility] Work Phone: Globulin (S) [Mass/Vol] 3.1 g/dL 2.2-4.2 [facility] Work Phone: Magnesium [Mass/Vol] 2.0 mg/dL 1.6-2.6 [facility] Work Phone: Laboratory - Coagulationon 1 aPTT Coag (Bld) [Time] 24.5 s 24.1-36.2 [facility] Work Phone: PT Coag (PPP) [Time] 12.7 s 11.7-14.9 [facility] Work Phone: Serum or plasma albumin shahriar urement (mass/volume)on 03-08-2022 Albumin [Mass/Vol] 3.7 g/dL 3.2-5.0 [facility] Work Phone: Thin prep Papanicolaou smear with manual screeningon 03-08-2022 Thin prep Papanicolaou smear with manual screening 18 U/L 15-37 [facility] Work Phone: Absolute lymphocyte counton 02-04-2022 Lymphocytes Auto (Unsp spec) [#/Vol] 1.71 10*3/uL 0.83-4.51 [facility] Work Phone: Basophil percentageon 2021 Basophils/100 WBC (Bld) 0.5 % 0-1 [facility] Work Phone: Bilirubin [Mass/Vol] 0.30 mg/dL 0.20-1.00 [facility] Work Phone: Comment on above: For patients on eltr ombopag therapy, use of Dimension Trenary TBIL is not recommended. Chloride [Moles/Vol] 105 mmol/L 98-107 [facility] Work Phone: Eosinophils/100 WBC (Bld) 1.5 % 0-5 [facility] Work Phone: Glucose [Mass/Vol] 86 mg/dL 74-106 [facility] Work Phone: Neutrophils (Bld) [#/Vol] 4.9 10*3/uL 2.0-7.7 [facility] Work Phone: [phone] Neutrophils/100 WBC (Bld) 67.3 % 47-70 [facility] Work Phone: [phone] Potassium [Moles/Vol] 4.0 mmol/L 3.5-5.1 [facility] Work Phone: Protein [Mass/Vol] 6.9 g/dL 6.4-8.2 [facility] Work Phone: Sodium [Moles/Vol] 140 mmol/L 136-145 [facility] Work Phone: WBC (Bld) [#/Vol] 7.3 10*3/uL 4.4-11.0 [facility] Work Phone: Blood erythrocytes count (nu mber/volume)on 02-04-2022 RBC (Bld) [#/Vol] 4.21 10*6/uL 4.2-5.4 [facility] Work Phone: Blood hemoglobin measurement (mass/volume)on 02-04-2022 Hemoglobin (Bld) [Mass/Vol] 12.9 g/dL 12.0-15.0 [facility] Work Phone: Blood lymphocytes/100 leukoc yteson 02-04-2022 Lymphocytes/100 WBC (Bld) 23.5 % 19-41 [facility] Work Phone: Blood monocytes/100 leukocyt eson 02-04-2022 Monocytes/100 WBC (Bld) 6.9 % 0-10 [facility] Work Phone: Blood platelet mean volumeon 02-04-2022 Platelet mean volume (Bld) [Entitic vol] 9.2 fL 6.2-12.0 [facility] Work Phone: Determination of erythrocyte mean corpuscular volume (MCV)on 02-04-2022 MCV (RBC) [Entitic vol] 94.1 fL 81-99 [facility] Work Phone: Hematocrit Auto (Bld) [Volum e fraction]on 02-04-2022 Hematocrit (Bld) [Volume fraction] 39.6 % 37-47 [facility] Work Phone: Laboratory - Chemistry and C hemistry - challengeon 02-04-2022 ALP [Catalytic activity/Vol] 65 U/L 45-117 [facility] Work Phone: ALT [Catalytic activity/Vol] 28 U/L 13-56 [facility] Work Phone: CO2 [Moles/Vol] 30.0 mmol/L 21.0-32.0 [facility] Work Phone: Globulin (S) [Mass/Vol] 3.4 g/dL 2.2-4.2 [facility] Work Phone: Urea nitrogen/Creatinine [Mass ratio] 27.2 mg/mg 10-20 [facility] Work Phone: Laboratory - Hematology and Cell countson 02-04-2022 Erythrocyte distribution width (RBC) [Entitic vol] 45.8 fL 35.1-43.9 [facility] Work Phone: Erythrocyte distribution width (RBC) [Ratio] 13.2 % 11.6-14.6 [facility] Work Phone: Immature granulocytes/100 WBC (Bld) 0.300 % 0.0-0.9 [facility] Work Phone: Comment on above: IG% - Immature Granu locytes (promyelocytes, myelocytes and metamyelocytes) > 1% indicates that a LEFT SHIFT is Present. MCH (RBC) [Entitic mass] 30.6 pg 27.0-32.0 [facility] Work Phone: Nucleated RBC/100 WBC (Bld) [Ratio] 0 % 0-5 [facility] Work Phone: MCHC Auto (RBC) [Mass/Vol]on 02-04-2022 MCHC (RBC) [Mass/Vol] 32.6 g/dL 32-36 [facility] Work Phone: No Panel Informationon 02-04 Estimated GFR (MDRD) Amer 76 mL/min >60 [facility] Work Phone: Comment on above: GFR Calc Estimated GFR (MDRD) Non-Af Amer 62 mL/min >60 [facility] Work Phone: Comment on above: Non- GFR Calc Platelets bldon 02-04-2022 Platelets (Bld) [#/Vol] 244 10*3/uL 150-450 [facility] Work Phone: Serum or plasma albumin shahriar urement (mass/volume)on 02-04-2022 Albumin [Mass/Vol] 3.5 g/dL 3.2-5.0 [facility] Work Phone: Serum or plasma albumin/glob ulin mass ratioon 02-04-2022 Albumin/Globulin [Mass ratio] 1.0 {ratio} 0.9-2.4 [facility] Work Phone: Serum or plasma calcium shahriar urement (mass/volume)on 02-04-2022 Calcium [Mass/Vol] 9.5 mg/dL 8.5-10.1 [facility] Work Phone: Serum or plasma creatinine m easurement (mass/volume)on 02-04-2022 Creatinine [Mass/Vol] 0.92 mg/dL 0.55-1.02 [facility] Work Phone: Comment on above: The validity of the calculated GFR & GFRAA in patients over 70 years has not been determined. Clinical correlation is essential. Serum or plasma urea nitroge n measurement (mass/volume)on 02-04-2022 Urea nitrogen [Mass/Vol] 25 mg/dL 7-18 [facility] Work Phone: Thin prep Papanicolaou smear with manual screeningon 02-04-2022 Thin prep Papanicolaou smear with manual screening 18 U/L 15-37 [facility] Work Phone: Thin prep Papanicolaou smear with manual screening 5 5-15 [facility] Work Phone: Basophil percentageon 2021 Basophil percentage 0-5 SEEN /hpf 0-5 [facility] Work Phone: Bilirubin Test strip Ql (U)o n 10-26-2021 Bilirubin Ql (U) Negative Negative [facility] Work Phone: Ketones Test strip Ql (U)on 10-26-2021 Ketones Ql (U) Negative Negative [facility] Work Phone: Mucus LM Ql (Urine sed)on Mucus Ql (Urine sed) 0 SEEN /hpf [facility] Work Phone: Nitrite Test strip Ql (U)on 10-26-2021 Nitrite Ql (U) Negative Negative [facility] Work Phone: Protein Test strip Ql (U)on 10-26-2021 Protein Ql (U) Negative Negative [facility] Work Phone: Squamous epithelial cells de tection in urine sediment by light microscopyon 10-26-2021 Epithelial cells.squamous LM Ql (Urine sed) 0-5 SEEN /hpf 5-10 [facility] Work Phone: Urine blood detectionon 10-13 RBC Ql (U) Negative Negative [facility] Work Phone: RBC Ql (U) 0 SEEN /hpf 0-5 [facility] Work Phone: Urine clarityon 10-26-2021 Clarity (U) Clear Clear [facility] Work Phone: Urine color determinationon 10-26-2021 Color (U) Yellow Yellow [facility] Work Phone: Urine glucose detectionon Glucose Ql (U) Normal mg/dl Normal [facility] Work Phone: Urine leukocyte esterase det ection by dipstickon 10-26-2021 Leukocyte esterase Test strip Ql (U) Negative Negative [facility] Work Phone: Urine pHon 10-26-2021 pH (U) 6.5 [pH] 5.0 - 8.0 [facility] Work Phone: Urine sediment bacteria coun t by microscopy (number/high power field)on 10-26-2021 Bacteria LM.HPF (Urine sed) [#/Area] RARE /hpf None Seen [facility] Work Phone: Urine specific gravity measu rementon 10-26-2021 Specific gravity (U) [Rel density] 1.010 1.002-1.030 [facility] Work Phone: Urobilinogen Auto test strip Ql (U)on 10-26-2021 Urobilinogen Ql (U) Normal mg/dl Normal [facility] Work Phone: Absolute lymphocyte counton 08-31-2021 Lymphocytes Auto (Unsp spec) [#/Vol] 1.66 10*3/uL 0.83-4.51 [facility] Work Phone: Basophil percentageon 2021 Basophils/100 WBC (Bld) 0.6 % 0-1 [facility] Work Phone: Bilirubin [Mass/Vol] 0.30 mg/dL 0.20-1.00 [facility] Work Phone: Comment on above: For patients on eltr ombopag therapy, use of Dimension Trenary TBIL is not recommended. Chloride [Moles/Vol] 107 mmol/L 98-107 [facility] Work Phone: Eosinophils/100 WBC (Bld) 4.4 % 0-5 [facility] Work Phone: Glucose [Mass/Vol] 112 mg/dL 74-106 [facility] Work Phone: Comment on above: Fasting Glucose resu lt from 100 to 125 mg/dL suggests IMPAIRED HOMEOSTASIS per A.D.A. criteria. Neutrophils (Bld) [#/Vol] 2.7 10*3/uL 2.0-7.7 [facility] Work Phone: Neutrophils/100 WBC (Bld) 54.7 % 47-70 [facility] Work Phone: [phone] Potassium [Moles/Vol] 4.2 mmol/L 3.5-5.1 [facility] Work Phone: Protein [Mass/Vol] 7.0 g/dL 6.4-8.2 [facility] Work Phone: Sodium [Moles/Vol] 141 mmol/L 136-145 [facility] Work Phone: WBC (Bld) [#/Vol] 5.0 10*3/uL 4.4-11.0 [facility] Work Phone: Blood erythrocytes count (nu mber/volume)on 08-31-2021 RBC (Bld) [#/Vol] 4.22 10*6/uL 4.2-5.4 [facility] Work Phone: Blood hemoglobin measurement (mass/volume)on 08-31-2021 Hemoglobin (Bld) [Mass/Vol] 12.8 g/dL 12.0-15.0 [facility] Work Phone: Blood lymphocytes/100 leukoc yteson 08-31-2021 Lymphocytes/100 WBC (Bld) 33.3 % 19-41 [facility] Work Phone: Blood monocytes/100 leukocyt eson 08-31-2021 Monocytes/100 WBC (Bld) 6.6 % 0-10 [facility] Work Phone: Blood platelet mean volumeon 08-31-2021 Platelet mean volume (Bld) [Entitic vol] 9.6 fL 6.2-12.0 [facility] Work Phone: Determination of erythrocyte mean corpuscular volume (MCV)on 08-31-2021 MCV (RBC) [Entitic vol] 91.9 fL 81-99 [facility] Work Phone: Hematocrit Auto (Bld) [Volum e fraction]on 08-31-2021 Hematocrit (Bld) [Volume fraction] 38.8 % 37-47 [facility] Work Phone: Laboratory - Chemistry and C hemistry - challengeon 08-31-2021 ALP [Catalytic activity/Vol] 69 U/L 45-117 [facility] Work Phone: ALT [Catalytic activity/Vol] 24 U/L 13-56 [facility] Work Phone: CO2 [Moles/Vol] 31.0 mmol/L 21.0-32.0 [facility] Work Phone: Globulin (S) [Mass/Vol] 3.3 g/dL 2.2-4.2 [facility] Work Phone: Urea nitrogen/Creatinine [Mass ratio] 21.9 mg/mg 10-20 [facility] Work Phone: Laboratory - Hematology and Cell countson 08-31-2021 Erythrocyte distribution width (RBC) [Entitic vol] 41.9 fL 35.1-43.9 [facility] Work Phone: Erythrocyte distribution width (RBC) [Ratio] 12.5 % 11.6-14.6 [facility] Work Phone: Immature granulocytes/100 WBC (Bld) 0.400 % 0.0-0.9 [facility] Work Phone: Comment on above: IG% - Immature Granu locytes (promyelocytes, myelocytes and metamyelocytes) > 1% indicates that a LEFT SHIFT is Present. MCH (RBC) [Entitic mass] 30.3 pg 27.0-32.0 [facility] Work Phone: Nucleated RBC/100 WBC (Bld) [Ratio] 0 % 0-5 [facility] Work Phone: MCHC Auto (RBC) [Mass/Vol]on 08-31-2021 MCHC (RBC) [Mass/Vol] 33.0 g/dL 32-36 [facility] Work Phone: No Panel Informationon 08-31 Estimated GFR (MDRD) Amer 59 mL/min >60 [facility] Work Phone: Comment on above: GFR Calc Estimated GFR (MDRD) Non-Af Amer 49 mL/min >60 [facility] Work Phone: Comment on above: Non- GFR Calc Thyroid Stimulating Hormone (TSH) 2.26 uIU/mL 0.358-3.74 [facility] Work Phone: Platelets bldon 08-31-2021 Platelets (Bld) [#/Vol] 239 10*3/uL 150-450 [facility] Work Phone: Serum or plasma albumin shahriar urement (mass/volume)on 08-31-2021 Albumin [Mass/Vol] 3.7 g/dL 3.2-5.0 [facility] Work Phone: Serum or plasma albumin/glob ulin mass ratioon 08-31-2021 Albumin/Globulin [Mass ratio] 1.1 {ratio} 0.9-2.4 [facility] Work Phone: Serum or plasma calcium shahriar urement (mass/volume)on 08-31-2021 Calcium [Mass/Vol] 9.2 mg/dL 8.5-10.1 [facility] Work Phone: Serum or plasma creatinine m easurement (mass/volume)on 08-31-2021 Creatinine [Mass/Vol] 1.14 mg/dL 0.55-1.02 [facility] Work Phone: Comment on above: The validity of the calculated GFR & GFRAA in patients over 70 years has not been determined. Clinical correlation is essential. Serum or plasma urea nitroge n measurement (mass/volume)on 08-31-2021 Urea nitrogen [Mass/Vol] 25 mg/dL 7-18 [facility] Work Phone: Thin prep Papanicolaou smear with manual screeningon 08-31-2021 Thin prep Papanicolaou smear with manual screening 17 U/L 15-37 [facility] Work Phone: Thin prep Papanicolaou smear with manual screening 3 5-15 [facility] Work Phone: Office Visit: New Pt. Visito n 01-11-2017 Fall risk assessment No [facility] Work Phone: Protein mass conc Done [facility] Work Phone: Tobacco smoking status NHIS Never smoker [facility] Work Phone: Office Visit: evaluation for TBSEon 07-30-2014 Protein mass conc no [facility] Work Phone: Tobacco smoking status NHIS Never [facility] Work Phone: [phone] Culture, urine Bacteria identified Cx Nom (U) Positive [facility] Work Phone: No Panel Information Nasal Screen MRSA/MSSA [facility] Work Phone: Vital Signs Date Time Vital Sign Value Performing Clinician Facility 02-12-2025 11:19-0400 Body height 160.[address] Ventura Noble MD Work Phone: [facility] 02-12-2025 11:19-0400 Body mass index (BMI) [Ratio] 25.4 kg/m2 Dr. Ventura Noble MD Work Phone: [facility] 02-12-2025 11:19-0400 Body temperature 97.4 [degF] Dr. Ventura Noble MD Work Phone: [facility] 02-12-2025 11:19-0400 Body weight 65.[address] Ventura Noble MD Work Phone: [facility] 02-12-2025 11:19-0400 Diastolic blood pressure 78 mm[Hg] Dr. Ventura Noble MD Work Phone: [facility] 02-12-2025 11:19-0400 Heart rate 83 /min Dr. Ventura Noble MD Work Phone: [facility] 02-12-2025 11:19-0400 Respiratory rate 16 /min Dr. Ventura Noble MD Work Phone: [facility] 02-12-2025 11:19-0400 SaO2% (BldA) [Mass fraction] 100 % Dr. Ventura Noble MD Work Phone: [facility] 02-12-2025 11:19-0400 Systolic blood pressure 132 mm[Hg] Dr. Ventura Noble MD Work Phone: [facility] 11-13-2023 13:21-0400 Body height 164.5 cm Darcy Arsen DO Work Phone: [facility] 11-13-2023 13:21-0400 Body mass index (BMI) [Ratio] 23.48 kg/m2 Darcy Arsen DO Work Phone: [facility] 11-13-2023 13:21-0400 Body temperature 97.59 [degF] Darcy Arsen DO Work Phone: [facility] 11-13-2023 13:21-0400 Body weight 63.5 kg Darcy Arsen DO Work Phone: [facility] 11-13-2023 13:21-0400 Diastolic blood pressure 68 mm[Hg] Darcy Arsen DO Work Phone: [facility] 11-13-2023 13:21-0400 Heart rate 87 /min Darcy Arsen DO Work Phone: [facility] 11-13-2023 13:21-0400 SaO2% (BldA) [Mass fraction] 97 % Darcy Arsen DO Work Phone: [facility] 11-13-2023 13:21-0400 Systolic blood pressure 172 mm[Hg] Darcy Arsen DO Work Phone: [facility] 05-25-2023 14:51-0500 Body height 160.[address] Ventura Noble Work Phone: [facility] 05-25-2023 14:51-0500 Body mass index (BMI) [Ratio] 26.3 kg/m2 Dr. Ventura Noble Work Phone: [facility] 05-25-2023 14:51-0500 Body temperature 97.9 [degF] Dr. Ventura Noble Work Phone: [facility] 05-25-2023 14:51-0500 Body weight 67.[address] Ventura Noble Work Phone: [facility] 05-25-2023 14:51-0500 Diastolic blood pressure 80 mm[Hg] Dr. Ventura Noble Work Phone: [facility] 05-25-2023 14:51-0500 Heart rate 69 /min Dr. Ventura Noble Work Phone: [facility] 05-25-2023 14:51-0500 Respiratory rate 16 /min Dr. Ventura Noble Work Phone: [facility] 05-25-2023 14:51-0500 SaO2% (BldA) [Mass fraction] 99 % Dr. Ventura Noble Work Phone: [facility] 05-25-2023 14:51-0500 Systolic blood pressure 158 mm[Hg] Dr. Ventura Noble Work Phone: [facility] 09-20-2022 10:05-0400 Diastolic blood pressure 59 mm[Hg] Kaden Norton MD Work Phone: [facility] 09-20-2022 10:05-0400 Heart rate 64 /min Kaden Norton MD Work Phone: [facility] 09-20-2022 10:05-0400 Respiratory rate 16 /min Kaden Norton MD Work Phone: [facility] 09-20-2022 10:05-0400 SaO2% (BldA) [Mass fraction] 97 % Kaden Norton MD Work Phone: [facility] 09-20-2022 10:05-0400 Systolic blood pressure 131 mm[Hg] Kaden Norton MD Work Phone: [facility] 09-20-2022 08:03-0400 Body temperature 96.91 [degF] Kaden Norton MD Work Phone: [facility] 09-20-2022 08:03-0400 Body weight 66.3 kg Kaden Norton MD Work Phone: [facility] 08-11-2022 08:59-0400 Body height 165.1 cm Kaden Norton MD Work Phone: [facility] 08-11-2022 08:59-0400 Body temperature 96.69 [degF] Kaden Norton MD Work Phone: [facility] 08-11-2022 08:59-0400 Body weight 66.32 kg Kaden Norton MD Work Phone: [facility] 08-11-2022 08:59-0400 Diastolic blood pressure 68 mm[Hg] Kaden Norton MD Work Phone: [facility] 08-11-2022 08:59-0400 Heart rate 62 /min Kaden Norton MD Work Phone: [facility] 08-11-2022 08:59-0400 SaO2% (BldA) [Mass fraction] 100 % Kaden Norton MD Work Phone: [facility] 08-11-2022 08:59-0400 Systolic blood pressure 110 mm[Hg] Kaden Norton MD Work Phone: [facility] 03-18-2022 10:29-0400 Diastolic blood pressure 63 mm[Hg] Dr. Ventura Noble Work Phone: [facility] Work Phone: 03-18-2022 10:29-0400 Heart rate 78 /min Dr. Ventura Noble Work Phone: [facility] Work Phone: 03-18-2022 10:29-0400 Respiratory rate 18 /min Dr. Ventura Noble Work Phone: [facility] Work Phone: 03-18-2022 10:29-0400 SaO2% (BldA) [Mass fraction] 97 % Dr. Ventura Noble Work Phone: [facility] Work Phone: 03-18-2022 10:29-0400 Systolic blood pressure 148 mm[Hg] Dr. Ventura Noble Work Phone: [facility] Work Phone: 03-18-2022 08:08-0400 Body temperature 98.1 [degF] Dr. Ventura Noble Work Phone: [facility] Work Phone: 03-18-2022 05:39-0400 Inhaled oxygen flow rate 2 L/min Dr. Ventura Noble Work Phone: [facility] Work Phone: 03-17-2022 13:15-0400 Body height 160.[address] Ventura Noble Work Phone: [facility] Work Phone: 03-17-2022 13:15-0400 Body mass index (BMI) [Ratio] 24.5 kg/m2 Dr. Ventura Noble Work Phone: [facility] Work Phone: 03-17-2022 13:15-0400 Body weight [address] Ventura Noble Work Phone: [facility] Work Phone: 02-04-2022 13:28-0400 Body height 162.[address] Ventura Noble Work Phone: [facility] Work Phone: 02-04-2022 13:28-0400 Body mass index (BMI) [Ratio] 24.4 kg/m2 Dr. Ventura Noble Work Phone: [facility] Work Phone: 02-04-2022 13:28-0400 Body temperature 96.8 [degF] Dr. Ventura Noble Work Phone: [facility] Work Phone: 02-04-2022 13:28-0400 Body weight 64.[address] Ventura Noble Work Phone: [facility] Work Phone: 02-04-2022 13:28-0400 Diastolic blood pressure 80 mm[Hg] Dr. Ventura Noble Work Phone: [facility] Work Phone: 02-04-2022 13:28-0400 Heart rate 72 /min Dr. Ventura Noble Work Phone: [facility] Work Phone: 02-04-2022 13:28-0400 Respiratory rate 18 /min Dr. Ventura Noble Work Phone: [facility] Work Phone: 02-04-2022 13:28-0400 SaO2% (BldA) [Mass fraction] 99 % Dr. Ventura Noble Work Phone: [facility] Work Phone: 02-04-2022 13:28-0400 Systolic blood pressure 156 mm[Hg] Dr. Ventura Noble Work Phone: [facility] Work Phone: 10-26-2021 14:23-0400 Body height 162.[address] Ventura Noble Work Phone: [facility] Work Phone: 10-26-2021 14:23-0400 Body mass index (BMI) [Ratio] 24.5 kg/m2 Dr. Ventura Noble Work Phone: [facility] Work Phone: 10-26-2021 14:23-0400 Body temperature 97.5 [degF] Dr. Ventura Noble Work Phone: [facility] Work Phone: 10-26-2021 14:23-0400 Body weight 64.[address] Ventura Noble Work Phone: [facility] Work Phone: 10-26-2021 14:23-0400 Diastolic blood pressure 76 mm[Hg] Dr. Ventura Noble Work Phone: [facility] Work Phone: 10-26-2021 14:23-0400 Heart rate 62 /min Dr. Ventura Noble Work Phone: [facility] Work Phone: 10-26-2021 14:23-0400 Respiratory rate 14 /min Dr. Ventura Noble Work Phone: [facility] Work Phone: 10-26-2021 14:23-0400 SaO2% (BldA) [Mass fraction] 98 % Dr. Ventura Noble Work Phone: [facility] Work Phone: 10-26-2021 14:23-0400 Systolic blood pressure 152 mm[Hg] Dr. Ventura Noble Work Phone: [facility] Work Phone: 09-16-2021 16:05-0400 Body temperature 97 [degF] Dr. Ventura Noble Work Phone: [facility] Work Phone: 09-16-2021 16:05-0400 Diastolic blood pressure 60 mm[Hg] Dr. Ventura Noble Work Phone: [facility] Work Phone: 09-16-2021 16:05-0400 Heart rate 69 /min Dr. Ventura Noble Work Phone: [facility] Work Phone: 09-16-2021 16:05-0400 Respiratory rate 16 /min Dr. Ventura Noble Work Phone: [facility] Work Phone: 09-16-2021 16:05-0400 SaO2% (BldA) [Mass fraction] 100 % Dr. Ventura Noble Work Phone: [facility] Work Phone: 09-16-2021 16:05-0400 Systolic blood pressure 154 mm[Hg] Dr. Ventura Noble Work Phone: [facility] Work Phone: 09-16-2021 15:20-0400 Body temperature 97.2 [degF] Dr. Ventura Noble Work Phone: [facility] Work Phone: 09-16-2021 15:20-0400 Diastolic blood pressure 61 mm[Hg] Dr. Ventura Noble Work Phone: [facility] Work Phone: 09-16-2021 15:20-0400 Heart rate 67 /min Dr. Ventura Noble Work Phone: [facility] Work Phone: 09-16-2021 15:20-0400 Respiratory rate 16 /min Dr. Ventura Noble Work Phone: [facility] Work Phone: 09-16-2021 15:20-0400 SaO2% (BldA) [Mass fraction] 96 % Dr. Ventura Noble Work Phone: [facility] Work Phone: 09-16-2021 15:20-0400 Systolic blood pressure 140 mm[Hg] Dr. Ventura Noble Work Phone: [facility] Work Phone: 09-16-2021 11:38-0400 Body height 162.[address] Ventura Noble Work Phone: [facility] Work Phone: 09-16-2021 11:38-0400 Body mass index (BMI) [Ratio] 24.5 kg/m2 Dr. Ventura Noble Work Phone: [facility] Work Phone: 09-16-2021 11:38-0400 Body weight [address] Ventura Noble Work Phone: [facility] Work Phone: 08-31-2021 09:28-0400 Body mass index (BMI) [Ratio] 25.6 kg/m2 Dr. Ventura Noble Work Phone: [facility] Work Phone: 08-31-2021 09:28-0400 Body temperature 95.4 [degF] Dr. Ventura Noble Work Phone: [facility] Work Phone: 08-31-2021 09:28-0400 Body weight 67.[address] Ventura Noble Work Phone: [facility] Work Phone: 08-31-2021 09:28-0400 Diastolic blood pressure 90 mm[Hg] Dr. Ventura Noble Work Phone: [facility] Work Phone: 08-31-2021 09:28-0400 Heart rate 80 /min Dr. Ventura Noble Work Phone: [facility] Work Phone: 08-31-2021 09:28-0400 Respiratory rate 16 /min Dr. Ventura Noble Work Phone: [facility] Work Phone: 08-31-2021 09:28-0400 SaO2% (BldA) [Mass fraction] 96 % Dr. Ventura Noble Work Phone: [facility] Work Phone: 08-31-2021 09:28-0400 Systolic blood pressure 138 mm[Hg] Dr. Ventura Noble Work Phone: [facility] Work Phone: 08-31-2021 09:28-0400 Body height 162.[address] Ventura Noble Work Phone: [facility] Work Phone: 08-31-2021 09:28-0400 Body mass index (BMI) [Ratio] 25.6 kg/m2 Dr. Ventura Noble Work Phone: [facility] Work Phone: 08-31-2021 09:28-0400 Body temperature 95.4 [degF] Dr. Ventura Noble Work Phone: [facility] Work Phone: 08-31-2021 09:28-0400 Body weight 67.[address] Ventura Noble Work Phone: [facility] Work Phone: 08-31-2021 09:28-0400 Diastolic blood pressure 90 mm[Hg] Dr. Ventura Noble Work Phone: [facility] Work Phone: 08-31-2021 09:28-0400 Heart rate 80 /min Dr. Ventura Noble Work Phone: [facility] Work Phone: 08-31-2021 09:28-0400 Respiratory rate 16 /min Dr. Ventura Noble Work Phone: [facility] Work Phone: 08-31-2021 09:28-0400 SaO2% (BldA) [Mass fraction] 96 % Dr. Ventura Noble Work Phone: [facility] Work Phone: 08-31-2021 09:28-0400 Systolic blood pressure 138 mm[Hg] Dr. Ventura Noble Work Phone: [facility] Work Phone: 01-11-2017 13:35-0400 BMI (Body Mass Index) 23.72 kg/m2 Ventura Noble MD [facility] Work Phone: 01-11-2017 13:35-0400 Body Temperature 98.6 [degF] Ventura Noble MD [facility] Work Phone: 01-11-2017 13:35-0400 BP Diastolic 75 mm[Hg] Ventura Noble MD [facility] Work Phone: 01-11-2017 13:35-0400 BP Systolic 132 mm[Hg] Ventura Noble MD [facility] Work Phone: 01-11-2017 13:35-0400 Height 167.64 cm Ventura Noble MD [facility] Work Phone: 01-11-2017 13:35-0400 Pulse (Heart Rate) 70 /min Ventura Noble MD [facility] Internal Medicine Work Phone: 01-11-2017 13:35-0400 Weight 66.68 kg Ventura Noble MD [facility] Work Phone: 07-30-2014 13:53-0400 BSA (Body Surface Area) 1.79 m2 Ventura Noble MD [facility] Work Phone: 07-30-2014 13:53-0400 Respiratory Rate 14 /min Ventura Noble MD [facility] Work Phone: Encounters Encounter Date Encounter Type Care Provider Facility Start: 03-05-[address] [facility] Start: 02-12-2025 End: 02-12-[address] Ventura Noble MD -[facility] Work Phone: Start: 02-12-2025 End: 02-12-[address] Ventura Noble MD Work Phone: -[facility] Start: 02-11-2025 End: 02-11-[address] Ventura Noble MD Work Phone: -Laboratory Start: 02-11-2025 End: 02-11-[address] Ventura Noble MD -Laboratory Work Phone: Start: 02-11-2025 End: 02-11-2025 ambulatory [facility] Facility:[facility] Start: 11-21-2024 End: 11-21-[address] Ventura Noble MD Work Phone: -Sleep Lab Start: 11-21-2024 End: 11-21-[address] Ventura Noble MD -Sleep Lab Work Phone: Start: 11-21-2024 End: 11-21-2024 ambulatory [facility] Facility:[facility] Start: 11-12-2024 Non-patient / Non-visit Dr. Suyapa whiteside MD -[facility] Work Phone: Start: 11-06-2024 End: 11-06-[address] Ventura Noble MD Work Phone: -Sleep Lab Start: 11-06-2024 End: 11-06-[address] Ventura Noble MD -Sleep Lab Work Phone: Start: 11-06-2024 End: 11-06-2024 ambulatory [facility] Facility:[facility] Start: 10-31-2024 Registered Referred Self Referred -[facility] Work Phone: Start: 10-31-2024 ambulatory [facility] Facili ty:[facility] Start: 10-21-2024 End: 10-21-[address] Ventura Noble MD Work Phone: [facility] Work Phone: Start: 10-21-2024 End: 10-21-[address] Ventura Noble MD -[facility] Work Phone: Start: 10-21-2024 End: 10-21-[address] Ventura Noble MD [facility] Start: 10-21-2024 End: 10-21-2024 ambulatory [facility] Facility:[facility] Start: 08-01-2024 End: 08-01-2024 Telephone encounter [...] Start: 11-13-2023 End: 11-13-2023 ambulatory FARIDEH SILVERMAN Facility:[facility] Start: 11-13-2023 End: 11-13-2023 ambulatory FARIDEH JESSICA Facility:[facility] Start: 11-13-2023 End: 11-13-2023 Subsequent hospital visit by physician Farideh Silverman APRN.CNP Work Phone: Radiology Comment on above: Rectocele [N81.6] Start: 11-09-2023 Chart abstracting Darcy Mcbride DO Work Phone: Colorectal Surgery Start: 07-26-2023 Orders Only Farideh kwan APRN.CNP Work Phone: Colorectal Surgery Comment on above: Rectocele (Primary D x) Medication Problem Start: 06-29-2023 End: 06-29-[address] Ventura Noble Work Phone: [facility] Work Phone: Start: 06-29-2023 End: 06-29-[address] Ventura Noble Work Phone: [facility]-Outpatient Bone Densitometry Work Phone: Start: 05-25-2023 End: 05-25-2023 Encounter for general adult medical examination without abnormal findings Dr. Ventura Noble Work Phone: [facility] Start: 05-25-2023 End: 05-25-[address] Ventura Noble Work Phone: [facility] Work Phone: Start: 05-17-2023 End: 05-17-2023 ambulatory [facility] Work Phone: Start: 05-17-2023 End: 05-17-2023 Patient encounter procedure [facility]-Laboratory, BIM Start: 09-20-2022 End: 09-20-2022 Subsequent [...] 03-18-2022 Evaluation and management of inpatient Dr. Ventrua Noble Work Phone: [facility]-Medical Surgical 3 Start: 03-17-2022 End: 03-18-[address] Ventura Noble Work Phone: [facility] Work Phone: Start: 02-18-2022 End: 02-18-[address] Ventura Noble Work Phone: [facility] Work Phone: Start: 02-18-2022 End: 02-18-[address] Ventura Noble Work Phone: [facility] Start: 02-04-[address] Gregg Noble Work Phone: [facility] Start: 02-04-2022 End: 02-04-2022 Emergency department patient visit Dr. Ventura Noble Work Phone: [facility] Internal Medicine Start: 02-04-2022 End: 02-04-[address] Ventura Noble Work Phone: [facility] Internal Medicine Start: 10-27-2021 End: 10-27-[address] Ventura Noble Work Phone: [facility]-Laboratory, Specimen Start: 10-26-2021 End: 10-26-[address] Ventuar Noble Work Phone: [facility] Internal Medicine Start: 09-16-2021 End: 09-16-2021 Admission to same day surgery center Dr. Ventura Noble Work Phone: [facility]-Law Enforcement Officer Start: 09-10-2021 End: 09-10-[address] Ventura Noble Work Phone: [facility]-Pulmonary Services/Neurology Start: 09-10-2021 Non-patient / Non-visit Dr. Danielle Noble Work Phone: [facility] Start: 08-31-2021 End: 08-31-2021 Encounter for other preprocedural examination Dr. Ventura Noble Work Phone: [facility] Internal Medicine Start: 08-31-2021 End: 08-31-[address] Ventura Noble Work Phone: [facility] Start: 08-16-2021 End: 08-16-2021 Patient encounter procedure [facility]-Cardiovascular Services Start: 01-20-2021 Patient encounter status [facility] Start: 01-17-2017 End: 01-18-2017 Emergency department patient visit [facility] Procedures Date Procedure Procedure Detail Performing Clinician Start: 11-13-2023 ADULT [place] [employer] Farideh Silverman APRN.BAG PRESS OPERATOR Work Phone: Start: 11-13-2023 Radiologic exam colo n single contrast study Farideh Silverman APRN.CNP Work Phone: Start: 06-29-2023 Dual energy X-ray [...] Treatment Date Care Activity Detail Author Start: 02-12-2025 [facility] Start: 10-21-2024 CBC W Auto Different ial panel - Blood [facility] Start: 10-21-2024 Comprehensive metabo lic 2000 panel - Serum or Plasma [facility] Start: 10-21-2024 Lipid 1996 panel - S genesis or Plasma [facility] Start: 05-15-2024 Advance Directive Discussion Advance Directive Discussion [facility] Start: 01-14-2024 Covid-19 Vaccine ( season) Covid-19 Vaccine ( season) [facility] Start: 01-14-2024 Influenza vaccination C [facility] Start: 11-13-2023 End: 11-13-2023 Patient encounter procedure 11/13/2023 1:30 PM EDT Office Visit Colorectal Surgery [address] [place] [address] Darcy Mcbride DO [address] [place] [address] [facility] Comment on above: [facility] Start: 11-13-2023 End: 11-13-2023 Admission to same day surgery center 11/13/2023 1:00 PM EDT Procedure Colorectal Surgery [address] [address] Margarita Torres APRN.BAG PRESS OPERATOR [address] [place] [address] [facility] Col[facility] Surgery Comment on above: [facility] Start: 11-13-2023 End: 11-13-2023 Patient encounter procedure 11/13/2023 10:20 AM EDT Appointment Radiology [address] [place] [address] Rectocele [N81.6] Radiology Comment on above: Rectocele [N81.6] Start: 06-23-2023 Covid-19 Vaccine ( season) Covid-19 Vaccine () [facility] Start: 05-15-2023 Advance Directive Discussion Advance Directive Discussion [facility] Start: 05-15-2023 Behavioral Health Screening Behavioral Health Screening [facility] Start: 05-15-2023 Depression Assessment [facility] Start: 01-13-2023 Covid-19 Vaccine ( season) Covid-19 Vaccine () [facility] Start: 01-13-2023 Influenza vaccination Influenza Vacc ine (#1) [facility] Start: 05-15-2022 ADVANCE DIRECTIVE DISCUSSION ADVANCE DIRECTIVE DISCUSSION [facility] Start: 05-15-2022 DEPRESSION [facility]ESSMENT [facility] Start: 03-18-2022 Patient discharge [facility] Work Phone: Start: 03-17-2022 Application of intermittent pneumatic compression device [facility] Work Phone: Start: 03-17-2022 [facility] Work Phone: Start: 03-17-2022 Following clinical p athway protocol [facility] Work Phone: Start: 03-17-2022 Ambulation therapy management [facility] Work Phone: Start: 03-17-2022 Application of device W [facility] Work Phone: Start: 03-17-2022 Assessment of risk o f venous thromboembolism [facility] Work Phone: Start: 03-17-2022 Catheterization of vein [facility] Work Phone: Start: 03-17-2022 Following clinical p athway protocol [facility] Work Phone: Start: 03-17-2022 Incentive spirometry [facility] Work Phone: Start: 03-17-2022 Introduction of urin roddy catheter [facility] Work Phone: Start: 03-17-2022 Measuring intake and output [facility] Work Phone: Start: 03-17-2022 Neurovascular assessment [facility] Work Phone: Start: 03-17-2022 Patient education [facility] Work Phone: Start: 03-17-2022 Procedure discontinued [facility] Work Phone: Start: 03-17-2022 Provision of activit y privileges [facility] Work Phone: Start: 03-17-2022 Referral to occupati onal therapist [facility] Work Phone: Start: 03-17-2022 Vital signs measurements [facility] Work Phone: Start: 03-17-2022 Wound care [facility] Work Phone: Start: 03-17-2022 [facility] Work Phone: Start: 03-17-2022 Medication education [facility] Work Phone: Start: 09-16-2021 Patient discharge [facility] Work Phone: Start: 09-16-2021 Anes open proc bones lower leg/ankle/foot nos ANESTH LOWER LEG BONE SURG [facility] Work Phone: Start: 09-16-2021 Correction hammertoe REPAIR OF HAMME RTOE [facility] Work Phone: Start: 09-16-2021 Plain X-ray of toe Toe(s) Min 2 View s [facility] Work Phone: Start: 01-11-2017 End: 01-11-2017 Follow Up Appt 6 months Follow Up Appt 6 months [facility] Work Phone: Start: 07-30-2014 End: 08-06-2014 Follow Up Appt 6 months Follow Up Appt 6 months [facility] Work Phone: Start: 05-28-2013 Urine microalbumin profile [facility] Start: 08-16-2008 DIABETES SCREEN DIABETES SCREEN [facility] Start: 08-16-2008 Diabetes Screening Diabetes Screenin g [facility] Start: 2006 BONE DENSITY BONE DENSITY [facility] Start: 2006 Pneumococcal Vaccine : 65+ (1 of 1 - PCV) Pneumococcal Vaccine: 65+ (1 of 1 - PCV) [facility] Start: 2006 PNEUMOCOCCAL: 65+ (1 - PCV) PNEUMOCOCCAL: 65+ (1 - PCV) [facility] Start: 2006 Screening for osteoporosis Bone Dens ity Screening [facility] Start: 2001 RSV Vaccine (1 - 1-d ose 60+ series) RSV Vaccine (1 - 1-dose 60+ series) [facility] Start: 09-23-1991 Pneumococcal Vaccine : 50+ (1 of 1 - PCV) Pneumococcal Vaccine: 50+ (1 of 1 - PCV) [facility] Start: 09-23-1991 SHINGRIX VACCINE (1 of 2) BERMUDEZ GRIX VACCINE (1 of 2) [facility] Start: 09-23-1959 Anxiety Screening Anxiety Screening [facility] Start: 09-23-1959 Depression Screening Depression Scre ening [facility] End: 07-25-2024 ADULT [place] ANORECTAL MANOMETRY ADULT [place] ANORECTAL MANOMETRY Endoscopy Routine Rectocele 1 Occurrences starting 07/26/2023 until 07/25/2024 [facility] Work Phone: Comment on above: 1 Occurrences starti ng 07/26/2023 until 07/25/2024 Alanine aminotransfe rase [Enzymatic activity/volume] in Serum or Plasma [facility] Albumin [Mass/volume ] in Serum or Plasma [facility] Alkaline phosphatase [Enzymatic activity/volume] in Serum or Plasma [facility] Anion gap in Serum o r Plasma [facility] Bilirubin, total measurement [facility] BUN/Creatinine ratio [facility] Calcium [Mass/volume ] in Serum or Plasma [facility] Carbon dioxide, tota l [Moles/volume] in Central venous blood [facility] Cholesterol [Mass/vo lume] in Serum or Plasma [facility] Cholesterol in HDL [Mass/volume] in Serum or Plasma [facility] Creatinine [Mass/vol ume] in Serum or Plasma [facility] Erythrocyte mean corpuscular volume determination [facility] Glucose [Mass/volume ] in Serum or Plasma [facility] Hematocrit [Volume Fraction] of Blood [facility] Hemoglobin [Mass/vol ume] in Blood [facility] Leukocytes [#/volume ] in Blood [facility] Low density lipoprot ein cholesterol measurement [facility] Mean corpuscular hemoglobin concentration determination [facility] Mean corpuscular hemoglobin determination [facility] Measurement of renal function [facility] MG Breast - bilatera l Screening [facility] Neutrophil count [facility] Neutrophil percent differential count [facility] Patient referral [facility] Work Phone: Platelets [#/volume] in Blood [facility] Polysomnography [facility] Potassium measurement [facility] Red blood cell count [facility] Red cell distributio n width determination [facility] End: 08-24-2024 RF Gastrointestinal tract upper Views W water soluble contrast PO XR DEFECOGRAPHY Radiology Routine Rectocele 1 Occurrences starting 07/26/2023 until 08/24/2024 [facility] Work Phone: Comment on above: 1 Occurrences starti ng 07/26/2023 until 08/24/2024 End: 08-12-2023 Screening colonoscopy COLONOSCOPY SCREENING Endoscopy Routine Special screening for malignant neoplasms, colon 1 Occurrences starting 08/11/2022 until 08/12/2023 [facility] Work Phone: Comment on above: 1 Occurrences starti ng 08/11/2022 until 08/12/2023 Serum chloride measurement [facility] Sodium measurement [facility] Total cholesterol:HD L ratio measurement [facility] Total protein measurement [facility] Triglycerides measurement [facility] Urea nitrogen [Mass/volume] in Serum or Plasma [facility] VLDL cholesterol measurement [facility] Immunizations Immunization Date Immunization Notes Care Provider [facility] 02-20-2023 influenza virus vaccine, unspecified formulation Margarita Torres APRN.BAG PRESS OPERATOR Work Phone: [facility] 02-21-2022 influenza, injectabl e, quadrivalent, preservative free [facility] 02-21-2022 influenza, seasonal, injectable Dr. Ventura Noble Work Phone: [facility] Work Phone: 02-21-2022 influenza virus vaccine, unspecified formulation Farideh Silverman APRN.BAG PRESS OPERATOR Work Phone: [facility] 01-20-2021 influenza, injectabl e, quadrivalent, preservative free [facility] 01-20-2021 influenza, seasonal, injectable [facility] Work Phone: 02-12-2017 Influenza virus vaccine [facility] 01-11-2017 Seasonal trivalent influenza vaccine, adjuvanted, preservative free Ventura Noble MD [facility] Work Phone: 03-15-2005 influenza virus vaccine, unspecified formulation Kaden Norton MD Work Phone: [facility] Work Phone: 05-28-2003 diphtheria and tetan us toxoids, adsorbed for pediatric use Kaden Norton MD Work Phone: [facility] Work Phone: 05-18-2003 hepatitis B vaccine, adult dosage Kaden Norton MD Work Phone: [facility] Work Phone: 04-28-2003 hepatitis B vaccine, adult dosage Kaden Norton MD Work Phone: [facility] Work Phone: Payers Date Payer Category Payer Self-pay [id number] 2021 Private Health Insurance MMO MED ICARE SUPPLEMENT [id number] 2021 Unknown MMO MMO MEDICARE SUPPLEMENT [id number] 2021-Present [phone] [address] [place] [address] [facility] [id number] 2021 Unknown [id number] 2006 Medicare [id number] 2006 Medicare [id number] Medicare [id number] Unknown [id number] Unknown [id number] Unknown [id number] Unknown [id number] Unknown [id number] Unknown [id number] Unknown [id number] Unknown [id number] Unknown [id number] Social History Date Type Detail Facility Start: 04-21-2021 End: 05-25-2023 Tobacco smoking status [facility] Unknown if ever smoked [facility] Start: 11-25-2017 Non-smoker [facility] Start: 1940 Sex Assigned At Female W [facility] Start: 03-15-2011 End: 12-23-2024 Tobacco smoking status NCIS Never smoked tobacco [facility] Work Phone: Start: 03-15-2011 Tobacco use and exposure Smokeless tobacco non-user [facility] Work Phone: Start: 08-16-2022 End: 11-13-2023 Alcohol intake Current drinker of alcohol (finding) [facility] Start: 1940 Sex Assigned At Not on file C [facility] Start: 09-20-2022 End: 11-13-2023 History of Social function [facility] Start: 09-20-2022 End: 11-13-2023 Tobacco use panel [facility] National Score (1-100), lower number is lower risk 34 [facility] Medical Equipment Procedure Code Equipment Code Equipment Origin al Text Equipment Identifier Dates screw FDA Start: 03-17-2022 screw FDA Start: 03-17-2022 Polyethylene rev erse shoulder prosthesis cup ([id number] FDA Start: 03-17-2022 Coated shoulder humeral stem prosthesis ()[id number] FDA Start: 03-17-2022 Reverse shoulder prosthesis head ()[id number] FDA Start: 03-17-2022 Reverse shoulder prosthesis base plate ()[id number] FDA Start: 03-17-2022 screw FDA Start: [...] Functional status Patient Activi ty Ambulates;Bathroom Privilege [facility] Work Phone: 03-17-2022 Functional status Activity Ability Post O p [facility] Work Phone: Mental Status Date Assessment Result Facility 03-18-2022 Cognitive function Voice/Name [facility] Work Phone: 09-16-2021 Cognitive function Voice/Name [facility] Work Phone: Clinical Notes 08-11-2022 to 02-12-2025 Note Date & Type Note Facility 02-12-2025 Progress note [facility] 10-21-2024 Evaluation note Diagnosis Onset Date Resolution Health care maintenance acute J 2024 10:51am Hypersomnolence acute October 21, 2024 10:51am Hyperlipemia chronic October 21 10:51am Hypertension chronic October 21 10:51am Lumbar radiculopathy chronic October 21, 2024 10:51am [facility] Work Phone: 1(535) 153-435406-09-2025 Evaluation note* Diagnosis Onset Date Resolution Status Admit Date Health care maintenance acute J 2024 10:51am Hypersomnolence acute October 21, 2024 10:51am Hyperlipemia chronic October 21 10:51am Hypertension chronic October 21 10:51am Lumbar radiculopathy chronic October 21, 2024 10:51am Abnormal renal function acute O ctober 2024 11:15am Flu vaccine need acute February 12, 2025 11:15am Sleep apnea acute February 12, 2025 11:15am Hyperlipemia chronic February 12, 2025 11:15am Hypertension chronic February 12, 2025 11:15am Lumbar radiculopathy chronic 2024 11:15am Osteoarthritis chronic February 11:15am [facility] Work Phone: 1(468) 726-683203-20-2025 Telephone encounter Note* Telephone Encounter - Evelio Dumont - 08/01/2024 10:32 AM EDT Pancho Marcelino [phone], request referral for rectocele surgery as discussed during last visit. [facility] Work Phone: 1(124) 679-437903-20-2025 Miscellaneous Notes* Telephone Encounter - Evelio Dumont - 08/01/2024 10:32 AM EDT Pancho Marcelino [phone], request referral for rectocele surgery as discussed during last visit. documented in this encounterUniversity [facility]als [facility]07-[facility]24 History and physical note * Darcy Mcbride DO - 11/13/2023 1:30 PM EDT [facility] November 07, 2023 Pancho Marcelino 83 year old This consult was requested by Dr. Kaden Norton and my final recommendations will be communicatedto the requesting health care provider by way of the shared medical record for internal providers or letter via the [facility] [employer] for external providers. Chief Complaint: [...] Relation Age of Onset Heart Father First NE at age 48, NE at age 56 Hypertension Brother angina questionable NE in 40s, Heart Paternal Grandmother mi Asthma [...] history of dysuria, frequency or incontinence, Nocturia LEAD CASHIER: Negative for abnormal vaginal bleeding, abnormal vaginal [...] than stated aboveand HPI. Physician Attestation: Darcy Mcrbide DO Physical Exam: 11/13/23 1321 BP: 172/68 Pulse: 87 Temp: 36.4 C (97.6 F) TempSrc: Temporal SpO2: 97% Weight: 63.5 kg (140 lb) Height: 164.5 cm (5' 4.75") General Appearance: Well appearing, alert, in no [...] Discussed with her that this is a dxrcyzo-el-cwpq thing and if she is very bothered [...] This office note has been created using NowSpots, a speech recognition software program, and may contain errors including punctuation, grammar, spelling, gender, and inappropriate words or phrases that pertain to the sytem. Darcy Mcbride, Pelvic Floor Colorectal Surgery Time Spent: 60 [...] and discussing surgical and non-surgical treatment options. [facility]07-01-2024 History and physical note* Darcy Mcbride DO - 11/13/2023 1:30 PM EDT [facility] November 07, 2023 Pancho Marcelino 83 year old This consult was requested by Dr. Kaden Norton and my final recommendations will be communicatedto the requesting health care provider by way of the shared medical record for internal providers or letter via the [facility] Postal Service for external providers. Chief Complaint: [...] Relation Age of Onset Heart Father First NE at age 48, NE at age 56 Hypertension Brother angina questionable NE in 40s, Heart Paternal Grandmother mi Asthma [...] history of dysuria, frequency or incontinence, Nocturia LEAD CASHIER: Negative for abnormal vaginal bleeding, abnormal vaginal [...] kg (140 lb) Height: 164.5 cm (5' 4.75") General Appearance: Well appearing, alert, in no [...] Discussed with her that this is a dbtikgw-iw-umvj thing and if she is very bothered [...] This office note has been created using NowSpots, a speech recognition software program, and may [...] and non-surgical treatment options. documented in this encounterUniversity Hospitals [facility]07-01-2024 History of Present illness Narrative* Aleena Parker RT(R) - 11/13/2023 10:20 AM EDT Radiology [...] PATIENT PRESENTS WITH AN IMPLANTABLE OR ATTACHED APPAREL SALES ASSOCIATE: No RADIOLOGY DEPARTMENT: General X-ray: Exam(s) Completed: GI/ Procedure(s): Defecating Proctogram PERIPHERAL IV DATA: Not applicable SIGNED BY: RT Gerald(R) November 13, 2023 11:36 AM documented in this encounterUniversity Hospitals [facility] Center07-01-2024 NoteHNO ID: [id number] Author: ALEENA PARKER RT(R) Service: Radiology Author [...] PATIENT PRESENTS WITH AN IMPLANTABLE OR ATTACHED APPAREL SALES ASSOCIATE: No RADIOLOGY DEPARTMENT: General X-ray: Exam(s) Completed: GI/ Procedure(s): Defecating Proctogram PERIPHERAL IV DATA: Not applicable SIGNED BY: RT Gerald(Jazmin) November 13, 2023 11:36 [facility]06-27-2024 NoteHNO ID: [id number] Author: MICHELLE JI RN Service: ? Author Type: Registered Nurse Type: Progress Notes Filed: 11/09/2023 11:13 Note Text: Date of review: 11/09/2023 Source of records: care everywhere/epic/ paper Reason for the referral/visit: Rectocele Has the patient been seen at the [facility] before by CORS: Copy recommendations Has the patient been seen at the [facility] before by GO/Urogyn: Copy recommendations Has the patient been seen another Colorectal surgeon outside of ?: Copy recommendations Referring physician: Brief history obtained by review: Dr. Norton 08/11/2022 HPI: The patient is a 81 year old female referred for endoscopy. Pancho notes the following GI complaints: Pancho denies abdominal pain.. Pancho denies diarrhea. Pancho denies constipation. [place] denies a change in bowel habits. Pancho [...] hemorrhoids. Banded. - No specimens collected. [facility]06-[facility] History of Present illness Narrative* Michelle Ji RN - 11/09/2023 11:08 AM EDT Date of review: 11/09/2023 Source of records: care everywhere/[facility]/ paper Reason for the referral/visit: Rectocele Has the patient been seen at the [facility] before by CORS: Copy recommendations Has the patient been seen at the [facility] before by GO/Urogyn: Copy recommendations Has the patient been seen another Colorectal surgeon outside of ?: Copy recommendations Referring physician: Brief history obtained by review: Dr. Norton 08/11/2022 HPI: The patient is a 81 year old female referred for endoscopy. [place] notes the following GI complaints: Pancho denies abdominal pain.. Pancho denies diarrhea. Pancho denies constipation. [place] denies a change in bowel habits. [place] denies melena. [place] notes what she feels is hemorrhoids which [...] No specimens collected. I documented in this encounterUniversity Hospitals [facility] Center03-13-2024 Telephone encounter Note * Telephone Encounter - Almita Rodarte LPN - 07/26/2023 11:00 AM EDT Patient called in stating that her Rectocele has gotten a lot worse. Please advise recommendation on who she should see for this issue. Almita Rodarte LPN [facility] Work Phone: 1(311) 235-612903-13-2024 Miscellaneous Notes* Telephone Encounter - Almita Rodarte LPN - 07/26/2023 11:00 AM EDT Patient called in stating that her Rectocele has gotten a lot worse. Please advise recommendation on who she should see for this issue. Almita Rodarte LPN documented in this encounterUniversity Hospitals Tri[facility] Center05-09-2023 Nurse Note* Vivian Greenberg RN - 09/20/2022 [...] recommendations. Vivian Greenberg RN documented in this encounterUniversity Hospitals Tripoint Medical Center05-09-2023 History and physical note * Kaden Norton MD - 09/20/2022 7:53 AM EDT Images from the original note were not included. HISTORY AND PHYSICAL Pancho Marcelino 1940 REFERRING PHYSICIAN: CHIEF COMPLAINT: Consult (hemorrhoids) HPI: The patient is a 81 year old female referred for endoscopy. [place] notes the following GI complaints: Pancho denies abdominal pain.. Pancho denies diarrhea. [place] denies constipation. Pancho denies a change in [...] Relation Age of Onset Heart Father First NE at age 48, NE at age 56 Hypertension Brother angina questionable NE in 40s, Heart Paternal Grandmother mi Asthma [...] C (96.7 F), height 165.1 cm (5' 5"), weight 66.3 kg (146 lb 3.2 oz), [...] completed. Kaden Norton MD documented in this encounterUniversity Hospitals Tri[facility] Center04-04-2023 History of Present illness Narrative* Kaden Norton MD - 08/16/2022 6:07 AM EDT HISTORY AND PHYSICAL Pancho Marcelino 1940 REFERRING PHYSICIAN: CHIEF COMPLAINT: Consult (hemorrhoids) HPI: The patient is a 81 year old female referred for endoscopy. [place] notes the following GI complaints: Pancho denies abdominal pain.. Pancho denies diarrhea. Pancho denies constipation. Pancho denies a change in bowel habits. [place] denies melena. Pancho notes what she feels [...] Relation Age of Onset Heart Father First NE at age 48, NE at age 56 Hypertension Brother angina questionable NE in 40s, Heart Paternal Grandmother mi Asthma Paternal Grandmother Diabetes Paternal Aunt Cancer Maternal Aunt colon cancer Cancer Maternal Aunt intestinal cancer REVIEW OF SYMPTOMS: The review of systems data was entered by the nurse and reviewed by tx Nursing Notes: Rupa Mcnair LPN 08/11/2022 9:04 [...] C (96.7 F), height 165.1 cm (5' 5"), weight 66.3 kg (146 lb 3.2 oz), [...] completed. Kaden Norton MD documented in this encounterUniversity Hospitals Tripoint Medical Center03-30-2023 Instructions* Patient Instructions* Kaden Norton MD - [...] you do not have a responsible driver engineer (family member or friend) with you to [...] your exam. 2 04/2019 documented in this encounterUniversity Hospitals Tripoint Medical Center03-30-2023 Nurse Note* Rupa Mcnair LPN - 08/11/2022 [...] 2003 Rupa Mcnair LPN documented in this encounterUniversity Hospitals Tripoint Medical CenterEvaluchristiana hospital noteNo assessment information availableWSelect [facility] Work Phone: Evaluation note* Diagnosis Onset Date Resolution Status Other hammer toe(s) (acquired), right foot acute [facility] Work Phone: Evaluation note* Diagnosis Onset Date Resolution Status Toe pain, right noneactive Preoperative clearance nonea ctive Other hammer toe(s) (acquired), right foot acute Urinary frequency acute Urinary tract infection none active [facility] Work Phone: Evaluation note* Diagnosis Onset Date Resolution Status Urinary frequency acute Urinary tract infection none active Preoperative evaluation to [facility] out surgical contraindication acute Hypertension chronic [facility] Work Phone: Evaluation note* Diagnosis Onset Date Resolution Status Preoperative evaluation to r ule out surgical contraindication acute Hypertension chronic Arthritis of left shoulder region acute [facility] Work Phone: Evaluation note* Diagnosis Special screening for malignant neoplasms, colon- Primary documented in this encounter [facility] CenterEvaluchristiana hospital note* Diagnosis Onset Date Resolution Status Health care maintenance acut e Hyperlipemia chronic Hypertension chronic [facility] Work Phone: Evaluation note* Diagnosis Rectocele- Primary documented in this encounter [facility] CenterEvaluation note* Diagnosis Rectocele documented in this encounter [facility] CenterEvaluchristiana hospital note* Diagnosis Rectocele documented in this encounter [facility]* Diagnosis Rectocele- Primary [facility] Additional Instructions Follow preprinted instructions from your surgeons office.[facility] Work Phone: Progress note Author Ventura Noble [facility] Note Date/Time February 12, 2025 12 :02pm [facility] [address] [place] [address] OFFICE VISIT Date of Service: 02/12/25 MR#: [id number] Acct: [id number] Name: PANCHO MARCELINO Rep #: [id number] : 1940 Provider: Dr. Kranthi Noble MD Age/Sex: 84/F Location: [facility] Status: Signed Intake Vital Signs 05/25/23 14:51 12/23/24 13:21 02/12/25 11:19 Height 5 ft 3 in 5 ft 3 in 5 ft 3 in Weight: 143 lb 6 oz BMI 25.4 BP 132/78 H Blood Pressure Location Lt radial Position Sitting Respiration 16 Pulse 83 Pulse Source Monitor Temp 97.4 F L Temp Source Temporal Pulse Oximetry (%) 100 Oxygen Delivery Method room air Intake Visit Reasons: Cpap readings Chief Complaint: Follow-up Wardrobe Mistress Required: No Accompanied by: Self Is patient in pain?: No Allergies No Known Allergies Allergy (Verified 02/12/25 11:27) Medications ?Medication ?Instructions ?Recorded ?Confirmed ?Type cholecalciferol (vitamin D3) 50 2,000 unit PO QDAY 02/12/25 History mcg (2,000 unit) capsule multivitamin with iron 1 tab PO QDAY 11/02/1702/12 History coQ10 (ubiquinol) 100 mg capsule 100 mg PO BID 5 02/12/25 History (Qunol David CoQ10) lovastatin 20 mg tablet 20 mg PO DAILY #90 tabs 10/1302/12/25 Rx Have you fallen in the past year?: No Nurse's Note: discuss c pap and follow up [facility] Medical History (Updated 02/12/25 @ 12:[address] Ventura Noble MD) Abnormal renal function Flu vaccine need Osteoarthritis Sleep apnea Lumbar radiculopathy Hypersomnolence Rectocele History of edema [...] per week HPI HPI Chief Complaint: Follow-up Details: PANCHO MARCELINO, is an 84-year-old female presenting for follow-up on chronic conditions including hip and back pain. She reports significant discomfort in her hip. She had seen Ortho, had an injection which did not provide relief so was referred to pain management due toassumption that this was more lumbar than primarily hip. Had an injection in her lower back in December however the injection provided relief for a few weeks but the pain returned. The patient is scheduled for a follow-up with her pain management physician catering administrative assistant next week. 18 months ago, she had imaging of herhips which was concerning for moderate osteoarthritis. Recently diagnosed with sleep apnea. She utilizes CPAP therapy for sleep apnea but reports no noticeable difference in symptomatology. The patient experiences no issues with mask fit but has difficulties getting comfortable due to pain. The patient also monitors her chronic kidney disease stage 3, adhering to recommendations to limit the regular use of NSAIDs like ibuprofen to avoid kidney damage. Although her renal function has shown improvement, evidenced by an increase in GFR from 45 in October to 60, she occasionally utilizes ibuprofen for acute pain. Other chronic medical conditions are stable. Attestation: Documentation on this patient encounter was supported using ambient scribe technology/ voice AI technology. The patient consented to recording for the purpose of documenting the encounter. Provider reviewed content of the generatednote prior to signature. ROS Const Constitutional: No body ache, excessive sweating, fatigue, fever(s), frequent falls, headache(s), snoring, weakness, weight change, sleep problems or change in appetite Eyes Eyes: No blurry vision, change in vision, vision loss, dry eyes, eye pain or Light sensitivity ENT ENT: No abnormal hearing, ear or mastoid pain, hearing loss, tinnitus, dizziness/vertigo, nasal congestion, headache(s), neck pain or sore throat Resp Respiratory: No cough, excessive phlegm production, hemoptysis, shortness of breath, snoring or wheezing Cardio Cardiology: No chest pain at rest, chest pain with exertion, excessive sweating,shortness of breath, dyspnea on exertion, lightheadedness, orthopnea or palpitations Gastro GI: No abdominal pain, change in bowel habits, constipation, cramping, diarrhea,nausea/dyspepsia or vomiting Genitourinary-Female: No burning urination, painful urination, urinary incontinence, urinary frequency, blood in urine, abnormal periods or pelvic pain Musc Musculoskeletal: No abnormal gait, joint pain, back pain, limited range of motion, neck pain, numbness, stiffness, tingling or Arthritis Skin Skin: No dry skin, redness, lesions, itchy eyes, rash or wounds Neuro Neurology: No abnormal gait, abnormal hearing, abnormal speech, dizziness, weakness, frequent falls, headache(s), memory loss, numbness or tingling Psych Psychiatric: No anxiety, No change in appetite, No depression, No memory loss and No Thoughts of harming yourself/Others Endo Endocrine: No cold intolerance, excessive sweating, fatigue, flushing, heat intolerance, increased thirst/drinking, increased hunger or weight change Aller/Imm Allergy/Immunologic: No itchy eyes, seasonal allergy symptoms, hives or wheezing Enmanuel/Lymp Hematologic/Lymphatic: No easy bleeding, easy bruising or enlarged lymph nodes Exam Const General: cooperative, comfortable and no acute distress Orientation: alert, awake and oriented x3 HENMT Head: normal to inspection, normocephalic and atraumatic Ears: hearing grossly normal bilaterally Neck Neck: normal visual inspection, full ROM and supple Resp Effort & Inspection: normal respiratory effort and able to speak in complete sentences Auscultation: Bilateral: Clear to Auscultation Cardio Rate: regular rate Rhythm: regular rhythm Heart Sounds: S1 normal and S2 normal GI Palpation: soft (Nontender, no palpable organomegaly) Neuro General: patient alert, patient awake, patient oriented x3, moves all extremities and CN's II-XI intact bilaterally Extrem General: no clubbing, cyanosis or edema Psych Appearance: grossly normal Mental Status: mental status grossly normal Mood: congruent mood Affect: normal affect Coding Level of Care Code Off vis,est,level 4 Diagnoses Osteoarthritis M19.90 Lumbar radiculopathy M54.16 Sleep apnea G47.30 Primary hypertension I10 Hypertension type: primary hypertension Abnormal renal function N28.9 Hyperlipidemia, unspecified hyperlipidemia type E78.5 Hyperlipidemia type: unspecified Flu vaccine need Z23 Assessment and Plan Assessment and Plan (1) Osteoarthritis: Status: Chronic Plan: As above, initial management to the hips did not help so she was referred to pain management and recently had an injection of the in her lumbar spine which only provided relief for a few weeks. Has a follow-up appointment next week. She was advised that it might be necessary to repeat imaging of her hips to see if there has been progression of her osteoarthritis, she voiced understanding. Schedule a follow-up with Ortho as well. (2) Lumbar radiculopathy: Status: Chronic Plan: No immediate change in management to the back pain plan was discussed beyond existing care plans; monitor symptoms and revisit with pain management specialists as planned. (3) Sleep apnea: Status: Acute Plan: Recently diagnosed. Encourage continued CPAP use as sometimes effectiveness takes time to be noticeable. CPAP mask fitting and ensuring comfort during sleepwill be monitored. (4) Hypertension: Status: Chronic Qualifiers: Hypertension type: primary hypertension Qualified Code(s): I10 - Essential (primary) hypertension Plan: Continue lifestyle and dietary modifications. Blood pressure has improved sincethe last visit. Follow-up in 6 months. (5) Abnormal renal function: Status: Acute Plan: Cautious NSAID usage is advised, acceptable occasional NSAID use for pain exacerbation. Maintain regular renal function tests to monitor kidney status, especially given the current improved GFR. (6) Hyperlipemia: Status: Chronic Qualifiers: Hyperlipidemia type: unspecified Qualified Code(s): E78.5 - Hyperlipidemia, unspecified Plan: Continue the use of low-dose statin therapy and incorporate lifestyle and dietary management to control lipids. (7) Flu vaccine need: Status: Acute Plan: Flu vaccine given. This note was generated with [employer] dictation software. It may contain incorrectwords, spelling, and punctuation that were not noted in checking the note beforesigning. Orders: Orders Influenza Immunization Today Z23 - Encounter for immunization Medications: New Fluad [id number] (65 yr up)(PF) 45 mcg (15 mcg x 3)/0.5 mL (flu vac 2024 [id number](PF)) 45 mcg IM ONCE 0.5 mL 0RF NS Z23 - Encounter for immunization Patient Instructions: - Continue using your CPAP machine every night. - Follow up with the orthopedics next week about your hip. - You can take ibuprofen occasionally if needed for pain but do not use it too frequently; communicate any changes in symptoms. - Continue with your cholesterol medications as prescribed. - Continue your current lifestyle adjustments, including healthy eating habits to support your kidney and heart health. Clinical Quality Measures Falls Risk Screening/Assistive Devices Have you fallen in the past year?: No 02/12/25 1230 <Electronically signed by Ventura jones MD> Date _ Ventura Noble MD Cosigner Signature: Date (if applicable) CC: ~ [facility] Work Phone[facility] Outpatient Procedure (Routine) - Authorized Specialty Diagnoses / Procedures Referred By Catarinoac t Referred To Contact [facility] Diagnoses Special screening for malignant neoplasms, colon Procedures COLONOSCOPY SCREENING COLONOSCOPY FLX DX W/COLLJ SPEC WHEN Kaden Wu MD [address] [place] [address] [facility] [address] [place] [id number] Referral ID Status Reason Start Date Expiration Date Visits Requested Visits Authorized [id number] Authorized Auto-Generat ed Referral 08/11/2022 08/12/2023 1 1 [facility] for referral (narrative)* Outpatient Procedure (Routine) - Pending Review Specialty Diagnoses / Procedures Referred By Anne Marie ruvalcaba Referred To Contact [facility] Diagnoses Rectocele Procedures [facility] ANORECTAL MANOMETRY ANORECTAL MANOMETRY Farideh Silverman APRN.BAG PRESS OPERATOR [address] [place] [address] [facility] Disease [address] [address] Referral ID Status Reason Start Date Expiration Date Visits Requested Visits Authorized [id number] Pending Review Auto-Generat ed Referral 07/26/2023 07/25/2024 1 1 * Diagnostic Procedure Only (Routine) - Pending Review Specialty Diagnoses / Procedures Referred By Anne Marie t Referred To Contact XR IMAGING Diagnoses Rectocele Procedures XR DEFECOGRAPHY RADIOLOGIC EXAM COLON SINGLE CONTRAST STUDY Farideh Silverman APRN.CNP [address] [place] [address] [place] [address] Referral ID Status Reason Start Date Expiration Date Visits Requested Visits Authorized [id number] Pending Review Auto-Generat ed Referral 07/26/2023 08/24/2024 1 1 [facility] for referral (narrative)* Diagnostic Procedure Only (Routine) - Closed Specialty Diagnoses / Procedures Referred By Anne Marie t Referred To Contact XR IMAGING Diagnoses Rectocele Procedures XR DEFECOGRAPHY RADIOLOGIC EXAM COLON SINGLE CONTRAST STUDY Farideh Silverman APRN.CNP [address] [place] [address] [place] [address] Referral ID Status Reason Start Date Expiration Date V isits Requested Visits Authorized [id number] Closed Auto-Generate d Referral 07/26/2023 08/24/2024 1 1 [facility] for referral (narrative)No reason for referral information availableWal[facility]in[facility] Work Phone: Summary Purpose Family History No Family History Records Found Relationship Condition Age at Onset Recorded Date/T jose cruz mother Hypertension Unknown father Hypertension Unknown Myocardial infarction 57 Advance Directives No Advanced Directives Records Found Advance Directive Response Recorded Date/ Time Living Will Yes November 24, 2017 11:58am Power of Director Of Institutional Sales Yes November 24 8 11:58am Advance Directive Response Recorded Date/ Time Living Will Yes September 10, 2021 9:36am Power of Director Of Institutional Sales Yes September 10 9:36am Advance Directive Response Recorded Date/ Time Name of Medical Power of Director Of Institutional Sales SON September 10, 2021 9:36am Living Will Yes September 10, 2021 9:36am Power of Director Of Institutional Sales Yes September 10 9:36am Advance Directive Response Recorded Date/ Time Name of Medical Power of Director Of Institutional Sales Dale Marcelino March 17, 2022 1:15pm Living Will Yes March 17 1:15pm Power of Director Of Institutional Sales Yes March 17, 2022 1:15pm Advance Directive Response Recorded Date/ Time Name of Medical Power of Director Of Institutional Sales Dale Marcelino March 17, 2022 12:15pm Living Will Yes March 17 12:15pm Power of Director Of Institutional Sales Yes March 17, 2022 12:15pm Advance Directive Response Recorded Date/ Time Living Will Yes March 17 12:15pm Power of Director Of Institutional Sales Yes March 17, 2022 12:15pm Chief Complaint [...] SCREENING/POST KYLEE Reason for Visit Health care [facility] Hyperlipemia Hypertension Chief Complaint Admit Date October 21, 2024 10:51 am Reason for Visit Admit Date Health care maintenance October 21, 2024 1 0:51am Hypersomnolence October 21, 2024 10:51 am Hyperlipemia October 21, 2024 10:51 am Hypertension October 21, 2024 10:51 am Lumbar radiculopathy October 21, 2024 10:5 1am Chief Complaint Admit Date October 21, 2024 10:51 am SCREENING October 31, 2024 8:50 am G47.10 - Hypersomnia, unspecified October 142024 11:06am Chief Complaint Admit Date annual October 21, 2024 10:51 am SCREENING October 31, 2024 8:50 am G47.10 - Hypersomnia, unspecified October 142024 11:06am Sleep apnea November 21, 2024 7:48 pm Chief Complaint Admit Date October 21, 2024 10:51 am SCREENING October 31, 2024 8:50 am G47.10 - Hypersomnia, unspecified October 142024 11:06am Sleep apnea November 21, 2024 7:48 pm INT LABS February 11, 2025 10:08am Cpap readings February 12, 2025 11 :15am Reason for Visit Admit Date Health care maintenance October 21, 2024 1 0:51am Hypersomnolence October 21, 2024 10:51 am Hyperlipemia October 21, 2024 10:51 am Hypertension October 21, 2024 10:51 am Lumbar radiculopathy October 21, 2024 10:5 1am Abnormal renal function February 12 11:15am Flu vaccine need February 12, 2025 11 :15am Sleep apnea February 12, 2025 11 :15am Hyperlipemia February 12, 2025 11 :15am Hypertension February 12, 2025 11 :15am Lumbar radiculopathy February 12, 2025 1 1:15am Osteoarthritis February 12, 2025 11 :15am Medications Administered Section Inactive Administered Medications - [...] DATE CREATED AUTHOR AUTHOR'S ORGANIZ ATION 08/03/2024 [facility] DATE CREATED AUTHOR AUTHOR'S ORGANIZ ATION 02/24/2025 [facility] Goals (unrecognized section and content) Goals may [...] any alcohol or drug abuse patient.[facility] Center[facility] the event this information is protected by the Federal Confidentiality of Alcohol and Drug Abuse Patient Records regulations: The Federal rules restrict any use of the information to criminally investigate or prosecute any alcohol or drug abuse patient.[facility] Center[facility] the event this information is protected by the Federal Confidentiality of Alcohol and Drug Abuse Patient Records regulations: The Federal rules restrict any use of the information to criminally investigate or prosecute any alcohol or drug abuse patient.[facility] Center[facility] the event this information is protected by the Federal Confidentiality of Alcohol and Drug Abuse Patient Records regulations: The Federal rules restrict any use of the information to criminally investigate or prosecute any alcohol or drug abuse patient.[facility] CenterIn the event this information is protected by the Federal Confidentiality of Alcohol and Drug Abuse Patient Records regulations: The Federal rules restrict any use of the information to criminally investigate or prosecute any alcohol or drug abuse patient.[facility] CenterIn the event this information is protected by the Federal Confidentiality of Alcohol and Drug Abuse Patient Records regulations: The Federal rules restrict any use of the information to criminally investigate or prosecute any alcohol or drug abuse patient.[facility] CenterIn the event this information is protected by the Federal Confidentiality of Alcohol and Drug Abuse Patient Records regulations: The Federal rules restrict any use of the information to criminally investigate or prosecute any alcohol or drug abuse patient.[facility] CenterIn the event this information is protected by the [facility] Confidentiality of Alcohol and Drug Abuse Patient Records regulations: The Federal rules restrict any use of the information to criminally investigate or prosecute any alcohol or drug abuse patient.[facility] CenterIn the event this information is protected by the Federal Confidentiality of Alcohol and Drug Abuse Patient Records regulations: The Federal rules restrict any use of the information to criminally investigate or prosecute any alcohol or drug abuse patient.[facility] Reason for Visit (unrecogniz ed section and content) Reason Comments Consult hemorrhoids Specialty Diagnoses / Procedures Referred By Contac t Referred To Contact [facility] Diagnoses Special screening for malignant neoplasms, colon Procedures COLONOSCOPY FLX DX W/COLLJ SPEC WHEN PFRMD HEMORRHOIDECTOMY INTERNAL RUBBER BAND LIGATIONS COLONOSCOPY BANDING HEMORRHOID [facility] [address] [place] [address] Referral ID Status Reason Start Date Expiration Date Visits Re quested Visits Authorized [id number] 1 1 Reason Comments Medication Problem Reason Comments Manometry Reason Comments Radio GI Main HB6 Specialty Diagnoses / Procedures Referred By Contac t Referred To Contact XR IMAGING Diagnoses Rectocele Procedures XR DEFECOGRAPHY RADIOLOGIC EXAM COLON SINGLE CONTRAST STUDY Farideh Silverman, LAKSHMI.BAG PRESS OPERATOR [address] [place] [address] [place] [address] Referral ID Status Reason Start Date Expiration Date V isits Requested Visits Authorized [id number] Closed Auto-Generate d Referral 07/26/2023 08/24/2024 1 [...] Drew West RN)0916 (Given - Provider: Drew West, RN) midazolam 1-5 mg injection (VERSED) () [...] 0815 (New Bag/Syring e/Bottle - Provider: Vivian Greenberg, RN)0935 (Med Check - Provider: Vivian Greenberg, RN)1007 (Stopped - Provider: Vivian Greenberg, RN) Care Teams (unrecognized sec tion and content) Team Status: Active Member Role Status Dates Dr. Ventura Noble MD Family Provider Active Dr. Ventura Noble MD Primary Care Provider Active Team Status: Inactive Member Role Status Dates Dr. Ventura Noble MD Primary Care Provider, [facility] ding Provider Active Team Status: Inactive Member Role Status Dates Dr. Ventura Noble MD Primary Care P nanette, Attending Provider, Referring Provider Active Team Status: Active Member Role Status Dates Dr. Ventura Noble MD Primary Care Provider Active Team Status: Inactive Member Role Status Dates Dr. Ventura Noble MD Primary Care Provider Active Start: October 21, 2024 End: October 21, 2024 Dr. Ventura Nbole MD Attending Provider Active Start: October 21, [...] Referring Provider Active Start: October 21, 2024 Team Status: Active Member Role/Relationship Status Dates Dr. Ventura Noble MD Primary Care Provider Active Team Status: Inactive Member Role/Relationship Status Dates Dr. Ventura Noble MD Primary Care Provider Active Start: October 21, 2024 End: October 21, 2024 Dr. Ventura Noble MD Attending Provider Active Start: October 21, 2024 End: October 21, 2024 Dr. Ventura Noble MD Referring Provider Active Start: October 21, 2024 End: October 21, 2024 Team Status: Inactive Member Role/Relationship Status Dates Dr. Ventura Noble MD Primary Care Provider Active Start: October 21, 2024 End: October 21, 2024 Dr. Ventura Noble MD Attending Provider Active Start: October 21, 2024 End: October 21, 2024 Dr. Ventura Noble MD Referring Provider Active Start: October 21, 2024 End: October 21, 2024 Team Status: Active Member Role/Relationship Status Dates Dr. Ventura Noble MD Primary Care Provider Active Start: October 31, 2024 Self Referred Attending Provider Active Start: Charlene [facility] 2024 Self Referred Referring Provider Active Start: Charlene colunga 2024 Team Status: Inactive Member Role/Relationship Status Dates Dr. Ventura Noble MD Primary Care Provider Active Start: November 06, 2024 End: November 06, 2024 Dr. Ventura Noble MD Attending Provider Active Start: November 06, 2024 End: November 06, 2024 Dr. Ventura Noble MD Referring Provider Active Start: November 06, 2024 End: November 06, 2024 Team Status: Inactive Member Role/Relationship Status Dates Dr. Ventura Noble MD Primary Care Provider Active Start: November 21, 2024 End: November 21, 2024 Dr. Ventura Noble MD Attending Provider Active Start: November 21, 2024 End: November 21, 2024 Dr. Ventura Noble MD Referring Provider Active Start: November 21, 2024 End: November 21, 2024 Team Status: Active Member Role/Relationship Status Dates Dr. Ventura Noble MD Primary care physician Activ e Team Status: Inactive Member Role/Relationship Status Dates Dr. Ventura Noble MD Primary care physician Activ e Start: October 21, 2024 End: October 21, 2024 Dr. Ventura Noble MD Attending physician Active Start: October 21, 2024 End: October 21, 2024 Dr. Ventura Noble MD Referring Provider Active Start: October 21, 2024 End: October 21, 2024 Team Status: Inactive Member Role/Relationship Status Dates Dr. Ventura Noble MD Primary care physician Activ e Start: October 21, 2024 End: October 21, 2024 Dr. Ventura Noble MD Attending physician Active Start: October 21, 2024 End: October 21, 2024 Dr. Ventura Noble MD Referring Provider Active Start: October 21, 2024 End: October 21, 2024 Team Status: Active Member Role/Relationship Status Dates Dr. Ventura Noble MD Primary care physician Activ e Start: October 31, 2024 Self Referred Attending physician Active Start: October 31, 2024 Self Referred Referring Provider Active Start: [facility] 2024 Team Status: Inactive Member Role/Relationship Status Dates Dr. Ventura Noble MD Primary care physician Activ e Start: November 06, 2024 End: November 06, 2024 Dr. Ventura Noble MD Attending physician Active Start: November 06, 2024 End: November 06, 2024 Dr. Ventura Noble MD Referring Provider Active Start: November 06, 2024 End: November 06, 2024 Team Status: Inactive Member Role/Relationship Status Dates Dr. Ventura Noble MD Primary care physician Activ e Start: November 12, 2024 Dr. Suyapa Carver MD Attending physician Active Start: November 12, 2024 Team Status: Inactive Member Role/Relationship Status Dates Dr. Ventura Noble MD Primary care physician Activ e Start: November 21, 2024 End: November 21, 2024 Dr. Ventura Noble MD Attending physician Active Start: November 21, 2024 End: November 21, 2024 Dr. Ventura Noble MD Referring Provider Active Start: November 21, 2024 End: November 21, 2024 Team Status: Active Member Role/Relationship Status Dates Dr. Ventura Noble MD Primary care physician Activ e Start: February 11, 2025 Dr. Ventura Noble MD Attending physician Active Start: February 11, 2025 Dr. Ventura Noble MD Referring Provider Active Start: February 11, 2025 Team Status: Inactive Member Role/Relationship Status Dates Dr. Ventura Noble MD Primary care physician Activ e Start: February 12, 2025 End: February 12, 2025 Dr. Ventura Noble MD Attending physician Active Start: February 12, 2025 End: February 12, 2025 Dr. Ventura Noble MD Referring Provider Active Start: February 12, 2025 End: February 12, 2025 Team Status: Inactive Member Role/Relationship Status Dates Dr. Ventura Noble MD Primary care physician Activ e Start: February 11, 2025 End: February 11, 2025 Dr. Ventura Noble MD Attending physician Active Start: February 11, 2025 End: February 11, 2025 Dr. Ventura Noble MD Referring Provider Active Start: February 11, 2025 End: February 11, 2025 FOR RECORDS PERTAINING TO PATIENTS WHO ARE [...] BE BASED ON THE PRIMARY CLINICAL RECORDS. [facility]. provides no warranty or guarantee of the accuracy or completeness of information in this document.
== END | disposition home or self-care (01) ==
LOC: OPMRI 15:23
PROVIDERS: PCP Internal Medicine; Referring Provider Anesthesiology Pain Medicine; Visit Provider Anesthesiology Pain Medicine
DX: M51.372 Other intervertebral disc degeneration, lumbosacral region with discogenic back pain and lower extremity pain (principal)
CPT/HCPCS: 72148